=== PATIENT | male | born 1935 | race Caucasian/White ===

== ENCOUNTER → 2017-08-31 08:14 | Outpatient (CLI) | payer MEDICARE, SELFPAY ==
--- NOTE | 2017-08-31 08:14 | DT_ITS ---
This patient was seen during an EMR downtime August 24, 2017 - August 31, 2017. This patient may have a combination of paper and electronic documentation or all paper documentation. All documentation is viewable within the e-chart portion of [facility] for each patient visit.
[2017-08-31 10:52] LABS: AST(SGOT) 33 U/L (15-37); Alanine Aminotransfer ALT/SGPT 27 U/L (16-61); Albumin, Serum 3.1 g/dL (3.2-5.0); Alkaline Phosphatase 162 U/L (45-117); Bilirubin, Direct 0.26 mg/dL (0.00-0.30); Cholesterol 88 mg/dL (200); Globulin 3.5 g/dL (2.2-4.2); High Density Lipoprotein 25 mg/dL; Protein, Total 6.6 g/dL (6.4-8.2); Triglycerides 113 mg/dL; Very Low Density Lipoprotein 23 mg/dL (5-40)
== END ==
PROVIDERS: Family Provider Family Medicine; PCP Family Medicine; Visit Provider Internal Medicine Cardiovascular Disease
DX: E78.5 Hyperlipidemia, unspecified (principal); Z79.899 Other long term (current) drug therapy
CPT/HCPCS: 36415; 80061; 80076

== ENCOUNTER → 2018-01-27 12:16 | Outpatient (CLI) | payer MEDICARE, SELFPAY ==
--- NOTE | 2018-01-27 12:18 | ECHOD_ITS ---
Reason For Study: dyspnea/SOB Procedure This was a 2D Doppler, Color Flow transthoracic echocardiogram. The study was technically difficult. Exam performed in department. Left Ventricle Normal LV size. Left ventricular systolic function is normal. The estimated ejection fraction is 65 %. Stage 1 diastolic dysfunction. No regional wall motion abnormalities noted. Right Ventricle Normal RV size. Normal systolic function. Atria Normal left atrium. Normal right atrium. Mitral Valve Normal mitral valve. Tricuspid Valve Normal tricuspid valve. Mild (1+) tricuspid valve insufficiency. Pulmonary artery systolic pressure is 32 mmHg. Aortic Valve Normal aortic valve. Trisinus/trileaflet aortic valve. Pulmonic Valve Normal pulmonic valve. Great Vessels Normal aortic root. The pulmonary artery is normal size. Normal inferior vena cava. Pericardium/Pleural No pericardial effusion. MMode/2D Measurements & Calculations LVIDd: 5.0 cm IVSd: 0.98 cm Ao root diam: 3.1 cm LVIDs: 2.8 cm LVPWd: 0.93 cm RVDd: 2.6 cm FS: 44.2 % LAV(MOD-bp): 57.0 ml EDV(MOD-sp4): 54.2 ml EDV(MOD-sp2): 47.0 ml LAV(MOD-bp) Indexed: 29.3 ml/m2 ESV(MOD-sp4): 22.4 ml EF(MOD-sp2): 54.0 % LAV(MOD-sp2): 61.3 ml EF(MOD-sp4): 58.7 % LAV(MOD-sp4): 53.2 ml SV(MOD-sp4): 31.8 ml SV(MOD-sp2): 25.4 ml LA A4 area: 17.9 cm2 LA dimension(2D): 3.9 cm RA A4 area: 14.2 cm2 Time Measurements MV dec time: 0.19 sec Doppler Measurements & Calculations MV E max duke: 78.0 cm/sec Lat Peak E' Duke: 7.2 cm/sec Med Peak E' Duke: 6.8 cm/sec MV A max duke: 107.5 cm/sec E/E' lat: 10.8 E/E' med: 11.5 MV E/A: 0.73 Ao V2 max: 128.0 cm/sec LV V1 max: 94.8 cm/sec PA V2 max: 141.1 cm/sec Ao max P.6 mmHg LV V1 max P.6 mmHg TR max duke: 266.4 cm/sec TR max P.4 mmHg Interpretation Summary Mild (1+) tricuspid valve insufficiency. Normal LV size. Left ventricular systolic function is normal. The estimated ejection fraction is 65 %. Stage 1 diastolic dysfunction. Ordering Physician: Carlos Coreas Referring Physician: Ana María Mazariegos Performed By: China Wooten, SUGAR, RVT
== END ==
PROVIDERS: Referring Provider Internal Medicine Cardiovascular Disease; Visit Provider Internal Medicine Cardiovascular Disease
DX: Z79.899 Other long term (current) drug therapy (principal)
CPT/HCPCS: 93306

== ENCOUNTER → 2018-03-11 09:35 | Outpatient (CLI) | payer MEDICARE, SELFPAY ==
[2018-01-21 10:09] VITALS: BMI 30.3
--- NOTE | 2018-03-11 09:42 | BD_ITS ---
STUDY: DUAL ENERGY X-RAY ABSORPTIOMETRY / DXA REASON FOR EXAM: Male, 83 years old. Elevated alkaline phosphatase. Loss of height. TECHNIQUE: Bone Mineral Density (BMD) measurements of lumbar spine and bilateral hips were obtained. COMPARISON: None. FINDINGS: Lumbar Spine (L1-L4): g/cm2 (1.150) / T-score (-0.4) / Z-score (0.4) Findings are suggestive of normal bone density with a low fracture risk. Left Femur Total: g/cm2 (0.805) / T-score (-2.1) / Z-score (-0.7) Left Femoral Neck: g/cm2 (0.734) / T-score (-2.6) / Z-score (-0.9) Right Femur Total: g/cm2 (0.737) / T-score (-2.5) / Z-score (-1.2) Right Femoral Neck: g/cm2 (0.779) / T-score (-2.2) / Z-score (-0.6) BD/Dexa Bone Density Study IMPRESSION: The patient is considered osteoporotic as outlined below according to World Sean Organization (WHO) criteria with a high fracture risk Reference Information: The T-score is the number of standard deviations above or below the standard which is normal for young adults at their peak bone mineral density. The World Health Organization (WHO) interprets the T-scores as follows: Above -1 Normal bone density Between -1 and -2.5 Osteopenia Equal to / or below -2.5 Osteoporosis As a practical clinical guideline, osteopenia may be graded as follows: Mild -1 through -1.5 Moderate -1.6 through -2.0 Severe -2.1 through -2.4 The Z-score is the number of standard deviations above or below age-matched controls. A Z-score of less than -1.5 would be considered abnormal. References: 1. NIH Osteoporosis and Related Bone Diseases http://www.osteo.org 2. International Society for Clinical Densitometry http://www.iscd.org 3. National Osteoporosis Foundation http://www.nof.org Electronically Signed: Paulino Stout MD at 9:59 EST Tel [phone], Service support ,
== END ==
PROVIDERS: Referring Provider Internal Medicine Endocrinology, Diabetes & Metabolism; Visit Provider Internal Medicine Endocrinology, Diabetes & Metabolism
DX: Z79.52 Long term (current) use of systemic steroids (principal)
CPT/HCPCS: 77080

== ENCOUNTER → 2018-03-19 09:10 | Outpatient (CLI) | payer MEDICARE, SELFPAY ==
--- NOTE | 2018-03-19 09:13 | NM_ITS ---
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 WHOLE BODY 99m Tc MDP RADIONUCLIDE BONE SCINTIGRAPHY COMPARISON: None available FINDINGS: Following the intravenous administration of 26.1 mCi of 99m Tc MDP, whole body bone images reveal: 1. Increased radiopharmaceutical concentration is identified in the sternoclavicular and glenohumeral compartment of the right shoulder, the bilateral wrist articulations, mid cervical spine posteriorly on the left, fourth lumbar vertebra posteriorly on the left, fifth lumbar vertebra posteriorly on the right, the anteromedial femoral compartment of the left knee. 2. Enhanced uptake is demonstrated in the right anterior sixth rib. 3. The remaining skeletal structures are scintigraphically unremarkable with normal-appearing renal images and urinary bladder activity identified. Asymmetric increased uptake is defined in the right maxilla most consistent with periodontal disease and/or periostitis. NM/Bone Scan Whole Body IMPRESSION: 1. The increase in radiopharmaceutical concentration defined in the right anterior sixth rib is most consistent with trauma-fracture. 2. Degenerative arthritis appears expressed in the right shoulder, wrist articulations bilaterally, cervical and lumbar spine, the left knee. 3. There is no definitive typical scintigraphic evidence of Paget's disease of bone on the current examination. Electronically Signed: Fab Oliveros DO at 8:23 EST Tel , Service support ,
== END ==
PROVIDERS: Referring Provider Internal Medicine Endocrinology, Diabetes & Metabolism; Visit Provider Internal Medicine Endocrinology, Diabetes & Metabolism
DX: M88.9 Osteitis deformans of unspecified bone (principal)
CPT/HCPCS: 78306

== ENCOUNTER 2018-03-20 14:19 | Inpatient (IN) | payer MEDICARE, SELFPAY ==
[2018-03-20] VITALS (15 sets, daily range): BP systolic 160–205; BP diastolic 70–98; PULSE 72–87; RESP 15–25; TEMP 36.5–36.7; O2SAT 95–98; BMI 31.9; BMI 30.8; BMI 30.9
--- NOTE | 2018-03-20 14:27 | EKG12_ITS ---
Test Reason : NEURO SX Blood Pressure : / mmHG Vent. Rate : 083 BPM Atrial Rate : 083 BPM P-R Int : 202 ms QRS Dur : 124 ms QT Int : 414 ms P-R-T Axes : 037 -47 011 degrees QTc Int : 486 ms Normal sinus rhythm with sinus arrhythmia Right bundle branch block Left anterior fascicular block Bifascicular block Abnormal ECG Confirmed by JEANMARIE SILVA, SHANDA ([id number]), editor & co founder LEOLA BURTON ([id number]) on 03/22/2018 12:42:13 PM Referred By: Nellie Jimenez Confirmed By:SHANDA MURRY MD
--- NOTE | 2018-03-20 14:27 | RAD_ITS ---
STUDY: X-RAY CHEST REASON FOR EXAM: Male, 83 years old. Cough TECHNIQUE: Single AP portable view of the chest. COMPARISON: None. FINDINGS: EKG leads overlie the chest The lungs are clear and expanded. There is no demonstrated pleural abnormality. Normal size heart. Normal mediastinum and mignon. Normal visualized pulmonary arteries. Normal visualized aortic arch and descending thoracic aorta. There are diffuse degenerative changes of the visualized thoracic spine. Normal visualized ribs, clavicles, and shoulders. There is no demonstrated abnormality of the visualized soft tissue structures of the upper abdomen. RAD/Chest 1 View IMPRESSION: No acute pulmonary process Electronically Signed: Champ Guerrier MD at 15:21 EST , Service support ,
--- NOTE | 2018-03-20 14:27 | CT_ITS ---
STUDY: CT BRAIN WITHOUT CONTRAST REASON FOR EXAM: Male, 83 years old. Left facial droop RADIATION DOSAGE (If Supplied By Facility): CTDIvol = ( 44.99 ) mGy, DLP = ( 779.24 ) mGycm TECHNIQUE: Transaxial CT imaging of the brain was performed without administration of intravenous contrast material. Individualized dose optimization techniques were used for this CT. COMPARISON: None. FINDINGS: Normal soft tissue structures. Normal calvarium. 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 There are areas of decreased attenuation within the white matter tracts of the supratentorial brain, consistent with microvascular disease changes. Normal basal ganglia and thalami. Normal brainstem. There is mild cerebellar atrophy. There is no intracranial hemorrhage. There are no findings of an acute ischemic infarction. Normal visualized paranasal sinuses. CT/Brain/Head without Contrast IMPRESSION: Chronic involutional changes of the brain. No acute hemorrhage Electronically Signed: Champ Guerrier MD at 15:17 EST , Service support ,
[2018-03-20 14:46] LABS: Bedside Glucose 218 mg/dL (70-110)
--- NOTE | 2018-03-20 14:46 | ED.VISSUMM ---
- ER Visit Summary Date of Service: 03/20/18 Chief Complaint: Facial droop, slurred speech History of Present Illness: The patient is a 83 M presents to the emergency department with facial droop and slurred speech. The patient was in his normal state of health. The daughter talked to him yesterday and he seemed to be doing fine. He went to a late breakfast with friends. When he was driving home, he states that he was just not feeling well. She states that she went to the house to check on him. He had a left-sided facial droop and was dysarthric. He has no prior history of stroke. In route to the emergency department, his symptoms began to improve. They did start at approximately noon today. He denies any trauma. She states that he was unsteady on his feet with walking. He is not had fevers or chills. The patient does have history of hypomagnesemia and hypocalcemia that he is currently being worked up for. He has had no history of prior stroke. Physical Examination: Vital signs reviewed General: Well-nourished, well-developed Head: Normocephalic, atraumatic Eyes: Pupils equal and reactive, extraocular muscles intact Neck, supple, no lymphadenopathy Heart: Regular rate and rhythm Respiratory: No distress, clear bilaterally Abdomen: Soft, nontender, nondistended, no peritoneal signs Back: Nontender Extremities: Nontender, no edema, no cords Skin: Normal color no rash Neuro: Alert and oriented, mild left-sided facial droop and mild dysarthria. NIH is 2. Test Results: [] Emergency Department Course and Treatment: The patient's NIH was only 2 and his symptoms are rather to be improving. Stroke team was not activated given this. The patient underwent head CT which was unremarkable. Screening labs do show hypomagnesemia, but were otherwise unremarkable. The patient had continued progression and improvement of his symptoms. At this time, given his age and multiple risk factors I do feel that he is going require stroke workup. I started him on IV magnesium replacement. The patient was discussed with the hospitalist will be admitted Treatment Plan: [] Disposition: Admission Impression: 1. Left facial droop 2. Hypomagnesemia This note was generated with [employer] dictation software. It may contain incorrect words, spelling, and punctuation that were not noted in review of the chart prior to signing ED Disposition - Plan for ED Patient: Chief Complaint: Neuro S/Sx Referrals: Ana María Mazariegos DO [Primary Care Provider] -
[2018-03-20 15:00] LABS: Absolute Lymphocyte Count 0.49 X10^3/ul (0.83-4.51); Absolute Neutrophil Count 3.4 X10^3/uL (2.0-7.7); Basophil# 0.02 X10^3/uL; Basophil% 0.4 % (0-1); Eosinophil# 0.18 X10^3/uL; Hematocrit 29.2 % (40-54); Lymphocyte # 0.49 X10^3/ul (4.0); Mean Corp Hgb Conc 34.2 g/gl (32-36); Mean Corpuscular Hgb 35.7 pg (27.0-32.0); Mean Corpuscular Volume 104.3 fL (80-94); Mean Platelet Vol. 9.1 fl (6.2-12.0); Monocyte# 0.35 X10^3/uL; Monocyte% 7.9 % (0-10); Neutrophil % 76.5 % (47-70); Platelet Count 90 K/mm3 (150-450); RBC Distribution Width CV 13.9 % (11.6-14.6); White Blood Count 4.5 K/mm3 (4.4-11.0)
[2018-03-20 15:03] LABS: Differential Indicated SCAN CRITERIA MET; POSITIVE COUNT NO; POSITIVE DIFFERENTIAL YES; POSITIVE MORPHOLOGY NO
[2018-03-20 15:10] LABS: International Normalized Ratio 1.1; Prothrombin Time (Protime)PT. 14.4 SECONDS (11.7-14.9)
[2018-03-20 15:11] LABS: Partial Thromboplast Time 30.8 Seconds (24.1-36.2)
[2018-03-20 15:29] LABS: Anion Gap 12 (5-15); BUN 27 mg/dL (7-18); BUN/Creat Ratio 15.3 RATIO (10-20); Calcium,Total 7.8 mg/dL (8.5-10.1); Chloride 99 mmol/L (98-107); Creatinine, Serum 1.76 mg/dL (0.70-1.30); EST Glomerular Filtration Rate 39 mL/min (>60); Est Glom Filt Rate - Afr Amer 48 mL/min (>60); Estimated Creatinine Clearance 28.19 ml/min; Glucose 222 mg/dL (74-106); Magnesium 0.7 mg/dL (1.6-2.6); Potassium 3.9 mmol/L (3.5-5.1); Sodium Level 138 mmol/L (136-145)
[2018-03-20 15:40] LABS: Differential Comment SCANNED
--- NOTE | 2018-03-20 16:18 | HP.PCM_ITS ---
Problem List (1) Chronic kidney disease (CKD) Status: Chronic (2) Hypomagnesemia Status: Chronic (3) History of subarachnoid hemorrhage Status: Chronic (4) Sleep apnea Status: Chronic (5) Diabetes mellitus type II, controlled Status: Chronic Qualifiers: (6) Hyperlipidemia Status: Chronic Qualifiers: (7) Hypertension Status: Chronic Qualifiers: (8) History of right coronary artery stent placement Status: Chronic Comment: 03/04/05 PTCA/Stent (ANN MARIE) to Distal RCA; (9) Atherosclerotic heart disease of [place] coronary artery without angina pectoris Status: Chronic Qualifiers: Comment: S/P ANN MARIE to distal RCA 03-04-2005; History of Present Illness Date of Admission: 03/20/18 Chief Complaint: Facial droop, slurred speech. The patient is a 83 year old M with past medical history as mentioned above presented to the emergency room because of facial droop and slurred speech. The patient is poor informant although he was alert and oriented x3. His daughter who is a nurse was at the bedside and she provided most of the information. According to the patient's daughter, patient went to breakfast with his friends this morning and when he was driving back home, he mentioned to her daughter that he is not feeling with. She drove to his house to check on him and she mentioned that he had left facial droop and his speech was slurred. This lasted for couple of months and started to improve upon arrival to ER.. He was unsteady upon walking. At this time, patient denied blurred vision or slurred speech. He denies focal arm or leg weakness. He reported chronic mild headache. Denies chest pain or shortness of breath. He history of CAD status post stents that was placed back in 2004 and he has been on Plavix, metoprolol and lisinopril. He had a history of recurrent hypocalcemia and hypomagnesemia, has been on calcium and magnesium supplement at home. 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 He had a history of hypertension and he has been on beta-blockers and HILLARY inhibitors and according to his daughter, his brother has been on the higher side the last few days. He had a history of type 2 diabetes mellitus and has been on oral hypoglycemic and his blood sugar is not under good control. In the emergency department, his blood pressure was elevated, other vital signs were stable. Routine blood work was remarkable for hemoglobin of 10 g/dL, platelet count of 90,000, BUN of 27 and creatinine of 1.76. His magnesium was 0.7 and calcium was 7.8 mg/dL. His troponin was negative. EKG revealed normal sinus rhythm, right bundle branch block without evidence of acute ischemic changes. CT scan brain without contrast revealed no acute infarction or hemorrhage. Chest x-ray showed no acute findings. He is being admitted for TIA for workup, severe hypermagnesemia and hypocalcemia for treatment as well as chronic kidney disease without known baseline kidney function. Past Medical History Past Medical History (Chronic Problems): Chronic Problems (Last Updated 03/20/18 @ 15:46 by Nory Polo MD) Chronic kidney disease (CKD) (Chronic) Hypomagnesemia (Chronic) History of subarachnoid hemorrhage (Chronic) Hypochromic anemia (Chronic) Sleep apnea (Chronic) Diabetes mellitus type II, controlled (Chronic) Hyperlipidemia (Chronic) Hypertension (Chronic) History of right coronary artery stent placement (Chronic) 03/04/05 PTCA/Stent (ANN MARIE) to Distal RCA; Atherosclerotic heart disease of [place] coronary artery without angina pectoris (Chronic) S/P ANN MARIE to distal RCA 03-04-2005; Medical History: Medical History (Last Updated 03/20/18 @ 15:46 by Nory Polo MD) History of subarachnoid hemorrhage (Chronic) Z86.79 Hypochromic anemia (Chronic) D50.9 Sleep apnea (Chronic) G47.30 Diabetes mellitus type II, controlled (Chronic) E11.9 Hyperlipidemia (Chronic) E78.5 Hypertension (Chronic) I10 Atherosclerotic heart disease of [place] coronary artery without angina pectoris (Chronic) I25.10 S/P ANN MARIE to distal RCA 03-04-2005; Shortness of breath R06.02 Allergies amoxicillin Allergy (Severe, Verified 03/20/18 14:26) unknown Tetanus Vaccines and Toxoid Allergy (Severe, Verified 03/20/18 14:26) unknown Home Medications: Ambulatory Orders Medication Instructions Recorded clopidogrel 75 mg tablet 75 mg PO QDAY 03/09/17 esomeprazole magnesium 20 mg 20 mg PO QDAY cap 03/09/17 capsule,delayed release ferrous sulfate 325 mg (65 mg 324 mg PO QDAY tab 03/09/17 iron) tablet,delayed release gabapentin 100 mg capsule 100 mg PO QHS 03/09/17 lisinopril 5 mg tablet 5 mg PO QDAY 03/09/17 metoprolol tartrate 25 mg tablet 25 mg PO BID 03/09/17 multivitamin tablet 1 tab PO QDAY 03/09/17 nabumetone 500 mg tablet 500 mg PO BID 03/09/17 pravastatin 80 mg tablet 80 mg PO QHS 03/09/17 calcium carbonate-vitamin D3 600 1 tab PO BID 09/08/17 mg (1,500 mg)-800 unit tablet pioglitazone 30 mg tablet 30 mg PO QDAY tab 09/08/17 calcitriol 0.25 mcg capsule 0.25 mcg PO ONCE 01/21/18 calcitriol 0.25 mcg capsule 0.25 mcg PO ONCE 01/21/18 magnesium oxide 400 mg capsule 400 mg PO BID #180 cap 01/21/18 Surgical History: Surgical History (Last Reviewed 01/21/18 @ 10:27 by Carlos Coreas MD) History of right coronary artery stent placement (Chronic) Z95.5 03/04/05 PTCA/Stent (ANN MARIE) to Distal RCA; Surgical History: - - Cardiac stents. Psychiatric History: No pertinent psych hx Lives: Alone Smoking Status: Former smoker Alcohol: None Drugs: None - *Family History Maternal Family History: Family History (Last Reviewed 01/21/18 @ 10:27 by Carlos Coreas MD) Father Hypertension Mother Heart disease Congestive heart failure Diabetes Sister ruptured brain aneurysm Paternal Family History: Family History (Last Reviewed 01/21/18 @ 10:27 by Carlos Coreas MD) Father Hypertension Mother Heart disease Congestive heart failure Diabetes Sister ruptured brain aneurysm Review of Systems Constitutional: Denies: Anorexia, Chills, Fever, Weakness Eyes: Denies: Blurred vision, Double vision, Drainage, Redness HEENT: Reports: Head Aches. Denies: Difficulty Hearing, Ear Pain, Eye Pain, Nasal Congestion, Sore Throat Cardiovascular: Denies: Chest Pain, Chest Pressure, Chest Tightness, Heaviness, Light Headedness, Palpitations, Syncope Respiratory: Denies: Cough, Hemoptysis, Shortness of Breath, Sputum production, Wheezing Gastrointestinal: Denies: Abdominal Pain, Constipation, Diarrhea, Nausea, Vomiting Genitourinary: Denies: Dysuria, Frequency, Hematuria Musculoskeletal: Denies: Arm Pain, Back Pain, Foot Pain Skin: Denies: Dryness, Rash Neurological: Reports: Change in Speech, Headaches. Denies: Balance problems, Blurred vision, Double vision, Slurred speech, Confusion, Focal weakness, Incoordination, Numbness, Tingling Psychiatric: Denies: Anxiety, Depression Endocrine: Denies: Change in Body Habitus, Polydipsia VTE Information - Inpt Only VTE Present on Admission: No VTE Mechan Device Prophylaxis: None VTE Pharm Prophylaxis ordered?: Yes - Physical Exam General: Alert, Oriented x3, Cooperative, No apparent distress HEENT: Atraumatic, PERRLA, EOMI, Normocephalic Oral: Moist Mucosa, No Gingival or Mucosal Lesions/ Ulcerations Neck: Supple, No JVD, Negative Carotid Bruits, Trachea Midline, Thyroid Normal Size and Texture Lungs: Clear to auscultation, No rhonchi, No wheeze, No rales, Diminished Cardiovascular: Regular rate, Regular Rhythm, Normal S1, Normal S2, No murmurs, PMI Normal Abdomen: Bowel Sounds Present, Soft, Non Tender, Non-Distended, No Hepato- splenomegaly Extremities: No clubbing, No cyanosis, No edema Skin: No rashes, No breakdown Lymphatic: No Cervical, Supraclavicular, or Inguinal Adenopathy Neurological: Cranial nerves II-XII grossly intact, Motor Exam 5/5 strength throughout Psych/Mental Status: Flat Affect, Alert and oriented to time, place, person, mood and affect Vital Signs Temp Pulse Resp BP Pulse Ox 97.7 F L 78 22 H 186/83 H 96 03/20/18 14:21 03/20/18 14:57 03/20/18 14:57 03/20/18 14:57 03/20/18 14:57 Oxygen Delivery Method Room Air Weight: 198 lb 3.129 oz Body Mass Index (BMI) 31.9 Finger Stick Blood Glucose 218 Laboratory Tests Past 24 Hrs 03/20/18 03/20/18 03/20/18 14:40 14:40 14:40 WBC 4.5 RBC 2.80 L Hgb 10.0 L Hct 29.2 L MCV 104.3 H MCH 35.7 H MCHC 34.2 RDW 13.9 RDW Differential 53.0 H Plt Count 90 L MPV 9.1 Immature Gran % (Auto) 0.200 Neut % (Auto) 76.5 H Lymph % (Auto) 11.0 L [place] % (Auto) 7.9 Eos % (Auto) 4.0 Baso % (Auto) 0.4 Absolute Neuts (auto) 3.4 Absolute Lymphs (auto) 0.49 L Total Counted Not Reportable Differential Comment SCANNED PT 14.4 INR 1.1 APTT 30.8 Sodium 138 Potassium 3.9 Chloride 99 Carbon Dioxide 27.0 Anion Gap 12 BUN 27 H Creatinine 1.76 H Estim Creat Clear Calc 28.19 Est GFR (MDRD) Af Amer 48 L Est GFR (MDRD) Non-Af 39 L BUN/Creatinine Ratio 15.3 Glucose 222 H Calcium 7.8 L Magnesium 0.7 L* Troponin I < 0.015 POC Glucose 03/20/18 14:39 POC Glucose 218 H Clinical Impression(s) from Imaging Studies Brain CT 03/20/18 14:27 IMPRESSION: Chronic involutional changes of the brain. No acute hemorrhage Electronically Signed: Champ Guerrier MD at 15:17 EST , Service support , Chest X-Ray 03/20/18 14:27 IMPRESSION: No acute pulmonary process Electronically Signed: Champ Guerrier MD at 15:21 EST , Service support , Assessment/Plan This is an 83 years old male patient presented to the emergency department because of sudden speech and facial droop and he is being admitted for TIA for evaluation, found to have severe hypomagnesemia and mild hypocalcemia. #1 left facial droop/slurred speech/TIA: Symptoms resolved. CT scan brain showed no acute findings. No focal deficit on physical exam. Blood pressure elevated, other vital signs are stable. EKG revealed normal sinus rhythm, RBBB, no acute ischemic changes. Troponin is negative. Plan: Admit to PCU, cardiac monitoring, NIH stroke scale, MRI brain, bilateral carotid Doppler, 2D echocardiogram, start aspirin and Lipitor, fasting lipid profile, neurology consult, PT OT evaluation and treatment, speech therapy evaluation and treatment. #2 severe hypomagnesemia/mild hypocalcemia: Patient has been suffering of recurrent hypocalcemia and hypomagnesemia. He has been on calcium and magnesium supplement at home. He has been going on the workup for hyperglycemia and hypoglycemia, nuclear whole-body bone scan done yesterday and reviewed as above. Plan: Replace magnesium with IV magnesium sulfate, will give 1 dose of IV calcium gluconate, check serum phosphorus, LFT to check for serum albumin for correct sodium level, ionized calcium, repeat serum magnesium, calcium tomorrow morning. 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 With unknown baseline GFR and creatinine. Admission creatinine is 1.76. Plan: Gentle IV fluids for hydration, input output chart, repeat BMP tomorrow morning, obtain records from PCP office. #4 chronic anemia/chronic thrombocytopenia: Without evidence of active bleeding. Hemoglobin is 10 g/dL and platelet count 90,000, both seem to be at baseline. Plan to repeat CBC tomorrow morning, continue iron supplement. #6 CAD status post stents: EKG reviewed, no acute changes, troponin is negative. Patient denies any chest pain. Plan to continue Plavix, start aspirin, statins, continue HILLARY inhibitors and beta-blockers. #5 hypertension: Blood pressure elevated, will allow permissive hypertension. Plan to continue lisinopril and metoprolol. #7 type 2 diabetes mellitus: ADA diet, Accu-Cheks, insulin sliding scale, will check hemoglobin A1c, continue home doses of pioglitazone. #8 history of subarachnoid hemorrhage: Stable, CT scan brain without acute bleeding. #9 hyperlipidemia: Continue statins. #10 DVT prophylaxis: Subcu heparin. This note was generated with [employer] dictation software. It may contain incorrect words, spelling, and punctuation that were not noted in checking the note before signing. Code Visit Inpatient E&M: 21832 Init Hosp L3
--- NOTE | 2018-03-20 17:29 | ECHOCS_ITS ---
Reason For Study: TIA/CVA Procedure This was a 2D Doppler, Color Flow transthoracic echocardiogram. The study was technically difficult. Contrast injection was performed. Exam performed portable in patient room. Left Ventricle Normal LV size. Left ventricular systolic function is normal. The estimated ejection fraction is 75 %. Diastolic function is indeterminate. No regional wall motion abnormalities noted. Right Ventricle Normal RV size. Normal systolic function. Atria Normal left atrium. Normal right atrium. No doppler evidence for ASD. Bubble contrast study negative for right to left interatrial shunt. Mitral Valve There is no mitral annular calcification. Normal mitral valve. Trivial mitral valve insufficiency. Tricuspid Valve Normal tricuspid valve. Trivial tricuspid valve insufficiency. Right ventricular systolic pressure estimated to be 39 mmHg. Aortic Valve Trisinus/trileaflet aortic valve. Mild focal aortic valve calcification. Pulmonic Valve The pulmonic valve is not well visualized. Mild (1+) pulmonic valve insufficiency. Great Vessels Normal sized aortic root. Pericardium/Pleural No pericardial effusion. Medication Diluted definity 1ml given slow IV push to enhance endocardial definition. Performed a rapid injection of agitated mix of 9 cc saline and 1cc air to assess for atrial septal defect. MMode/2D Measurements & Calculations LVIDd: 3.9 cm IVSd: 1.5 cm Ao root diam: 3.3 cm LVIDs: 2.2 cm LVPWd: 1.2 cm LA dimension: 3.6 cm FS: 42.9 % LAV(MOD-bp): 53.4 ml LVAd ap4: 27.9 cm2 SV(MOD-sp4): 54.6 ml LAV(MOD-bp) Indexed: 30.7 ml/m2 EDV(MOD-sp4): 83.8 ml LAV(MOD-sp2): 73.7 ml EDV(sp4-el): 89.1 ml LAV(MOD-sp4): 38.2 ml LVAs ap4: 14.3 cm2 ESV(MOD-sp4): 29.2 ml ESV(sp4-el): 29.6 ml EF(MOD-sp4): 65.2 % EF(sp4-el): 66.8 % SV(sp4-el): 59.5 ml LA A4 area: 15.5 cm2 RA A4 area: 13.6 cm2 Doppler Measurements & Calculations Ao V2 max: 105.3 cm/sec LV V1 max: 87.9 cm/sec PA V2 max: 141.2 cm/sec Ao max P.4 mmHg LV V1 max P.1 mmHg TR max hannah: 299.5 cm/sec TR max P.9 mmHg Interpretation Summary The study was technically difficult. Contrast injection was performed. Left ventricular systolic function is normal. The estimated ejection fraction is 75 %. Trivial mitral valve insufficiency. Trivial tricuspid valve insufficiency. Mild focal aortic valve calcification. Mild (1+) pulmonic valve insufficiency. Right ventricular systolic pressure estimated to be 39 mmHg. Diastolic function is indeterminate. Ordering Physician: Nory Polo Referring Physician: Ana María Mazariegos Performed By: Lee Turner RCS
[2018-03-20 18:21] LABS: AST(SGOT) 40 U/L (15-37); Alanine Aminotransfer ALT/SGPT 39 U/L (16-61); Albumin, Serum 3.2 g/dL (3.2-5.0); Alkaline Phosphatase 205 U/L (45-117); Bilirubin, Direct 0.45 mg/dL (0.00-0.30); Globulin 3.3 g/dL (2.2-4.2); Protein, Total 6.5 g/dL (6.4-8.2)
[2018-03-20 18:36] LABS: Hemoglobin A1c 4.7 % (4.2-6.3)
[2018-03-20] MEDS: 0.9% Normal Saline 1,000 ML 75 ML IV (18:41)
[2018-03-20] MEDS: Magnesium Sulfate 4gm/100mL 4 GM/100 ML IV.SOLN. IV (18:45)
[2018-03-20] MEDS: Acetaminophen 325 MG Tablet 650 MG PO (18:45)
[2018-03-20] MEDS: Atorvastatin Calcium 80 MG Tablet PO (21:21)
[2018-03-20] MEDS: Insulin Lispro 100 UNIT/ML INSULN.PEN SC (21:21)
[2018-03-20] MEDS: Heparin Injection (Vial) 5,000 UNIT/ML VIAL 5000 UNIT SC (21:21)
[2018-03-20 21:31] LABS: Bedside Glucose 188 mg/dL (70-110)
[2018-03-21] VITALS (17 sets, daily range): BP systolic 147–185; BP diastolic 79–96; PULSE 74–95; RESP 16–22; TEMP 36.4–37.3; O2SAT 93–95; BMI 30.8
[2018-03-21] MEDS: Acetaminophen 325 MG Tablet 650 MG PO ×3 (00:01→08:10)
[2018-03-21] MEDS: Albuterol 2.5 MG/3 ML VIAL.NEB. INHALATION ×2 (04:38→12:06)
[2018-03-21] MEDS: 0.9% Normal Saline 1,000 ML 75 ML IV ×2 (06:35→21:30)
[2018-03-21 06:41] LABS: Bedside Glucose 124 mg/dL (70-110)
[2018-03-21 06:45] LABS: Absolute Lymphocyte Count 0.74 X10^3/ul (0.83-4.51); Absolute Neutrophil Count 1.9 X10^3/uL (2.0-7.7); Basophil# 0.03 X10^3/uL; Basophil% 0.9 % (0-1); Eosinophil# 0.11 X10^3/uL; Eosinophils% 3.3 % (0-5); Hematocrit 27.7 % (40-54); Hemoglobin 9.4 g/dl (13.0-16.5); Lymphocyte # 0.74 X10^3/ul (4.0); Mean Corp Hgb Conc 33.9 g/gl (32-36); Mean Corpuscular Hgb 36.2 pg (27.0-32.0); Mean Corpuscular Volume 106.5 fL (80-94); Mean Platelet Vol. 9.8 fl (6.2-12.0); Monocyte# 0.56 X10^3/uL; Monocyte% 16.6 % (0-10); Neutrophil # 1.92 X10^3/uL (2.7-7.7); Neutrophil % 56.9 % (47-70); Platelet Count 97 K/mm3 (150-450); RBC Distribution Width CV 13.6 % (11.6-14.6); RBC Distribution Width SD 51.2 fl (35.1-43.9); White Blood Count 3.4 K/mm3 (4.4-11.0)
[2018-03-21 06:48] LABS: POSITIVE COUNT NO; POSITIVE DIFFERENTIAL NO; POSITIVE MORPHOLOGY NO
[2018-03-21 07:07] LABS: Anion Gap 13 (5-15); BUN 23 mg/dL (7-18); BUN/Creat Ratio 16.5 RATIO (10-20); Calcium,Total 7.9 mg/dL (8.5-10.1); Chloride 102 mmol/L (98-107); Cholesterol 75 mg/dL (200); Creatinine, Serum 1.39 mg/dL (0.70-1.30); EST Glomerular Filtration Rate 52 mL/min (>60); Est Glom Filt Rate - Afr Amer 63 mL/min (>60); Glucose 114 mg/dL (74-106); High Density Lipoprotein 31 mg/dL; Magnesium 2.1 mg/dL (1.6-2.6); Potassium 3.9 mmol/L (3.5-5.1); Sodium Level 138 mmol/L (136-145); Triglycerides 81 mg/dL; Very Low Density Lipoprotein 16 mg/dL (5-40)
[2018-03-21] MEDS: Aspirin 81 MG TAB.CHEW PO (08:09)
[2018-03-21] MEDS: Glucerna Shake 120 ML LIQUID PO (08:09)
--- NOTE | 2018-03-21 08:25 | MRI_ITS ---
STUDY: MRA NECK WITH AND WITHOUT CONTRAST REASON FOR EXAM: Male, 83 years old. cva, slurred speech,facial droop. TECHNIQUE: 3-D [id number] (TOF) imaging was performed in an 1.5 T MRI scanner. 9 ml of Gadavist was administered for the contrast enhanced images. COMPARISON: None. FINDINGS: RIGHT CAROTID ARTERIES: Normal right common carotid artery (CCA). There is moderate atherosclerotic plaque formation with moderate narrowing of the carotid bulb. There is moderate atherosclerotic plaque formation of the origin of the right internal carotid artery with an estimated stenosis of 50-69% stenosis. Normal visualized cervical portion of the right internal carotid artery. Normal origin of the right external carotid artery (ECA). LEFT CAROTID ARTERIES: Normal left common carotid artery (CCA). There is mild atherosclerotic plaque formation with minimal narrowing of the left carotid bulb. There is mild atherosclerotic plaque formation of the origin of the left internal carotid artery with less than 50% cross sectional diameter stenosis. Normal visualized cervical portion of the left internal carotid artery. Normal origin of the left external carotid artery (ECA). VERTEBRAL ARTERIES: Normal antegrade flow within the bilateral vertebral artery without a hemodynamically significant stenosis. MRI/MRA Neck WITH and W/O Contrast IMPRESSION: 50-69% stenosis of the right ICA. Further evaluation with CTA can be obtained. Electronically Signed: Marianela Yu MD at 13:27 EST Tel , Service support ,
--- NOTE | 2018-03-21 08:25 | MRI_ITS ---
STUDY: MRA OF THE HEAD WITHOUT CONTRAST REASON FOR EXAM: Male, 83 years old. CVA, slurrd speech,facial droop. TECHNIQUE: 3-D mbzn-[id number] (TOF) imaging was performed with MIPs. The study was performed unenhanced. COMPARISON: None. FINDINGS: Normal bilateral petrous carotid arteries. Normal right cavernous carotid artery with a normal supraclinoid bifurcation. Normal left cavernous carotid artery with a normal supraclinoid bifurcation. There is hypoplastic development of the right A1 segment of the anterior cerebral arteries with an atretic but intact artery. Normal left A1 segments of the anterior cerebral artery. Normal intact anterior communicating artery (ACOM). Normal bilateral A2 segments of the anterior cerebral arteries. Normal right M1 and M2 segments of the middle cerebral arteries, with a normal M1 bifurcation. Normal left M1 and M2 segments of the middle cerebral arteries, with a normal M1 bifurcation. There is non-visualization of the right posterior communicating artery (PCOM). There is non-visualization of the left posterior communicating artery (PCOM). Normal bilateral vertebral arteries. Normal basilar artery with a normal basilar bifurcation. The visualized bilateral superior cerebellar (SCA) arteries are normal. Normal bilateral P1, P2 and visualized P3 segments of the posterior cerebral arteries. There is no demonstrated aneurysm of the [place]. There is no major vessel occlusion or hemodynamically significant stenosis. There is no demonstrated abnormality of the visualized brain. MRI/MRA Head ONLY without Contrast IMPRESSION: There is no major vessel occlusion or hemodynamically significant stenosis. Electronically Signed: Marianela Yu MD at 13:24 EST Tel , Service support ,
[2018-03-21] MEDS: Heparin Injection (Vial) 5,000 UNIT/ML VIAL 5000 UNIT SC ×2 (09:23→21:31)
--- NOTE | 2018-03-21 10:11 | MRI_ITS ---
STUDY: MRI BRAIN WITHOUT CONTRAST REASON FOR EXAM: Male, 83 years old. cva, slurred speech,facial droop. TECHNIQUE: Standardized multiplanar fat and water weighted pulse sequences were obtained. COMPARISON: 03/20/2018 CT of the head FINDINGS: There is mild cerebral atrophy with widening of the extra-axial spaces and ventricular dilatation. There are a limited number of small white matter hyperintensities, distributed throughout the deep white matter tracts of the cerebral hemispheres, consistent with mild chronic white matter ischemic changes. Normal bilateral basal ganglia. Normal thalami. There is no extra-axial fluid accumulation. Normal flow voids within the major intracranial circulation suggesting patency by spin echo criteria. Normal sella turcica, pituitary gland, infundibular stalk, optic chiasm and hypothalamus. Normal tectal plate and pineal gland. Normal midbrain, ping and medulla. Normal cerebellum. Normal basal cisterns. There is bilateral mastoid fluid. MRI/Brain without Contrast IMPRESSION: No acute intracranial abnormality. Electronically Signed: Marianela Yu MD at 13:22 EST Tel , Service support ,
[2018-03-21] MEDS: 0.9% NaCl Peripheral Flush Adult/Peds IV (11:55)
[2018-03-21 12:01] LABS: Bedside Glucose 177 mg/dL (70-110)
--- NOTE | 2018-03-21 12:12 | CON.PCM_ITS ---
Reason for Consult Date of Consultation: 03/21/18 Reason for Consultation: tia History of Present Illness: The patient is a 83 year old M presented as described below with facial droop now resolved. recent sob and cough as well, reports breathing improved. lives with daughter who is not present, another daughter with him now unable to give hx. per admit note:The patient is a 83 year old M with past medical history as mentioned above presented to the emergency room because of facial droop and slurred speech. The patient is poor informant although he was alert and oriented x3. His daughter who is a nurse was at the bedside and she provided most of the information. According to the patient's daughter, patient went to breakfast with his friends this morning and when he was driving back home, he mentioned to her daughter that he is not feeling with. She drove to his house to check on him and she mentioned that he had left facial droop and his speech was slurred. This lasted for couple of months and started to improve upon arrival to ER.. He was unsteady upon walking. At this time, patient denied blurred vision or slurred speech. He denies focal arm or leg weakness. He reported chronic mild headache. Denies chest pain or shortness of breath. He history of CAD status post stents that was placed back in 2004 and he has been on Plavix, metoprolol and lisinopril. He had a history of recurrent hypocalcemia and hypomagnesemia, has been on calcium and magnesium supplement at home. 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 He had a history of hypertension and he has been on beta-blockers and HILLARY inhibitors and according to his daughter, his brother has been on the higher side the last few days. He had a history of type 2 diabetes mellitus and has been on oral hypoglycemic and his blood sugar is not under good control. In the emergency department, his blood pressure was elevated, other vital signs were stable. Routine blood work was remarkable for hemoglobin of 10 g/dL, platelet count of 90,000, BUN of 27 and creatinine of 1.76. His magnesium was 0.7 and calcium was 7.8 mg/dL. His troponin was negative. EKG revealed normal sinus rhythm, right bundle branch block without evidence of acute ischemic changes. CT scan brain without contrast revealed no acute infarction or hemorrhage. Chest x-ray showed no acute findings. He is being admitted for TIA for workup, severe hypermagnesemia and hypocalcemia for treatment as well as chronic kidney disease without known baseline kidney function. Past Medical History Past Medical History (Chronic Problems): Chronic Problems (Last Updated 03/20/18 @ 16:10 by Nory Polo MD) Chronic kidney disease (CKD) (Chronic) Hypomagnesemia (Chronic) History of subarachnoid hemorrhage (Chronic) Hypochromic anemia (Chronic) Sleep apnea (Chronic) Diabetes mellitus type II, controlled (Chronic) Hyperlipidemia (Chronic) Hypertension (Chronic) History of right coronary artery stent placement (Chronic) 03/04/05 PTCA/Stent (ANN MARIE) to Distal RCA; Atherosclerotic heart disease of [place] coronary artery without angina pectoris (Chronic) S/P ANN MARIE to distal RCA 03-04-2005; Medical History: Medical History (Last Updated 03/20/18 @ 16:10 by Nory Polo MD) History of subarachnoid hemorrhage (Chronic) Z86.79 Hypochromic anemia (Chronic) D50.9 Sleep apnea (Chronic) G47.30 Diabetes mellitus type II, controlled (Chronic) E11.9 Hyperlipidemia (Chronic) E78.5 Hypertension (Chronic) I10 Atherosclerotic heart disease of [place] coronary artery without angina pectoris (Chronic) I25.10 S/P ANN MARIE to distal RCA 03-04-2005; Shortness of breath R06.02 Allergies amoxicillin Allergy (Severe, Verified 03/20/18 14:26) unknown Tetanus Vaccines and Toxoid Allergy (Severe, Verified 03/20/18 14:26) unknown Home Medications: Ambulatory Orders Medication Instructions Recorded clopidogrel 75 mg tablet 75 mg PO QDAY 03/09/17 esomeprazole magnesium 20 mg 20 mg PO QDAY cap 03/09/17 capsule,delayed release ferrous sulfate 325 mg (65 mg 324 mg PO QDAY tab 03/09/17 iron) tablet,delayed release gabapentin 100 mg capsule 100 mg PO QHS 03/09/17 lisinopril 5 mg tablet 5 mg PO QDAY 03/09/17 metoprolol tartrate 25 mg tablet 25 mg PO BID 03/09/17 multivitamin tablet 1 tab PO QDAY 03/09/17 nabumetone 500 mg tablet 500 mg PO BID 03/09/17 pravastatin 80 mg tablet 80 mg PO QHS 03/09/17 calcium carbonate-vitamin D3 600 1 tab PO BID 09/08/17 mg (1,500 mg)-800 unit tablet pioglitazone 30 mg tablet 15 mg PO QDAY tab 09/08/17 calcitriol 0.25 mcg capsule 0.25 mcg PO ONCE 01/21/18 calcitriol 0.25 mcg capsule 0.25 mcg PO ONCE 01/21/18 Aspirin E.C. [Ecotrin] 81 mg PO DAILY@0800 03/20/18 Calcium Gluconate 500 mg PO BID 03/20/18 Metoprolol Succinate 12.5 mg PO BID 03/20/18 magnesium oxide 400 mg capsule 400 mg PO TID 03/20/18 Surgical History: Surgical History (Last Reviewed 01/21/18 @ 10:27 by Carlos Coreas MD) History of right coronary artery stent placement (Chronic) Z95.5 03/04/05 PTCA/Stent (ANN MARIE) to Distal RCA; Surgical History: - - Cardiac stents. Psychiatric History: No pertinent psych hx Lives: Alone Smoking Status: Former smoker Alcohol: None Drugs: None - *Family History Maternal Family History: Family History (Last Reviewed 01/21/18 @ 10:27 by Carlos Coreas MD) Father Hypertension Mother Heart disease Congestive heart failure Diabetes Sister ruptured brain aneurysm Paternal Family History: Family History (Last Reviewed 01/21/18 @ 10:27 by Carlos Coreas MD) Father Hypertension Mother Heart disease Congestive heart failure Diabetes Sister ruptured brain aneurysm Review of Systems Constitutional: Denies: Chills, Fever, Weight Change HEENT: Denies: Head Aches, Sinus Congestion, Sinus Drainage Cardiovascular: Denies: Chest Pain, Palpitations Respiratory: Denies: Cough, Shortness of breath at rest, Sputum production Gastrointestinal: Denies: Abdominal Pain, Nausea, Vomiting Genitourinary: Denies: Dysuria Musculoskeletal: Denies: Joint Pain, Joint Tenderness Skin: Denies: Rash, Wounds Neurological: Denies: Numbness, Tingling, Focal weakness Psychiatric: Denies: Anxiety, Depression, Homicidal Ideations, Suicidal Ideations Hematologic/ Lymphatic: Denies: Easy Bruising, Easy Bleeding - Physical Exam General: Alert, Oriented x3, Cooperative HEENT: Atraumatic, PERRLA, EOMI, Normocephalic Neck: Supple, No JVD, Negative Carotid Bruits Lungs: Clear to auscultation, Normal air movement Cardiovascular: Regular rate, No murmurs Abdomen: Bowel Sounds Present, Soft, Non Tender Extremities: No edema, Capillary Refill Less than 3 Seconds Skin: No rashes, No breakdown Musculoskeletal: No Tenderness to Palpation of Joints or Extremities Neurological: Cranial nerves II-XII grossly intact Psych/Mental Status: Normal Affect, Appropriate Vital Signs Temp Pulse Resp BP Pulse Ox 36.4 C L 85 20 H 158/96 H 95 03/21/18 11:39 03/21/18 11:39 03/21/18 11:39 03/21/18 11:39 03/21/18 11:39 Oxygen Delivery Method Room Air Weight: 86.7 kg Body Mass Index (BMI) 30.8 Finger Stick Blood Glucose 218 Intake and Output for Last 24 Hours 03/19/18 03/20/18 03/21/18 23:59 23:59 23:59 Intake Total 947.9 / 947.9 1004 / 1004 Output Total 450 / 450 1150 / 1150 Balance 497.9 / 497.9 -146 / -146 Laboratory Tests Past 24 Hrs 03/20/18 03/20/18 03/20/18 14:40 14:40 14:40 WBC 4.5 RBC 2.80 L Hgb 10.0 L Hct 29.2 L MCV 104.3 H MCH 35.7 H MCHC 34.2 RDW 13.9 RDW Differential 53.0 H Plt Count 90 L MPV 9.1 Immature Gran % (Auto) 0.200 Neut % (Auto) 76.5 H Lymph % (Auto) 11.0 L [place] % (Auto) 7.9 Eos % (Auto) 4.0 Baso % (Auto) 0.4 Absolute Neuts (auto) 3.4 Absolute Lymphs (auto) 0.49 L Total Counted Not Reportable Differential Comment SCANNED PT 14.4 INR 1.1 APTT 30.8 Sodium 138 Potassium 3.9 Chloride 99 Carbon Dioxide 27.0 Anion Gap 12 BUN 27 H Creatinine 1.76 H Estim Creat Clear Calc 28.19 Est GFR (MDRD) Af Amer 48 L Est GFR (MDRD) Non-Af 39 L BUN/Creatinine Ratio 15.3 Glucose 222 H Hemoglobin A1c Calcium 7.8 L Ionized Calcium Phosphorus Magnesium 0.7 L* Total Bilirubin Direct Bilirubin AST ALT Alkaline Phosphatase Troponin I < 0.015 Total Protein Albumin Globulin Triglycerides Cholesterol LDL Cholesterol VLDL Cholesterol HDL Cholesterol 03/20/18 03/20/18 03/20/18 14:40 14:40 14:40 WBC RBC Hgb Hct MCV MCH MCHC RDW RDW Differential Plt Count MPV Immature Gran % (Auto) Neut % (Auto) Lymph % (Auto) [place] % (Auto) Eos % (Auto) Baso % (Auto) Absolute Neuts (auto) Absolute Lymphs (auto) Total Counted Differential Comment PT INR APTT Sodium Potassium Chloride Carbon Dioxide Anion Gap BUN Creatinine Estim Creat Clear Calc Est GFR (MDRD) Af Amer Est GFR (MDRD) Non-Af BUN/Creatinine Ratio Glucose Hemoglobin A1c 4.7 Calcium Ionized Calcium Phosphorus 3.0 Magnesium Total Bilirubin 1.20 H Direct Bilirubin 0.45 H AST 40 H ALT 39 Alkaline Phosphatase 205 H Troponin I Total Protein 6.5 Albumin 3.2 Globulin 3.3 Triglycerides Cholesterol LDL Cholesterol VLDL Cholesterol HDL Cholesterol 03/20/18 03/21/18 03/21/18 18:52 05:20 05:20 WBC 3.4 L RBC 2.60 L Hgb 9.4 L Hct 27.7 L MCV 106.5 H MCH 36.2 H MCHC 33.9 RDW 13.6 RDW Differential 51.2 H Plt Count 97 L MPV 9.8 Immature Gran % (Auto) 0.300 Neut % (Auto) 56.9 Lymph % (Auto) 22.0 [place] % (Auto) 16.6 H Eos % (Auto) 3.3 Baso % (Auto) 0.9 Absolute Neuts (auto) 1.9 L Absolute Lymphs (auto) 0.74 L Total Counted Not Reportable Differential Comment PT INR APTT Sodium 138 Potassium 3.9 Chloride 102 Carbon Dioxide 23.0 Anion Gap 13 BUN 23 H Creatinine 1.39 H Estim Creat Clear Calc 35.70 Est GFR (MDRD) Af Amer 63 Est GFR (MDRD) Non-Af 52 L BUN/Creatinine Ratio 16.5 Glucose 114 H Hemoglobin A1c Calcium 7.9 L Ionized Calcium Pending Phosphorus Magnesium 2.1 Total Bilirubin Direct Bilirubin AST ALT Alkaline Phosphatase Troponin I Total Protein Albumin Globulin Triglycerides 81 Cholesterol 75 LDL Cholesterol 28 VLDL Cholesterol 16 HDL Cholesterol 31 L POC Glucose 03/21/18 03/21/18 03/20/18 11:43 06:32 21:20 POC Glucose 177 H 124 H 188 H 03/20/18 14:39 POC Glucose 218 H Current Home Med List Medication Instructions Recorded Confirmed Type clopidogrel 75 mg tablet 75 mg PO QDAY 03/09/17 03/20/18 History esomeprazole magnesium 20 mg 20 mg PO QDAY cap 03/09/17 03/20/18 History capsule,delayed release ferrous sulfate 325 mg (65 mg 324 mg PO QDAY tab 03/09/17 03/20/18 History iron) tablet,delayed release gabapentin 100 mg capsule 100 mg PO QHS 03/09/17 03/20/18 History lisinopril 5 mg tablet 5 mg PO QDAY 03/09/17 03/20/18 History metoprolol tartrate 25 mg tablet 25 mg PO BID 03/09/17 03/20/18 History multivitamin tablet 1 tab PO QDAY 03/09/17 03/20/18 History nabumetone 500 mg tablet 500 mg PO BID 03/09/17 03/20/18 History pravastatin 80 mg tablet 80 mg PO QHS 03/09/17 03/20/18 History calcium carbonate-vitamin D3 600 1 tab PO BID 09/08/17 01/21/18 History mg (1,500 mg)-800 unit tablet pioglitazone 30 mg tablet 15 mg PO QDAY tab 09/08/17 03/20/18 History calcitriol 0.25 mcg capsule 0.25 mcg PO ONCE 01/21/18 01/21/18 History calcitriol 0.25 mcg capsule 0.25 mcg PO ONCE 01/21/18 03/20/18 History Aspirin E.C. [Ecotrin] 81 mg PO DAILY@0800 03/20/18 03/20/18 History Calcium Gluconate 500 mg PO BID 03/20/18 03/20/18 History Metoprolol Succinate 12.5 mg PO BID 03/20/18 03/20/18 History magnesium oxide 400 mg capsule 400 mg PO TID 03/20/18 03/20/18 History Current Medications Generic Name Dose Route Start Last Admin Trade Name Freq PRN Reason Stop Dose Admin Acetaminophen 650 mg 03/20/18 17:29 03/21/18 08:10 Tylenol PO 650 mg Q4H PRN PRN Administration Headache/Temp>99F Albuterol Sulfate 2.5 mg 03/21/18 04:20 03/21/18 12:06 Ventolin Aerosols INHALATION 2.5 mg Q2H PRN PRN Administration SOB or wheezing Aspirin 81 mg 03/21/18 08:00 03/21/18 08:09 Aspirin, Baby PO 81 mg DAILY@0800 FRANKLYN Administration Atorvastatin Calcium 80 mg 03/20/18 22:00 03/20/18 21:21 Lipitor PO 80 mg QHS FRANKLYN Administration Heparin Sodium (Porcine) 5,000 unit 03/20/18 22:00 03/21/18 09:23 Heparin Na SC 5,000 unit Q12 FRANKLYN Administration Sodium Chloride 1,000 mls @ 75 mls/hr 03/20/18 17:29 03/21/18 06:35 IV 75 mls/hr .[id number] FRANKLYN Administration Insulin Human Lispro 0 unit 03/20/18 22:00 03/21/18 06:58 Humalog Kwikpen (Bkc) SC Not Given ACHS [facility] Protocol Magnesium Hydroxide 30 ml 03/20/18 17:29 Milk Of Magnesia PO DAILY PRN Constipation Nutritional Formula (Lactose Free) 120 ml 03/21/18 08:00 03/21/18 11:54 Glucerna Shake PO Not Given TIDCM [facility] Ondansetron HCl 4 mg 03/20/18 17:29 Zofran IV Q8H PRN PRN NAUSEA/VOMITING Sodium Chloride 5 - 15 ml 03/20/18 18:45 03/21/18 11:55 IV 10 ml UD PRN Administration SALINE FLUSH Assessment/Plan metabolic encephalopathy, resolved, mri negative, mra negative, reviewed await echo results bp control statin continue asa
[2018-03-21] MEDS: Insulin Lispro 100 UNIT/ML INSULN.PEN SC ×3 (12:22→21:31)
--- NOTE | 2018-03-21 16:16 | PCM.PROGNOTE ---
Subjective: Patient was seen and examined today, his imaging studies today did not show evidence of a stroke. I talked briefly with neurology, they feel that the patient still needs an echocardiogram performed to rule out a TIA. Patient was positive for rhinovirus, he has some expiratory wheezes but does not seem to be short of breath. I decided to place him on a short course of prednisone. Patient states that he got a respiratory infection last week. - Physical Exam General: Alert, Oriented x3, Cooperative, No apparent distress, Well developed HEENT: Atraumatic, PERRLA, EOMI, Normocephalic Oral: Moist Mucosa Neck: Supple, No Nuchal Rigidity, Trachea Midline, Thyroid Normal Size and Texture Lungs: Normal air movement, No rhonchi, No rales, Wheezes - Scattered expiratory wheezes bilaterally Cardiovascular: Regular rate, Regular Rhythm, Normal S1, Normal S2, No murmurs, No Ectopic Activity, PMI Normal, No rub noted, No Gallop Abdomen: Bowel Sounds Present, Soft, Non Tender, Non-Distended, No hernias noted Extremities: No clubbing, No cyanosis, Capillary Refill Less than 3 Seconds Skin: No rashes, No breakdown Musculoskeletal: No Tenderness to Palpation of Joints or Extremities Neurological: Cranial nerves II-XII grossly intact, Neuro grossly intact, Muscle tone normal, Sensory exam intact to light touch and pain Psych/Mental Status: Normal Affect, Appropriate, Alert and oriented to time, place, person, mood and affect Vital Signs Temp Pulse Resp BP Pulse Ox 97.6 F L 93 18 158/96 H 95 03/21/18 11:39 03/21/18 15:31 03/21/18 12:06 03/21/18 11:39 03/21/18 11:39 Oxygen Delivery Method Room Air Weight: 86.7 kg Body Mass Index (BMI) 30.8 Finger Stick Blood Glucose 218 Intake and Output for Last 24 Hours 03/19/18 03/20/18 03/21/18 23:59 23:59 23:59 Intake Total 947.9 / 947.9 1004 / 1004 Output Total 450 / 450 1150 / 1150 Balance 497.9 / 497.9 -146 / -146 Microbiology Past 72 Hours 03/21/18 04:45 Respiratory Panel (PCR) - Final Mucosa - Nose Rhinovirus Laboratory Tests Past 24 Hrs 03/20/18 03/20/1818 14:40 14:40 14:40 WBC RBC Hgb Hct MCV MCH MCHC RDW RDW Differential Plt Count MPV Immature Gran % (Auto) Neut % (Auto) Lymph % (Auto) [place] % (Auto) Eos % (Auto) Baso % (Auto) Absolute Neuts (auto) Absolute Lymphs (auto) Total Counted Sodium Potassium Chloride Carbon Dioxide Anion Gap BUN Creatinine Estim Creat Clear Calc Est GFR (MDRD) Af Amer Est GFR (MDRD) Non-Af BUN/Creatinine Ratio Glucose Hemoglobin A1c 4.7 Calcium Ionized Calcium Phosphorus 3.0 Magnesium Total Bilirubin 1.20 H Direct Bilirubin 0.45 H AST 40 H ALT 39 Alkaline Phosphatase 205 H Total Protein 6.5 Albumin 3.2 Globulin 3.3 Triglycerides Cholesterol LDL Cholesterol VLDL Cholesterol HDL Cholesterol 03/20/18 03/21/18 03/21/18 18:52 05:20 05:20 WBC 3.4 L RBC 2.60 L Hgb 9.4 L Hct 27.7 L MCV 106.5 H MCH 36.2 H MCHC 33.9 RDW 13.6 RDW Differential 51.2 H Plt Count 97 L MPV 9.8 Immature Gran % (Auto) 0.300 Neut % (Auto) 56.9 Lymph % (Auto) 22.0 [place] % (Auto) 16.6 H Eos % (Auto) 3.3 Baso % (Auto) 0.9 Absolute Neuts (auto) 1.9 L Absolute Lymphs (auto) 0.74 L Total Counted Not Reportable Sodium 138 Potassium 3.9 Chloride 102 Carbon Dioxide 23.0 Anion Gap 13 BUN 23 H Creatinine 1.39 H Estim Creat Clear Calc 35.70 Est GFR (MDRD) Af Amer 63 Est GFR (MDRD) Non-Af 52 L BUN/Creatinine Ratio 16.5 Glucose 114 H Hemoglobin A1c Calcium 7.9 L Ionized Calcium Pending Phosphorus Magnesium 2.1 Total Bilirubin Direct Bilirubin AST ALT Alkaline Phosphatase Total Protein Albumin Globulin Triglycerides 81 Cholesterol 75 LDL Cholesterol 28 VLDL Cholesterol 16 HDL Cholesterol 31 L POC Glucose 03/21/18 03/21/18 03/20/18 11:43 06:32 21:20 POC Glucose 177 H 124 H 188 H Medical Necessity - Tobacco Use Smoking Status: Former smoker Assessment/Plan #1 dysarthria and right facial droop-resolved, etiology unknown at this time, suspect TIA, continue present treatment, await echocardiogram tomorrow. I talked at length with his daughter by phone today about his medications. #2 rhinovirus upper respiratory tract infection-supportive care, oral prednisone, Proventil aerosols as needed #3 Type 2 diabetes #4 atherosclerotic heart disease #5 Hypertension #6 hyperlipidemia-patient is presently on Lipitor #7 hypomagnesemia-etiology unclear, patient will remain on oral magnesium, repeat magnesium level will be obtained tomorrow #8 hypocalcemia-resume oral calcium supplementation at discharge Code Visit Inpatient E&M: 67869 Subs Hosp L2
[2018-03-21 16:51] LABS: Bedside Glucose 184 mg/dL (70-110)
[2018-03-21] MEDS: Pantoprazole Sodium 20 MG Tablet PO (17:05)
[2018-03-21] MEDS: Metoprolol Tartrate 25 MG Tablet PO (17:05)
[2018-03-21] MEDS: predniSONE 20 MG Tablet PO (17:05)
[2018-03-21] MEDS: Magnesium Oxide 400 MG Tablet PO (17:06)
[2018-03-21] MEDS: Aspirin E.C. 81 MG Tablet PO (17:06)
[2018-03-21] MEDS: Clopidogrel Bisulfate 75 MG Tablet PO (18:20)
[2018-03-21] MEDS: Lisinopril 5 MG Tablet PO (18:20)
[2018-03-21] MEDS: Pioglitazone Hydrochloride 15 MG Tablet PO (18:57)
[2018-03-21] MEDS: Atorvastatin Calcium 80 MG Tablet PO (21:30)
[2018-03-21] MEDS: Gabapentin 100 MG Capsule PO (21:30)
[2018-03-21 21:56] LABS: Bedside Glucose 177 mg/dL (70-110)
[2018-03-22] VITALS (12 sets, daily range): BP systolic 158–172; BP diastolic 86–100; PULSE 80–119; RESP 16–24; TEMP 36.1–37.2; O2SAT 90–96
[2018-03-22] MEDS: Albuterol 2.5 MG/3 ML VIAL.NEB. INHALATION ×3 (02:38→07:37)
[2018-03-22] MEDS: hydrALAZINE 20 MG/ML Vial 5 MG IV (04:02)
[2018-03-22] MEDS: Magnesium Oxide 400 MG Tablet PO ×2 (05:13→13:16)
--- NOTE | 2018-03-22 05:40 | RAD_ITS ---
STUDY: X-RAY CHEST REASON FOR EXAM: Male, 83 years old. Shortness of breath. TECHNIQUE: AP portable chest. COMPARISON: March 20, 2018. FINDINGS: There is now linear right midlung subsegmental atelectasis. No focal infiltrates or effusions. No pneumothorax. Normal size heart. Normal mediastinum and mignon. Normal visualized pulmonary arteries. Normal visualized aortic arch and descending thoracic aorta. Normal visualized thoracic spine. Normal visualized ribs, clavicles, and shoulders. There is no demonstrated abnormality of the visualized soft tissue structures of the upper abdomen. RAD/Chest 1 View (Portable) IMPRESSION: No acute cardiopulmonary disease. Electronically Signed: Ang Piedra MD at 5:59 EST , Service support ,
[2018-03-22 06:46] LABS: Bedside Glucose 167 mg/dL (70-110)
[2018-03-22] MEDS: Metoprolol Tartrate 25 MG Tablet PO (08:09)
[2018-03-22] MEDS: Lisinopril 5 MG Tablet PO (08:09)
[2018-03-22] MEDS: Heparin Injection (Vial) 5,000 UNIT/ML VIAL 5000 UNIT SC (08:10)
[2018-03-22] MEDS: Aspirin E.C. 81 MG Tablet PO (08:10)
[2018-03-22] MEDS: Clopidogrel Bisulfate 75 MG Tablet PO (08:10)
[2018-03-22] MEDS: predniSONE 20 MG Tablet PO (08:10)
[2018-03-22] MEDS: Insulin Lispro 100 UNIT/ML INSULN.PEN SC ×2 (10:15→11:36)
[2018-03-22] MEDS: Pioglitazone Hydrochloride 15 MG Tablet PO (10:17)
--- NOTE | 2018-03-22 10:49 | CASEMGMT ---
This RN CM to room to complete CM assessment at this time and pt is sleeping without distress at this time. Pt does not awake with knock on door or verbal stimuli. This RN CM will attempt again later. SStaten RN CM
[2018-03-22 11:45] LABS: Bedside Glucose 234 mg/dL (70-110)
--- NOTE | 2018-03-22 11:59 | DCINST_ITS ---
You will use the following diet at home:: Calorie/Carbohydrate Controlled (specify 1200, 1400, etc) - 1800 lokesh Weight Bearing Status: Weight bearing as tolerated Allergies/Adverse Reactions: Allergies amoxicillin Allergy (Severe, Verified 03/20/18 14:26) unknown Tetanus Vaccines and Toxoid Allergy (Severe, Verified 03/20/18 14:26) unknown Medications to take at Discharge clopidogrel 75 mg tablet 75 mg PO QDAY 03/09/17 esomeprazole magnesium 20 mg capsule,delayed release 20 mg PO QDAY cap 03/09/17 ferrous sulfate 325 mg (65 mg iron) tablet,delayed release 324 mg PO QDAY tab 03/09/17 gabapentin 100 mg capsule 100 mg PO QHS 03/09/17 lisinopril 5 mg tablet 5 mg PO QDAY 03/09/17 metoprolol tartrate 25 mg tablet 25 mg PO BID 03/09/17 multivitamin tablet 1 tab PO QDAY 03/09/17 pravastatin 80 mg tablet 80 mg PO QHS 03/09/17 calcium carbonate-vitamin D3 600 mg (1,500 mg)-800 unit tablet 1 tab PO BID 09/08/17 pioglitazone 30 mg tablet 15 mg PO QDAY tab 09/08/17 calcitriol 0.25 mcg capsule 0.25 mcg PO ONCE 01/21/18 calcitriol 0.25 mcg capsule 0.25 mcg PO ONCE 01/21/18 Aspirin E.C. [Ecotrin] 81 mg PO DAILY@0800 03/20/18 Calcium Gluconate 500 mg PO BID 03/20/18 magnesium oxide 400 mg capsule 400 mg PO TID 03/20/18 Acetaminophen [Tylenol Tablet] 650 mg PO Q4H PRN PRN tablet 03/22/18 predniSONE tablet 20 mg PO BIDCM #10 tab 03/22/18 The following prescriptions were given: predniSONE tablet 20 mg PO BIDCM #10 tab Primary Care Physician: Ana María Mazariegos DO [Primary Care Provider] - Please follow up with your Primary Care Physician in: in 2 weeks Test Results: Test results from this visit will be discussed in further detail at your follow- up appointment, if applicable.
--- NOTE | 2018-03-22 12:20 | CASEMGMT ---
EFREN CARCAMO assessment: Face to Face with patient for initial transition planning/care coordination assessment. EFREN CARCAMO introduced self and role at [facility], pt voices understanding and consents to assessment at this time. Pt is sitting up in chair in no distress at this time. Pt is A/Ox4 at this time and answers all questions appropriately at this time. Care providers, pharmacy, and demographics verified at this time. PCP: Yair Specialists: Joss, cardio; Albertina, podiatry Preferred Pharmacy: [facility] Insurance: [facility] Living Will/HPOA: Pt states does have LW/HPOA but they are not currently on file at [facility] at this time. Pt states that his stepson is HPOA but chooses not to list him as contact. LNOK: Landen Gonzalez, ; Alexa, sister Living Arrangements: Pt states lives on main level of 2 story home and his daughter lives on the 2nd level. Pt states no concerns at home at this time. Pt states no concerns with ADL's Transportation: Pt states drives self and states no transportation concerns at this time. DME/HHC: Pt has a cane and states no need for any further DME at this time. Pt states no hx of HHC or SNF in the past. Pt states no concerns with going home at time of discharge. Pt is retired. Pt states does not smoke or drink ETOH. Pt states no further concerns/needs at this time. CM to follow for any further discharge planning/needs. Advised pt to ask for CM if any further questions/concerns/needs arise, voices understanding. Plan: Home. SStaten EFREN CARCAMO
--- NOTE | 2018-03-22 18:31 | PCM.DC.SUM ---
Discharge Date and Diagnosis Date of Admission: 03/20/18 Date of Discharge: 03/22/18 - Primary Discharge Diagnosis #1 transient ischemic attack #2 rhinovirus tracheobronchitis #3 Type 2 diabetes #4 atherosclerotic heart disease #5 Hypertension #6 hyperlipidemia #7 hypomagnesemia-chronic #8 hypocalcemia-chronic - Secondary Discharge Diagnosis Chronic Problems (Last Updated 03/20/18 @ 16:10 by Nory Polo MD) Chronic kidney disease (CKD) (Chronic) Hypomagnesemia (Chronic) History of subarachnoid hemorrhage (Chronic) Hypochromic anemia (Chronic) Sleep apnea (Chronic) Diabetes mellitus type II, controlled (Chronic) Hyperlipidemia (Chronic) Hypertension (Chronic) History of right coronary artery stent placement (Chronic) 03/04/05 PTCA/Stent (ANN MARIE) to Distal RCA; Atherosclerotic heart disease of [place] coronary artery without angina pectoris (Chronic) S/P ANN MARIE to distal RCA 03-04-2005; Hospital Course and Treatment Operations: None Procedures: 2-D Echocardiogram Summary of Care Provided: The patient is a 83 year old M was seen in the emergency room at [facility] with chief complaint of left facial droop and dysarthria, evaluation in the emergency room revealed the patient's NIH score to be 2 with mild left-sided facial droop and dysarthria. Stroke team was not activated, patient underwent a CT of the head which was unremarkable, labs showed hypomagnesemia but were otherwise unremarkable. Patient was given IV magnesium replacement and he was admitted to PCU, was seen by neurology, and had an MRA of the head and neck performed as well as an MRI of the brain performed. No evidence of acute stroke was identified. Patient had an echocardiogram which showed no evidence of thrombus. Patient did have wheezing and it was noted that he was positive for rhinovirus he was treated with oral prednisone. On 03/22/18, patient was seen and examined: On examination he appeared in good health and spirits. Vital signs as documented. Skin warm and dry and without overt rashes. Neck without JVD. Lungs-scattered expiratory wheezes were noted. Heart exam notable for regular rhythm, normal sounds and absence of murmurs, rubs or gallops. Abdomen unremarkable and without evidence of organomegaly, masses, or abdominal aortic enlargement. Extremities nonedematous. Neuro: Cranial nerves II through XII are grossly intact, no focal motor deficits were noted. Psych: Patient was alert and oriented x3 and did not appear to be depressed or anxious On 03/22/18, patient was seen and examined and felt to be in stable condition for discharge home. Final note, patient was not felt to be encephalopathic during his hospitalization. He was felt to have had a TIA. - Physical Exam Vital Signs Temp Pulse Resp BP Pulse Ox 98.2 F 89 19 H 158/86 H 94 03/22/18 13:05 03/22/18 13:05 03/22/18 13:05 03/22/18 13:05 03/22/18 13:05 Oxygen Delivery Method Room Air Weight: 86.7 kg Body Mass Index (BMI) 30.8 Finger Stick Blood Glucose 218 Intake and Output for Last 24 Hours 03/20/18 03/21/18 03/22/18 23:59 23:59 23:59 Intake Total 947.9 / 947.9 2497 / 2497 656 / 656 Output Total 450 / 450 1875 / 1875 700 / 700 Balance 497.9 / 497.9 622 / 622 -44 / -44 Microbiology Past 72 Hours 03/21/18 04:45 Respiratory Panel (PCR) - Final Mucosa - Nose Rhinovirus POC Glucose 03/22/18 03/22/18 03/21/18 11:34 06:37 21:27 POC Glucose 234 H 167 H 177 H Weight Bearing Status: Weight bearing as tolerated Home Medications: Medications to take at Discharge clopidogrel 75 mg tablet 75 mg PO QDAY 03/09/17 esomeprazole magnesium 20 mg capsule,delayed release 20 mg PO QDAY cap 03/09/17 ferrous sulfate 325 mg (65 mg iron) tablet,delayed release 324 mg PO QDAY tab 03/09/17 gabapentin 100 mg capsule 100 mg PO QHS 03/09/17 lisinopril 5 mg tablet 5 mg PO QDAY 03/09/17 multivitamin tablet 1 tab PO QDAY 03/09/17 pravastatin 80 mg tablet 80 mg PO QHS 03/09/17 calcium carbonate-vitamin D3 600 mg (1,500 mg)-800 unit tablet 1 tab PO BID 09/08/17 pioglitazone 30 mg tablet 15 mg PO QDAY tab 09/08/17 calcitriol 0.25 mcg capsule 0.25 mcg PO ONCE 01/21/18 calcitriol 0.25 mcg capsule 0.25 mcg PO ONCE 01/21/18 Aspirin E.C. [Ecotrin] 81 mg PO DAILY@0800 03/20/18 Calcium Gluconate 500 mg PO BID 03/20/18 magnesium oxide 400 mg capsule 400 mg PO TID 03/20/18 Acetaminophen [Tylenol Tablet] 650 mg PO Q4H PRN PRN tablet 03/22/18 Lisinopril [Zestril] 10 mg PO DAILY #30 tab 03/22/18 Metoprolol Tartrate [Lopressor (beta miguel)] 50 mg PO BID #60 tab 03/22/18 predniSONE tablet 20 mg PO BIDCM #10 tab 03/22/18 Following Prescrptions Were Given to Patient: Lisinopril [Zestril] 10 mg PO DAILY #30 tab Metoprolol Tartrate [Lopressor (beta miguel)] 50 mg PO BID #60 tab predniSONE tablet 20 mg PO BIDCM #10 tab Primary Care Physician: Ana María Mazariegos DO [Primary Care Provider] - Please follow up with your Primary Care Physician in: in 2 weeks Disposition: Home Minutes spent on discharge:: 32 Patient Condition:: Stable Medical Necessity - Tobacco Use Smoking Status: Former smoker Meaningful Use Info Meaningful Use Diagnoses (Choose all that apply): None applicable Code Visit Inpatient E&M: 35661 Disch Hosp
== END 2018-03-22 15:24 | disposition home or self-care (01) | DRG 69 ==
LOC: ED 15:14 → PCU 16:35
PROVIDERS: Admitting Provider Hospitalist; Emergency Provider Emergency Medicine; Visit Provider Internal Medicine
DX: G45.9 Transient cerebral ischemic attack, unspecified (principal); E83.51 Hypocalcemia; E83.42 Hypomagnesemia; J20.6 Acute bronchitis due to rhinovirus; E11.9 Type 2 diabetes mellitus without complications; E78.5 Hyperlipidemia, unspecified; I25.10 Atherosclerotic heart disease of native coronary artery without angina pectoris; G47.30 Sleep apnea, unspecified; D50.9 Iron deficiency anemia, unspecified; E11.22 Type 2 diabetes mellitus with diabetic chronic kidney disease; I12.9 Hypertensive chronic kidney disease with stage 1 through stage 4 chronic kidney disease, or unspecified chronic kidney disease; N18.9 Chronic kidney disease, unspecified; R29.702 NIHSS score 2; R29.810 Facial weakness; R47.1 Dysarthria and anarthria; Z79.899 Other long term (current) drug therapy; Z87.891 Personal history of nicotine dependence; Z79.84 Long term (current) use of oral hypoglycemic drugs; Z95.5 Presence of coronary angioplasty implant and graft
CPT/HCPCS: 36415; 70450; 70544; 70549; 70551; 71045; 78306; 80048; 80061; 80076; 82330; 82962; 83036; 83735; 84100; 84484; 85025; 85610; 85730; 87633; 92610; 93005; 93306; 94640; 97162; 97166; 97802; 99282; A9585; J7030; Q9957; A4216; C8929; J0610

== ENCOUNTER 2018-03-27 12:15 | Inpatient (IN) | payer MEDICARE, SELFPAY ==
[2018-03-21 10:44] VITALS: BMI 30.8
[2018-03-27] VITALS (8 sets, daily range): BP systolic 156–171; BP diastolic 75–102; PULSE 61–77; RESP 16–19; TEMP 36.1–36.8; O2SAT 94–100; BMI 29.9; BMI 29.5
--- NOTE | 2018-03-27 12:34 | EKG12_ITS ---
Test Reason : SOB Blood Pressure : / mmHG Vent. Rate : 058 BPM Atrial Rate : 058 BPM P-R Int : 164 ms QRS Dur : 124 ms QT Int : 444 ms P-R-T Axes : 035 -50 006 degrees QTc Int : 435 ms Sinus bradycardia with sinus arrhythmia Right bundle branch block Left anterior fascicular block Bifascicular block Abnormal ECG Confirmed by RINKU SILVA, ANGIE ([id number]), online content editor LEOLA BURTON ([id number]) on 03/30/2018 9:04:22 AM Referred By: Nellie Jimenez Confirmed By:ANGIE DOBBS MD
[2018-03-27] MEDS: Ipratropium/Albuterol Sulfate 3 ML AMPUL.NEB INHALATION ×2 (12:48→19:20)
--- NOTE | 2018-03-27 12:53 | RAD_ITS ---
STUDY: X-RAY CHEST REASON FOR EXAM: Male, 83 years old. Dyspnea. Weakness. Fall. TECHNIQUE: AP upright portable view. COMPARISON: 03/22/2018. FINDINGS: Mild pulmonary hypoinflation. Clearing of lung lung linear subsegmental atelectasis in the right midlung. New discoid atelectasis in left lower lobe. No confluent infiltrates. There is no demonstrated pleural abnormality. Normal size heart. Normal mediastinum and mignon. Normal visualized pulmonary arteries. Normal visualized aortic arch and descending thoracic aorta. Normal visualized thoracic spine. Narrowing of the right subacromial space is most likely due to chronic rotator cuff tear. The clavicles, left shoulder and rib cage are within normal limits. There is no demonstrated abnormality of the visualized soft tissue structures of the upper abdomen. RAD/Chest 1 View (Portable) IMPRESSION: 1. No acute cardiopulmonary pathology. 2. Clearing of the long horizontal linear subsegmental atelectases in the right midlung. 3. New discoid atelectasis in the left lower lobe. Electronically Signed: Feroz Rothman MD at 14:51 EST , Service support ,
[2018-03-27 13:28] LABS: Absolute Neutrophil Count 9.9 X10^3/uL (2.0-7.7); Hemoglobin 12.4 g/dl (13.0-16.5); Lymphocyte % 5.4 % (19-41); Mean Corp Hgb Conc 34.4 g/gl (32-36); Mean Corpuscular Hgb 35.6 pg (27.0-32.0); Mean Corpuscular Volume 103.4 fL (80-94); Mean Platelet Vol. 9.4 fl (6.2-12.0); Monocyte# 0.65 X10^3/uL; Monocyte% 5.8 % (0-10); Neutrophil # 9.86 X10^3/uL (2.7-7.7); Platelet Count 175 K/mm3 (150-450); RBC Distribution Width CV 13.7 % (11.6-14.6); RBC Distribution Width SD 51.2 fl (35.1-43.9); Red Blood Count 3.48 M/mm3 (4.6-6.2); White Blood Count 11.2 K/mm3 (4.4-11.0)
[2018-03-27 13:29] LABS: Differential Indicated SCAN CRITERIA MET; POSITIVE COUNT NO; POSITIVE DIFFERENTIAL YES; POSITIVE MORPHOLOGY NO
[2018-03-27 13:38] LABS: Anion Gap 8 (5-15); BUN 37 mg/dL (7-18); BUN/Creat Ratio 23.4 RATIO (10-20); Calcium,Total 8.9 mg/dL (8.5-10.1); Chloride 96 mmol/L (98-107); Creatinine, Serum 1.58 mg/dL (0.70-1.30); EST Glomerular Filtration Rate 45 mL/min (>60); Est Glom Filt Rate - Afr Amer 54 mL/min (>60); Estimated Creatinine Clearance 31.41 ml/min; Glucose 187 mg/dL (74-106); Magnesium 1.9 mg/dL (1.6-2.6); Potassium 5.1 mmol/L (3.5-5.1); Sodium Level 133 mmol/L (136-145)
[2018-03-27 13:53] LABS: Lactic Acid 1.1 mmol/L (0.4-2.0)
[2018-03-27] MEDS: Morphine 4 MG/ML Syringe IV (14:08)
[2018-03-27] MEDS: Ondansetron 4 MG/2 ML Vial IV (14:08)
[2018-03-27] MEDS: 0.9% Normal Saline 1,000 ML 150 ML IV (14:08)
--- NOTE | 2018-03-27 15:02 | ED.VISSUMM ---
- ER Visit Summary Date of Service: 03/27/18 Chief Complaint: [Generalized weakness and fall] History of Present Illness: The patient is a 83 M [presents to the emergency department with complaint of being very weak. Patient was admitted to the hospital last week for a TIA. Patient also at that time was diagnosed with rhinovirus infection. Patient continues to cough. Patient was in bed all day yesterday. Today patient went to primary care physician's office and was prescribed an antibiotic for suspected pneumonia. While his daughter was assisting him into the vehicle he fell and injured his left side. Patient complaining of left rib pain. Required 3 people to help the patient up. Patient's not had a fever. Patient does have a history of hypertension, hypercholesterolemia, anemia, sleep apnea, coronary artery disease. Patient is on Plavix and aspirin. Patient's daughter is a nurse and she witnessed the fall she was helping him and he did not strike his head. Patient does not complain of head or neck pain.] Physical Examination: [HEENT-PERRLA, EOMI. Cranial nerves II through XII grossly intact. TMs clear. Mucous membranes moist. No adenopathy. Cardiovascular-regular rate and rhythm without murmur or ectopy Lungs-aeration bilaterally. Patient has coarse breath sounds bilaterally. Occasional wheeze noted. Patient has tenderness over the left chest wall diffusely. Initially no ecchymosis or bruising noted. No crepitus palpated. No subcutaneous emphysema. Abdomen-normoactive bowel sounds, soft, nontender, no rebound or rigidity, no peritoneal signs. Extremities-intact ?4, normal range of motion, normal pulses, atraumatic] Test Results: [EKG obtained arrival shows sinus rhythm with a ventricular rate of 58 bpm with bifascicular block. When compared with prior EKG no new changes noted. CBC with differential showed a white count 11.2, hemoglobin 12, hematocrit 36, platelets 175. Chemistries unremarkable. BUN was 37 and creatinine 1.58. Magnesium was 1.9. Troponin was 0.022. Chest x-ray showed atelectasis of the left lower lobe otherwise nothing acute.] Emergency Department Course and Treatment: [Patient was given a DuoNeb aerosol. Patient was medicated with morphine and Zofran for the rib pain.] Treatment Plan: [Admit] Disposition: [Admit] Impression: [Generalized weakness Mechanical fall Chest wall contusion Upper respiratory infection] This note was generated with [facility] dictation software. It may contain incorrect words, spelling, and punctuation that were not noted in review of the chart prior to signing ED Disposition - Plan for ED Patient: Chief Complaint: Weakness Referrals: Ana María Mazariegos DO [Primary Care Provider] -
--- NOTE | 2018-03-27 15:11 | PCM.HP.STD ---
History of Present Illness Date of Admission: 03/27/18 Chief Complaint: Weakness, Cough worsening, Dyspnea The patient is a 83 y/o M w/ PMHx: CKD Unclear stage (suspect baseline Cr 1.4-1.7), Diabetes mellitus type II, Obesity, HTN, HLD, ZABRINA, CAD s/p PCI ANN MARIE to distal RCA 2004, History of SAH, Fe deficiency anemia and Thrombocytopenia who was recently discharged from [facility] on 03/22/18 following evaluation and treatment for TIA w/ elevated BP with addition BB, lisinopril, Rhinoviral tracheobronchitis treated with oral prednisone, aerosols with unremarkable MRI brain who now re-presents to the [facility] ED on 03/27/17 from home with ongoing cough, diagnosed 03/27/17 per PCP with ? clinical PNA with following visit while attempting to get into the car he landed on his left side hurting his ribs, requiring at least 3 people to get him up with mild wheezing noted to have completed his steroid taper the day prior. Daughter notes he seemed to have improved upon recent discharge for 2 days and then worsened dramatically with worsened coughing, dyspnea, fatigue and weakness. Work-up in the ED included T 97, heart rate 61, BP 160/102, respiratory rate 18, 98% on room air, CBC with WBC 11.2, hemoglobin 12.4, platelet 175 with left shift, BMP with sodium 133, chloride 96, BUN/creatinine 37/1.58, glucose 187, lactic acid 1.1, magnesium 1.9, troponin 0.022, chest x-ray with no acute cardia pulmonary findings with improving sub-segmental atelectasis right midlung, new discoid atelectasis left lower lobe. In the ED patient administered normal saline, DuoNeb, morphine 4 mg IV x1, Zofran. Past Medical History Past Medical History (Chronic Problems): Chronic Problems (Last Updated 03/20/18 @ 16:10 by Nory Polo MD) Chronic kidney disease (CKD) (Chronic) Hypomagnesemia (Chronic) History of subarachnoid hemorrhage (Chronic) Hypochromic anemia (Chronic) Sleep apnea (Chronic) Diabetes mellitus type II, controlled (Chronic) Hyperlipidemia (Chronic) Hypertension (Chronic) History of right coronary artery stent placement (Chronic) 03/04/05 PTCA/Stent (ANN MARIE) to Distal RCA; Atherosclerotic heart disease of [place] coronary artery without angina pectoris (Chronic) S/P ANN MARIE to distal RCA 03-04-2005; Medical History: Medical History (Last Updated 03/20/18 @ 16:10 by Nory Polo MD) History of subarachnoid hemorrhage (Chronic) Z86.79 Hypochromic anemia (Chronic) D50.9 Sleep apnea (Chronic) G47.30 Diabetes mellitus type II, controlled (Chronic) E11.9 Hyperlipidemia (Chronic) E78.5 Hypertension (Chronic) I10 Atherosclerotic heart disease of [place] coronary artery without angina pectoris (Chronic) I25.10 S/P ANN MARIE to distal RCA 03-04-2005; Shortness of breath R06.02 Allergies amoxicillin Allergy (Severe, Verified 03/27/18 12:21) unknown Tetanus Vaccines and Toxoid Allergy (Severe, Verified 03/27/18 12:21) unknown Home Medications: Ambulatory Orders Medication Instructions Recorded clopidogrel 75 mg tablet 75 mg PO QDAY 03/09/17 esomeprazole magnesium 20 mg 20 mg PO QDAY cap 03/09/17 capsule,delayed release ferrous sulfate 325 mg (65 mg 324 mg PO QDAY tab 03/09/17 iron) tablet,delayed release multivitamin tablet 1 tab PO QDAY 03/09/17 pravastatin 80 mg tablet 80 mg PO QHS 03/09/17 calcium carbonate-vitamin D3 600 1 tab PO BID 09/08/17 mg (1,500 mg)-800 unit tablet pioglitazone 30 mg tablet 15 mg PO QDAY tab 09/08/17 calcitriol 0.25 mcg capsule 0.25 mcg PO ONCE 01/21/18 Aspirin E.C. [Ecotrin] 81 mg PO DAILY@0800 03/20/18 magnesium oxide 400 mg capsule 400 mg PO TID 03/20/18 Acetaminophen [Tylenol Tablet] 650 mg PO Q4H PRN PRN tablet 03/22/18 Lisinopril [Zestril] 10 mg PO DAILY #30 tab 03/22/18 Metoprolol Tartrate [Lopressor 50 mg PO BID #60 tab 03/22/18 (beta miguel)] Surgical History: Surgical History (Last Reviewed 01/21/18 @ 10:27 by Carlos Coreas MD) History of right coronary artery stent placement (Chronic) Z95.5 03/04/05 PTCA/Stent (ANN MARIE) to Distal RCA; Surgical History: - - Cardiac stents. Psychiatric History: No pertinent psych hx Lives: With Family Smoking Status: Former smoker Tobacco Use: Non-smoker Alcohol: None Drugs: None - *Family History Maternal Family History: Family History (Last Reviewed 01/21/18 @ 10:27 by Carlos Coreas MD) Father Hypertension Mother Heart disease Congestive heart failure Diabetes Sister ruptured brain aneurysm History Items: - - Mother with history of congestive heart failure, diabetes, heart disease. Paternal Family History: Family History (Last Reviewed 01/21/18 @ 10:27 by Carlos Coreas MD) Father Hypertension Mother Heart disease Congestive heart failure Diabetes Sister ruptured brain aneurysm History Items: - - Father with a history of hypertension. Sibling Family History: Family History (Last Reviewed 01/21/18 @ 10:27 by Carlos Coreas MD) Father Hypertension Mother Heart disease Congestive heart failure Diabetes Sister ruptured brain aneurysm History Items: - - Sister with a history of ruptured brain aneurysm at age 50. Review of Systems Constitutional: Reports: Anorexia, Malaise, Weakness, Fatigue. Denies: Chills, Fever, Weight Change HEENT: Denies: Head Aches, Sinus Congestion, Sinus Drainage Cardiovascular: Denies: Chest Pain, Palpitations Respiratory: Reports: Cough, Shortness of Breath, Shortness of breath at rest, Shortness of breath upon exertion, Sputum production, Wheezing Gastrointestinal: Denies: Abdominal Pain, Nausea, Vomiting Genitourinary: Denies: Dysuria Musculoskeletal: Reports: Joint Pain. Denies: Joint Tenderness Skin: Reports: Skin Changes. Denies: Rash, Wounds Neurological: Denies: Numbness, Tingling, Focal weakness Psychiatric: Denies: Anxiety, Depression, Homicidal Ideations, Suicidal Ideations Hematologic/ Lymphatic: Reports: Anemia, Easy Bruising. Denies: Easy Bleeding VTE Information - Inpt Only VTE Present on Admission: No VTE Mechan Device Prophylaxis: SCD's VTE Pharm Prophylaxis ordered?: Yes Subjective: Seated upright in the ED bed, fatigued appearance, ill appearing. Objective: Physical Examination: General: awake, alert, oriented x 3 and cooperative, seated upright in the ED bed, fatigued and ill-appearing. Skin: normal color, turgor, no icterus, cyanosis that is post fall onto the left side likely falling onto his cane with abrasion/MOC's. HEENT: AT/NC, EOMI, PERRLA, dry MM, no carotid bruits or JVD noted. Lungs: Diffusely diminished, coarse, rhonchorous especially right-sided, expiratory wheezing noted. Heart: Regular rate and rhythm; no gallop, rub audible. Abdomen: soft, obese, NTTP, ND, normal BS, no HSM. Extremities: no cyanosis, clubbing, or edema. Neurological: patient awake, alert, oriented x 3; cognitive function intact; pupils equally reactive to light and accomodation; cranial nerves II-XII grossly normal, moving all 4 extremities, no focal deficits, strength severely globally decreased secondary to acute presentation. Psychiatric: affect appears fatigued, ill, flat, no acute evidence of depressive or anxiety feelings. - Physical Exam Vital Signs Temp Pulse Resp BP Pulse Ox 98.0 F 69 18 171/75 H 99 03/27/18 14:11 03/27/18 14:11 03/27/18 14:11 03/27/18 14:11 03/27/18 14:11 Oxygen Delivery Method Room Air Weight: 186 lb Body Mass Index (BMI) 29.9 Finger Stick Blood Glucose 218 Microbiology Past 72 Hours 03/27/18 14:19 Gram Stain - Final Sputum, Expectorated/Coughed Laboratory Tests Past 24 Hrs 03/27/18 03/27/18 03/27/18 13:10 13:10 13:10 WBC 11.2 H RBC 3.48 L Hgb 12.4 L Hct 36.0 L MCV 103.4 H MCH 35.6 H MCHC 34.4 RDW 13.7 RDW Differential 51.2 H Plt Count 175 MPV 9.4 Immature Gran % (Auto) 0.800 Neut % (Auto) 88.0 H Lymph % (Auto) 5.4 L [place] % (Auto) 5.8 Eos % (Auto) 0.0 Baso % (Auto) 0.0 Absolute Neuts (auto) 9.9 H Absolute Lymphs (auto) 0.60 L Total Counted Not Reportable Sodium 133 L Potassium 5.1 Chloride 96 L Carbon Dioxide 29.0 Anion Gap 8 BUN 37 H Creatinine 1.58 H Estim Creat Clear Calc 31.41 Est GFR (MDRD) Af Amer 54 L Est GFR (MDRD) Non-Af 45 L BUN/Creatinine Ratio 23.4 H Glucose 187 H Lactic Acid 1.1 Calcium 8.9 Magnesium 1.9 Troponin I 0.022 Assessment/Plan The patient is a 83 y/o M w/ PMHx: CKD Unclear stage, Diabetes mellitus type II, Obesity, HTN, HLD, ZABRINA, CAD s/p PCI ANN MARIE to distal RCA 2004, History of SAH, Fe deficiency anemia and Thrombocytopenia who was recently discharged from [facility] on 03/22/18 following evaluation and treatment for TIA w/ elevated BP with addition BB, lisinopril, Rhinoviral tracheobronchitis treated with oral prednisone, aerosols with unremarkable MRI brain who now re-presents to the [facility] ED on 03/27/17 from home with ongoing cough, diagnosed 03/27/17 per PCP with ? clinical PNA with following visit while attempting to get into the car he landed on his left side hurting his ribs, requiring at least 3 people to get him up with mild wheezing noted to have completed his steroid taper the day prior. (1) Suspected Clinical Pneumonia, Unclear Organism with Renal Acute Rhinoviral tracheobronchitis w/ Debility and Generalized Weakness w/ L Sided Chest Pain s/p Fall: Work-up in the ED included T 97, heart rate 61, BP 160/102, respiratory rate 18, 98% on room air, CBC with WBC 11.2, hemoglobin 12.4, platelet 175 with left shift, BMP with sodium 133, chloride 96, BUN/creatinine 37/1.58, glucose 187, lactic acid 1.1, magnesium 1.9, troponin 0.022, chest x-ray with no acute cardia pulmonary findings with improving sub-segmental atelectasis right midlung, new discoid atelectasis left lower lobe. In the ED patient administered normal saline, DuoNeb, morphine 4 mg IV x1, Zofran. Antibiotics were held and no initiated given CXR not marked, recent + viral rhinovirus diagnosis. Will admit to [facility], maintain on oxygen with wean as tolerated to room air, continue ATC duonebs, PRN albuterol, IV methylprednisolone given ongoing wheezing notable, IV rocephin and azithromycin, HOB, IS parameters, obtain urinary antigens and sputum cultures. PT, OT, CM for discharge planning, likely will necessitate SNF. (2) Recent TIA: MRI without evidence CVA, ECHO w/ normal LV systolic function, EF 75%, trivial MDI, trivial TVI, mild focal AV calcification, mild TBI, RVSP 39 mmHg, diastolic function is indeterminate. Continue home regimen aspirin, plavix, statin, lisinopril, metoprolol. (3) Suspected CKD Unclear Stage: Admission BUN/Cr 37/1.58, suspect baseline 1.4-1.7 range, repeat BMP in AM. (4) Chronic Fe Deficiency Anemia, Chronic Thrombocytopenia: Admission CBC w/ WBC 11.2, hemoglobin 12.4, platelet 175 with left shift, stable appearing, repeat CBC in AM. Continue Fe supplementation. (5) CAD: s/p PCI, continued on asa, plavix, statin, ACEI and BB therapies. (6) Hypertension: Continue home regimen including lisinopril, metoprolol, PRN hydralazine. (7) Hyperlipidemia: Continue home statin regimen. (8) Diabetes mellitus type II: Recent HgbA1c 4.7%, outpatient on pioglitazone, will hold, expect mild elevations given steroid usage recently and ongoing, accu check w/ ISS if elevated levels otherwise may defer given HgBA1c. (9) History of subarachnoid hemorrhage: Stable, recent admission without marked CT brain or MRI brain as noted. (10) GERD: PPI. (11) ZABRINA: CPAP q HS is uses. (12) DVT Prophylaxis: SCDs, heparin. Code Visit Inpatient E&M: 72482 Init Hosp L3
--- NOTE | 2018-03-27 15:18 | HP.PCM_ITS ---
History of Present Illness Date of Admission: 03/27/18 Chief Complaint: Weakness, Cough worsening, Dyspnea The patient is a 83 y/o M w/ PMHx: CKD Unclear stage (suspect baseline Cr 1.4- 1.7), Diabetes mellitus type II, Obesity, HTN, HLD, ZABRINA, CAD s/p PCI ANN MARIE to distal RCA 2004, History of SAH, Fe deficiency anemia and Thrombocytopenia who was recently discharged from [facility] on 03/22/18 following evaluation and treatment for TIA w/ elevated BP with addition BB, lisinopril, Rhinoviral tracheobronchitis treated with oral prednisone, aerosols with unremarkable MRI brain who now re-presents to the [facility] ED on 03/27/17 from home with ongoing cough, diagnosed 03/27/17 per PCP with ? clinical PNA with following visit while attemp ting to get into the car he landed on his left side hurting his ribs, requiring at least 3 people to get him up with mild wheezing noted to have completed his steroid taper the day prior. Daughter notes he seemed to have improved upon recent discharge for 2 days and then worsened dramatically with worsened coughing, dyspnea, fatigue and weakness. Work-up in the ED included T 97, heart rate 61, BP 160/102, respiratory rate 18, 98% on room air, CBC with WBC 11.2, hemoglobin 12.4, platelet 175 with left shift, BMP with sodium 133, chloride 96, BUN/creatinine 37/1.58, glucose 187, lactic acid 1.1, magnesium 1.9, troponin 0.022, chest x-ray with no acute cardia pulmonary findings with improving sub- segmental atelectasis right midlung, new discoid atelectasis left lower lobe. In the ED patient administered normal saline, DuoNeb, morphine 4 mg IV x1, Zofran. Past Medical History Past Medical History (Chronic Problems): Chronic Problems (Last Updated 03/20/18 @ 16:10 by Nory Polo MD) Chronic kidney disease (CKD) (Chronic) Hypomagnesemia (Chronic) History of subarachnoid hemorrhage (Chronic) Hypochromic anemia (Chronic) Sleep apnea (Chronic) Diabetes mellitus type II, controlled (Chronic) Hyperlipidemia (Chronic) Hypertension (Chronic) History of right coronary artery stent placement (Chronic) 03/04/05 PTCA/Stent (ANN MARIE) to Distal RCA; Atherosclerotic heart disease of [place] coronary artery without angina pectoris (Chronic) S/P ANN MARIE to distal RCA 03-04-2005; Medical History: Medical History (Last Updated 03/20/18 @ 16:10 by Nory Polo MD) History of subarachnoid hemorrhage (Chronic) Z86.79 Hypochromic anemia (Chronic) D50.9 Sleep apnea (Chronic) G47.30 Diabetes mellitus type II, controlled (Chronic) E11.9 Hyperlipidemia (Chronic) E78.5 Hypertension (Chronic) I10 Atherosclerotic heart disease of [place] coronary artery without angina pectoris (Chronic) I25.10 S/P ANN MARIE to distal RCA 03-04-2005; Shortness of breath R06.02 Allergies amoxicillin Allergy (Severe, Verified 03/27/18 12:21) unknown Tetanus Vaccines and Toxoid Allergy (Severe, Verified 03/27/18 12:21) unknown Home Medications: Ambulatory Orders Medication Instructions Recorded clopidogrel 75 mg tablet 75 mg PO QDAY 03/09/17 esomeprazole magnesium 20 mg 20 mg PO QDAY cap 03/09/17 capsule,delayed release ferrous sulfate 325 mg (65 mg 324 mg PO QDAY tab 03/09/17 iron) tablet,delayed release multivitamin tablet 1 tab PO QDAY 03/09/17 pravastatin 80 mg tablet 80 mg PO QHS 03/09/17 calcium carbonate-vitamin D3 600 1 tab PO BID 09/08/17 mg (1,500 mg)-800 unit tablet pioglitazone 30 mg tablet 15 mg PO QDAY tab 09/08/17 calcitriol 0.25 mcg capsule 0.25 mcg PO ONCE 01/21/18 Aspirin E.C. [Ecotrin] 81 mg PO DAILY@0800 03/20/18 magnesium oxide 400 mg capsule 400 mg PO TID 03/20/18 Acetaminophen [Tylenol Tablet] 650 mg PO Q4H PRN PRN tablet 03/22/18 Lisinopril [Zestril] 10 mg PO DAILY #30 tab 03/22/18 Metoprolol Tartrate [Lopressor 50 mg PO BID #60 tab 03/22/18 (beta miguel)] Surgical History: Surgical History (Last Reviewed 01/21/18 @ 10:27 by Carlos Coreas MD) History of right coronary artery stent placement (Chronic) Z95.5 03/04/05 PTCA/Stent (ANN MARIE) to Distal RCA; Surgical History: - - Cardiac stents. Psychiatric History: No pertinent psych hx Lives: With Family Smoking Status: Former smoker Tobacco Use: Non-smoker Alcohol: None Drugs: None - *Family History Maternal Family History: Family History (Last Reviewed 01/21/18 @ 10:27 by Carlos Coreas MD) Father Hypertension Mother Heart disease Congestive heart failure Diabetes Sister ruptured brain aneurysm History Items: - - Mother with history of congestive heart failure, diabetes, heart disease. Paternal Family History: Family History (Last Reviewed 01/21/18 @ 10:27 by Carlos Coreas MD) Father Hypertension Mother Heart disease Congestive heart failure Diabetes Sister ruptured brain aneurysm History Items: - - Father with a history of hypertension. Sibling Family History: Family History (Last Reviewed 01/21/18 @ 10:27 by Carlos Coreas MD) Father Hypertension Mother Heart disease Congestive heart failure Diabetes Sister ruptured brain aneurysm History Items: - - Sister with a history of ruptured brain aneurysm at age 50. Review of Systems Constitutional: Reports: Anorexia, Malaise, Weakness, Fatigue. Denies: Chills, Fever, Weight Change HEENT: Denies: Head Aches, Sinus Congestion, Sinus Drainage Cardiovascular: Denies: Chest Pain, Palpitations Respiratory: Reports: Cough, Shortness of Breath, Shortness of breath at rest, Shortness of breath upon exertion, Sputum production, Wheezing Gastrointestinal: Denies: Abdominal Pain, Nausea, Vomiting Genitourinary: Denies: Dysuria Musculoskeletal: Reports: Joint Pain. Denies: Joint Tenderness Skin: Reports: Skin Changes. Denies: Rash, Wounds Neurological: Denies: Numbness, Tingling, Focal weakness Psychiatric: Denies: Anxiety, Depression, Homicidal Ideations, Suicidal Ideations Hematologic/ Lymphatic: Reports: Anemia, Easy Bruising. Denies: Easy Bleeding VTE Information - Inpt Only VTE Present on Admission: No VTE Mechan Device Prophylaxis: SCD's VTE Pharm Prophylaxis ordered?: Yes Subjective: Seated upright in the ED bed, fatigued appearance, ill appearing. Objective: Physical Examination: General: awake, alert, oriented x 3 and cooperative, seated upright in the ED bed, fatigued and ill-appearing. Skin: normal color, turgor, no icterus, cyanosis that is post fall onto the left side likely falling onto his cane with abrasion/MOC's. HEENT: AT/NC, EOMI, PERRLA, dry MM, no carotid bruits or JVD noted. Lungs: Diffusely diminished, coarse, rhonchorous especially right-sided, expiratory wheezing noted. Heart: Regular rate and rhythm; no gallop, rub audible. Abdomen: soft, obese, NTTP, ND, normal BS, no HSM. Extremities: no cyanosis, clubbing, or edema. Neurological: patient awake, alert, oriented x 3; cognitive function intact; pupils equally reactive to light and accomodation; cranial nerves II-XII grossly normal, moving all 4 extremities, no focal deficits, strength severely globally decreased secondary to acute presentation. Psychiatric: affect appears fatigued, ill, flat, no acute evidence of depressive or anxiety feelings. - Physical Exam Vital Signs Temp Pulse Resp BP Pulse Ox 98.0 F 69 18 171/75 H 99 03/27/18 14:11 03/27/18 14:11 03/27/18 14:11 03/27/18 14:11 03/27/18 14:11 Oxygen Delivery Method Room Air Weight: 186 lb Body Mass Index (BMI) 29.9 Finger Stick Blood Glucose 218 Microbiology Past 72 Hours 03/27/18 14:19 Gram Stain - Final Sputum, Expectorated/Coughed Laboratory Tests Past 24 Hrs 03/27/18 03/27/18 03/27/18 13:10 13:10 13:10 WBC 11.2 H RBC 3.48 L Hgb 12.4 L Hct 36.0 L MCV 103.4 H MCH 35.6 H MCHC 34.4 RDW 13.7 RDW Differential 51.2 H Plt Count 175 MPV 9.4 Immature Gran % (Auto) 0.800 Neut % (Auto) 88.0 H Lymph % (Auto) 5.4 L [place] % (Auto) 5.8 Eos % (Auto) 0.0 Baso % (Auto) 0.0 Absolute Neuts (auto) 9.9 H Absolute Lymphs (auto) 0.60 L Total Counted Not Reportable Sodium 133 L Potassium 5.1 Chloride 96 L Carbon Dioxide 29.0 Anion Gap 8 BUN 37 H Creatinine 1.58 H Estim Creat Clear Calc 31.41 Est GFR (MDRD) Af Amer 54 L Est GFR (MDRD) Non-Af 45 L BUN/Creatinine Ratio 23.4 H Glucose 187 H Lactic Acid 1.1 Calcium 8.9 Magnesium 1.9 Troponin I 0.022 Assessment/Plan The patient is a 83 y/o M w/ PMHx: CKD Unclear stage, Diabetes mellitus type II, Obesity, HTN, HLD, ZABRINA, CAD s/p PCI ANN MARIE to distal RCA 2004, History of SAH, Fe deficiency anemia and Thrombocytopenia who was recently discharged from [facility] on 03/22/18 following evaluation and treatment for TIA w/ elevated BP with addition BB, lisinopril, Rhinoviral tracheobronchitis treated with oral prednisone, aerosols with unremarkable MRI brain who now re-presents to the [facility] ED on 03/27/17 from home with ongoing cough, diagnosed 03/27/17 per PCP with ? clinical PNA with following visit while attempting to get into the car he landed on his left side hurting his ribs, requiring at least 3 people to get him up with mild wheezing noted to have completed his steroid taper the day prior. (1) Suspected Clinical Pneumonia, Unclear Organism with Renal Acute Rhinoviral tracheobronchitis w/ Debility and Generalized Weakness w/ L Sided Chest Pain s/p Fall: Work-up in the ED included T 97, heart rate 61, BP 160/102, respiratory rate 18, 98% on room air, CBC with WBC 11.2, hemoglobin 12.4, platelet 175 with left shift, BMP with sodium 133, chloride 96, BUN/creatinine 37/1.58, glucose 187, lactic acid 1.1, magnesium 1.9, troponin 0.022, chest x-ray with no acute cardia pulmonary findings with improving sub-segmental atelectasis right midlung, new discoid atelectasis left lower lobe. In the ED patient administered normal saline, DuoNeb, morphine 4 mg IV x1, Zofran. Antibiotics were held and no initiated given CXR not marked, recent + viral rhinovirus diagnosis. Will admit to [facility], maintain on oxygen with wean as tolerated to room air, continue ATC duonebs, PRN albuterol, IV methylprednisolone given ongoing wheezing notable, IV rocephin and azithromycin, HOB, IS parameters, obtain urinary antigens and sputum cultures. PT, OT, CM for discharge planning, likely will necessitate SNF. (2) Recent TIA: MRI without evidence CVA, ECHO w/ normal LV systolic function, EF 75%, trivial MDI, trivial TVI, mild focal AV calcification, mild TBI, RVSP 39 mmHg, diastolic function is indeterminate. Continue home regimen aspirin, plavix, statin, lisinopril, metoprolol. (3) Suspected CKD Unclear Stage: Admission BUN/Cr 37/1.58, suspect baseline 1.4- 1.7 range, repeat BMP in AM. (4) Chronic Fe Deficiency Anemia, Chronic Thrombocytopenia: Admission CBC w/ WBC 11.2, hemoglobin 12.4, platelet 175 with left shift, stable appearing, repeat CBC in AM. Continue Fe supplementation. (5) CAD: s/p PCI, continued on asa, plavix, statin, ACEI and BB therapies. (6) Hypertension: Continue home regimen including lisinopril, metoprolol, PRN hydralazine. (7) Hyperlipidemia: Continue home statin regimen. (8) Diabetes mellitus type II: Recent HgbA1c 4.7%, outpatient on pioglitazone, will hold, expect mild elevations given steroid usage recently and ongoing, accu check w/ ISS if elevated levels otherwise may defer given HgBA1c. (9) History of subarachnoid hemorrhage: Stable, recent admission without marked CT brain or MRI brain as noted. (10) GERD: PPI. (11) ZABRINA: CPAP q HS is uses. (12) DVT Prophylaxis: SCDs, heparin. Code Visit Inpatient E&M: 31037 Init Hosp L3
--- NOTE | 2018-03-27 15:18 | NURSING ---
DR YIN FOR DR DOCKERY
--- NOTE | 2018-03-27 15:22 | NURSING ---
MED SURG WEAKNESS, FALL, CONTUSION CHEST, URI WHITE
--- NOTE | 2018-03-27 16:16 | NURSING ---
pt is poor historian
[2018-03-27] MEDS: Ceftriaxone 1 GM/50 ML BAG IV (17:36)
[2018-03-27] MEDS: Calcium Carb/Vitamin D 1 TABLET Tablet PO (17:36)
[2018-03-27] MEDS: Acetaminophen 325 MG Tablet 650 MG PO (19:47)
[2018-03-27] MEDS: guaiFENesin 1,200 MG Tablet 1200 MG PO (21:14)
[2018-03-27] MEDS: Metoprolol Tartrate 50 MG Tablet PO (21:14)
[2018-03-27] MEDS: Magnesium Oxide 400 MG Tablet PO (21:14)
[2018-03-27] MEDS: Heparin Injection (Vial) 5,000 UNIT/ML VIAL 5000 UNIT SC (21:14)
[2018-03-27] MEDS: Pravastatin 80 MG Tablet PO (21:14)
[2018-03-27] MEDS: Morphine 2 MG/ML Syringe IV (21:14)
[2018-03-27] MEDS: 0.9% NaCl Peripheral Flush Adult/Peds IV (21:15)
[2018-03-27] MEDS: HYDROcodone Bitartrate/Apap 5/325 Tablet PO (23:19)
[2018-03-28] VITALS (14 sets, daily range): BP systolic 130–201; BP diastolic 54–78; PULSE 59–89; RESP 16–20; TEMP 36.3–36.7; O2SAT 93–98
[2018-03-28] MEDS: 0.9% Normal Saline 1,000 ML 100 ML IV ×2 (03:10→13:41)
[2018-03-28] MEDS: Morphine 2 MG/ML Syringe IV ×2 (03:11→18:39)
[2018-03-28] MEDS: 0.9% NaCl Peripheral Flush Adult/Peds IV (03:11)
[2018-03-28] MEDS: Magnesium Oxide 400 MG Tablet PO ×2 (05:31→21:22)
[2018-03-28] MEDS: HYDROcodone Bitartrate/Apap 5/325 Tablet PO (05:31)
[2018-03-28 06:09] LABS: Absolute Lymphocyte Count 1.11 X10^3/ul (0.83-4.51); Absolute Neutrophil Count 8.7 X10^3/uL (2.0-7.7); Eosinophil# 0.02 X10^3/uL; Eosinophils% 0.2 % (0-5); Hematocrit 33.4 % (40-54); Hemoglobin 11.2 g/dl (13.0-16.5); Lymphocyte # 1.11 X10^3/ul (4.0); Lymphocyte % 9.9 % (19-41); Mean Corp Hgb Conc 33.5 g/gl (32-36); Mean Corpuscular Hgb 36.1 pg (27.0-32.0); Mean Corpuscular Volume 107.7 fL (80-94); Mean Platelet Vol. 9.4 fl (6.2-12.0); Monocyte% 11.6 % (0-10); Neutrophil # 8.71 X10^3/uL (2.7-7.7); Neutrophil % 77.9 % (47-70); Platelet Count 157 K/mm3 (150-450); RBC Distribution Width CV 13.7 % (11.6-14.6); RBC Distribution Width SD 52.7 fl (35.1-43.9); White Blood Count 11.2 K/mm3 (4.4-11.0)
[2018-03-28 06:13] LABS: POSITIVE COUNT NO; POSITIVE DIFFERENTIAL NO; POSITIVE MORPHOLOGY NO
[2018-03-28 06:25] LABS: Anion Gap 8 (5-15); BUN 40 mg/dL (7-18); BUN/Creat Ratio 24.7 RATIO (10-20); Calcium,Total 8.2 mg/dL (8.5-10.1); Chloride 97 mmol/L (98-107); Creatinine, Serum 1.62 mg/dL (0.70-1.30); EST Glomerular Filtration Rate 43 mL/min (>60); Est Glom Filt Rate - Afr Amer 53 mL/min (>60); Estimated Creatinine Clearance 30.63 ml/min; Glucose 135 mg/dL (74-106); Sodium Level 135 mmol/L (136-145)
[2018-03-28] MEDS: Ipratropium/Albuterol Sulfate 3 ML AMPUL.NEB INHALATION ×4 (07:05→18:42)
[2018-03-28] MEDS: Ceftriaxone 1 GM/50 ML BAG IV (09:16)
[2018-03-28] MEDS: Ferrous Sulfate 325 MG Tablet PO (09:17)
[2018-03-28] MEDS: Multivitamins,Therapeutic Tablet 1 TABLET PO (09:17)
[2018-03-28] MEDS: Aspirin E.C. 81 MG Tablet PO (09:17)
[2018-03-28] MEDS: guaiFENesin 1,200 MG Tablet 1200 MG PO ×2 (09:17→21:21)
[2018-03-28] MEDS: Lisinopril 10 MG Tablet PO (09:17)
[2018-03-28] MEDS: Calcium Carb/Vitamin D 1 TABLET Tablet PO ×2 (09:17→17:03)
[2018-03-28] MEDS: Metoprolol Tartrate 50 MG Tablet PO ×2 (09:17→21:21)
[2018-03-28] MEDS: Heparin Injection (Vial) 5,000 UNIT/ML VIAL 5000 UNIT SC ×2 (09:18→21:23)
[2018-03-28] MEDS: Clopidogrel Bisulfate 75 MG Tablet PO (09:18)
[2018-03-28] MEDS: Calcitriol 0.25 MCG Capsule PO (09:18)
[2018-03-28] MEDS: Pantoprazole Sodium 20 MG Tablet PO (09:18)
--- NOTE | 2018-03-28 10:35 | PCM.PROGNOTE ---
Subjective: Cetriaxone and Azith Day #2 Patient is an 83-year-old male with a past medical history of chronic kidney disease, diabetes mellitus type 2, obesity, hypertension, hyperlipidemia, obstructive sleep apnea, coronary artery disease status post PCI/ANN MARIE to distal RCA in 2004, history of subarachnoid hemorrhage, iron deficiency anemia and thrombocytopenia who presented to the emergency room at [facility] on 03/27/2018 complaining of cough and a fall when attempting to get into a car resulting in rib pain. He was recently discharged from [facility] on 03/22/2018 and at that time had a diagnosis of rhinoviral tracheobronchitis. Vital signs in the ER were temp 97, heart rate 61, blood pressure 160/102, respiratory rate 18 and he was 98% saturated on room air. White blood cell count was 11.2 (he just finished a steroid taper), hemoglobin 12.4, normal platelets. Sodium was low at 133 and the BUN was 37 with a creatinine of 1.58. Lactic acid was normal at 1.1. Troponin was 0.022. Chest x-ray showed atelectasis but was otherwise unremarkable. He was admitted to the hospital with generalized weakness and debility, L rib pain limiting he inspiratory efforts. All events of the past 24 hours of been reviewed. Afebrile since admission. Vital signs are stable. He is 95% saturated on room air today. White count remains at 11.2 with a left shift. Hemoglobin is 11.2 and the platelets are within normal limits. Sodium is 135 and the potassium is 5.0 today. BUN is 40 with a creatinine of 1.62. Legionella and streptococcal antigens in the urine are negative. Sputum Gram stain had 4+ white blood cells and 4+ gram-positive rods. There were no epithelial cells. Sputum culture is pending. Cultures are pending. He recently had acute bronchitis secondary to rhinovirus. Chest x-ray shows no infiltrates. Objective: PHYSICAL EXAM: GENERAL: very somnolent, opens his eyes if In call his name but not talking. Recently had 2 [place], no facial asymmetry. Pupils are equal round and reactive. ORAL: Will not open his mouth NECK: No JVD, supple, trachea midline LUNGS: CTA, symmetric chest expansion, diminished throughout not tachypneic accessory muscle use HEART: RRR, Normal S1 and S2, no rub, no gallop ABDOMEN: soft, NT, ND, BS present, no guarding with palpation EXTREMITIES: no edema, no cyanosis, no calf tenderness SKIN: No rashes, no breakdown NEUROLOGIC: not able to follow commands but opens eyes to voice and calling his name - Physical Exam Vital Signs Temp Pulse Resp BP Pulse Ox 97.9 F 66 18 136/54 H 95 03/28/18 08:22 03/28/18 09:17 03/28/18 08:22 03/28/18 08:22 03/28/18 08:22 Oxygen Flow Rate (L/min) 1 Oxygen Delivery Method Room Air Weight: 182 lb 12.211 oz Body Mass Index (BMI) 29.5 Finger Stick Blood Glucose 218 Intake and Output for Last 24 Hours 03/26/18 03/27/18 03/28/18 23:59 23:59 23:59 Intake Total 2246 / 2246 Output Total 350 / 350 575 / 575 Balance -350 / -350 1671 / 1671 Microbiology Past 72 Hours 03/28/18 04:56 Streptococcus pneumoniae Antigen (M - Final Urine, Clean Catch 03/28/18 04:56 Legionella Antigen - Final Urine, Clean Catch 03/27/18 14:19 Gram Stain - Final Sputum, Expectorated/Coughed Laboratory Tests Past 24 Hrs 03/27/18 03/27/18 03/27/18 13:10 13:10 13:10 WBC 11.2 H RBC 3.48 L Hgb 12.4 L Hct 36.0 L MCV 103.4 H MCH 35.6 H MCHC 34.4 RDW 13.7 RDW Differential 51.2 H Plt Count 175 MPV 9.4 Immature Gran % (Auto) 0.800 Neut % (Auto) 88.0 H Lymph % (Auto) 5.4 L [place] % (Auto) 5.8 Eos % (Auto) 0.0 Baso % (Auto) 0.0 Absolute Neuts (auto) 9.9 H Absolute Lymphs (auto) 0.60 L Total Counted Not Reportable Sodium 133 L Potassium 5.1 Chloride 96 L Carbon Dioxide 29.0 Anion Gap 8 BUN 37 H Creatinine 1.58 H Estim Creat Clear Calc 31.41 Est GFR (MDRD) Af Amer 54 L Est GFR (MDRD) Non-Af 45 L BUN/Creatinine Ratio 23.4 H Glucose 187 H Lactic Acid 1.1 Calcium 8.9 Magnesium 1.9 Troponin I 0.022 03/27/18 03/28/18 03/28/18 15:52 05:30 05:30 WBC 11.2 H RBC 3.10 L Hgb 11.2 L Hct 33.4 L MCV 107.7 H MCH 36.1 H MCHC 33.5 RDW 13.7 RDW Differential 52.7 H Plt Count 157 MPV 9.4 Immature Gran % (Auto) 0.400 Neut % (Auto) 77.9 H Lymph % (Auto) 9.9 L [place] % (Auto) 11.6 H Eos % (Auto) 0.2 Baso % (Auto) 0.0 Absolute Neuts (auto) 8.7 H Absolute Lymphs (auto) 1.11 Total Counted Not Reportable Sodium 135 L Potassium 5.0 Chloride 97 L Carbon Dioxide 30.0 Anion Gap 8 BUN 40 H Creatinine 1.62 H Estim Creat Clear Calc 30.63 Est GFR (MDRD) Af Amer 53 L Est GFR (MDRD) Non-Af 43 L BUN/Creatinine Ratio 24.7 H Glucose 135 H Lactic Acid Calcium 8.2 L Magnesium Cancelled Troponin I Medical Necessity - Tobacco Use Smoking Status: Former smoker Tobacco Use: Non-smoker Assessment/Plan Impressions 1. fall with resultant severe left rib pain 2. generalized weakness - etiology? 3. possible early pneumonia 4. recent TIA. MRA of the neck with 50-69% KAREN. MRA of the head had no significant major vessel occlusion or significant stenosis. 5. Chronic renal failure-stage III 6. Sleep apnea 7. Diabetes mellitus type 2 globin A1c is 5.4 8. Hypertension 9. Hyperlipidemia 10. Coronary artery disease with history of PTCA/ANN MARIE to distal RCA 11. Subarachnoid hemorrhage 12. Macrocytic anemia 13. Hyponatremia 14. Toxic encephalopathy-likely secondary to [place] DC the Vicodin and use 1 GM Tylenol q8H and Lidocaine patch to the left ribs. Add Tramadol after he wakes up. Accuchecks and SSI ordered Check a TSH, B12, folate, ammonia, hgba1C Continue the Ceftriaxone and the Azithromycin until the final sputum culture is available Continue heparin, JULIAN hose and SCDs for DVT prophylaxis PT/OT evaluations SNF at discharge if and his daughter would like him to go to [place] for his correction. Rib x-rays Will likely need to go to an SNF and his dtr prefers [place] because she is a nurse in the ER there Code Visit Inpatient E&M: 91301 Subs Hosp L3
--- NOTE | 2018-03-28 10:45 | PN_ITS ---
Subjective: Cetriaxone and Azith Day #2 Patient is an 83-year-old male with a past medical history of chronic kidney disease, diabetes mellitus type 2, obesity, hypertension, hyperlipidemia, obstructive sleep apnea, coronary artery disease status post PCI/ANN MARIE to distal RCA in 2004, history of subarachnoid hemorrhage, iron deficiency anemia and thrombocytopenia who presented to the emergency room at [facility] on 03/27/2018 complaining of cough and a fall when attempting to get into a car resulting in rib pain. He was recently discharged from [facility] on 03/22/2018 and at that time had a diagnosis of rhinoviral tracheobronchitis. Vital signs in the ER were temp 97, heart rate 61, blood pressure 160/102, respiratory rate 18 and he was 98% saturated on room air. White blood cell count was 11.2 (he just finished a steroid taper), hemoglobin 12.4, normal platelets. Sodium was low at 133 and the BUN was 37 with a c reatinine of 1.58. Lactic acid was normal at 1.1. Troponin was 0.022. Chest x-ray showed atelectasis but was otherwise unremarkable. He was admitted to the hospital with generalized weakness and debility, L rib pain limiting he inspiratory efforts. All events of the past 24 hours of been reviewed. Afebrile since admission. Vital signs are stable. He is 95% saturated on room air today. White count remains at 11.2 with a left shift. Hemoglobin is 11.2 and the platelets are within normal limits. Sodium is 135 and the potassium is 5.0 today. BUN is 40 with a creatinine of 1.62. Legionella and streptococcal antigens in the urine are negative. Sputum Gram stain had 4+ white blood cells and 4+ gram-positive rods. There were no epithelial cells. Sputum culture is pending. Cultures are pending. He recently had acute bronchitis secondary to rhinovirus. Chest x-ray shows no infiltrates. Objective: PHYSICAL EXAM: GENERAL: very somnolent, opens his eyes if In call his name but not talking. Recently had 2 [place], no facial asymmetry. Pupils are equal round and reactive. ORAL: Will not open his mouth NECK: No JVD, supple, trachea midline LUNGS: CTA, symmetric chest expansion, diminished throughout not tachypneic accessory muscle use HEART: RRR, Normal S1 and S2, no rub, no gallop ABDOMEN: soft, NT, ND, BS present, no guarding with palpation EXTREMITIES: no edema, no cyanosis, no calf tenderness SKIN: No rashes, no breakdown NEUROLOGIC: not able to follow commands but opens eyes to voice and calling his name - Physical Exam Vital Signs Temp Pulse Resp BP Pulse Ox 97.9 F 66 18 136/54 H 95 03/28/18 08:22 03/28/18 09:17 03/28/18 08:22 03/28/18 08:22 03/28/18 08:22 Oxygen Flow Rate (L/min) 1 Oxygen Delivery Method Room Air Weight: 182 lb 12.211 oz Body Mass Index (BMI) 29.5 Finger Stick Blood Glucose 218 Intake and Output for Last 24 Hours 03/26/18 03/27/18 03/28/18 23:59 23:59 23:59 Intake Total 2246 / 2246 Output Total 350 / 350 575 / 575 Balance -350 / -350 1671 / 1671 Microbiology Past 72 Hours 03/28/18 04:56 Streptococcus pneumoniae Antigen (M - Final Urine, Clean Catch 03/28/18 04:56 Legionella Antigen - Final Urine, Clean Catch 03/27/18 14:19 Gram Stain - Final Sputum, Expectorated/Coughed Laboratory Tests Past 24 Hrs 03/27/18 03/27/18 03/27/18 13:10 13:10 13:10 WBC 11.2 H RBC 3.48 L Hgb 12.4 L Hct 36.0 L MCV 103.4 H MCH 35.6 H MCHC 34.4 RDW 13.7 RDW Differential 51.2 H Plt Count 175 MPV 9.4 Immature Gran % (Auto) 0.800 Neut % (Auto) 88.0 H Lymph % (Auto) 5.4 L [place] % (Auto) 5.8 Eos % (Auto) 0.0 Baso % (Auto) 0.0 Absolute Neuts (auto) 9.9 H Absolute Lymphs (auto) 0.60 L Total Counted Not Reportable Sodium 133 L Potassium 5.1 Chloride 96 L Carbon Dioxide 29.0 Anion Gap 8 BUN 37 H Creatinine 1.58 H Estim Creat Clear Calc 31.41 Est GFR (MDRD) Af Amer 54 L Est GFR (MDRD) Non-Af 45 L BUN/Creatinine Ratio 23.4 H Glucose 187 H Lactic Acid 1.1 Calcium 8.9 Magnesium 1.9 Troponin I 0.022 03/27/18 03/28/18 03/28/18 15:52 05:30 05:30 WBC 11.2 H RBC 3.10 L Hgb 11.2 L Hct 33.4 L MCV 107.7 H MCH 36.1 H MCHC 33.5 RDW 13.7 RDW Differential 52.7 H Plt Count 157 MPV 9.4 Immature Gran % (Auto) 0.400 Neut % (Auto) 77.9 H Lymph % (Auto) 9.9 L [place] % (Auto) 11.6 H Eos % (Auto) 0.2 Baso % (Auto) 0.0 Absolute Neuts (auto) 8.7 H Absolute Lymphs (auto) 1.11 Total Counted Not Reportable Sodium 135 L Potassium 5.0 Chloride 97 L Carbon Dioxide 30.0 Anion Gap 8 BUN 40 H Creatinine 1.62 H Estim Creat Clear Calc 30.63 Est GFR (MDRD) Af Amer 53 L Est GFR (MDRD) Non-Af 43 L BUN/Creatinine Ratio 24.7 H Glucose 135 H Lactic Acid Calcium 8.2 L Magnesium Cancelled Troponin I Medical Necessity - Tobacco Use Smoking Status: Former smoker Tobacco Use: Non-smoker Assessment/Plan Impressions 1. fall with resultant severe left rib pain 2. generalized weakness - etiology? 3. possible early pneumonia 4. recent TIA. MRA of the neck with 50-69% KAREN. MRA of the head had no significant major vessel occlusion or significant stenosis. 5. Chronic renal failure-stage III 6. Sleep apnea 7. Diabetes mellitus type 2 globin A1c is 5.4 8. Hypertension 9. Hyperlipidemia 10. Coronary artery disease with history of PTCA/ANN MARIE to distal RCA 11. Subarachnoid hemorrhage 12. Macrocytic anemia 13. Hyponatremia 14. Toxic encephalopathy-likely secondary to [place] DC the Vicodin and use 1 GM Tylenol q8H and Lidocaine patch to the left ribs. Add Tramadol after he wakes up. Accuchecks and SSI ordered Check a TSH, B12, folate, ammonia, hgba1C Continue the Ceftriaxone and the Azithromycin until the final sputum culture is available Continue heparin, JULIAN hose and SCDs for DVT prophylaxis PT/OT evaluations SNF at discharge if and his daughter would like him to go to [place] for his snf. Rib x-rays Will likely need to go to an SNF and his dtr prefers [place] because she is a nurse in the ER there Code Visit Inpatient E&M: 29410 Subs Hosp L3
--- NOTE | 2018-03-28 10:59 | NURSING ---
In to hang zithromax at this time. Patient is difficult to arouse. He will open his eyes when spoken to but not answering questions. VS at this time are pulse 64, resp 18, SpO2 93% on RA and BP 167/72. Dr. Lodnon made aware of situation.
[2018-03-28 13:21] LABS: Bedside Glucose 179 mg/dL (70-110)
[2018-03-28] MEDS: hydrALAZINE 20 MG/ML Vial 10 MG IV (13:35)
[2018-03-28 14:06] LABS: Hemoglobin A1c 5.4 % (4.2-6.3)
[2018-03-28 14:46] LABS: AST(SGOT) 28 U/L (15-37); Alanine Aminotransfer ALT/SGPT 39 U/L (16-61); Albumin, Serum 2.9 g/dL (3.2-5.0); Alkaline Phosphatase 153 U/L (45-117); Bilirubin, Direct 0.32 mg/dL (0.00-0.30); Globulin 2.8 g/dL (2.2-4.2); Protein, Total 5.7 g/dL (6.4-8.2); Thyroid Stim Hormone (TSH) 1.06 uIU/mL (0.358-3.74)
[2018-03-28] MEDS: Lidocaine 5% Patch 2 PATCH TOPICAL (16:02)
[2018-03-28 17:00] LABS: Bedside Glucose 168 mg/dL (70-110)
[2018-03-28] MEDS: Insulin Lispro 100 UNIT/ML INSULN.PEN SC ×2 (17:02→21:22)
[2018-03-28] MEDS: Acetaminophen 500 MG Tablet 1000 MG PO ×2 (17:03→21:22)
[2018-03-28] MEDS: Glucerna Shake 120 ML LIQUID PO (17:04)
--- NOTE | 2018-03-28 18:33 | RAD_ITS ---
STUDY: X-RAY - UNILATERAL RIBS ( LEFT ) REASON FOR EXAM: Male, 83 years old. Left-sided rib pain after fall TECHNIQUE: 3 view(s) of the ribs. COMPARISON: None. FINDINGS: Normal visualized ribs without a demonstrated fracture. The visualized lung is clear and expanded. RAD/Ribs Unil 2V No CXR IMPRESSION: Normal x-ray examination of the ribs. Electronically Signed: Fawad Mohr DO at 20:50 EST Tel , Service support ,
[2018-03-28] MEDS: traMADol 50 MG Tablet 25 MG PO (20:22)
[2018-03-28] MEDS: Pravastatin 80 MG Tablet PO (21:21)
[2018-03-28 21:52] LABS: Bedside Glucose 210 mg/dL (70-110)
[2018-03-29] VITALS (9 sets, daily range): BP systolic 135–161; BP diastolic 71–83; PULSE 79–92; RESP 16–20; TEMP 36.6–36.7; O2SAT 90–94
[2018-03-29] MEDS: 0.9% Normal Saline 1,000 ML 100 ML IV ×2 (01:12→13:41)
[2018-03-29] MEDS: Magnesium Oxide 400 MG Tablet PO ×3 (05:02→21:59)
[2018-03-29] MEDS: Acetaminophen 500 MG Tablet 1000 MG PO ×3 (05:02→21:59)
[2018-03-29 05:54] LABS: Anion Gap 10 (5-15); BUN 36 mg/dL (7-18); BUN/Creat Ratio 22.6 RATIO (10-20); Calcium,Total 8.6 mg/dL (8.5-10.1); Chloride 98 mmol/L (98-107); Creatinine, Serum 1.59 mg/dL (0.70-1.30); EST Glomerular Filtration Rate 44 mL/min (>60); Est Glom Filt Rate - Afr Amer 54 mL/min (>60); Estimated Creatinine Clearance 31.21 ml/min; Glucose 170 mg/dL (74-106); Magnesium 1.7 mg/dL (1.6-2.6); Phosphorus 3.5 mg/dL (2.5-4.9); Sodium Level 134 mmol/L (136-145)
[2018-03-29 06:07] LABS: Hematocrit 31.6 % (40-54); Hemoglobin 10.7 g/dl (13.0-16.5); Mean Corp Hgb Conc 33.9 g/gl (32-36); Mean Corpuscular Hgb 35.4 pg (27.0-32.0); Mean Corpuscular Volume 104.6 fL (80-94); Mean Platelet Vol. 9.2 fl (6.2-12.0); Platelet Count 121 K/mm3 (150-450); RBC Distribution Width CV 13.7 % (11.6-14.6); RBC Distribution Width SD 52.3 fl (35.1-43.9); Red Blood Count 3.02 M/mm3 (4.6-6.2); White Blood Count 10.8 K/mm3 (4.4-11.0)
[2018-03-29 06:26] LABS: Scan Indicated on CBC? Y/N NO
[2018-03-29] MEDS: Insulin Lispro 100 UNIT/ML INSULN.PEN SC ×4 (06:32→22:05)
[2018-03-29] MEDS: Ipratropium/Albuterol Sulfate 3 ML AMPUL.NEB INHALATION ×3 (06:53→20:05)
[2018-03-29 06:55] LABS: Bedside Glucose 173 mg/dL (70-110)
[2018-03-29] MEDS: Multivitamins,Therapeutic Tablet 1 TABLET PO (07:39)
[2018-03-29] MEDS: Aspirin E.C. 81 MG Tablet PO (07:39)
[2018-03-29] MEDS: Ferrous Sulfate 325 MG Tablet PO (07:39)
[2018-03-29] MEDS: Calcium Carb/Vitamin D 1 TABLET Tablet PO ×2 (07:40→16:02)
--- NOTE | 2018-03-29 08:53 | PCM.PN.HOSP ---
Subjective: He was better than when he came into the hospital, though he still is fatigued. He denies any fevers, chills, shortness of breath. No significant cough Vitals/I&O's: Vital Signs Temp Pulse Resp BP Pulse Ox 98.1 F 79 18 135/71 H 92 03/29/18 07:26 03/29/18 07:26 03/29/18 07:26 03/29/18 07:26 03/29/18 07:26 Oxygen Flow Rate (L/min) 2 Oxygen Delivery Method Room Air Weight: 182 lb 12.211 oz Body Mass Index (BMI) 29.5 Finger Stick Blood Glucose 218 Intake and Output for Last 24 Hours 03/27/18 03/28/18 03/29/18 23:59 23:59 23:59 Intake Total 3965 / 3965 1559 / 1559 Output Total 350 / 350 975 / 975 1250 / 1250 Balance -350 / -350 2990 / 2990 309 / 309 General: Alert, Oriented x3, Cooperative, No apparent distress HEENT: Atraumatic, EOMI, Normocephalic Oral: Moist Mucosa Neck: Supple, No JVD, Trachea Midline Lungs: Clear to auscultation, No rhonchi, No wheeze, No rales, Diminished Cardiovascular: Regular rate, Regular Rhythm, Normal S1, Normal S2, No murmurs, No rub noted, No Gallop Abdomen: Soft, Non Tender, Non-Distended, No Hepato-splenomegaly Extremities: No edema, Capillary Refill Less than 3 Seconds Skin: No rashes, No breakdown Neurological: Neuro grossly intact, Sensory exam intact to light touch and pain Psych/Mental Status: Normal Affect, Appropriate Microbiology Past 72 Hours 03/27/18 14:19 Sputum, Expectorated/Coughed Gram Stain - Final 03/27/18 14:19 Sputum, Expectorated/Coughed Respiratory Culture - Preliminary Appears to be normal respiratory yasmin. Further studies to follow. 03/28/18 04:56 Urine, Clean Catch Streptococcus pneumoniae Antigen (M - Final 03/28/18 04:56 Urine, Clean Catch Legionella Antigen - Final Laboratory Results 03/28/18 13:16: POC Glucose 179 H 03/28/18 13:26: Total Bilirubin 0.70, Direct Bilirubin 0.32 H, AST 28, ALT 39, Alkaline Phosphatase 153 H, Total Protein 5.7 L, Albumin 2.9 L, Globulin 2.8, Folate 26.70, TSH 1.06 03/28/18 13:26: Vitamin B12 Pending 03/28/18 13:26: Ammonia 22.0 03/28/18 13:26: Hemoglobin A1c 5.4 03/28/18 16:51: POC Glucose 168 H 03/28/18 21:12: POC Glucose 210 H 03/29/18 04:56: Sodium 134 L, Potassium 5.0, Chloride 98, Carbon Dioxide 26.0, Anion Gap 10, BUN 36 H, Creatinine 1.59 H, Estim Creat Clear Calc 31.21, Est GFR (MDRD) Af Amer 54 L, Est GFR (MDRD) Non-Af 44 L, BUN/Creatinine Ratio 22.6 H, Glucose 170 H, Calcium 8.6, Phosphorus 3.5, Magnesium 1.7 03/29/18 05:00: WBC 10.8, RBC 3.02 L, Hgb 10.7 L, Hct 31.6 L, MCV 104.6 H, MCH 35.4 H, MCHC 33.9, RDW 13.7, RDW Differential 52.3 H, Plt Count 121 L, MPV 9.2 03/29/18 06:31: POC Glucose 173 H Current Medications Acetaminophen (Tylenol) 1,000 mg PO Q8 [facility] Last Admin: 03/29/18 05:02 Dose: 1,000 mg Al Hydroxide/Mg Hydroxide (Mylanta Ii) 30 ml PO Q6H PRN PRN PRN Reason: Gastric burning Albuterol Sulfate (Ventolin Aerosols) 2.5 mg INHALATION Q2H PRN PRN PRN Reason: SHORTNESS OF BREATH Albuterol/Ipratropium (Duoneb) 3 ml INHALATION Q4HWA.RT [facility] Last Admin: 03/29/18 06:53 Dose: 3 ml Aspirin (Ecotrin) 81 mg PO DAILY@0800 [facility] Last Admin: 03/29/18 07:39 Dose: 81 mg Calcitriol (Rocaltrol) 0.25 mcg PO DAILY [facility] Last Admin: 03/28/18 09:18 Dose: 0.25 mcg Calcium/Vitamin D (Os-Hugh 500mg + D) 1 tablet PO BIDCM [facility] Last Admin: 03/29/18 07:40 Dose: 1 tablet Clopidogrel Bisulfate (Plavix) 75 mg PO DAILY [facility] Last Admin: 03/28/18 09:18 Dose: 75 mg Ferrous Sulf[facility] ([facility]ous Sulfate) [facility] Last Admin: 03/29/18 07:39 Dose: 325 mg Guaifenesin (Mucinex) 1,200 mg PO BID [facility] Last Admin: 03/28/18 21:21 Dose: 1,200 mg Heparin Sodium (Porcine) (Heparin Na) 5,000 unit SC Q12 [facility] Last Admin: 03/28/18 21:23 Dose: 5,000 unit Hydralazine HCl (Apresoline Iv) 10 mg IV Q4H PRN PRN PRN Reason: SBP > 160 Last Admin: 03/28/18 13:35 Dose: 10 mg Sodium Chloride () 1,000 mls @ 100 mls/hr IV .Q10H [facility] Last Admin: 03/29/18 01:12 Dose: 100 mls/hr Azithromycin 500 mg/ Dextrose 255 mls @ 250 mls/hr IV Q24 [facility] Stop: 03/29/18 11:02 Last Admin: 03/28/18 10:56 Dose: 250 mls/hr Ceftriaxone Sodium (Rocephin) 1 gm in 50 mls @ 100 mls/hr IV DAILY [facility] Last Admin: 03/28/18 09:16 Dose: 100 mls/hr Insulin Human Lispro (Humalog Kwikpen (Bkc)) 0 unit SC ACHS [facility]; Protocol Last Admin: 03/29/18 06:32 Dose: 1 u Lidocaine (Lidoderm Patch) 2 patch TOPICAL DAILY [facility]; Protocol Last Admin: 03/28/18 16:02 Dose: 2 patch Lisinopril (Zestril) 10 mg PO DAILY [facility] Last Admin: 03/28/18 09:17 Dose: 10 mg Magnesium Hydroxide (Milk Of Magnesia) 30 ml PO DAILY PRN PRN PRN Reason: Constipation Magnesium Oxide (Mag-Ox 400) 400 mg PO TID [facility] Last Admin: 03/29/18 05:02 Dose: 400 mg Metoprolol Tartrate (Lopressor (Beta Alexander)) 50 mg PO BID [facility] Last Admin: 03/28/18 21:21 Dose: 50 mg Morphine Sulfate () 1 - 2 mg IV Q4H PRN PRN PRN Reason: PAIN Last Admin: 03/28/18 18:39 Dose: 1 mg Multivitamins (Multivitamin) 1 tablet PO DAILY@0800 [facility] Last Admin: 03/29/18 07:39 Dose: 1 tablet Nitroglycerin (Nitrostat) 0.4 mg SUBLINGUAL Q5M PRN PRN Reason: Angina pain Nutritional Formula (Lactose Free) (Glucerna Shake) 120 ml PO 4X/DAY [facility] Last Admin: 03/28/18 21:23 Dose: Not Given Ondansetron HCl (Zofran) 4 mg IV Q8H PRN PRN PRN Reason: NAUSEA/VOMITING Pantoprazole Sodium (Protonix) 20 mg PO DAILY [facility] Last Admin: 03/28/18 09:18 Dose: 20 mg Pravastatin Sodium (Pravachol) 80 mg PO QHS [facility] Last Admin: 03/28/18 21:21 Dose: 80 mg Promethazine HCl (Phenergan) 12.5 mg IV Q6H PRN PRN PRN Reason: NAUSEA/VOMITING Sodium Chloride () 5 - 15 ml IV UD PRN PRN Reason: SALINE FLUSH Last Admin: 03/28/18 03:11 Dose: 10 ml Tramadol HCl (Ultram) 25 mg PO TID PRN PRN PRN Reason: MODERATE PAIN (4-5/10) Last Admin: 03/28/18 20:22 Dose: 25 mg Medical Necessity - Tobacco Use Smoking Status: Former smoker Tobacco Use: Non-smoker Assessment/Plan 1. Community-acquired pneumonia/rhinovirus/debility and generalized weakness -Continue with Rocephin and azithromycin -Continue with DuoNeb -Off of oxygen -Continuing to encourage incentive spirometer -Continue with PT/OT, will likely needs SNF placement 2. CKD 3/hypertension/hyperlipidemia/CAD status post PCI with a drug-eluting stent to the distal RCA in 2004 -Creatinine is at baseline -Blood pressure is controlled continue with lisinopril, metoprolol, as needed hydralazine -Continue with pravastatin -Continue with aspirin and Plavix 3. GERD -Stable -Continue with PPI 4. DM 2 -Recent A1c of 4.7 -On Actos as an outpatient, will hold -Accu-Cheks with SSI 5. History of iron deficiency anemia -MCV is elevated, folate is normal vitamin B12 is pending -Continue with iron replacement Dispo: Discharged to SNF in [place] DVT: Heparin Code Visit Inpatient E&M: 60665 Subs Hosp L2
--- NOTE | 2018-03-29 09:08 | PN_ITS ---
Subjective: He was better than when he came into the hospital, though he still is fatigued. He denies any fevers, chills, shortness of breath. No significant cough Vitals/I&O's: Vital Signs Temp Pulse Resp BP Pulse Ox 98.1 F 79 18 135/71 H 92 03/29/18 07:26 03/29/18 07:26 03/29/18 07:26 03/29/18 07:26 03/29/18 07:26 Oxygen Flow Rate (L/min) 2 Oxygen Delivery Method Room Air Weight: 182 lb 12.211 oz Body Mass Index (BMI) 29.5 Finger Stick Blood Glucose 218 Intake and Output for Last 24 Hours 03/27/18 03/28/18 03/29/18 23:59 23:59 23:59 Intake Total 3965 / 3965 1559 / 1559 Output Total 350 / 350 975 / 975 1250 / 1250 Balance -350 / -350 2990 / 2990 309 / 309 General: Alert, Oriented x3, Cooperative, No apparent distress HEENT: Atraumatic, EOMI, Normocephalic Oral: Moist Mucosa Neck: Supple, No JVD, Trachea Midline Lungs: Clear to auscultation, No rhonchi, No wheeze, No rales, Diminished Cardiovascular: Regular rate, Regular Rhythm, Normal S1, Normal S2, No murmurs, No rub noted, No Gallop Abdomen: Soft, Non Tender, Non-Distended, No Hepato-splenomegaly Extremities: No edema, Capillary Refill Less than 3 Seconds Skin: No rashes, No breakdown Neurological: Neuro grossly intact, Sensory exam intact to light touch and pain Psych/Mental Status: Normal Affect, Appropriate Microbiology Past 72 Hours 03/27/18 14:19 Sputum, Expectorated/Coughed Gram Stain - Final 03/27/18 14:19 Sputum, Expectorated/Coughed Respiratory Culture - Preliminary Appears to be normal respiratory yasmin. Further studies to follow. 03/28/18 04:56 Urine, Clean Catch Streptococcus pneumoniae Antigen (M - Final 03/28/18 04:56 Urine, Clean Catch Legionella Antigen - Final Laboratory Results 03/28/18 13:16: POC Glucose 179 H 03/28/18 13:26: Total Bilirubin 0.70, Direct Bilirubin 0.32 H, AST 28, ALT 39, Alkaline Phosphatase 153 H, Total Protein 5.7 L, Albumin 2.9 L, Globulin 2.8, Folate 26.70, TSH 1.06 03/28/18 13:26: Vitamin B12 Pending 03/28/18 13:26: Ammonia 22.0 03/28/18 13:26: Hemoglobin A1c 5.4 03/28/18 16:51: POC Glucose 168 H 03/28/18 21:12: POC Glucose 210 H 03/29/18 04:56: Sodium 134 L, Potassium 5.0, Chloride 98, Carbon Dioxide 26.0, Anion Gap 10, BUN 36 H, Creatinine 1.59 H, Estim Creat Clear Calc 31.21, Est GFR (MDRD) Af Amer 54 L, Est GFR (MDRD) Non-Af 44 L, BUN/Creatinine Ratio 22.6 H, Glucose 170 H, Calcium 8.6, Phosphorus 3.5, Magnesium 1.7 03/29/18 05:00: WBC 10.8, RBC 3.02 L, Hgb 10.7 L, Hct 31.6 L, MCV 104.6 H, MCH 35.4 H, MCHC 33.9, RDW 13.7, RDW Differential 52.3 H, Plt Count 121 L, MPV 9.2 03/29/18 06:31: POC Glucose 173 H Current Medications Acetaminophen (Tylenol) 1,000 mg PO Q8 [facility] Last Admin: 03/29/18 05:02 Dose: 1,000 mg Al Hydroxide/Mg Hydroxide (Mylanta Ii) 30 ml PO Q6H PRN PRN PRN Reason: Gastric burning Albuterol Sulfate (Ventolin Aerosols) 2.5 mg INHALATION Q2H PRN PRN PRN Reason: SHORTNESS OF BREATH Albuterol/Ipratropium (Duoneb) 3 ml INHALATION Q4HWA.RT [facility] Last Admin: 03/29/18 06:53 Dose: 3 ml Aspirin (Ecotrin) 81 mg PO DAILY@0800 [facility] Last Admin: 03/29/18 07:39 Dose: 81 mg Calcitriol (Rocaltrol) 0.25 mcg PO DAILY [facility] Last Admin: 03/28/18 09:18 Dose: 0.25 mcg Calcium/Vitamin D (Os-Hugh 500mg + D) 1 tablet PO BIDCM [facility] Last Admin: 03/29/18 07:40 Dose: 1 tablet Clopidogrel Bisulfate (Plavix) 75 mg PO DAILY [facility] Last Admin: 03/28/18 09:18 Dose: 75 mg Ferrous S[facility]) [facility] Last Admin: 03/29/18 07:39 Dose: 325 mg Guaifenesin (Mucinex) 1,200 mg PO BID [facility] Last Admin: 03/28/18 21:21 Dose: 1,200 mg Heparin Sodium (Porcine) (Heparin Na) 5,000 unit SC Q12 [facility] Last Admin: 03/28/18 21:23 Dose: 5,000 unit Hydralazine HCl (Apresoline Iv) 10 mg IV Q4H PRN PRN PRN Reason: SBP > 160 Last Admin: 03/28/18 13:35 Dose: 10 mg Sodium Chloride () 1,000 mls @ 100 mls/hr IV .Q10H [facility] Last Admin: 03/29/18 01:12 Dose: 100 mls/hr Azithromycin 500 mg/ Dextrose 255 mls @ 250 mls/hr IV Q24 [facility] Stop: 03/29/18 11:02 Last Admin: 03/28/18 10:56 Dose: 250 mls/hr Ceftriaxone Sodium (Rocephin) 1 gm in 50 mls @ 100 mls/hr IV DAILY [facility] Last Admin: 03/28/18 09:16 Dose: 100 mls/hr Insulin Human Lispro (Humalog Kwikpen (Bkc)) 0 unit SC ACHS [facility]; Protocol Last Admin: 03/29/18 06:32 Dose: 1 u Lidocaine (Lidoderm Patch) 2 patch TOPICAL DAILY [facility]; Protocol Last Admin: 03/28/18 16:02 Dose: 2 patch Lisinopril (Zestril) 10 mg PO DAILY [facility] Last Admin: 03/28/18 09:17 Dose: 10 mg Magnesium Hydroxide (Milk Of Magnesia) 30 ml PO DAILY PRN PRN PRN Reason: Constipation Magnesium Oxide (Mag-Ox 400) 400 mg PO TID [facility] Last Admin: 03/29/18 05:02 Dose: 400 mg Metoprolol Tartrate (Lopressor (Beta Alexander)) 50 mg PO BID [facility] Last Admin: 03/28/18 21:21 Dose: 50 mg Morphine Sulfate () 1 - 2 mg IV Q4H PRN PRN PRN Reason: PAIN Last Admin: 03/28/18 18:39 Dose: 1 mg Multivitamins (Multivitamin) 1 tablet PO DAILY@0800 [facility] Last Admin: 03/29/18 07:39 Dose: 1 tablet Nitroglycerin (Nitrostat) 0.4 mg SUBLINGUAL Q5M PRN PRN Reason: Angina pain Nutritional Formula (Lactose Free) (Glucerna Shake) 120 ml PO 4X/DAY [facility] Last Admin: 03/28/18 21:23 Dose: Not Given Ondansetron HCl (Zofran) 4 mg IV Q8H PRN PRN PRN Reason: NAUSEA/VOMITING Pantoprazole Sodium (Protonix) 20 mg PO DAILY [facility] Last Admin: 03/28/18 09:18 Dose: 20 mg Pravastatin Sodium (Pravachol) 80 mg PO QHS [facility] Last Admin: 03/28/18 21:21 Dose: 80 mg Promethazine HCl (Phenergan) 12.5 mg IV Q6H PRN PRN PRN Reason: NAUSEA/VOMITING Sodium Chloride () 5 - 15 ml IV UD PRN PRN Reason: SALINE FLUSH Last Admin: 03/28/18 03:11 Dose: 10 ml Tramadol HCl (Ultram) 25 mg PO TID PRN PRN PRN Reason: MODERATE PAIN (4-5/10) Last Admin: 03/28/18 20:22 Dose: 25 mg Medical Necessity - Tobacco Use Smoking Status: Former smoker Tobacco Use: Non-smoker Assessment/Plan 1. Community-acquired pneumonia/rhinovirus/debility and generalized weakness -Continue with Rocephin and azithromycin -Continue with DuoNeb -Off of oxygen -Continuing to encourage incentive spirometer -Continue with PT/OT, will likely needs SNF placement 2. CKD 3/hypertension/hyperlipidemia/CAD status post PCI with a drug-eluting stent to the distal RCA in 2004 -Creatinine is at baseline -Blood pressure is controlled continue with lisinopril, metoprolol, as needed hydralazine -Continue with pravastatin -Continue with aspirin and Plavix 3. GERD -Stable -Continue with PPI 4. DM 2 -Recent A1c of 4.7 -On Actos as an outpatient, will hold -Accu-Cheks with SSI 5. History of iron deficiency anemia -MCV is elevated, folate is normal vitamin B12 is pending -Continue with iron replacement Dispo: Discharged to SNF in [place] DVT: Heparin Code Visit Inpatient E&M: 60064 Subs Hosp L2
[2018-03-29] MEDS: Ceftriaxone 1 GM/50 ML BAG IV (09:38)
[2018-03-29 10:07] LABS: Vitamin B12 700 pg/mL (211-911)
[2018-03-29] MEDS: Heparin Injection (Vial) 5,000 UNIT/ML VIAL 5000 UNIT SC ×2 (11:28→22:00)
[2018-03-29] MEDS: guaiFENesin 1,200 MG Tablet 1200 MG PO ×2 (11:29→21:59)
[2018-03-29] MEDS: Metoprolol Tartrate 50 MG Tablet PO ×2 (11:29→21:59)
[2018-03-29] MEDS: Pantoprazole Sodium 20 MG Tablet PO (11:30)
[2018-03-29] MEDS: Calcitriol 0.25 MCG Capsule PO (11:30)
[2018-03-29] MEDS: Lisinopril 10 MG Tablet PO (11:30)
[2018-03-29] MEDS: Clopidogrel Bisulfate 75 MG Tablet PO (11:30)
[2018-03-29] MEDS: Glucerna Shake 120 ML LIQUID PO ×4 (11:36→22:00)
[2018-03-29] MEDS: Lidocaine 5% Patch 2 PATCH TOPICAL (11:36)
[2018-03-29 12:11] LABS: Bedside Glucose 300 mg/dL (70-110)
--- NOTE | 2018-03-29 13:35 | CASEMGMT ---
EFREN CARCAMO called patient's daughter to complete assessment as patient is confused. EFREN CARCAMO introduced self and role at [facility]. Daughter Teressa willing to participate in assessment. Care providers, pharmacy, and demographics verified. Daughter wishes for patient to discharge to [facility] pending precert if patient requires additional therapy. DaughterTeressa states she has no further needs or concerns at this time. SUAD GalvezJuana Medel updated with request for placement. PCP: [facility] Specialists: Joss director of trauma Preferred Pharmacy: [facility] Insurance: [facility] Prescription Benefit: Yes Living Will/HPOA: Yes, daughter Teressa Troncoso HPOA LNOK: Daughter Living Arrangements: Patient lives with daughter in 2 story home with bed and bath on first floor. Patient independent at home prior to recent hospital. Transportation: Self/daughter DME/HHC: Patient has cane a home. No previous SNF or HHC. Disposition Plan: Patient to discharge to [facility] pending precert. Mena ISAAC, RN, CM
--- NOTE | 2018-03-29 15:30 | CASEMGMT ---
Social Work Note RN DONA Ramirez informed this worker that pt's daughter would like referral sent to [facility]. SUAD placed a call to [facility] and spoke with [place] in social work associate. [place] provided fax number [phone]. SUAD faxed referral to [facility]. Plan: [facility] pending acceptance and pre-cert Mena Medel FLOAT TENDER, INCIDENT RESPONSE MANAGER
[2018-03-29 16:26] LABS: Bedside Glucose 169 mg/dL (70-110)
[2018-03-29] MEDS: Pravastatin 80 MG Tablet PO (21:59)
[2018-03-29 22:15] LABS: Bedside Glucose 230 mg/dL (70-110)
[2018-03-30] VITALS (12 sets, daily range): BP systolic 152–192; BP diastolic 74–98; PULSE 77–101; RESP 18–22; TEMP 36.7–37.1; O2SAT 91–96
[2018-03-30] MEDS: Acetaminophen 500 MG Tablet 1000 MG PO ×3 (06:20→22:41)
[2018-03-30] MEDS: Magnesium Oxide 400 MG Tablet PO ×3 (06:20→22:38)
[2018-03-30] MEDS: Insulin Lispro 100 UNIT/ML INSULN.PEN SC ×4 (06:25→22:53)
[2018-03-30 06:35] LABS: Bedside Glucose 204 mg/dL (70-110)
[2018-03-30 06:40] LABS: Anion Gap 11 (5-15); BUN 33 mg/dL (7-18); BUN/Creat Ratio 20.5 RATIO (10-20); Chloride 98 mmol/L (98-107); Creatinine, Serum 1.61 mg/dL (0.70-1.30); EST Glomerular Filtration Rate 44 mL/min (>60); Est Glom Filt Rate - Afr Amer 53 mL/min (>60); Estimated Creatinine Clearance 30.82 ml/min; Glucose 192 mg/dL (74-106); Potassium 4.8 mmol/L (3.5-5.1); Sodium Level 134 mmol/L (136-145)
[2018-03-30 06:49] LABS: Absolute Lymphocyte Count 0.64 X10^3/ul (0.83-4.51); Absolute Neutrophil Count 9.1 X10^3/uL (2.0-7.7); Basophil# 0.01 X10^3/uL; Basophil% 0.1 % (0-1); Eosinophil# 0.03 X10^3/uL; Eosinophils% 0.3 % (0-5); Hematocrit 31.5 % (40-54); Hemoglobin 10.7 g/dl (13.0-16.5); Lymphocyte # 0.64 X10^3/ul (4.0); Lymphocyte % 5.8 % (19-41); Mean Corpuscular Volume 106.1 fL (80-94); Mean Platelet Vol. 9.7 fl (6.2-12.0); Monocyte# 1.21 X10^3/uL; Monocyte% 10.9 % (0-10); Neutrophil # 9.14 X10^3/uL (2.7-7.7); Neutrophil % 82.2 % (47-70); Platelet Count 123 K/mm3 (150-450); RBC Distribution Width CV 13.1 % (11.6-14.6); RBC Distribution Width SD 49.3 fl (35.1-43.9); Red Blood Count 2.97 M/mm3 (4.6-6.2); White Blood Count 11.1 K/mm3 (4.4-11.0)
[2018-03-30 06:52] LABS: POSITIVE COUNT NO; POSITIVE DIFFERENTIAL NO; POSITIVE MORPHOLOGY NO
[2018-03-30] MEDS: Ipratropium/Albuterol Sulfate 3 ML AMPUL.NEB INHALATION ×4 (07:14→19:10)
[2018-03-30] MEDS: Calcitriol 0.25 MCG Capsule PO (08:22)
[2018-03-30] MEDS: Ferrous Sulfate 325 MG Tablet PO (08:22)
[2018-03-30] MEDS: Aspirin E.C. 81 MG Tablet PO (08:22)
[2018-03-30] MEDS: Metoprolol Tartrate 50 MG Tablet PO ×2 (08:23→22:43)
[2018-03-30] MEDS: guaiFENesin 1,200 MG Tablet 1200 MG PO ×2 (08:23→22:40)
[2018-03-30] MEDS: Clopidogrel Bisulfate 75 MG Tablet PO (08:23)
[2018-03-30] MEDS: Calcium Carb/Vitamin D 1 TABLET Tablet PO (08:24)
[2018-03-30] MEDS: Ceftriaxone 1 GM/50 ML BAG IV (08:24)
[2018-03-30] MEDS: Lisinopril 10 MG Tablet PO (08:24)
[2018-03-30] MEDS: Heparin Injection (Vial) 5,000 UNIT/ML VIAL 5000 UNIT SC ×2 (08:25→22:39)
[2018-03-30] MEDS: Multivitamins,Therapeutic Tablet 1 TABLET PO (08:25)
[2018-03-30] MEDS: Glucerna Shake 120 ML LIQUID PO ×4 (08:25→22:37)
[2018-03-30] MEDS: Pantoprazole Sodium 20 MG Tablet PO (08:26)
[2018-03-30] MEDS: Lidocaine 5% Patch 2 PATCH TOPICAL (08:26)
--- NOTE | 2018-03-30 10:08 | PCM.PN.HOSP ---
Subjective: Seems a little bit more confused today states that he did not sleep very well last night. He denies any fevers, chills, shortness of breath. No significant cough. Vitals/I&O's: Vital Signs Temp Pulse Resp BP Pulse Ox 98.7 F 95 18 192/98 H 94 03/30/18 08:41 03/30/18 08:41 03/30/18 08:41 03/30/18 08:41 03/30/18 08:41 Oxygen Flow Rate (L/min) 2 Oxygen Delivery Method Room Air Weight: 182 lb 12.211 oz Body Mass Index (BMI) 29.5 Finger Stick Blood Glucose 218 Intake and Output for Last 24 Hours 03/28/18 03/29/18 03/30/18 23:59 23:59 23:59 Intake Total 3965 / 3965 1559 / 1559 500 / 500 Output Total 975 / 975 1250 / 1250 925 / 925 Balance 2990 / 2990 309 / 309 -425 / -425 General: Alert, disoriented, Cooperative, No apparent distress HEENT: Atraumatic, EOMI, Normocephalic Oral: Moist Mucosa Neck: Supple, No JVD, Trachea Midline Lungs: Clear to auscultation, No rhonchi, No wheeze, No rales, Diminished Cardiovascular: Regular rate, Regular Rhythm, Normal S1, Normal S2, No murmurs, No rub noted, No Gallop Abdomen: Soft, Non Tender, Non-Distended, No Hepato-splenomegaly Extremities: No edema, Capillary Refill Less than 3 Seconds Skin: No rashes, No breakdown Neurological: Neuro grossly intact, Sensory exam intact to light touch and pain Psych/Mental Status: Normal Affect, Appropriate Microbiology Past 72 Hours 03/27/18 13:20 Blood Culture (Wb) - Anticubital Right Blood Culture - Preliminary No growth in 48 hours. 03/27/18 13:10 Blood Culture (Wb) - Left Wrist Blood Culture - Preliminary No growth in 48 hours. 03/27/18 14:19 Sputum, Expectorated/Coughed Gram Stain - Final 03/27/18 14:19 Sputum, Expectorated/Coughed Respiratory Culture - Final 03/28/18 04:56 Urine, Clean Catch Streptococcus pneumoniae Antigen (M - Final 03/28/18 04:56 Urine, Clean Catch Legionella Antigen - Final Laboratory Results 03/29/18 11:53: POC Glucose 300 H 03/29/18 16:00: POC Glucose 169 H 03/29/18 22:05: POC Glucose 230 H 03/30/18 05:28: WBC 11.1 H, RBC 2.97 L, Hgb 10.7 L, Hct 31.5 L, MCV 106.1 H, MCH 36.0 H, MCHC 34.0, RDW 13.1, RDW Differential 49.3 H, Plt Count 123 L, MPV 9.7, Immature Gran % (Auto) 0.700, Neut % (Auto) 82.2 H, Lymph % (Auto) 5.8 L, [place] % (Auto) 10.9 H, Eos % (Auto) 0.3, Baso % (Auto) 0.1, Absolute Neuts (auto) 9.1 H, Absolute Lymphs (auto) 0.64 L, Total Counted Not Reportable 03/30/18 05:28: Sodium 134 L, Potassium 4.8, Chloride 98, Carbon Dioxide 25.0, Anion Gap 11, BUN 33 H, Creatinine 1.61 H, Estim Creat Clear Calc 30.82, Est GFR (MDRD) Af Amer 53 L, Est GFR (MDRD) Non-Af 44 L, BUN/Creatinine Ratio 20.5 H, Glucose 192 H, Calcium 9.0 03/30/18 06:23: POC Glucose 204 H Current Medications Acetaminophen (Tylenol) 1,000 mg PO Q8 [facility] Last Admin: 03/30/18 06:20 Dose: 1,000 mg Al Hydroxide/Mg Hydroxide (Mylanta Ii) 30 ml PO Q6H PRN PRN PRN Reason: Gastric burning Albuterol Sulfate (Ventolin Aerosols) 2.5 mg INHALATION Q2H PRN PRN PRN Reason: SHORTNESS OF BREATH Albuterol/Ipratropium (Duoneb) 3 ml INHALATION Q4HWA.RT [facility] Last Admin: 03/30/18 07:14 Dose: 3 ml Aspirin (Ecotrin) 81 mg PO DAILY@0800 [facility] Last Admin: 03/30/18 08:22 Dose: 81 mg Calcitriol (Rocaltrol) 0.25 mcg PO DAILY [facility] Last Admin: 03/30/18 08:22 Dose: 0.25 mcg Calcium/Vitamin D (Os-Hugh 500mg + D) [facility] Last Admin: 03/30/18 08:24 Dose: 1 tablet Clopidogrel Bisulfate (Plavix) 75 mg PO DAILY [facility] Last Admin: 03/30/18 08:23 Dose: 75 mg Ferrous Sulfate (Ferrous Sulfate) [facility] Last Admin: 03/30/18 08:22 Dose: 325 mg Guaifenesin (Mucinex) 1,200 mg PO BID [facility] Last Admin: 03/30/18 08:23 Dose: 1,200 mg Heparin Sodium (Porcine) (Heparin Na) 5,000 unit SC Q12 [facility] Last Admin: 03/30/18 08:25 Dose: 5,000 unit Hydralazine HCl (Apresoline Iv) 10 mg IV Q4H PRN PRN PRN Reason: SBP > 160 Last Admin: 03/28/18 13:35 Dose: 10 mg Ceftriaxone Sodium (Rocephin) 1 gm in 50 mls @ 100 mls/hr IV DAILY [facility] Last Admin: 03/30/18 08:24 Dose: 100 mls/hr Insulin Human Lispro (Humalog Kwikpen (Bkc)) 0 unit SC ACHS [facility]; Protocol Last Admin: 03/30/18 06:25 Dose: 1 u Lidocaine (Lidoderm Patch) 2 patch TOPICAL DAILY [facility]; Protocol Last Admin: 03/30/18 08:26 Dose: 2 patch Lisinopril (Zestril) 10 mg PO DAILY [facility] Last Admin: 03/30/18 08:24 Dose: 10 mg Magnesium Hydroxide (Milk Of Magnesia) 30 ml PO DAILY PRN PRN PRN Reason: Constipation Magnesium Oxide (Mag-Ox 400) 400 mg PO TID [facility] Last Admin: 03/30/18 06:20 Dose: 400 mg Metoprolol Tartrate (Lopressor (Beta Alexander)) 50 mg PO BID [facility] Last Admin: 03/30/18 08:23 Dose: 50 mg Morphine Sulfate () 1 - 2 mg IV Q4H PRN PRN PRN Reason: PAIN Last Admin: 03/28/18 18:39 Dose: 1 mg Multivitamins (Multivitamin) 1 tablet PO DAILY@0800 [facility] Last Admin: 03/30/18 08:25 Dose: 1 tablet Nitroglycerin (Nitrostat) 0.4 mg SUBLINGUAL Q5M PRN PRN Reason: Angina pain Nutritional Formula (Lactose Free) (Glucerna Shake) 120 ml PO 4X/DAY [facility] Last Admin: 03/30/18 08:25 Dose: 120 ml Ondansetron HCl (Zofran) 4 mg IV Q8H PRN PRN PRN Reason: NAUSEA/VOMITING Pantoprazole Sodium (Protonix) 20 mg PO DAILY [facility] Last Admin: 03/30/18 08:26 Dose: 20 mg Pravastatin Sodium (Pravachol) 80 mg PO QHS [facility] Last Admin: 03/29/18 21:59 Dose: 80 mg Promethazine HCl (Phenergan) 12.5 mg IV Q6H PRN PRN PRN Reason: NAUSEA/VOMITING Sodium Chloride () 5 - 15 ml IV UD PRN PRN Reason: SALINE FLUSH Last Admin: 03/28/18 03:11 Dose: 10 ml Tramadol HCl (Ultram) 25 mg PO TID PRN PRN PRN Reason: MODERATE PAIN (4-5/10) Last Admin: 03/28/18 20:22 Dose: 25 mg Medical Necessity - Tobacco Use Smoking Status: Former smoker Tobacco Use: Non-smoker Assessment/Plan 1. Community-acquired pneumonia/rhinovirus/debility and generalized weakness -Continue with Rocephin, completed azithromycin -Continue with DuoNeb -Off of oxygen -Continuing to encourage incentive spirometer -Continue with PT/OT, will likely needs SNF placement 2. CKD 3/hypertension/hyperlipidemia/CAD status post PCI with a drug-eluting stent to the distal RCA in 2004 -Creatinine is at baseline -Blood pressure is controlled continue with lisinopril, metoprolol, as needed hydralazine -Continue with pravastatin -Continue with aspirin and Plavix 3. GERD -Stable -Continue with PPI 4. DM 2 -Recent A1c of 4.7 -On Actos as an outpatient, will hold -Accu-Cheks with SSI 5. History of iron deficiency anemia -MCV is elevated, folate is normal vitamin B12 is 700 -Continue with iron replacement Dispo: Discharged to SNF in [place] DVT: Heparin Code Visit Inpatient E&M: 73806 Subs Hosp L2
--- NOTE | 2018-03-30 10:11 | PN_ITS ---
Subjective: Seems a little bit more confused today states that he did not sleep very well last night. He denies any fevers, chills, shortness of breath. No significant cough. Vitals/I&O's: Vital Signs Temp Pulse Resp BP Pulse Ox 98.7 F 95 18 192/98 H 94 03/30/18 08:41 03/30/18 08:41 03/30/18 08:41 03/30/18 08:41 03/30/18 08:41 Oxygen Flow Rate (L/min) 2 Oxygen Delivery Method Room Air Weight: 182 lb 12.211 oz Body Mass Index (BMI) 29.5 Finger Stick Blood Glucose 218 Intake and Output for Last 24 Hours 03/28/18 03/29/18 03/30/18 23:59 23:59 23:59 Intake Total 3965 / 3965 1559 / 1559 500 / 500 Output Total 975 / 975 1250 / 1250 925 / 925 Balance 2990 / 2990 309 / 309 -425 / -425 General: Alert, disoriented, Cooperative, No apparent distress HEENT: Atraumatic, EOMI, Normocephalic Oral: Moist Mucosa Neck: Supple, No JVD, Trachea Midline Lungs: Clear to auscultation, No rhonchi, No wheeze, No rales, Diminished Cardiovascular: Regular rate, Regular Rhythm, Normal S1, Normal S2, No murmurs, No rub noted, No Gallop Abdomen: Soft, Non Tender, Non-Distended, No Hepato-splenomegaly Extremities: No edema, Capillary Refill Less than 3 Seconds Skin: No rashes, No breakdown Neurological: Neuro grossly intact, Sensory exam intact to light touch and pain Psych/Mental Status: Normal Affect, Appropriate Microbiology Past 72 Hours 03/27/18 13:20 Blood Culture (Wb) - Anticubital Right Blood Culture - Preliminary No growth in 48 hours. 03/27/18 13:10 Blood Culture (Wb) - Left Wrist Blood Culture - Preliminary No growth in 48 hours. 03/27/18 14:19 Sputum, Expectorated/Coughed Gram Stain - Final 03/27/18 14:19 Sputum, Expectorated/Coughed Respiratory Culture - Final 03/28/18 04:56 Urine, Clean Catch Streptococcus pneumoniae Antigen (M - Final 03/28/18 04:56 Urine, Clean Catch Legionella Antigen - Final Laboratory Results 03/29/18 11:53: POC Glucose 300 H 03/29/18 16:00: POC Glucose 169 H 03/29/18 22:05: POC Glucose 230 H 03/30/18 05:28: WBC 11.1 H, RBC 2.97 L, Hgb 10.7 L, Hct 31.5 L, MCV 106.1 H, MCH 36.0 H, MCHC 34.0, RDW 13.1, RDW Differential 49.3 H, Plt Count 123 L, MPV 9.7, Immature Gran % (Auto) 0.700, Neut % (Auto) 82.2 H, Lymph % (Auto) 5.8 L, [place] % (Auto) 10.9 H, Eos % (Auto) 0.3, Baso % (Auto) 0.1, Absolute Neuts (auto) 9.1 H, Absolute Lymphs (auto) 0.64 L, Total Counted Not Reportable 03/30/18 05:28: Sodium 134 L, Potassium 4.8, Chloride 98, Carbon Dioxide 25.0, Anion Gap 11, BUN 33 H, Creatinine 1.61 H, Estim Creat Clear Calc 30.82, Est GFR (MDRD) Af Amer 53 L, Est GFR (MDRD) Non-Af 44 L, BUN/Creatinine Ratio 20.5 H, Glucose 192 H, Calcium 9.0 03/30/18 06:23: POC Glucose 204 H Current Medications Acetaminophen (Tylenol) 1,000 mg PO Q8 [facility] Last Admin: 03/30/18 06:20 Dose: 1,000 mg Al Hydroxide/Mg Hydroxide (Mylanta Ii) 30 ml PO Q6H PRN PRN PRN Reason: Gastric burning Albuterol Sulfate (Ventolin Aerosols) 2.5 mg INHALATION Q2H PRN PRN PRN Reason: SHORTNESS OF BREATH Albuterol/Ipratropium (Duoneb) 3 ml INHALATION Q4HWA.RT [facility] Last Admin: 03/30/18 07:14 Dose: 3 ml Aspirin (Ecotrin) 81 mg PO DAILY@0800 [facility] Last Admin: 03/30/18 08:22 Dose: 81 mg Calcitriol (Rocaltrol) 0.25 mcg PO DAILY [facility] Last Admin: 03/30/18 08:22 Dose: 0.25 mcg Calcium/Vitamin D (Os-Hugh 500mg + D) [facility] Last Admin: 03/30/18 08:24 Dose: 1 tablet Clopidogrel Bisulfate (Plavix) 75 mg PO DAILY [facility] Last Admin: 03/30/18 08:23 Dose: 75 mg Ferrous Sulfate (Ferrous Sulfate) [facility] Last Admin: 03/30/18 08:22 Dose: 325 mg Guaifenesin (Mucinex) 1,200 mg PO BID [facility] Last Admin: 03/30/18 08:23 Dose: 1,200 mg Heparin Sodium (Porcine) (Heparin Na) 5,000 unit SC Q12 [facility] Last Admin: 03/30/18 08:25 Dose: 5,000 unit Hydralazine HCl (Apresoline Iv) 10 mg IV Q4H PRN PRN PRN Reason: SBP > 160 Last Admin: 03/28/18 13:35 Dose: 10 mg Ceftriaxone Sodium (Rocephin) 1 gm in 50 mls @ 100 mls/hr IV DAILY [facility] Last Admin: 03/30/18 08:24 Dose: 100 mls/hr Insulin Human Lispro (Humalog Kwikpen (Bkc)) 0 unit SC ACHS [facility]; Protocol Last Admin: 03/30/18 06:25 Dose: 1 u Lidocaine (Lidoderm Patch) 2 patch TOPICAL DAILY [facility]; Protocol Last Admin: 03/30/18 08:26 Dose: 2 patch Lisinopril (Zestril) 10 mg PO DAILY [facility] Last Admin: 03/30/18 08:24 Dose: 10 mg Magnesium Hydroxide (Milk Of Magnesia) 30 ml PO DAILY PRN PRN PRN Reason: Constipation Magnesium Oxide (Mag-Ox 400) 400 mg PO TID [facility] Last Admin: 03/30/18 06:20 Dose: 400 mg Metoprolol Tartrate (Lopressor (Beta Alexander)) 50 mg PO BID [facility] Last Admin: 03/30/18 08:23 Dose: 50 mg Morphine Sulfate () 1 - 2 mg IV Q4H PRN PRN PRN Reason: PAIN Last Admin: 03/28/18 18:39 Dose: 1 mg Multivitamins (Multivitamin) 1 tablet PO DAILY@0800 [facility] Last Admin: 03/30/18 08:25 Dose: 1 tablet Nitroglycerin (Nitrostat) 0.4 mg SUBLINGUAL Q5M PRN PRN Reason: Angina pain Nutritional Formula (Lactose Free) (Glucerna Shake) 120 ml PO 4X/DAY [facility] Last Admin: 03/30/18 08:25 Dose: 120 ml Ondansetron HCl (Zofran) 4 mg IV Q8H PRN PRN PRN Reason: NAUSEA/VOMITING Pantoprazole Sodium (Protonix) 20 mg PO DAILY [facility] Last Admin: 03/30/18 08:26 Dose: 20 mg Pravastatin Sodium (Pravachol) 80 mg PO QHS [facility] Last Admin: 03/29/18 21:59 Dose: 80 mg Promethazine HCl (Phenergan) 12.5 mg IV Q6H PRN PRN PRN Reason: NAUSEA/VOMITING Sodium Chloride () 5 - 15 ml IV UD PRN PRN Reason: SALINE FLUSH Last Admin: 03/28/18 03:11 Dose: 10 ml Tramadol HCl (Ultram) 25 mg PO TID PRN PRN PRN Reason: MODERATE PAIN (4-5/10) Last Admin: 03/28/18 20:22 Dose: 25 mg Medical Necessity - Tobacco Use Smoking Status: Former smoker Tobacco Use: Non-smoker Assessment/Plan 1. Community-acquired pneumonia/rhinovirus/debility and generalized weakness -Continue with Rocephin, completed azithromycin -Continue with DuoNeb -Off of oxygen -Continuing to encourage incentive spirometer -Continue with PT/OT, will likely needs SNF placement 2. CKD 3/hypertension/hyperlipidemia/CAD status post PCI with a drug-eluting stent to the distal RCA in 2004 -Creatinine is at baseline -Blood pressure is controlled continue with lisinopril, metoprolol, as needed hydralazine -Continue with pravastatin -Continue with aspirin and Plavix 3. GERD -Stable -Continue with PPI 4. DM 2 -Recent A1c of 4.7 -On Actos as an outpatient, will hold -Accu-Cheks with SSI 5. History of iron deficiency anemia -MCV is elevated, folate is normal vitamin B12 is 700 -Continue with iron replacement Dispo: Discharged to SNF in [place] DVT: Heparin Code Visit Inpatient E&M: 07113 Subs Hosp L2
[2018-03-30 12:00] LABS: Bedside Glucose 266 mg/dL (70-110)
--- NOTE | 2018-03-30 13:00 | CASEMGMT ---
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
--- NOTE | 2018-03-30 15:13 | CASEMGMT ---
EFREN CARCAMO received update from SW that [facility] is able to accept patient and precert is pending. EFREN CARCAMO updated daughter Teressa and patient in room. Patient sleeping and daughter voiced understanding. SUAD will follow-up with discharge planning and plan for a safe discharge.
--- NOTE | 2018-03-30 16:21 | PCM.RX.CS ---
Consult Pharmacy has been consulted to manage selected antiobiotic: Vancomycin Type of Consult: New start Suspected Infection: Pneumonia Prior Doses of Antibiotics Received/Current Regimen: NO PRIOR VANCOMYCIN Labs: Sodium 134 mmol/L (136-145) L 03/30/18 05:28 Potassium 4.8 mmol/L (3.5-5.1) 03/30/18 05:28 Chloride 98 mmol/L (98-107) 03/30/18 05:28 Carbon Dioxide 25.0 mmol/L (21.0-32.0) 03/30/18 05:28 Anion Gap 11 (5-15) 03/30/18 05:28 BUN 33 mg/dL (7-18) H 03/30/18 05:28 Creatinine 1.61 mg/dL (0.70-1.30) H 03/30/18 05:28 Est GFR (MDRD) Af Amer 53 mL/min (>60) L 03/30/18 05:28 Est GFR (MDRD) Non-Af 44 mL/min (>60) L 03/30/18 05:28 BUN/Creatinine Ratio 20.5 RATIO (10-20) H 03/30/18 05:28 Glucose 192 mg/dL (74-106) H 03/30/18 05:28 Microbiology: Microbiology 03/27/18 13:20 Blood Culture (Wb) - Anticubital Right Blood Culture - Preliminary No growth in 48 hours. 03/27/18 13:10 Blood Culture (Wb) - Left Wrist Blood Culture - Preliminary No growth in 48 hours. 03/27/18 14:19 Sputum, Expectorated/Coughed Gram Stain - Final 03/27/18 14:19 Sputum, Expectorated/Coughed Respiratory Culture - Final 03/28/18 04:56 Urine, Clean Catch Streptococcus pneumoniae Antigen (M - Final 03/28/18 04:56 Urine, Clean Catch Legionella Antigen - Final Weight used for dosin.9 kg Estimated Creatinine Clearance: 30ML/MIN Goal Trough: 10-15 mcg/mL Pharmacy Plan for Drug Dosing: PLAN/RECOMMENDATIONS 1. Vancomycin 1250mg IV x1 initial dose 03/30/18 @1700 2. Schedule vancomycin 750mg IV Q24hrs to start 03/31/17 @1700 3. Trough scheduled 04/01/18 @1630, prior to 3rd total dose given 4. Pharmacy Service will continue to monitor and adjust dosing as required.
[2018-03-30 17:05] LABS: Bedside Glucose 171 mg/dL (70-110)
[2018-03-30] MEDS: Pravastatin 80 MG Tablet PO (22:38)
[2018-03-30 23:23] LABS: Bedside Glucose 196 mg/dL (70-110)
[2018-03-31] VITALS (14 sets, daily range): BP systolic 114–163; BP diastolic 60–86; PULSE 74–88; RESP 16–21; TEMP 36.5–36.8; O2SAT 93–97
[2018-03-31] MEDS: hydrALAZINE 20 MG/ML Vial 10 MG IV (03:30)
[2018-03-31] MEDS: Ipratropium/Albuterol Sulfate 3 ML AMPUL.NEB INHALATION ×4 (06:48→19:38)
[2018-03-31] MEDS: Acetaminophen 500 MG Tablet 1000 MG PO ×3 (06:53→22:23)
[2018-03-31] MEDS: Magnesium Oxide 400 MG Tablet PO ×3 (06:54→22:23)
[2018-03-31] MEDS: Insulin Lispro 100 UNIT/ML INSULN.PEN SC ×3 (06:55→22:33)
[2018-03-31 07:06] LABS: Bedside Glucose 160 mg/dL (70-110)
--- NOTE | 2018-03-31 08:59 | CASEMGMT ---
Social Work Note SW faxed updated clinicals to Hawa at [facility]. 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
--- NOTE | 2018-03-31 09:07 | PCM.PN.HOSP ---
Subjective: More alert this morning, continues to have a nonproductive cough. No fevers or chills. Vitals/I&O's: Vital Signs Temp Pulse Resp BP Pulse Ox 97.9 F 88 20 H 151/76 H 93 03/31/18 03:27 03/31/18 06:48 03/31/18 06:48 03/31/18 06:53 03/31/18 06:48 Oxygen Flow Rate (L/min) 2 Oxygen Delivery Method Room Air Weight: 182 lb 12.211 oz Body Mass Index (BMI) 29.5 Finger Stick Blood Glucose 218 Intake and Output for Last 24 Hours 03/29/18 03/30/18 03/31/18 23:59 23:59 23:59 Intake Total 1559 / 1559 500 / 500 731 / 731 Output Total 1250 / 1250 925 / 925 775 / 775 Balance 309 / 309 -425 / -425 -44 / -44 General: Alert, oriented, Cooperative, No apparent distress HEENT: Atraumatic, EOMI, Normocephalic Oral: Moist Mucosa Neck: Supple, No JVD, Trachea Midline Lungs: Normal air movement, No rhonchi, mild wheeze, No rales, Diminished Cardiovascular: Regular rate, Regular Rhythm, Normal S1, Normal S2, No murmurs, No rub noted, No Gallop Abdomen: Soft, Non Tender, Non-Distended, No Hepato-splenomegaly Extremities: No edema, Capillary Refill Less than 3 Seconds Skin: No rashes, No breakdown Neurological: Neuro grossly intact, Sensory exam intact to light touch and pain Psych/Mental Status: Normal Affect, Appropriate Microbiology Past 72 Hours 03/27/18 13:20 Blood Culture (Wb) - Anticubital Right Blood Culture - Preliminary No growth in 48 hours. 03/27/18 13:10 Blood Culture (Wb) - Left Wrist Blood Culture - Preliminary No growth in 48 hours. 03/27/18 14:19 Sputum, Expectorated/Coughed Gram Stain - Final 03/27/18 14:19 Sputum, Expectorated/Coughed Respiratory Culture - Final 03/28/18 04:56 Urine, Clean Catch Streptococcus pneumoniae Antigen (M - Final 03/28/18 04:56 Urine, Clean Catch Legionella Antigen - Final Laboratory Results 03/30/18 11:53: POC Glucose 266 H 03/30/18 17:03: POC Glucose 171 H 03/30/18 22:53: POC Glucose 196 H 03/31/18 06:55: POC Glucose 160 H Current Medications Acetaminophen (Tylenol) 1,000 mg PO Q8 [facility] Last Admin: 03/31/18 06:53 Dose: 1,000 mg Al Hydroxide/Mg Hydroxide (Mylanta Ii) 30 ml PO Q6H PRN PRN PRN Reason: Gastric burning Albuterol Sulfate (Ventolin Aerosols) 2.5 mg INHALATION Q2H PRN PRN PRN Reason: SHORTNESS OF BREATH Albuterol/Ipratropium (Duoneb) 3 ml INHALATION Q4HWA.RT [facility] Last Admin: 03/31/18 06:48 Dose: 3 ml Aspirin (Ecotrin) 81 mg PO DAILY@0800 [facility] Last Admin: 03/30/18 08:22 Dose: 81 mg Calcitriol (Rocaltrol) 0.25 mcg PO DAILY [facility] Last Admin: 03/30/18 08:22 Dose: 0.25 mcg Calcium/Vitamin D (Os-Hugh 500mg + D) [facility] Last Admin: 03/30/18 17:19 Dose: Not Given Clopidogrel Bisulfate (Plavix) 75 mg PO DAILY [facility] Last Admin: 03/30/18 08:23 Dose: 75 mg Ferrous Sulfate (Ferrous Sulfate) [facility] Last Admin: 03/30/18 08:22 Dose: 325 mg Guaifenesin (Mucinex) 1,200 mg PO BID [facility] Last Admin: 03/30/18 22:40 Dose: 1,200 mg Heparin Sodium (Porcine) (Heparin Na) 5,000 unit SC Q12 [facility] Last Admin: 03/30/18 22:39 Dose: 5,000 unit Hydralazine HCl (Apresoline Iv) 10 mg IV Q4H PRN PRN PRN Reason: SBP > 160 Last Admin: 03/31/18 03:30 Dose: 10 mg Cefepime HCl 2 gm/ Sodium (Chloride) 100 mls @ 200 mls/hr IV QHS [facility] Last Admin: 03/30/18 22:37 Dose: 200 mls/hr Vancomycin IV Pharmacy to Dose (1 ea/ Sodium Chloride) 500 mls @ 250 mls/hr IV PRN PRN; Protocol PRN Reason: Rx to Dose Vancomycin HCl 750 mg/ Sodium (Chloride) 265 mls @ 250 mls/hr IV Q24H [facility] Insulin Human Lispro (Humalog Kwikpen (Bkc)) 0 unit SC ACHS [facility]; Protocol Last Admin: 03/31/18 06:55 Dose: 1 u Lidocaine (Lidoderm Patch) 2 patch TOPICAL DAILY [facility]; Protocol Last Admin: 03/30/18 08:26 Dose: 2 patch Lisinopril (Zestril) 10 mg PO DAILY [facility] Last Admin: 03/30/18 08:24 Dose: 10 mg Magnesium Hydroxide (Milk Of Magnesia) 30 ml PO DAILY PRN PRN PRN Reason: Constipation Magnesium Oxide (Mag-Ox 400) 400 mg PO TID [facility] Last Admin: 03/31/18 06:54 Dose: 400 mg Metoprolol Tartrate (Lopressor (Beta Alexander)) 50 mg PO BID [facility] Last Admin: 03/30/18 22:43 Dose: 50 mg Morphine Sulfate () 1 - 2 mg IV Q4H PRN PRN PRN Reason: PAIN Last Admin: 03/28/18 18:39 Dose: 1 mg Multivitamins (Multivitamin) 1 tablet PO DAILY@0800 [facility] Last Admin: 03/30/18 08:25 Dose: 1 tablet Nitroglycerin (Nitrostat) 0.4 mg SUBLINGUAL Q5M PRN PRN Reason: Angina pain Nutritional Formula (Lactose Free) (Glucerna Shake) 120 ml PO 4X/DAY [facility] Last Admin: 03/30/18 22:37 Dose: 120 ml Ondansetron HCl (Zofran) 4 mg IV Q8H PRN PRN PRN Reason: NAUSEA/VOMITING Pantoprazole Sodium (Protonix) 20 mg PO DAILY [facility] Last Admin: 03/30/18 08:26 Dose: 20 mg Pravastatin Sodium (Pravachol) 80 mg PO QHS [facility] Last Admin: 03/30/18 22:38 Dose: 80 mg Promethazine HCl (Phenergan) 12.5 mg IV Q6H PRN PRN PRN Reason: NAUSEA/VOMITING Sodium Chloride () 5 - 15 ml IV UD PRN PRN Reason: SALINE FLUSH Last Admin: 03/28/18 03:11 Dose: 10 ml Tramadol HCl (Ultram) 25 mg PO TID PRN PRN PRN Reason: MODERATE PAIN (4-5/10) Last Admin: 03/28/18 20:22 Dose: 25 mg Medical Necessity - Tobacco Use Smoking Status: Former smoker Tobacco Use: Non-smoker Assessment/Plan 1. Community-acquired pneumonia/rhinovirus/debility and generalized weakness/metabolic encephalopathy (resolved) -Had an extensive discussion with the daughter, and he was recently admitted for 2 days last week but it also had a couple of 1-2-day admission in December at a different hospital, also he lives with his daughter who is an ER nurse. Given the fact that he seemed to be a little bit more confused yesterday and a little bit more lethargic, I decided to switch his antibiotics represent more of a hospital-acquired pneumonia than a community-acquired pneumonia. He is allergic to amoxicillin and therefore he was started on cefepime and vancomycin. If he continues to improve on this regimen and then can plan to discharge him to [place] [facility] and continue the IV antibiotics there -Continue with DuoNeb, will add prednisone p.o. -Off of oxygen -Continuing to encourage incentive spirometer 2. CKD 3/hypertension/hyperlipidemia/CAD status post PCI with a drug-eluting stent to the distal RCA in 2004 -Creatinine is at baseline -Blood pressure is controlled continue with lisinopril, metoprolol, as needed hydralazine -Continue with pravastatin -Continue with aspirin and Plavix 3. GERD -Stable -Continue with PPI 4. DM 2 -Recent A1c of 4.7 -On Actos as an outpatient, will hold -Accu-Cheks with SSI 5. History of iron deficiency anemia -MCV is elevated, folate is normal vitamin B12 is 700 -Continue with iron replacement Dispo: Discharged to SNF in [place] DVT: Heparin Code Visit Inpatient E&M: 55844 Subs Hosp L2
[2018-03-31] MEDS: Ferrous Sulfate 325 MG Tablet PO (09:09)
[2018-03-31] MEDS: Aspirin E.C. 81 MG Tablet PO (09:09)
[2018-03-31] MEDS: Glucerna Shake 120 ML LIQUID PO ×4 (09:10→22:22)
[2018-03-31] MEDS: Calcium Carb/Vitamin D 1 TABLET Tablet PO ×2 (09:10→17:51)
[2018-03-31] MEDS: Multivitamins,Therapeutic Tablet 1 TABLET PO (09:10)
[2018-03-31] MEDS: Heparin Injection (Vial) 5,000 UNIT/ML VIAL 5000 UNIT SC ×2 (09:11→22:24)
[2018-03-31] MEDS: guaiFENesin 1,200 MG Tablet 1200 MG PO ×2 (09:11→22:23)
[2018-03-31] MEDS: Metoprolol Tartrate 50 MG Tablet PO ×2 (09:11→22:23)
[2018-03-31] MEDS: Lidocaine 5% Patch 2 PATCH TOPICAL (09:11)
[2018-03-31] MEDS: Lisinopril 10 MG Tablet PO (09:12)
[2018-03-31] MEDS: Clopidogrel Bisulfate 75 MG Tablet PO (09:12)
[2018-03-31] MEDS: Calcitriol 0.25 MCG Capsule PO (09:12)
[2018-03-31] MEDS: Pantoprazole Sodium 20 MG Tablet PO (09:12)
--- NOTE | 2018-03-31 09:13 | PN_ITS ---
Subjective: More alert this morning, continues to have a nonproductive cough. No fevers or chills. Vitals/I&O's: Vital Signs Temp Pulse Resp BP Pulse Ox 97.9 F 88 20 H 151/76 H 93 03/31/18 03:27 03/31/18 06:48 03/31/18 06:48 03/31/18 06:53 03/31/18 06:48 Oxygen Flow Rate (L/min) 2 Oxygen Delivery Method Room Air Weight: 182 lb 12.211 oz Body Mass Index (BMI) 29.5 Finger Stick Blood Glucose 218 Intake and Output for Last 24 Hours 03/29/18 03/30/18 03/31/18 23:59 23:59 23:59 Intake Total 1559 / 1559 500 / 500 731 / 731 Output Total 1250 / 1250 925 / 925 775 / 775 Balance 309 / 309 -425 / -425 -44 / -44 General: Alert, oriented, Cooperative, No apparent distress HEENT: Atraumatic, EOMI, Normocephalic Oral: Moist Mucosa Neck: Supple, No JVD, Trachea Midline Lungs: Normal air movement, No rhonchi, mild wheeze, No rales, Diminished Cardiovascular: Regular rate, Regular Rhythm, Normal S1, Normal S2, No murmurs, No rub noted, No Gallop Abdomen: Soft, Non Tender, Non-Distended, No Hepato-splenomegaly Extremities: No edema, Capillary Refill Less than 3 Seconds Skin: No rashes, No breakdown Neurological: Neuro grossly intact, Sensory exam intact to light touch and pain Psych/Mental Status: Normal Affect, Appropriate Microbiology Past 72 Hours 03/27/18 13:20 Blood Culture (Wb) - Anticubital Right Blood Culture - Preliminary No growth in 48 hours. 03/27/18 13:10 Blood Culture (Wb) - Left Wrist Blood Culture - Preliminary No growth in 48 hours. 03/27/18 14:19 Sputum, Expectorated/Coughed Gram Stain - Final 03/27/18 14:19 Sputum, Expectorated/Coughed Respiratory Culture - Final 03/28/18 04:56 Urine, Clean Catch Streptococcus pneumoniae Antigen (M - Final 03/28/18 04:56 Urine, Clean Catch Legionella Antigen - Final Laboratory Results 03/30/18 11:53: POC Glucose 266 H 03/30/18 17:03: POC Glucose 171 H 03/30/18 22:53: POC Glucose 196 H 03/31/18 06:55: POC Glucose 160 H Current Medications Acetaminophen (Tylenol) 1,000 mg PO Q8 [facility] Last Admin: 03/31/18 06:53 Dose: 1,000 mg Al Hydroxide/Mg Hydroxide (Mylanta Ii) 30 ml PO Q6H PRN PRN PRN Reason: Gastric burning Albuterol Sulfate (Ventolin Aerosols) 2.5 mg INHALATION Q2H PRN PRN PRN Reason: SHORTNESS OF BREATH Albuterol/Ipratropium (Duoneb) 3 ml INHALATION Q4HWA.RT [facility] Last Admin: 03/31/18 06:48 Dose: 3 ml Aspirin (Ecotrin) 81 mg PO DAILY@0800 [facility] Last Admin: 03/30/18 08:22 Dose: 81 mg Calcitriol (Rocaltrol) 0.25 mcg PO DAILY [facility] Last Admin: 03/30/18 08:22 Dose: 0.25 mcg Calcium/Vitamin D (Os-Hugh 500mg + D) [facility] Admin: 03/30/18 17:19 Dose: Not Given Clopidogrel Bisulfate (Plavix) 75 mg PO DAILY [facility] Last Admin: 03/30/18 08:23 Dose: 75 mg Ferrous Sulfate (Ferrous Sulfate) [facility] Last Admin: 03/30/18 08:22 Dose: 325 mg Guaifenesin (Mucinex) 1,200 mg PO BID [facility] Last Admin: 03/30/18 22:40 Dose: 1,200 mg Heparin Sodium (Porcine) (Heparin Na) 5,000 unit SC Q12 [facility] Last Admin: 03/30/18 22:39 Dose: 5,000 unit Hydralazine HCl (Apresoline Iv) 10 mg IV Q4H PRN PRN PRN Reason: SBP > 160 Last Admin: 03/31/18 03:30 Dose: 10 mg Cefepime HCl 2 gm/ Sodium (Chloride) 100 mls @ 200 mls/hr IV QHS [facility] Last Admin: 03/30/18 22:37 Dose: 200 mls/hr Vancomycin IV Pharmacy to Dose (1 ea/ Sodium Chloride) 500 mls @ 250 mls/hr IV PRN PRN; Protocol PRN Reason: Rx to Dose Vancomycin HCl 750 mg/ Sodium (Chloride) 265 mls @ 250 mls/hr IV Q24H [facility] Insulin Human Lispro (Humalog Kwikpen (Bkc)) 0 unit SC ACHS [facility]; Protocol Last Admin: 03/31/18 06:55 Dose: 1 u Lidocaine (Lidoderm Patch) 2 patch TOPICAL DAILY [facility]; Protocol Last Admin: 03/30/18 08:26 Dose: 2 patch Lisinopril (Zestril) 10 mg PO DAILY [facility] Last Admin: 03/30/18 08:24 Dose: 10 mg Magnesium Hydroxide (Milk Of Magnesia) 30 ml PO DAILY PRN PRN PRN Reason: Constipation Magnesium Oxide (Mag-Ox 400) 400 mg PO TID [facility] Last Admin: 03/31/18 06:54 Dose: 400 mg Metoprolol Tartrate (Lopressor (Beta Alexander)) 50 mg PO BID [facility] Last Admin: 03/30/18 22:43 Dose: 50 mg Morphine Sulfate () 1 - 2 mg IV Q4H PRN PRN PRN Reason: PAIN Last Admin: 03/28/18 18:39 Dose: 1 mg Multivitamins (Multivitamin) 1 tablet PO DAILY@0800 [facility] Last Admin: 03/30/18 08:25 Dose: 1 tablet Nitroglycerin (Nitrostat) 0.4 mg SUBLINGUAL Q5M PRN PRN Reason: Angina pain Nutritional Formula (Lactose Free) (Glucerna Shake) 120 ml PO 4X/DAY [facility] Last Admin: 03/30/18 22:37 Dose: 120 ml Ondansetron HCl (Zofran) 4 mg IV Q8H PRN PRN PRN Reason: NAUSEA/VOMITING Pantoprazole Sodium (Protonix) 20 mg PO DAILY [facility] Last Admin: 03/30/18 08:26 Dose: 20 mg Pravastatin Sodium (Pravachol) 80 mg PO QHS [facility] Last Admin: 03/30/18 22:38 Dose: 80 mg Promethazine HCl (Phenergan) 12.5 mg IV Q6H PRN PRN PRN Reason: NAUSEA/VOMITING Sodium Chloride () 5 - 15 ml IV UD PRN PRN Reason: SALINE FLUSH Last Admin: 03/28/18 03:11 Dose: 10 ml Tramadol HCl (Ultram) 25 mg PO TID PRN PRN PRN Reason: MODERATE PAIN (4-5/10) Last Admin: 03/28/18 20:22 Dose: 25 mg Medical Necessity - Tobacco Use Smoking Status: Former smoker Tobacco Use: Non-smoker Assessment/Plan 1. Community-acquired pneumonia/rhinovirus/debility and generalized weakness/metabolic encephalopathy (resolved) -Had an extensive discussion with the daughter, and he was recently admitted for 2 days last week but it also had a couple of 1-2-day admission in December at a different hospital, also he lives with his daughter who is an ER nurse. Given the fact that he seemed to be a little bit more confused yesterday and a little bit more lethargic, I decided to switch his antibiotics represent more of a hospital-acquired pneumonia than a community-acquired pneumonia. He is allergic to amoxicillin and therefore he was started on cefepime and vancomycin. If he continues to improve on this regimen and then can plan to discharge him to [place] [facility] and continue the IV antibiotics there -Continue with DuoNeb, will add prednisone p.o. -Off of oxygen -Continuing to encourage incentive spirometer 2. CKD 3/hypertension/hyperlipidemia/CAD status post PCI with a drug-eluting stent to the distal RCA in 2004 -Creatinine is at baseline -Blood pressure is controlled continue with lisinopril, metoprolol, as needed hydralazine -Continue with pravastatin -Continue with aspirin and Plavix 3. GERD -Stable -Continue with PPI 4. DM 2 -Recent A1c of 4.7 -On Actos as an outpatient, will hold -Accu-Cheks with SSI 5. History of iron deficiency anemia -MCV is elevated, folate is normal vitamin B12 is 700 -Continue with iron replacement Dispo: Discharged to SNF in [place] DVT: Heparin Code Visit Inpatient E&M: [id number] Subs Hosp L2
[2018-03-31 12:11] LABS: Bedside Glucose 212 mg/dL (70-110)
[2018-03-31] MEDS: predniSONE 20 MG Tablet 40 MG PO (12:52)
--- NOTE | 2018-03-31 14:53 | CASEMGMT ---
Addendum entered by Mena Medel 03/31/18 15:23: Hawa provided direct number [phone]. Original Note: Social Work Note SW received message from Hawa at [facility] stating pre-cert is still pending. Plan: [facility] pending pre-cert Mena Medel OPTICAL INSTRUMENT ASSEMBLY SUPERVISOR, FLIGHT COMMUNICATIONS OPERATOR
[2018-03-31 17:26] LABS: Bedside Glucose 146 mg/dL (70-110)
[2018-03-31] MEDS: Pravastatin 80 MG Tablet PO (22:24)
[2018-03-31 23:56] LABS: Bedside Glucose 204 mg/dL (70-110)
[2018-04-01] VITALS (14 sets, daily range): BP systolic 121–154; BP diastolic 58–86; PULSE 74–94; RESP 18–21; TEMP 36.5–36.9; O2SAT 93–97
[2018-04-01 06:33] LABS: Absolute Lymphocyte Count 0.75 X10^3/ul (0.83-4.51); Absolute Neutrophil Count 5.8 X10^3/uL (2.0-7.7); Basophil# 0.01 X10^3/uL; Basophil% 0.1 % (0-1); Eosinophils% 1.3 % (0-5); Hemoglobin 9.9 g/dl (13.0-16.5); Lymphocyte # 0.75 X10^3/ul (4.0); Lymphocyte % 9.9 % (19-41); Mean Corpuscular Hgb 35.2 pg (27.0-32.0); Mean Corpuscular Volume 106.8 fL (80-94); Mean Platelet Vol. 9.8 fl (6.2-12.0); Monocyte# 0.91 X10^3/uL; Neutrophil % 76.2 % (47-70); Platelet Count 118 K/mm3 (150-450); RBC Distribution Width CV 13.6 % (11.6-14.6); RBC Distribution Width SD 52.9 fl (35.1-43.9); Red Blood Count 2.81 M/mm3 (4.6-6.2); White Blood Count 7.6 K/mm3 (4.4-11.0)
[2018-04-01 06:35] LABS: POSITIVE COUNT NO; POSITIVE DIFFERENTIAL NO; POSITIVE MORPHOLOGY NO
[2018-04-01] MEDS: Magnesium Oxide 400 MG Tablet PO ×3 (06:40→21:56)
[2018-04-01] MEDS: Acetaminophen 500 MG Tablet 1000 MG PO ×3 (06:40→21:57)
[2018-04-01] MEDS: Insulin Lispro 100 UNIT/ML INSULN.PEN SC ×4 (06:40→21:55)
[2018-04-01 06:45] LABS: Anion Gap 7 (5-15); BUN 28 mg/dL (7-18); BUN/Creat Ratio 17.5 RATIO (10-20); Calcium,Total 8.6 mg/dL (8.5-10.1); Chloride 101 mmol/L (98-107); EST Glomerular Filtration Rate 44 mL/min (>60); Est Glom Filt Rate - Afr Amer 53 mL/min (>60); Estimated Creatinine Clearance 31.01 ml/min; Glucose 154 mg/dL (74-106); Potassium 4.8 mmol/L (3.5-5.1); Sodium Level 134 mmol/L (136-145)
[2018-04-01] MEDS: Ipratropium/Albuterol Sulfate 3 ML AMPUL.NEB INHALATION ×3 (07:06→19:25)
[2018-04-01] MEDS: Multivitamins,Therapeutic Tablet 1 TABLET PO (08:09)
[2018-04-01] MEDS: Calcium Carb/Vitamin D 1 TABLET Tablet PO ×2 (08:09→16:45)
[2018-04-01] MEDS: Aspirin E.C. 81 MG Tablet PO (08:10)
[2018-04-01] MEDS: Ferrous Sulfate 325 MG Tablet PO (08:10)
[2018-04-01] MEDS: Lisinopril 10 MG Tablet PO (08:10)
[2018-04-01] MEDS: Clopidogrel Bisulfate 75 MG Tablet PO (08:10)
[2018-04-01] MEDS: Metoprolol Tartrate 50 MG Tablet PO ×2 (08:10→21:56)
[2018-04-01] MEDS: Pantoprazole Sodium 20 MG Tablet PO (08:10)
[2018-04-01] MEDS: predniSONE 20 MG Tablet 40 MG PO (08:11)
[2018-04-01] MEDS: guaiFENesin 1,200 MG Tablet 1200 MG PO ×2 (08:11→21:56)
[2018-04-01] MEDS: Calcitriol 0.25 MCG Capsule PO (08:12)
[2018-04-01] MEDS: Glucerna Shake 120 ML LIQUID PO ×2 (08:14→14:17)
[2018-04-01 08:20] LABS: Bedside Glucose 153 mg/dL (70-110)
--- NOTE | 2018-04-01 08:53 | CASEMGMT ---
Social Work Note SW received message from Charge Nurse stating pt will be discharged on IV Vanc with Peripheal line. SUAD placed a call to Hawa at [facility]. Per Hawa it is fine for pt to come with IV Vanc and Peripheal Line. Hawa states the only hold up is the authorization is still pending. Plan: [facility] pending pre-cert Mena Medel MSW, MEMBER SERVICE REPRESENTATIVE
--- NOTE | 2018-04-01 09:16 | PCM.TXEXTCAR ---
- Diet 03/28/18 13:26 Diet: Calorie Controlled Is pt able to select menu?: Yes How many daily calories?: 2000 calorie - Wound(s) Left Knee Wound Type: Abrasion - Allergies/Procedures Done in Hospital Allergies/Adverse Reactions: Allergies amoxicillin Allergy (Severe, Verified 03/27/18 12:21) unknown Tetanus Vaccines and Toxoid Allergy (Severe, Verified 03/27/18 12:21) unknown - Type of Care/Length of Stay Estimated LOS: Convalescent Care Less Than 30 days Type of Care Needed: Skilled Rehab Potential: Good Prognosis: Good - Additional Orders/Day of Discharge Day of Discharge: 04/01/18 - Dietary and Speech Recommendations Dietitian Recommendations/Changes: Suggest liberalize diet to regular as needed especially if PO remains poor at meals. Continue Gluicena shake on medpass--pt is accepting them at this time. Reweigh please. - Follow Up Care Primary Care Physician: Ana María Mazariegos DO [Primary Care Provider] - Please follow up with your Primary Care Physician in: 3-5 days
--- NOTE | 2018-04-01 09:24 | DS.PCM_ITS ---
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 No acute cardiopulmonary pathology. 2. Clearing of the long horizontal linear subsegmental atelectases in the right midlung. 3. New discoid atelectasis in the left lower lobe. Consults: None Operations: None Procedures: None Summary of Care Provided: Per HPI:; The patient is a 83 y/o M w/ PMHx: CKD Unclear stage (suspect baseline Cr 1.4-1.7), Diabetes mellitus type II, Obesity, HTN, HLD, ZABRINA, CAD s/p PCI ANN MARIE to distal RCA 2004, History of SAH, Fe deficiency anemia and Thrombocytopenia who was recently discharged from [facility] on 03/22/18 following evaluation and treatment for TIA w/ elevated BP with addition BB, lisinopril, Rhinoviral tracheobronchitis treated with oral prednisone, aerosols with unremarkable MRI brain who now re-presents to the [facility] ED on 03/27/17 from home with ongoing cough, diagnosed 03/27/17 per PCP with ? clinical PNA with following visit while attempting to get into the car he landed on his left side hurting his ribs, requiring at least 3 people to get him up with mild wheezing noted to have completed his steroid taper the day prior. Daughter notes he seemed to have improved upon recent discharge for 2 days and then worsened dramatically with worsened coughing, dyspnea, fatigue and weakness. Work-up in the ED included T 97, heart rate 61, BP 160/102, respiratory rate 18, 98% on room air, CBC with WBC 11.2, hemoglobin 12.4, platelet 175 with left shift, BMP with sodium 133, chloride 96, BUN/creatinine 37/1.58, glucose 187, lactic acid 1.1, magnesium 1.9, troponin 0.022, chest x-ray with no acute cardia pulmonary findings with improving sub-segmental atelectasis right midlung, new discoid atelectasis left lower lobe. In the ED patient administered normal saline, DuoNeb, morphine 4 mg IV x1, Zofran. Hospital Course: 1. Community-acquired pneumonia/rhinovirus/debility and generalized weakness/metabolic encephalopathy -he presented from home with a cough after being admitted for rhinovirus tracheobronchitis. He was treated with inhalers and some prednisone. Per the daughter it did not seem that he had improved and therefore brought him back. Chest x-ray demonstrated a new discoid atelectasis area in the left lung, it was thought maybe he was having pneumonia and was started on community-acquired treatment with Rocephin, and azithromycin. He initially seemed to be doing okay, then he became a little bit more lethargic and the daughter was very concerned just because he was not behaving like he normally did. When I discussed with her his recent hospitalization she states that he had also been hospitalized at a different hospital in December for a couple days. Therefore his medications were changed to represent more of a hospital-acquired pneumonia, and he was transitioned to cefepime and vancomycin. He improved after couple doses of his antibiotics and his encephalopathy resolved. There is some discussion as to whether or not this was due to [place] wearing off or the actual pneumonia improving. He was discharged to [facility] today on cefepime and Vanco for 7 more days. He did have some wheezing on the DuoNeb inhalers, he can continue the prednisone for 5 more days and should not require a taper. 2. CKD 3/hypertension/hyperlipidemia/CAD status post PCI with a drug-eluting stent to the distal RCA in 2004 -per the daughter his primary care doctor and his surveillance inspector have been changing his blood pressure medications over the last few months so they are not quite sure exactly what he is supposed to be on, he did have some elevated blood pressures during the acute phase of his pneumonia, with systolic blood pressures in the 190s. He is currently on metoprolol, and lisinopril. I made no changes to his medications though I did discuss with the daughter that transitioning to Coreg may be a better option for blood pressure control. 3. His other medical diagnoses were evaluated and his home medications were continued where appropriate Objective: General: Alert, oriented, Cooperative, No apparent distress HEENT: Atraumatic, EOMI, Normocephalic Oral: Moist Mucosa Neck: Supple, No JVD, Trachea Midline Lungs: Normal air movement, No rhonchi, mild wheeze, No rales, Diminished Cardiovascular: Regular rate, Regular Rhythm, Normal S1, Normal S2, No murmurs, No rub noted, No Gallop Abdomen: Soft, Non Tender, Non-Distended, No Hepato-splenomegaly Extremities: No edema, Capillary Refill Less than 3 Seconds Skin: No rashes, No breakdown Neurological: Neuro grossly intact, Sensory exam intact to light touch and pain Psych/Mental Status: Normal Affect, Appropriate - Physical Exam Vital Signs Temp Pulse Resp BP Pulse Ox 97.7 F L 80 20 H 150/58 H 93 04/01/18 04:30 04/01/18 08:10 04/01/18 07:00 04/01/18 04:30 04/01/18 08:04 Oxygen Flow Rate (L/min) 2 Oxygen Delivery Method Room Air Weight: 182 lb 12.211 oz Body Mass Index (BMI) 29.5 Finger Stick Blood Glucose 218 Intake and Output for Last 24 Hours 03/30/18 03/31/18 04/01/18 23:59 23:59 23:59 Intake Total 500 / 500 731 / 731 881 / 881 Output Total 925 / 925 775 / 775 1150 / 1150 Balance -425 / -425 -44 / -44 -269 / -269 Microbiology Past 72 Hours 03/27/18 13:20 Blood Culture - Preliminary Blood Culture (Wb) - Anticubital Right No growth in 48 hours. 03/27/18 13:10 Blood Culture - Preliminary Blood Culture (Wb) - Left Wrist No growth in 48 hours. 03/27/18 14:19 Gram Stain - Final Sputum, Expectorated/Coughed Respiratory Culture - Final Laboratory Tests Past 24 Hrs 04/01/18 04/01/18 05:20 05:20 WBC 7.6 RBC 2.81 L Hgb 9.9 L Hct 30.0 L MCV 106.8 H MCH 35.2 H MCHC 33.0 RDW 13.6 RDW Differential 52.9 H Plt Count 118 L MPV 9.8 Immature Gran % (Auto) 0.500 Neut % (Auto) 76.2 H Lymph % (Auto) 9.9 L [place] % (Auto) 12.0 H Eos % (Auto) 1.3 Baso % (Auto) 0.1 Absolute Neuts (auto) 5.8 Absolute Lymphs (auto) 0.75 L Total Counted Not Reportable Sodium 134 L Potassium 4.8 Chloride 101 Carbon Dioxide 26.0 Anion Gap 7 BUN 28 H Creatinine 1.60 H Estim Creat Clear Calc 31.01 Est GFR (MDRD) Af Amer 53 L Est GFR (MDRD) Non-Af 44 L BUN/Creatinine Ratio 17.5 Glucose 154 H Calcium 8.6 POC Glucose 04/01/18 03/31/18 03/31/18 06:38 22:33 17:17 POC Glucose 153 H 204 H 146 H 03/31/18 12:03 POC Glucose 212 H Call your doctor if you observe: Fever of 101 or Higher, Shortness of breath, Fainting spells, Swelling in the ankles, Chest pain Home Medications: Medications to take at Discharge clopidogrel 75 mg tablet 75 mg PO QDAY 03/09/17 esomeprazole magnesium 20 mg capsule,delayed release 20 mg PO QDAY cap 03/09/17 ferrous sulfate 325 mg (65 mg iron) tablet,delayed release 324 mg PO QDAY tab 03/09/17 multivitamin tablet 1 tab PO QDAY 03/09/17 pravastatin 80 mg tablet 80 mg PO QHS 03/09/17 calcium carbonate-vitamin D3 600 mg (1,500 mg)-800 unit tablet 1 tab PO BID 09/08/17 pioglitazone 30 mg tablet 15 mg PO QDAY tab 09/08/17 calcitriol 0.25 mcg capsule 0.25 mcg PO ONCE 01/21/18 Aspirin E.C. [Ecotrin] 81 mg PO DAILY@0800 03/20/18 magnesium oxide 400 mg capsule 400 mg PO TID 03/20/18 Acetaminophen [Tylenol Tablet] 650 mg PO Q4H PRN PRN tablet 03/22/18 Lisinopril [Zestril] 10 mg PO DAILY #30 tab 03/22/18 Metoprolol Tartrate [Lopressor (beta miguel)] 50 mg PO BID #60 tab 03/22/18 Cefepime HCl [Maxipime] 2 gm IV BID 7 Days vial 04/01/18 Vancomycin IV 750 mg IV Q24H 7 Days vial 04/01/18 predniSONE tablet 40 mg PO DAILY@0800 #10 tablet 04/01/18 Primary Care Physician: Ana María Mazariegos DO [Primary Care Provider] - Please follow up with your Primary Care Physician in: 3-5 days Disposition: [facility] facility Minutes spent on discharge:: 35 Patient Condition:: Good Medical Necessity - Tobacco Use Smoking Status: Former smoker Tobacco Use: Non-smoker Meaningful Use Info Meaningful Use Diagnoses (Choose all that apply): None applicable Code Visit Inpatient E&M: 59205 Disch Hosp
[2018-04-01] MEDS: Lidocaine 5% Patch 2 PATCH TOPICAL (10:19)
[2018-04-01] MEDS: Heparin Injection (Vial) 5,000 UNIT/ML VIAL 5000 UNIT SC ×2 (10:19→21:54)
--- NOTE | 2018-04-01 14:06 | CASEMGMT ---
Social Work Note SW spoke with Hawa at [facility] who states she still hasn't heard from pt's insurance yet. Plan: [facility] pending pre-cert Mena Medel [employer]
[2018-04-01 15:56] LABS: Bedside Glucose 298 mg/dL (70-110)
[2018-04-01 15:56] LABS: Bedside Glucose 324 mg/dL (70-110)
--- NOTE | 2018-04-01 16:07 | PCM.PN.HOSP ---
Subjective: Doing well seems much clearer mentally today. Still coughing but no significant shortness of breath or chest pain. Denies any fevers or chills. Vitals/I&O's: Vital Signs Temp Pulse Resp BP Pulse Ox 98.1 F 83 19 H 138/76 H 94 04/01/18 14:26 04/01/18 15:25 04/01/18 15:25 04/01/18 14:26 04/01/18 14:26 Oxygen Flow Rate (L/min) 2 Oxygen Delivery Method Room Air Weight: 182 lb 12.211 oz Body Mass Index (BMI) 29.5 Finger Stick Blood Glucose 218 Intake and Output for Last 24 Hours 03/30/18 03/31/18 04/01/18 23:59 23:59 23:59 Intake Total 500 / 500 731 / 731 881 / 881 Output Total 925 / 925 775 / 775 1150 / 1150 Balance -425 / -425 -44 / -44 -269 / -269 General: Alert, oriented, Cooperative, No apparent distress HEENT: Atraumatic, EOMI, Normocephalic Oral: Moist Mucosa Neck: Supple, No JVD, Trachea Midline Lungs: Normal air movement, No rhonchi, mild wheeze, No rales, Diminished Cardiovascular: Regular rate, Regular Rhythm, Normal S1, Normal S2, No murmurs, No rub noted, No Gallop Abdomen: Soft, Non Tender, Non-Distended, No Hepato-splenomegaly Extremities: No edema, Capillary Refill Less than 3 Seconds Skin: No rashes, No breakdown Neurological: Neuro grossly intact, Sensory exam intact to light touch and pain Psych/Mental Status: Normal Affect, Appropriate Microbiology Past 72 Hours 03/27/18 13:20 Blood Culture (Wb) - Anticubital Right Blood Culture - Final No growth in 5 days. 03/27/18 13:10 Blood Culture (Wb) - Left Wrist Blood Culture - Final No growth in 5 days. Laboratory Results 03/31/18 17:17: POC Glucose 146 H 03/31/18 22:33: POC Glucose 204 H 04/01/18 05:20: WBC 7.6, RBC 2.81 L, Hgb 9.9 L, Hct 30.0 L, MCV 106.8 H, MCH 35.2 H, MCHC 33.0, RDW 13.6, RDW Differential 52.9 H, Plt Count 118 L, MPV 9.8, Immature Gran % (Auto) 0.500, Neut % (Auto) 76.2 H, Lymph % (Auto) 9.9 L, [place] % (Auto) 12.0 H, Eos % (Auto) 1.3, Baso % (Auto) 0.1, Absolute Neuts (auto) 5.8, Absolute Lymphs (auto) 0.75 L, Total Counted Not Reportable 04/01/18 05:20: Sodium 134 L, Potassium 4.8, Chloride 101, Carbon Dioxide 26.0, Anion Gap 7, BUN 28 H, Creatinine 1.60 H, Estim Creat Clear Calc 31.01, Est GFR (MDRD) Af Amer 53 L, Est GFR (MDRD) Non-Af 44 L, BUN/Creatinine Ratio 17.5, Glucose 154 H, Calcium 8.6 04/01/18 06:38: POC Glucose 153 H 04/01/18 11:55: POC Glucose 298 H 04/01/18 15:49: POC Glucose 324 H Current Medications Acetaminophen (Tylenol) 1,000 mg PO Q8 [facility] Last Admin: 04/01/18 14:17 Dose: 1,000 mg Al Hydroxide/Mg Hydroxide (Mylanta Ii) 30 ml PO Q6H PRN PRN PRN Reason: Gastric burning Albuterol Sulfate (Ventolin Aerosols) 2.5 mg INHALATION Q2H PRN PRN PRN Reason: SHORTNESS OF BREATH Albuterol/Ipratropium (Duoneb) 3 ml INHALATION Q4HWA.RT [facility] Last Admin: 04/01/18 10:51 Dose: 3 ml Aspirin (Ecotrin) 81 mg PO DAILY@0800 [facility] Last Admin: 04/01/18 08:10 Dose: 81 mg Calcitriol (Rocaltrol) 0.25 mcg PO DAILY [facility] Last Admin: 04/01/18 08:12 Dose: 0.25 mcg Calcium/Vitamin D (Os-Hugh 500mg + D) [facility] Last Admin: 04/01/18 08:09 Dose: 1 tablet Clopidogrel Bisulfate (Plavix) 75 mg PO DAILY [facility] Last Admin: 04/01/18 08:10 Dose: 75 mg Ferrous Sulfate ([facility]ous Sulfate) [facility] Last Admin: 04/01/18 08:10 Dose: 325 mg Guaifenesin (Mucinex) 1,200 mg PO BID [facility] Last Admin: 04/01/18 08:11 Dose: 1,200 mg Heparin Sodium (Porcine) (Heparin Na) 5,000 unit SC Q12 [facility] Last Admin: 04/01/18 10:19 Dose: 5,000 unit Hydralazine HCl (Apresoline Iv) 10 mg IV Q4H PRN PRN PRN Reason: SBP > 160 Last Admin: 03/31/18 03:30 Dose: 10 mg Cefepime HCl 2 gm/ Sodium (Chloride) 100 mls @ 200 mls/hr IV QHS [facility] Last Admin: 03/31/18 22:28 Dose: 200 mls/hr Vancomycin IV Pharmacy to Dose (1 ea/ Sodium Chloride) 500 mls @ 250 mls/hr IV PRN PRN; Protocol PRN Reason: Rx to Dose Vancomycin HCl 750 mg/ Sodium (Chloride) 265 mls @ 250 mls/hr IV Q24H [facility] Last Admin: 03/31/18 17:51 Dose: 250 mls/hr Insulin Human Lispro (Humalog Kwikpen (Bkc)) 0 unit SC ACHS [facility]; Protocol Last Admin: 04/01/18 11:57 Dose: 3 u Lidocaine (Lidoderm Patch) 2 patch TOPICAL DAILY [facility]; Protocol Last Admin: 04/01/18 10:19 Dose: 2 patch Lisinopril (Zestril) 10 mg PO DAILY [facility] Last Admin: 04/01/18 08:10 Dose: 10 mg Magnesium Hydroxide (Milk Of Magnesia) 30 ml PO DAILY PRN PRN PRN Reason: Constipation Magnesium Oxide (Mag-Ox 400) 400 mg PO TID [facility] Last Admin: 04/01/18 14:18 Dose: 400 mg Metoprolol Tartrate (Lopressor (Beta Alexander)) 50 mg PO BID [facility] Last Admin: 04/01/18 08:10 Dose: 50 mg Morphine Sulfate () 1 - 2 mg IV Q4H PRN PRN PRN Reason: PAIN Last Admin: 03/28/18 18:39 Dose: 1 mg Multivitamins (Multivitamin) 1 tablet PO DAILY@0800 [facility] Last Admin: 04/01/18 08:09 Dose: 1 tablet Nitroglycerin (Nitrostat) 0.4 mg SUBLINGUAL Q5M PRN PRN Reason: Angina pain Nutritional Formula (Lactose Free) (Glucerna Shake) 120 ml PO 4X/DAY [facility] Last Admin: 04/01/18 14:17 Dose: 120 ml Ondansetron HCl (Zofran) 4 mg IV Q8H PRN PRN PRN Reason: NAUSEA/VOMITING Pantoprazole Sodium (Protonix) 20 mg PO DAILY [facility] Last Admin: 04/01/18 08:10 Dose: 20 mg Pravastatin Sodium (Pravachol) 80 mg PO QHS [facility] Last Admin: 03/31/18 22:24 Dose: 80 mg Prednisone () 40 mg PO DAILY@0800 [facility] Last Admin: 04/01/18 08:11 Dose: 40 mg Promethazine HCl (Phenergan) 12.5 mg IV Q6H PRN PRN PRN Reason: NAUSEA/VOMITING Sodium Chloride () 5 - 15 ml IV UD PRN PRN Reason: SALINE FLUSH Last Admin: 03/28/18 03:11 Dose: 10 ml Tramadol HCl (Ultram) 25 mg PO TID PRN PRN PRN Reason: MODERATE PAIN (4-5/10) Last Admin: 03/28/18 20:22 Dose: 25 mg Medical Necessity - Tobacco Use Smoking Status: Former smoker Tobacco Use: Non-smoker Assessment/Plan 1. Community-acquired pneumonia/rhinovirus/debility and generalized weakness/metabolic encephalopathy (resolved) -He has improved significantly on the cefepime and vancomycin, which will be continued as an outpatient at the [facility] when insurance finally allows for him to go -Continue with DuoNeb, continue with prednisone p.o. for a total of 5 days -Off of oxygen -Continuing to encourage incentive spirometer 2. CKD 3/hypertension/hyperlipidemia/CAD status post PCI with a drug-eluting stent to the distal RCA in 2004 -Creatinine is at baseline -Blood pressure is controlled continue with lisinopril, metoprolol, as needed hydralazine -Continue with pravastatin -Continue with aspirin and Plavix 3. GERD -Stable -Continue with PPI 4. DM 2 -Recent A1c of 4.7 -On Actos as an outpatient, will hold -Accu-Cheks with SSI 5. History of iron deficiency anemia -MCV is elevated, folate is normal vitamin B12 is 700 -Continue with iron replacement DVT: Heparin Code Visit Inpatient E&M: 01060 Subs Hosp L2
[2018-04-01] MEDS: 0.9% NaCl Peripheral Flush Adult/Peds IV (16:44)
--- NOTE | 2018-04-01 21:45 | PCM.RX.CS ---
Consult Pharmacy has been consulted to manage selected antiobiotic: Vancomycin Type of Consult: Follow-up Suspected Infection: Pneumonia Prior Doses of Antibiotics Received/Current Regimen: Medications Vancomycin HCl 750 mg/ Sodium (Chloride) 265 mls @ 250 mls/hr IV Q24H [facility] Last Admin: 04/01/18 16:48 Dose: 250 mls/hr Labs: Sodium 134 mmol/L (136-145) L 04/01/18 05:20 Potassium 4.8 mmol/L (3.5-5.1) 04/01/18 05:20 Chloride 101 mmol/L (98-107) 04/01/18 05:20 Carbon Dioxide 26.0 mmol/L (21.0-32.0) 04/01/18 05:20 Anion Gap 7 (5-15) 04/01/18 05:20 BUN 28 mg/dL (7-18) H 04/01/18 05:20 Creatinine 1.60 mg/dL (0.70-1.30) H 04/01/18 05:20 Est GFR (MDRD) Af Amer 53 mL/min (>60) L 04/01/18 05:20 Est GFR (MDRD) Non-Af 44 mL/min (>60) L 04/01/18 05:20 BUN/Creatinine Ratio 17.5 RATIO (10-20) 04/01/18 05:20 Glucose 154 mg/dL (74-106) H 04/01/18 05:20 Vancomycin Trough 12.0 ug/mL (5.0-15.0) 04/01/18 16:40 Microbiology: Microbiology 03/27/18 13:20 Blood Culture (Wb) - Anticubital Right Blood Culture - Final No growth in 5 days. 03/27/18 13:10 Blood Culture (Wb) - Left Wrist Blood Culture - Final No growth in 5 days. 03/27/18 14:19 Sputum, Expectorated/Coughed Gram Stain - Final 03/27/18 14:19 Sputum, Expectorated/Coughed Respiratory Culture - Final 03/28/18 04:56 Urine, Clean Catch Streptococcus pneumoniae Antigen (M - Final 03/28/18 04:56 Urine, Clean Catch Legionella Antigen - Final Weight used for dosin.9 kg Estimated Creatinine Clearance: 31 Goal Trough: 10-15 mcg/mL Pharmacy Plan for Drug Dosing: Vancomycin trough level returned at 12.0, within target range. Will continue current dose of 750mg q24h and re-draw trough in 4 days. Pharmacy Service will continue to monitor and adjust dosing as required. Follow-Up Labs: Trough Vancomycin Labs to be done on [date and time ordered]: 04/05/18 @3321
[2018-04-01] MEDS: Pravastatin 80 MG Tablet PO (21:56)
[2018-04-01 22:40] LABS: Bedside Glucose 333 mg/dL (70-110)
[2018-04-02] VITALS (7 sets, daily range): BP systolic 131–160; BP diastolic 65–85; PULSE 81–89; RESP 18–20; TEMP 36.2–36.6; O2SAT 94–98
[2018-04-02] MEDS: Magnesium Oxide 400 MG Tablet PO (06:42)
[2018-04-02] MEDS: Acetaminophen 500 MG Tablet 1000 MG PO (06:42)
[2018-04-02] MEDS: Insulin Lispro 100 UNIT/ML INSULN.PEN SC (06:43)
[2018-04-02 06:55] LABS: Bedside Glucose 175 mg/dL (70-110)
[2018-04-02] MEDS: Ipratropium/Albuterol Sulfate 3 ML AMPUL.NEB INHALATION ×2 (07:11→11:06)
[2018-04-02] MEDS: Ferrous Sulfate 325 MG Tablet PO (08:57)
[2018-04-02] MEDS: Aspirin E.C. 81 MG Tablet PO (08:57)
[2018-04-02] MEDS: Calcium Carb/Vitamin D 1 TABLET Tablet PO (08:57)
[2018-04-02] MEDS: Multivitamins,Therapeutic Tablet 1 TABLET PO (08:58)
[2018-04-02] MEDS: predniSONE 20 MG Tablet 40 MG PO (08:58)
[2018-04-02] MEDS: Glucerna Shake 120 ML LIQUID PO (09:00)
[2018-04-02] MEDS: Lidocaine 5% Patch 2 PATCH TOPICAL (09:01)
[2018-04-02] MEDS: Metoprolol Tartrate 50 MG Tablet PO (09:01)
[2018-04-02] MEDS: Calcitriol 0.25 MCG Capsule PO (09:01)
[2018-04-02] MEDS: guaiFENesin 1,200 MG Tablet 1200 MG PO (09:01)
[2018-04-02] MEDS: Lisinopril 10 MG Tablet PO (09:02)
[2018-04-02] MEDS: Heparin Injection (Vial) 5,000 UNIT/ML VIAL 5000 UNIT SC (09:02)
[2018-04-02] MEDS: Clopidogrel Bisulfate 75 MG Tablet PO (09:02)
[2018-04-02] MEDS: Pantoprazole Sodium 20 MG Tablet PO (09:02)
--- NOTE | 2018-04-02 10:27 | CASEMGMT ---
Social Work Received call from Hawa at [facility] and precert has been obtained and pt can be admitted today. SW called pt dgt and she plans to transport pt to SNF and will be here at 10:45. Nursing notified and SNF notified. Orders faxed. SW met with pt and informed of d/c plan and he is agreeable. [facility]
== END 2018-04-02 11:23 | disposition skilled nursing facility (03) | DRG 202 ==
LOC: ED 15:41 → MS3 15:47
PROVIDERS: Internal Medicine; Admitting Provider Family Medicine; Emergency Provider Emergency Medicine; Visit Provider Family Medicine
DX: J20.6 Acute bronchitis due to rhinovirus (principal); G93.41 Metabolic encephalopathy; E87.1 Hypo-osmolality and hyponatremia; E78.5 Hyperlipidemia, unspecified; K21.9 Gastro-esophageal reflux disease without esophagitis; I12.9 Hypertensive chronic kidney disease with stage 1 through stage 4 chronic kidney disease, or unspecified chronic kidney disease; E11.22 Type 2 diabetes mellitus with diabetic chronic kidney disease; N18.3 Chronic kidney disease, stage 3 (moderate); D50.9 Iron deficiency anemia, unspecified; I25.10 Atherosclerotic heart disease of native coronary artery without angina pectoris; G47.33 Obstructive sleep apnea (adult) (pediatric); Z86.73 Personal history of transient ischemic attack (TIA), and cerebral infarction without residual deficits; Z95.5 Presence of coronary angioplasty implant and graft; Z79.899 Other long term (current) drug therapy; Z79.84 Long term (current) use of oral hypoglycemic drugs; Z87.891 Personal history of nicotine dependence; S20.219A Contusion of unspecified front wall of thorax, initial encounter; W19.XXXA Unspecified fall, initial encounter; R53.81 Other malaise; R53.1 Weakness
CPT/HCPCS: 36415; 71045; 71100; 80048; 80076; 80202; 82140; 82607; 82746; 82962; 83036; 83605; 83735; 84100; 84443; 84484; 85025; 85027; 87040; 87070; 87205; 87449; 93005; 94640; 97110; 97162; 97166; 97530; 97535; 97802; 99251; 99283; J7030; J7050; A4216; G0463; J2405

== ENCOUNTER 2018-07-03 14:11 | Observation (INO) | payer MEDICARE, SELFPAY ==
[2018-04-28 13:08] VITALS: BMI 29.3
[2018-07-03] VITALS (10 sets, daily range): BP systolic 125–158; BP diastolic 60–70; PULSE 59–68; RESP 16–20; TEMP 36.4–36.6; O2SAT 96–98; BMI 30.7; BMI 31.8; BMI 31.9
--- NOTE | 2018-07-03 14:29 | EKG12_ITS ---
Test Reason : CP Blood Pressure : / mmHG Vent. Rate : 063 BPM Atrial Rate : 063 BPM P-R Int : 204 ms QRS Dur : 136 ms QT Int : 444 ms P-R-T Axes : 033 -44 014 degrees QTc Int : 454 ms Normal sinus rhythm Left axis deviation Right bundle branch block Abnormal ECG Confirmed by RINKU SILVA, ANGIE ([id number]), art editor LEOLA BURTON ([id number]) on 07/06/2018 4:12:28 PM Referred By: ROSE Confirmed By:ANGIE DOBBS MD
--- NOTE | 2018-07-03 14:29 | RAD_ITS ---
STUDY: X-RAY CHEST REASON FOR EXAM: Male, 83 years old. Chest pain TECHNIQUE: AP COMPARISON: 03/27/2018 FINDINGS: EKG leads project over the chest. Lungs are less expanded as compared to the prior study with mild degree of atelectasis in the lung bases. There is no demonstrated pleural abnormality. Normal size heart. Normal mediastinum and mignon. Normal visualized pulmonary arteries. There is atherosclerotic calcification of the aortic arch with tortuosity. No acute bony process. There is no demonstrated abnormality of the visualized soft tissue structures of the upper abdomen. RAD/Chest 1 View (Portable) IMPRESSION: 1. Hypoinflation with bibasilar atelectasis. No airspace consolidation. Electronically Signed: Dino Mccray MD at 14:49 EDT , Service support ,
[2018-07-03] MEDS: Aspirin 81 MG TAB.CHEW 324 MG PO (14:47)
[2018-07-03] MEDS: Nitroglycerin Oint 1 INCH PACKET TRANSDERM. (14:48)
[2018-07-03 14:53] LABS: Absolute Lymphocyte Count 0.92 X10^3/ul (0.83-4.51); Absolute Neutrophil Count 3.4 X10^3/uL (2.0-7.7); Basophil# 0.03 X10^3/uL; Basophil% 0.6 % (0-1); Hematocrit 28.5 % (40-54); Hemoglobin 9.7 g/dl (13.0-16.5); Lymphocyte # 0.92 X10^3/ul (4.0); Lymphocyte % 18.5 % (19-41); Mean Corpuscular Hgb 35.5 pg (27.0-32.0); Mean Corpuscular Volume 104.4 fL (80-94); Mean Platelet Vol. 8.7 fl (6.2-12.0); Monocyte# 0.55 X10^3/uL; Neutrophil # 3.37 X10^3/uL (2.7-7.7); Neutrophil % 67.7 % (47-70); Platelet Count 109 K/mm3 (150-450); RBC Distribution Width CV 13.5 % (11.6-14.6); RBC Distribution Width SD 51.1 fl (35.1-43.9); Red Blood Count 2.73 M/mm3 (4.6-6.2)
[2018-07-03 14:54] LABS: POSITIVE COUNT NO; POSITIVE DIFFERENTIAL NO; POSITIVE MORPHOLOGY NO
[2018-07-03 15:05] LABS: Anion Gap 5 (5-15); BUN 31 mg/dL (7-18); BUN/Creat Ratio 19.1 RATIO (10-20); Calcium,Total 8.4 mg/dL (8.5-10.1); Chloride 102 mmol/L (98-107); Creatinine, Serum 1.62 mg/dL (0.70-1.30); EST Glomerular Filtration Rate 43 mL/min (>60); Est Glom Filt Rate - Afr Amer 52 mL/min (>60); Estimated Creatinine Clearance 30.63 ml/min; Glucose 128 mg/dL (74-106); Magnesium 1.4 mg/dL (1.6-2.6); Potassium 4.2 mmol/L (3.5-5.1); Sodium Level 135 mmol/L (136-145)
[2018-07-03 15:27] LABS: BNP,B-Type NATRIURETIC PEPTIDE 89.2 pg/mL (0-100)
--- NOTE | 2018-07-03 15:56 | ED.VISSUMM ---
- ER Visit Summary Date of Service: 07/03/18 Chief Complaint: [Chest pain] History of Present Illness: The patient is a 83 M [presents with chest pain that started this morning. Patient apparently was treated couple weeks ago for some sinus congestion with Zithromax. Patient was seen by primary care physician in the office yesterday and was thought to have some rales in the bases and was ordered Levaquin. This morning patient complained of chest tightness and pressure without any real radiation. He denied any nausea or vomiting or diaphoresis. Patient did have shortness of breath with activity and minimal exertion just walking which is unusual for him. Patient does have a cardiac history with prior cardiac stents. Patient has a history of diabetes, hypertension, high cholesterol, hypomagnesemia, and pneumonia. Patient is not had any fevers at home. Cough just started today and is been nonproductive. Physical Examination: [HEENT-PERRLA, EOMI. Cranial nerves II through XII grossly intact. TMs clear. Mucous membranes moist. No adenopathy. Cardiovascular-regular rate and rhythm without murmur or ectopy Lungs-aeration bilaterally. Few rales in the bases. No accessory muscle use or retractions. Abdomen-normoactive bowel sounds, soft, nontender, no rebound or rigidity, no peritoneal signs. Extremities-intact ?4, normal range of motion, normal pulses, atraumatic] Test Results: [EKG obtained arrival showed a sinus rhythm with a ventricular rate of 63 bpm with a right bundle branch block and left axis deviation. CBC with differential showed a white count of 5.0, hemoglobin 9.7, hematocrit 28, platelets 109. Chemistries unremarkable. BUN 31 creatinine 1.62. Troponin was less than 0.015. BNP was normal 89. Chest x-ray showed some hypoinflation otherwise nothing acute.] Emergency Department Course and Treatment: [Patient was pain-free on arrival to the emergency department and he had an inch of Nitropaste placed to the anterior chest wall. Patient received aspirin.] Treatment Plan: [Admit] Disposition: [Admit] Impression: [Chest pain-rule out acute coronary syndrome Dyspnea] This note was generated with [employer] software. It may contain incorrect words, spelling, and punctuation that were not noted in review of the chart prior to signing ED Disposition - Plan for ED Patient: Referrals: Ana María Mazariegos DO [Primary Care Provider] -
--- NOTE | 2018-07-03 16:25 | PCM.HP.STD ---
<Kelly Gonzalez - Last Filed: 07/03/18 16:51> Problem List (1) Hypomagnesemia Status: Chronic (2) Bifascicular block Status: Chronic (3) Right bundle branch block (RBBB) Status: Chronic Comment: Bradycardia, LAFB (4) History of coronary artery stent placement Status: Chronic Comment: KGH-UOG-Xbuolo RCA ; ZWK-PNI-Hfks LAD 03/19/2005 (5) Essential (primary) hypertension Status: Chronic (6) Hyperlipidemia Status: Chronic (7) Atherosclerotic heart disease of [place] coronary artery without angina pectoris Status: Chronic Comment: JCX-QSK-Heywlk RCA ; SSD-WMU-Pomj LAD 03/19/2005 History of Present Illness Date of Admission: 07/03/18 Chief Complaint: Chest pain, general malaise. The patient is a 83 year old M who presents emergency room due to chest pain and general malaise. Patient reports he was resting at home when he had a sudden onset of shortness of breath followed by chest pressure. He reports this lasted approximately 2 hours. He states he took Tylenol which did not help. He denies nausea, diaphoresis or other associated symptoms. He denies fever, chills. He also reports he has been feeling generally unwell for the past 2 weeks. He was recently treated with azithromycin for sinusitis which he completed approximately 1 week ago. Yesterday he saw his primary care physician and reports his primary care physician placed him on Levaquin for persistent sinusitis and possible pneumonia due to findings of lung crackles on exam. He reports muscle aching which he states he has had in the past when his magnesium is low. Patient lives with daughter at bedside who is present during assessment. She reports patient has had chronic low calcium and low magnesium in which a cause has not been able to be determined. He has a past medical history of TIA, CAD status post PCI, hypertension, hyperlipidemia, type 2 diabetes mellitus, history of subarachnoid hemorrhage, GERD, ZABRINA, iron deficiency anemia/chronic thrombocytopenia, chronic hypomagnesia. Past Medical History Past Medical History (Chronic Problems): Chronic Problems (Last Reviewed 04/28/18 @ 15:53 by Carlos Coreas MD) Hypomagnesemia (Chronic) Bifascicular block (Chronic) 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, LAFB History of coronary artery stent placement (Chronic 03/19/05) YDM-NEO-Kvqmcn RCA ; VHF-PIN-Mdnf LAD 03/19/2005 Essential (primary) hypertension (Chronic) Hyperlipidemia (Chronic) Atherosclerotic heart disease of [place] coronary artery without angina pectoris (Chronic) THD-TRV-Hqhesi RCA ; ZDK-LIE-Zlyo LAD 03/19/2005 Medical History: Medical History (Last Reviewed 04/28/18 @ 15:53 by Carlos Coreas MD) Hypomagnesemia (Chronic) E83.42 Bifascicular block (Chronic) I45.2 Right bundle branch block (RBBB) (Chronic) I45.10 Bradycardia, LAFB Essential (primary) hypertension (Chronic) I10 Hyperlipidemia (Chronic) E78.5 Atherosclerotic heart disease of [place] coronary artery without angina pectoris (Chronic) I25.10 XJP-COS-Xbhofn RCA ; SII-SYL-Euxy LAD 03/19/2005 CKD (chronic kidney disease) N18.9 GERD (gastroesophageal reflux disease) K21.9 Hypochromic anemia D50.9 Obstructive sleep apnea G47.33 SAH (subarachnoid hemorrhage) Onset Date: 1995 I60.9 TIA (transient ischemic attack) G45.9 Type 2 diabetes mellitus E11.9 Allergies amoxicillin Allergy (Severe, Verified 07/03/18 14:18) unknown Tetanus Vaccines and Toxoid Allergy (Severe, Verified 07/03/18 14:18) unknown Thiazides Adverse Reaction (Verified 07/03/18 14:19) Other CAUSES LOW MAG Home Medications: Ambulatory Orders Medication Instructions Recorded clopidogrel 75 mg tablet 75 mg PO QDAY 03/09/17 esomeprazole magnesium 20 mg 20 mg PO QDAY cap 03/09/17 capsule,delayed release ferrous sulfate 325 mg (65 mg 324 mg PO QDAY tab 03/09/17 iron) tablet,delayed release multivitamin tablet 1 tab PO QDAY 03/09/17 pravastatin 80 mg tablet 80 mg PO QHS 03/09/17 calcium carbonate-vitamin D3 600 1 tab PO BID 09/08/17 mg (1,500 mg)-800 unit tablet pioglitazone 30 mg tablet 15 mg PO QDAY tab 09/08/17 Aspirin E.C. [Ecotrin] 81 mg PO DAILY@0800 03/20/18 amlodipine 5 mg tablet 5 mg PO DAILY #90 tab 04/28/18 magnesium 400 mg (as magnesium 800 mg PO TID tab 04/28/18 oxide) tablet metoprolol tartrate 50 mg tablet 50 mg PO BID #90 tab 04/28/18 Levofloxacin 500 mg PO DAILY 07/03/18 Surgical History: Surgical History (Last Reviewed 04/28/18 @ 15:53 by Carlos Coreas MD) History of coronary artery stent placement (Resolved) Onset Date: 03/19/05 Z95.5 VQB-ICJ-Gtazzg RCA ; PPU-ABS-Bmdp LAD 03/19/2005 Surgical History: - - Cardiac stents. Psychiatric History: No pertinent psych hx Lives: With Family - With Daughter. Smoking Status: Former smoker Alcohol: None Drugs: None - *Family History Maternal Family History: Family History (Last Reviewed 07/03/18 @ 16:33 by ALEIDA Valentin) Father Hypertension Mother Heart disease Congestive heart failure Diabetes Sister ruptured brain aneurysm History Items: - - Mother with history of congestive heart failure, diabetes, heart disease. Paternal Family History: Family History (Last Reviewed 07/03/18 @ 16:33 by ALEIDA Valentin) Father Hypertension Mother Heart disease Congestive heart failure Diabetes Sister ruptured brain aneurysm History Items: - - Father with a history of hypertension. Sibling Family History: Family History (Last Reviewed 07/03/18 @ 16:33 by ALEIDA Valentin) Father Hypertension Mother Heart disease Congestive heart failure Diabetes Sister ruptured brain aneurysm History Items: - - Sister with a history of ruptured brain aneurysm at age 50. Review of Systems Constitutional: Reports: Malaise, Weakness. Denies: Chills, Fever HEENT: Reports: Post Nasal Drip, Sinus Congestion. Denies: Head Aches, Sinus Drainage Cardiovascular: Reports: Chest Pain, Chest Pressure. Denies: Light Headedness, Palpitations, Syncope Respiratory: Reports: - - Shortness of breath associated with episode of chest pain. Also reports shortness of breath with exertion.. Denies: Cough, Shortness of breath at rest, Sputum production Gastrointestinal: Denies: Abdominal Pain, Nausea, Vomiting Genitourinary: Denies: Dysuria Musculoskeletal: Reports: - - Generalized joint aching. Skin: Denies: Rash, Wounds Neurological: Denies: Numbness, Tingling, Focal weakness Psychiatric: Denies: Anxiety, Depression, Homicidal Ideations, Suicidal Ideations Hematologic/ Lymphatic: Denies: Easy Bruising, Easy Bleeding VTE Information - Inpt Only VTE Present on Admission: No VTE Mechan Device Prophylaxis: None VTE Pharm Prophylaxis ordered?: Yes - Physical Exam General: Alert, Oriented x3, Cooperative HEENT: Atraumatic, PERRLA, EOMI, Normocephalic, - - Hard of hearing. Oral: Moist Mucosa Neck: Supple, No JVD, Negative Carotid Bruits Lungs: Clear to auscultation, Diminished Cardiovascular: Regular rate, Regular Rhythm, Normal S1, Normal S2, No murmurs Abdomen: Bowel Sounds Present, Soft, Non Tender, Non-Distended Extremities: No clubbing, No cyanosis, Capillary Refill Less than 3 Seconds, Edema - +1 BLLE Skin: No rashes, No breakdown Musculoskeletal: No Tenderness to Palpation of Joints or Extremities Neurological: Cranial nerves II-XII grossly intact, Neuro grossly intact Psych/Mental Status: Normal Affect, Appropriate Vital Signs Temp Pulse Resp BP Pulse Ox 97.5 F L 60 20 H 146/70 H 96 07/03/18 14:12 07/03/18 16:06 07/03/18 16:06 07/03/18 16:06 07/03/18 16:06 Oxygen Delivery Method Room Air Weight: 190 lb Body Mass Index (BMI) 30.7 Finger Stick Blood Glucose 218 Laboratory Tests Past 24 Hrs 07/03/18 07/03/18 07/03/18 14:19 14:19 14:19 WBC 5.0 RBC 2.73 L Hgb 9.7 L Hct 28.5 L MCV 104.4 H MCH 35.5 H MCHC 34.0 RDW 13.5 RDW Differential 51.1 H Plt Count 109 L MPV 8.7 Immature Gran % (Auto) 0.200 Neut % (Auto) 67.7 Lymph % (Auto) 18.5 L [place] % (Auto) 11.0 H Eos % (Auto) 2.0 Baso % (Auto) 0.6 Absolute Neuts (auto) 3.4 Absolute Lymphs (auto) 0.92 Total Counted Not Reportable Sodium 135 L Potassium 4.2 Chloride 102 Carbon Dioxide 28.0 Anion Gap 5 BUN 31 H Creatinine 1.62 H Estim Creat Clear Calc 30.63 Est GFR (MDRD) Af Amer 52 L Est GFR (MDRD) Non-Af 43 L BUN/Creatinine Ratio 19.1 Glucose 128 H Calcium 8.4 L Magnesium 1.4 L Troponin I < 0.015 B-Natriuretic Peptide 89.2 Assessment/Plan All Active Problems (Last Reviewed 04/28/18 @ 15:53 by Carlos Coreas MD) Hypomagnesemia (Resolved) 1. Atypical chest pain-rule out ACS. Trend enzymes. Repeat EKG in a.m. Patient follows with Dr. Coreas. He has not had stress test since 2017. We will plan for nuclear stress test if enzymes remain normal. Echocardiogram completed February 2018 showed an EF of 75%, mild pulmonic valve insufficiency, RVSP estimated to be 39 mmHg. 2. Recent URI/Sinusitis-chest x-ray admission with hypoinflation with bibasilar atelectasis. No airspace consolidation. Afebrile. No leukocytosis. Continue oral Levaquin which was prescribed yesterday as outpatient. Begin Flonase for postnasal drainage. 3. Acute on chronic hypomagnesia-unclear etiology. Previously on HCTZ regimen which was discontinued with no improvement in recurrent hypomagnesia. Replace per protocol. Repeat magnesium in morning. 4. Hx of TIA-continue aspirin, Plavix, statin. 5. CAD status post PCI-continue aspirin, Plavix, statin, lisinopril, metoprolol. 6. Hypertension-stable, continue home lisinopril, metoprolol regimen. 7. Hyperlipidemia-continue statin. 8. Type 2 diabetes mellitus-hemoglobin A1c March 2017 5.4%. 9. Chronic kidney disease stage III-at baseline. 10. History of subarachnoid hemorrhage-stable. 11. GERD- continue PPI. 12. ZABRINA-CPAP nightly. 13. Iron deficiency anemia/chronic thrombocytopenia-at baseline, continue iron supplementation. DVT prophylaxis-heparin subcu This patient was seen by ALEIDA Valentin under the supervision of Dr. Babin. <Allan Babin - Last Filed: 07/03/18 21:42> History of Present Illness The patient is a 83 year old M who is being admitted for chest pain at rest along with shortness of breath. Patient denies nausea, diaphoresis or fever or chills. Patient completed azithromycin about a week ago for sinusitis. He also took 1 dose of Levaquin for presumed pneumonia but chest x-ray is negative of airspace consolidation. The patient is further admitted. Discussed with the daughter near the bedside. Patient has significant past medical history of coronary artery disease status post stent/PCI, TIA, type 2 diabetes mellitus and other comorbidities as listed above Past Medical History Medical History: Medical History (Last Reviewed 04/28/18 @ 15:53 by Carlos Coreas MD) Hypomagnesemia (Chronic) E83.42 Bifascicular block (Chronic) I45.2 Right bundle branch block (RBBB) (Chronic) I45.10 Bradycardia, LAFB Essential (primary) hypertension (Chronic) I10 Hyperlipidemia (Chronic) E78.5 Atherosclerotic heart disease of [place] coronary artery without angina pectoris (Chronic) I25.10 WSN-PNL-Zpderc RCA ; ZFD-HZL-Olnj LAD 03/19/2005 CKD (chronic kidney disease) N18.9 GERD (gastroesophageal reflux disease) K21.9 Hypochromic anemia D50.9 Obstructive sleep apnea G47.33 SAH (subarachnoid hemorrhage) Onset Date: 1995 I60.9 TIA (transient ischemic attack) G45.9 Type 2 diabetes mellitus E11.9 Allergies amoxicillin Allergy (Severe, Verified 07/03/18 14:18) unknown Tetanus Vaccines and Toxoid Allergy (Severe, Verified 07/03/18 14:18) unknown Thiazides Adverse Reaction (Verified 07/03/18 14:19) Other CAUSES LOW MAG Surgical History: Surgical History (Last Reviewed 04/28/18 @ 15:53 by Carlos Coreas MD) History of coronary artery stent placement (Resolved) Onset Date: 03/19/05 Z95.5 KZG-DQI-Flgikv RCA ; GZB-VGI-Fkzh LAD 03/19/2005 - *Family History Maternal Family History: Family History (Last Reviewed 07/03/18 @ 16:33 by ALEIDA Valentin) Father Hypertension Mother Heart disease Congestive heart failure Diabetes Sister ruptured brain aneurysm Paternal Family History: Family History (Last Reviewed 07/03/18 @ 16:33 by ALEIDA Valentin) Father Hypertension Mother Heart disease Congestive heart failure Diabetes Sister ruptured brain aneurysm Sibling Family History: Family History (Last Reviewed 07/03/18 @ 16:33 by ALEIDA Valentin) Father Hypertension Mother Heart disease Congestive heart failure Diabetes Sister ruptured brain aneurysm - Physical Exam General: Alert, Oriented x3, Cooperative HEENT: Atraumatic, PERRLA, EOMI, Normocephalic, - - Hard of hearing. Bilateral profound hearing loss. Oral: Moist Mucosa Neck: Supple, No JVD, Negative Carotid Bruits Lungs: Diminished, Rales - Right lower lobe fine rales present Cardiovascular: Regular rate, Regular Rhythm, Normal S1, Normal S2, No murmurs Abdomen: Bowel Sounds Present, Soft, Non Tender, Non-Distended Extremities: Capillary Refill Less than 3 Seconds, Edema Skin: No breakdown, Rash Present - Mild erythema present secondary to venous congestion in both lower legs, - Musculoskeletal: No Tenderness to Palpation of Joints or Extremities, Arthritic Changes Lymphatic: No Cervical, Supraclavicular, or Inguinal Adenopathy Neurological: Cranial nerves II-XII grossly intact, Deep Tendon Reflexes 2+/4 and Symmetrical, Neuro grossly intact Psych/Mental Status: Normal Affect, Appropriate Vital Signs Temp Pulse Resp BP Pulse Ox 97.7 F L 68 16 148/68 H 98 07/03/18 17:00 07/03/18 18:59 07/03/18 17:00 07/03/18 17:00 07/03/18 17:00 Oxygen Delivery Method Room Air Weight: 197 lb 12.074 oz Body Mass Index (BMI) 31.8 Finger Stick Blood Glucose 218 Laboratory Tests Past 24 Hrs 07/03/18 07/03/18 07/03/18 14:19 14:19 14:19 WBC 5.0 RBC 2.73 L Hgb 9.7 L Hct 28.5 L MCV 104.4 H MCH 35.5 H MCHC 34.0 RDW 13.5 RDW Differential 51.1 H Plt Count 109 L MPV 8.7 Immature Gran % (Auto) 0.200 Neut % (Auto) 67.7 Lymph % (Auto) 18.5 L [place] % (Auto) 11.0 H Eos % (Auto) 2.0 Baso % (Auto) 0.6 Absolute Neuts (auto) 3.4 Absolute Lymphs (auto) 0.92 Total Counted Not Reportable Sodium 135 L Potassium 4.2 Chloride 102 Carbon Dioxide 28.0 Anion Gap 5 BUN 31 H Creatinine 1.62 H Estim Creat Clear Calc 30.63 Est GFR (MDRD) Af Amer 52 L Est GFR (MDRD) Non-Af 43 L BUN/Creatinine Ratio 19.1 Glucose 128 H Calcium 8.4 L Magnesium 1.4 L Troponin I < 0.015 B-Natriuretic Peptide 89.2 TSH 07/03/18 07/03/18 07/03/18 17:10 17:10 20:18 WBC RBC Hgb Hct MCV MCH MCHC RDW RDW Differential Plt Count MPV Immature Gran % (Auto) Neut % (Auto) Lymph % (Auto) [place] % (Auto) Eos % (Auto) Baso % (Auto) Absolute Neuts (auto) Absolute Lymphs (auto) Total Counted Sodium Potassium Chloride Carbon Dioxide Anion Gap BUN Creatinine Estim Creat Clear Calc Est GFR (MDRD) Af Amer Est GFR (MDRD) Non-Af BUN/Creatinine Ratio Glucose Calcium Magnesium Troponin I < 0.015 0.015 B-Natriuretic Peptide TSH 2.01 Assessment/Plan This patient was seen in conjunction with Kelly WAGNER. I have independently interviewed and examined the patient and reviewed pertinent history, examination findings, laboratory and plan of management. I have reviewed the note and agree with the documented findings with the few additional points. In brief, patient is admitted for atypical chest pain. Patient had URI/sinusitis for which he received azithromycin and is controlled. In view of coronary artery disease status post PCI, patient needs workup to rule out ACS. Patient also has hypomagnesemia as mentioned above. On replacement Multiple comorbidities complicates the present care and expect difficult and delay recovery I have discussed my assessment with Kelly WAGNER and orders have been reviewed. Clinical Impression(s) from Imaging Studies Chest X-Ray 07/03/18 14:29 IMPRESSION: 1. Hypoinflation with bibasilar atelectasis. No airspace consolidation. Code Visit Inpatient E&M: 20260 Init Hosp L3
--- NOTE | 2018-07-03 16:32 | HP.PCM_ITS ---
<Kelly Gonzalez - Last Filed: 07/03/18 16:51> Problem List (1) Hypomagnesemia Status: Chronic (2) Bifascicular block Status: Chronic (3) Right bundle branch block (RBBB) Status: Chronic Comment: Bradycardia, LAFB (4) History of coronary artery stent placement Status: Chronic Comment: SWU-NLI-Odiomg RCA ; EDT-FAJ-Ktkl LAD 03/19/2005 (5) Essential (primary) hypertension Status: Chronic (6) Hyperlipidemia Status: Chronic (7) Atherosclerotic heart disease of [place] coronary artery without angina pectoris Status: Chronic Comment: IFL-ZDK-Cjqyfh RCA ; YGC-MFD-Otjp LAD 03/19/2005 History of Present Illness Date of Admission: 07/03/18 Chief Complaint: Chest pain, general malaise. The patient is a 83 year old M who presents emergency room due to chest pain and general malaise. Patient reports he was resting at home when he had a sudden onset of shortness of breath followed by chest pressure. He reports this lasted approximately 2 hours. He states he took Tylenol which did not help. He denies nausea, diaphoresis or other associated symptoms. He denies fever, chills. He also reports he has been feeling generally unwell for the past 2 weeks. He was recently treated with azithromycin for sinusitis which he completed approximately 1 week ago. Yesterday he saw his primary care physician and reports his primary care physician placed him on Levaquin for persistent sinusitis and possible pneumonia due to findings of lung crackles on exam. He reports muscle aching which he states he has had in the past when his magnesium is low. Patient lives with daughter at bedside who is present during assessment. She reports patient has had chronic low calcium and low magnesium in which a cause has not been able to be determined. He has a past medical history of TIA, CAD status post PCI, hypertension, hyperlipidemia, type 2 diabetes mellitus, history of subarachnoid hemorrhage, GERD, ZABRINA, iron deficiency anemia/chronic thrombocytopenia, chronic hypomagnesia. Past Medical History Past Medical History (Chronic Problems): Chronic Problems (Last Reviewed 04/28/18 @ 15:53 by Carlos Coreas MD) Hypomagnesemia (Chronic) Bifascicular block (Chronic) 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, LAFB History of coronary artery stent placement (Chronic 03/19/05) YTY-HGZ-Vkpmnc RCA ; HSO-ICH-Zryo LAD 03/19/2005 Essential (primary) hypertension (Chronic) Hyperlipidemia (Chronic) Atherosclerotic heart disease of [place] coronary artery without angina pectoris (Chronic) VHF-HHR-Jnxuot RCA ; KSA-CNR-Xjuq LAD 03/19/2005 Medical History: Medical History (Last Reviewed 04/28/18 @ 15:53 by Carlos Coreas MD) Hypomagnesemia (Chronic) E83.42 Bifascicular block (Chronic) I45.2 Right bundle branch block (RBBB) (Chronic) I45.10 Bradycardia, LAFB Essential (primary) hypertension (Chronic) I10 Hyperlipidemia (Chronic) E78.5 Atherosclerotic heart disease of [place] coronary artery without angina pectoris (Chronic) I25.10 ZOH-PYV-Hbfsap RCA ; NUK-MUW-Ufox LAD 03/19/2005 CKD (chronic kidney disease) N18.9 GERD (gastroesophageal reflux disease) K21.9 Hypochromic anemia D50.9 Obstructive sleep apnea G47.33 SAH (subarachnoid hemorrhage) Onset Date: 1995 I60.9 TIA (transient ischemic attack) G45.9 Type 2 diabetes mellitus E11.9 Allergies amoxicillin Allergy (Severe, Verified 07/03/18 14:18) unknown Tetanus Vaccines and Toxoid Allergy (Severe, Verified 07/03/18 14:18) unknown Thiazides Adverse Reaction (Verified 07/03/18 14:19) Other CAUSES LOW MAG Home Medications: Ambulatory Orders Medication Instructions Recorded clopidogrel 75 mg tablet 75 mg PO QDAY 03/09/17 esomeprazole magnesium 20 mg 20 mg PO QDAY cap 03/09/17 capsule,delayed release ferrous sulfate 325 mg (65 mg 324 mg PO QDAY tab 03/09/17 iron) tablet,delayed release multivitamin tablet 1 tab PO QDAY 03/09/17 pravastatin 80 mg tablet 80 mg PO QHS 03/09/17 calcium carbonate-vitamin D3 600 1 tab PO BID 09/08/17 mg (1,500 mg)-800 unit tablet pioglitazone 30 mg tablet 15 mg PO QDAY tab 09/08/17 Aspirin E.C. [Ecotrin] 81 mg PO DAILY@0800 03/20/18 amlodipine 5 mg tablet 5 mg PO DAILY #90 tab 04/28/18 magnesium 400 mg (as magnesium 800 mg PO TID tab 04/28/18 oxide) tablet metoprolol tartrate 50 mg tablet 50 mg PO BID #90 tab 04/28/18 Levofloxacin 500 mg PO DAILY 07/03/18 Surgical History: Surgical History (Last Reviewed 04/28/18 @ 15:53 by Carlos Coreas MD) History of coronary artery stent placement (Resolved) Onset Date: 03/19/05 Z95.5 SUR-USF-Qgxkos RCA ; DER-NDD-Kymt LAD 03/19/2005 Surgical History: - - Cardiac stents. Psychiatric History: No pertinent psych hx Lives: With Family - With Daughter. Smoking Status: Former smoker Alcohol: None Drugs: None - *Family History Maternal Family History: Family History (Last Reviewed 07/03/18 @ 16:33 by ALEIDA Valentin) Father Hypertension Mother Heart disease Congestive heart failure Diabetes Sister ruptured brain aneurysm History Items: - - Mother with history of congestive heart failure, diabetes, heart disease. Paternal Family History: Family History (Last Reviewed 07/03/18 @ 16:33 by ALEIDA Valentin) Father Hypertension Mother Heart disease Congestive heart failure Diabetes Sister ruptured brain aneurysm History Items: - - Father with a history of hypertension. Sibling Family History: Family History (Last Reviewed 07/03/18 @ 16:33 by ALEIDA Valentin) Father Hypertension Mother Heart disease Congestive heart failure Diabetes Sister ruptured brain aneurysm History Items: - - Sister with a history of ruptured brain aneurysm at age 50. Review of Systems Constitutional: Reports: Malaise, Weakness. Denies: Chills, Fever HEENT: Reports: Post Nasal Drip, Sinus Congestion. Denies: Head Aches, Sinus Drainage Cardiovascular: Reports: Chest Pain, Chest Pressure. Denies: Light Headedness, Palpitations, Syncope Respiratory: Reports: - - Shortness of breath associated with episode of chest pain. Also reports shortness of breath with exertion.. Denies: Cough, Shortness of breath at rest, Sputum production Gastrointestinal: Denies: Abdominal Pain, Nausea, Vomiting Genitourinary: Denies: Dysuria Musculoskeletal: Reports: - - Generalized joint aching. Skin: Denies: Rash, Wounds Neurological: Denies: Numbness, Tingling, Focal weakness Psychiatric: Denies: Anxiety, Depression, Homicidal Ideations, Suicidal Ideations Hematologic/ Lymphatic: Denies: Easy Bruising, Easy Bleeding VTE Information - Inpt Only VTE Present on Admission: No VTE Mechan Device Prophylaxis: None VTE Pharm Prophylaxis ordered?: Yes - Physical Exam General: Alert, Oriented x3, Cooperative HEENT: Atraumatic, PERRLA, EOMI, Normocephalic, - - Hard of hearing. Oral: Moist Mucosa Neck: Supple, No JVD, Negative Carotid Bruits Lungs: Clear to auscultation, Diminished Cardiovascular: Regular rate, Regular Rhythm, Normal S1, Normal S2, No murmurs Abdomen: Bowel Sounds Present, Soft, Non Tender, Non-Distended Extremities: No clubbing, No cyanosis, Capillary Refill Less than 3 Seconds, Edema - +1 BLLE Skin: No rashes, No breakdown Musculoskeletal: No Tenderness to Palpation of Joints or Extremities Neurological: Cranial nerves II-XII grossly intact, Neuro grossly intact Psych/Mental Status: Normal Affect, Appropriate Vital Signs Temp Pulse Resp BP Pulse Ox 97.5 F L 60 20 H 146/70 H 96 07/03/18 14:12 07/03/18 16:06 07/03/18 16:06 07/03/18 16:06 07/03/18 16:06 Oxygen Delivery Method Room Air Weight: 190 lb Body Mass Index (BMI) 30.7 Finger Stick Blood Glucose 218 Laboratory Tests Past 24 Hrs 07/03/18 07/03/18 07/03/18 14:19 14:19 14:19 WBC 5.0 RBC 2.73 L Hgb 9.7 L Hct 28.5 L MCV 104.4 H MCH 35.5 H MCHC 34.0 RDW 13.5 RDW Differential 51.1 H Plt Count 109 L MPV 8.7 Immature Gran % (Auto) 0.200 Neut % (Auto) 67.7 Lymph % (Auto) 18.5 L [place] % (Auto) 11.0 H Eos % (Auto) 2.0 Baso % (Auto) 0.6 Absolute Neuts (auto) 3.4 Absolute Lymphs (auto) 0.92 Total Counted Not Reportable Sodium 135 L Potassium 4.2 Chloride 102 Carbon Dioxide 28.0 Anion Gap 5 BUN 31 H Creatinine 1.62 H Estim Creat Clear Calc 30.63 Est GFR (MDRD) Af Amer 52 L Est GFR (MDRD) Non-Af 43 L BUN/Creatinine Ratio 19.1 Glucose 128 H Calcium 8.4 L Magnesium 1.4 L Troponin I < 0.015 B-Natriuretic Peptide 89.2 Assessment/Plan All Active Problems (Last Reviewed 04/28/18 @ 15:53 by Carlos Coreas MD) Hypomagnesemia (Resolved) 1. Atypical chest pain-rule out ACS. Trend enzymes. Repeat EKG in a.m. Patient follows with Dr. Coreas. He has not had stress test since 2017. We will plan for nuclear stress test if enzymes remain normal. Echocardiogram completed February 2018 showed an EF of 75%, mild pulmonic valve insufficiency, RVSP estimated to be 39 mmHg. 2. Recent URI/Sinusitis-chest x-ray admission with hypoinflation with bibasilar atelectasis. No airspace consolidation. Afebrile. No leukocytosis. Continue oral Levaquin which was prescribed yesterday as outpatient. Begin Flonase for postnasal drainage. 3. Acute on chronic hypomagnesia-unclear etiology. Previously on HCTZ regimen which was discontinued with no improvement in recurrent hypomagnesia. Replace per protocol. Repeat magnesium in morning. 4. Hx of TIA-continue aspirin, Plavix, statin. 5. CAD status post PCI-continue aspirin, Plavix, statin, lisinopril, metoprolol. 6. Hypertension-stable, continue home lisinopril, metoprolol regimen. 7. Hyperlipidemia-continue statin. 8. Type 2 diabetes mellitus-hemoglobin A1c March 2017 5.4%. 9. Chronic kidney disease stage III-at baseline. 10. History of subarachnoid hemorrhage-stable. 11. GERD- continue PPI. 12. ZABRINA-CPAP nightly. 13. Iron deficiency anemia/chronic thrombocytopenia-at baseline, continue iron supplementation. DVT prophylaxis-heparin subcu This patient was seen by ALEIDA Valentin under the supervision of Dr. Babin. <Allan Babin - Last Filed: 07/03/18 21:42> History of Present Illness The patient is a 83 year old M who is being admitted for chest pain at rest along with shortness of breath. Patient denies nausea, diaphoresis or fever or chills. Patient completed azithromycin about a week ago for sinusitis. He also took 1 dose of Levaquin for presumed pneumonia but chest x-ray is negative of airspace consolidation. The patient is further admitted. Discussed with the daughter near the bedside. Patient has significant past medical history of coronary artery disease status post stent/PCI, TIA, type 2 diabetes mellitus and other comorbidities as listed above Past Medical History Medical History: Medical History (Last Reviewed 04/28/18 @ 15:53 by Carlos Coreas MD) Hypomagnesemia (Chronic) E83.42 Bifascicular block (Chronic) I45.2 Right bundle branch block (RBBB) (Chronic) I45.10 Bradycardia, LAFB Essential (primary) hypertension (Chronic) I10 Hyperlipidemia (Chronic) E78.5 Atherosclerotic heart disease of [place] coronary artery without angina pectoris (Chronic) I25.10 UDM-ZKN-Nuqulu RCA ; EPR-YUA-Avia LAD 03/19/2005 CKD (chronic kidney disease) N18.9 GERD (gastroesophageal reflux disease) K21.9 Hypochromic anemia D50.9 Obstructive sleep apnea G47.33 SAH (subarachnoid hemorrhage) Onset Date: 1995 I60.9 TIA (transient ischemic attack) G45.9 Type 2 diabetes mellitus E11.9 Allergies amoxicillin Allergy (Severe, Verified 07/03/18 14:18) unknown Tetanus Vaccines and Toxoid Allergy (Severe, Verified 07/03/18 14:18) unknown Thiazides Adverse Reaction (Verified 07/03/18 14:19) Other CAUSES LOW MAG Surgical History: Surgical History (Last Reviewed 04/28/18 @ 15:53 by Carlos Coreas MD) History of coronary artery stent placement (Resolved) Onset Date: 03/19/05 Z95.5 IDV-DIU-Nhiynd RCA ; WSY-VIR-Oimk LAD 03/19/2005 - *Family History Maternal Family History: Family History (Last Reviewed 07/03/18 @ 16:33 by ALEIDA Valentin) Father Hypertension Mother Heart disease Congestive heart failure Diabetes Sister ruptured brain aneurysm Paternal Family History: Family History (Last Reviewed 07/03/18 @ 16:33 by ALEIDA Valentin) Father Hypertension Mother Heart disease Congestive heart failure Diabetes Sister ruptured brain aneurysm Sibling Family History: Family History (Last Reviewed 07/03/18 @ 16:33 by ALEIDA Valentin) Father Hypertension Mother Heart disease Congestive heart failure Diabetes Sister ruptured brain aneurysm - Physical Exam General: Alert, Oriented x3, Cooperative HEENT: Atraumatic, PERRLA, EOMI, Normocephalic, - - Hard of hearing. Bilateral profound hearing loss. Oral: Moist Mucosa Neck: Supple, No JVD, Negative Carotid Bruits Lungs: Diminished, Rales - Right lower lobe fine rales present Cardiovascular: Regular rate, Regular Rhythm, Normal S1, Normal S2, No murmurs Abdomen: Bowel Sounds Present, Soft, Non Tender, Non-Distended Extremities: Capillary Refill Less than 3 Seconds, Edema Skin: No breakdown, Rash Present - Mild erythema present secondary to venous congestion in both lower legs, - Musculoskeletal: No Tenderness to Palpation of Joints or Extremities, Arthritic Changes Lymphatic: No Cervical, Supraclavicular, or Inguinal Adenopathy Neurological: Cranial nerves II-XII grossly intact, Deep Tendon Reflexes 2+/4 and Symmetrical, Neuro grossly intact Psych/Mental Status: Normal Affect, Appropriate Vital Signs Temp Pulse Resp BP Pulse Ox 97.7 F L 68 16 148/68 H 98 07/03/18 17:00 07/03/18 18:59 07/03/18 17:00 07/03/18 17:00 07/03/18 17:00 Oxygen Delivery Method Room Air Weight: 197 lb 12.074 oz Body Mass Index (BMI) 31.8 Finger Stick Blood Glucose 218 Laboratory Tests Past 24 Hrs 07/03/18 07/03/18 07/03/18 14:19 14:19 14:19 WBC 5.0 RBC 2.73 L Hgb 9.7 L Hct 28.5 L MCV 104.4 H MCH 35.5 H MCHC 34.0 RDW 13.5 RDW Differential 51.1 H Plt Count 109 L MPV 8.7 Immature Gran % (Auto) 0.200 Neut % (Auto) 67.7 Lymph % (Auto) 18.5 L [place] % (Auto) 11.0 H Eos % (Auto) 2.0 Baso % (Auto) 0.6 Absolute Neuts (auto) 3.4 Absolute Lymphs (auto) 0.92 Total Counted Not Reportable Sodium 135 L Potassium 4.2 Chloride 102 Carbon Dioxide 28.0 Anion Gap 5 BUN 31 H Creatinine 1.62 H Estim Creat Clear Calc 30.63 Est GFR (MDRD) Af Amer 52 L Est GFR (MDRD) Non-Af 43 L BUN/Creatinine Ratio 19.1 Glucose 128 H Calcium 8.4 L Magnesium 1.4 L Troponin I < 0.015 B-Natriuretic Peptide 89.2 TSH 07/03/18 07/03/18 07/03/18 17:10 17:10 20:18 WBC RBC Hgb Hct MCV MCH MCHC RDW RDW Differential Plt Count MPV Immature Gran % (Auto) Neut % (Auto) Lymph % (Auto) [place] % (Auto) Eos % (Auto) Baso % (Auto) Absolute Neuts (auto) Absolute Lymphs (auto) Total Counted Sodium Potassium Chloride Carbon Dioxide Anion Gap BUN Creatinine Estim Creat Clear Calc Est GFR (MDRD) Af Amer Est GFR (MDRD) Non-Af BUN/Creatinine Ratio Glucose Calcium Magnesium Troponin I < 0.015 0.015 B-Natriuretic Peptide TSH 2.01 Assessment/Plan This patient was seen in conjunction with Kelly WAGNER. I have independently interviewed and examined the patient and reviewed pertinent history, examination findings, laboratory and plan of management. I have reviewed the note and agree with the documented findings with the few additional points. In brief, patient is admitted for atypical chest pain. Patient had URI/sinusitis for which he received azithromycin and is controlled. In view of coronary artery disease status post PCI, patient needs workup to rule out ACS. Patient also has hypomagnesemia as mentioned above. On replacement Multiple comorbidities complicates the present care and expect difficult and delay recovery I have discussed my assessment with Kelly WAGNER and orders have been reviewed. Clinical Impression(s) from Imaging Studies Chest X-Ray 07/03/18 14:29 IMPRESSION: 1. Hypoinflation with bibasilar atelectasis. No airspace consolidation. Code Visit Inpatient E&M: 52199 Init Hosp L3
[2018-07-03 17:43] LABS: Thyroid Stim Hormone (TSH) 2.01 uIU/mL (0.358-3.74)
[2018-07-03] MEDS: Fluticasone 0.05% 1 SPRAY NASAL.SRY 2 SPRAY NASAL (18:40)
--- NOTE | 2018-07-03 18:43 | EKG12_ITS ---
Test Reason : CP ADMIT Blood Pressure : / mmHG Vent. Rate : 067 BPM Atrial Rate : 067 BPM P-R Int : 214 ms QRS Dur : 136 ms QT Int : 444 ms P-R-T Axes : 057 -43 016 degrees QTc Int : 469 ms Sinus rhythm with 1st degree A-V block Left axis deviation Right bundle branch block Abnormal ECG When compared with ECG of 03-JUL-2018 14:10, MANUAL COMPARISON REQUIRED, DATA IS UNCONFIRMED Confirmed by RINKU SILVA, ANGIE ([id number]), tape editor LEOLA BURTON ([id number] on 07/07/2018 1:41:01 PM Referred By: NERI Confirmed By:ANGIE DOBBS MD
--- NOTE | 2018-07-03 19:35 | NURSING ---
FAMILY MEMBER (ORESTES) MADE AWARE THAT STRESS TEST WILL BE DONE THURSDAY MORNING.
[2018-07-03] MEDS: Metoprolol Tartrate 50 MG Tablet PO (22:16)
[2018-07-03] MEDS: Pravastatin 80 MG Tablet PO (22:17)
[2018-07-03] MEDS: levoFLOXacin 250 MG Tablet PO (22:17)
[2018-07-03] MEDS: Magnesium Oxide 400 MG Tablet 800 MG PO (22:17)
[2018-07-03] MEDS: Heparin Injection (Vial) 5,000 UNIT/ML VIAL 5000 UNIT SC (22:17)
[2018-07-04] VITALS (12 sets, daily range): BP systolic 127–142; BP diastolic 60–79; PULSE 62–74; RESP 16; TEMP 36.3–36.8; O2SAT 97–98
[2018-07-04] MEDS: Magnesium Oxide 400 MG Tablet 800 MG PO ×3 (04:57→20:40)
[2018-07-04] MEDS: Acetaminophen 325 MG Tablet 650 MG PO ×2 (05:02→20:40)
--- NOTE | 2018-07-04 05:55 | EKG12_ITS ---
Test Reason : AM EKG Blood Pressure : / mmHG Vent. Rate : 069 BPM Atrial Rate : 069 BPM P-R Int : 216 ms QRS Dur : 134 ms QT Int : 442 ms P-R-T Axes : 073 -43 021 degrees QTc Int : 473 ms Sinus rhythm with sinus arrhythmia with 1st degree A-V block Left axis deviation Right bundle branch block Abnormal ECG When compared with ECG of 03-JUL-2018 18:11, MANUAL COMPARISON REQUIRED, DATA IS UNCONFIRMED Confirmed by RINKU SILVA, ANGIE ([id number]), scientific editor LEOLA BURTON ([id number] on 07/07/2018 10:04:16 AM Referred By: NERI Confirmed By:ANGIE ODBBS MD
[2018-07-04 06:22] LABS: Hematocrit 29.6 % (40-54); Hemoglobin 9.8 g/dl (13.0-16.5); Mean Corp Hgb Conc 33.1 g/gl (32-36); Mean Corpuscular Hgb 35.1 pg (27.0-32.0); Mean Corpuscular Volume 106.1 fL (80-94); Mean Platelet Vol. 9.7 fl (6.2-12.0); Platelet Count 104 K/mm3 (150-450); RBC Distribution Width CV 13.2 % (11.6-14.6); RBC Distribution Width SD 49.4 fl (35.1-43.9); Red Blood Count 2.79 M/mm3 (4.6-6.2); White Blood Count 4.4 K/mm3 (4.4-11.0)
[2018-07-04 06:28] LABS: Scan Indicated on CBC? Y/N NO
[2018-07-04 06:54] LABS: Anion Gap 10 (5-15); BUN 28 mg/dL (7-18); BUN/Creat Ratio 18.3 RATIO (10-20); Calcium,Total 8.7 mg/dL (8.5-10.1); Chloride 103 mmol/L (98-107); Cholesterol 84 mg/dL (200); Creatinine, Serum 1.53 mg/dL (0.70-1.30); EST Glomerular Filtration Rate 46 mL/min (>60); Est Glom Filt Rate - Afr Amer 56 mL/min (>60); Estimated Creatinine Clearance 32.43 ml/min; Glucose 150 mg/dL (74-106); High Density Lipoprotein 34 mg/dL; Magnesium 1.9 mg/dL (1.6-2.6); Potassium 4.3 mmol/L (3.5-5.1); Sodium Level 136 mmol/L (136-145); Triglycerides 78 mg/dL; Very Low Density Lipoprotein 16 mg/dL (5-40)
[2018-07-04] MEDS: Fluticasone 0.05% 1 SPRAY NASAL.SRY 2 SPRAY NASAL (08:43)
[2018-07-04] MEDS: Heparin Injection (Vial) 5,000 UNIT/ML VIAL 5000 UNIT SC ×2 (08:43→20:41)
[2018-07-04] MEDS: Pantoprazole Sodium 20 MG Tablet PO (08:43)
[2018-07-04] MEDS: Ferrous Sulfate 325 MG Tablet PO (08:43)
[2018-07-04] MEDS: Calcium Carb/Vitamin D 1 TABLET Tablet PO ×2 (08:44→17:57)
[2018-07-04] MEDS: Aspirin E.C. 81 MG Tablet PO (08:44)
[2018-07-04] MEDS: amLODIPine 5 MG Tablet PO (08:44)
[2018-07-04] MEDS: Clopidogrel Bisulfate 75 MG Tablet PO (08:44)
[2018-07-04] MEDS: Metoprolol Tartrate 50 MG Tablet PO ×2 (08:46→20:39)
--- NOTE | 2018-07-04 10:47 | NURSING ---
verbal report given to EFREN ocasio
--- NOTE | 2018-07-04 13:21 | PCM.PROGNOTE ---
<Kelly Gonzalez - Last Filed: 07/04/18 13:26> Subjective: Patient seen and examined. Denies further chest pain. Continues to complain of mild dyspnea with exertion. Reports muscle cramping is improved although had restless legs and lower extremity cramping and eminently overnight which has since resolved. Daughter at bedside. Discussed plan for stress test in a.m. Denies other complaints or concerns. - Physical Exam General: Alert, Oriented x3, Cooperative HEENT: Atraumatic, PERRLA, EOMI, Normocephalic Oral: Moist Mucosa Neck: Supple, No JVD, Negative Carotid Bruits Lungs: Clear to auscultation, Diminished Cardiovascular: Regular rate, Regular Rhythm, Normal S1, Normal S2, No murmurs Abdomen: Bowel Sounds Present, Soft, Non Tender, Non-Distended Extremities: No clubbing, No cyanosis, Capillary Refill Less than 3 Seconds, Edema - 1+ bilateral lower extremities Skin: No rashes, No breakdown Musculoskeletal: No Tenderness to Palpation of Joints or Extremities Neurological: Cranial nerves II-XII grossly intact, Neuro grossly intact Psych/Mental Status: Normal Affect, Appropriate Vital Signs Temp Pulse Resp BP Pulse Ox 97.3 F L 65 16 131/60 H 97 07/04/18 11:00 07/04/18 11:03 07/04/18 11:00 07/04/18 11:00 07/04/18 11:00 Oxygen Delivery Method Room Air Weight: 197 lb 12.074 oz Body Mass Index (BMI) 31.8 Finger Stick Blood Glucose 218 Intake and Output for Last 24 Hours 07/02/18 07/03/18 07/04/18 23:59 23:59 23:59 Intake Total 1350 / 1350 Output Total 1150 / 1150 Balance 200 / 200 Laboratory Tests Past 24 Hrs 07/03/18 07/03/18 07/03/18 14:19 14:19 14:19 WBC 5.0 RBC 2.73 L Hgb 9.7 L Hct 28.5 L MCV 104.4 H MCH 35.5 H MCHC 34.0 RDW 13.5 RDW Differential 51.1 H Plt Count 109 L MPV 8.7 Immature Gran % (Auto) 0.200 Neut % (Auto) 67.7 Lymph % (Auto) 18.5 L [place] % (Auto) 11.0 H Eos % (Auto) 2.0 Baso % (Auto) 0.6 Absolute Neuts (auto) 3.4 Absolute Lymphs (auto) 0.92 Total Counted Not Reportable Sodium 135 L Potassium 4.2 Chloride 102 Carbon Dioxide 28.0 Anion Gap 5 BUN 31 H Creatinine 1.62 H Estim Creat Clear Calc 30.63 Est GFR (MDRD) Af Amer 52 L Est GFR (MDRD) Non-Af 43 L BUN/Creatinine Ratio 19.1 Glucose 128 H Calcium 8.4 L Magnesium 1.4 L Troponin I < 0.015 B-Natriuretic Peptide 89.2 Triglycerides Cholesterol LDL Cholesterol VLDL Cholesterol HDL Cholesterol TSH 07/03/18 07/03/18 07/03/18 17:10 17:10 20:18 WBC RBC Hgb Hct MCV MCH MCHC RDW RDW Differential Plt Count MPV Immature Gran % (Auto) Neut % (Auto) Lymph % (Auto) [place] % (Auto) Eos % (Auto) Baso % (Auto) Absolute Neuts (auto) Absolute Lymphs (auto) Total Counted Sodium Potassium Chloride Carbon Dioxide Anion Gap BUN Creatinine Estim Creat Clear Calc Est GFR (MDRD) Af Amer Est GFR (MDRD) Non-Af BUN/Creatinine Ratio Glucose Calcium Magnesium Troponin I < 0.015 0.015 B-Natriuretic Peptide Triglycerides Cholesterol LDL Cholesterol VLDL Cholesterol HDL Cholesterol TSH 2.01 07/04/18 07/04/18 05:45 05:45 WBC 4.4 RBC 2.79 L Hgb 9.8 L Hct 29.6 L MCV 106.1 H MCH 35.1 H MCHC 33.1 RDW 13.2 RDW Differential 49.4 H Plt Count 104 L MPV 9.7 Immature Gran % (Auto) Neut % (Auto) Lymph % (Auto) [place] % (Auto) Eos % (Auto) Baso % (Auto) Absolute Neuts (auto) Absolute Lymphs (auto) Total Counted Sodium 136 Potassium 4.3 Chloride 103 Carbon Dioxide 23.0 Anion Gap 10 BUN 28 H Creatinine 1.53 H Estim Creat Clear Calc 32.43 Est GFR (MDRD) Af Amer 56 L Est GFR (MDRD) Non-Af 46 L BUN/Creatinine Ratio 18.3 Glucose 150 H Calcium 8.7 Magnesium 1.9 Troponin I B-Natriuretic Peptide Triglycerides 78 Cholesterol 84 LDL Cholesterol 34 VLDL Cholesterol 16 HDL Cholesterol 34 L TSH Medical Necessity - Tobacco Use Smoking Status: Former smoker Assessment/Plan All Active Problems (Last Reviewed 04/28/18 @ 15:53 by Carlos Coreas MD) Hypomagnesemia (Resolved) 1. Atypical chest pain-rule out ACS. Troponin negative. EKG without ST-T changes. Patient follows with Dr. Coreas. He has not had stress test since 2017. We will plan for nuclear stress test in a.m. Echocardiogram completed February 2018 showed an EF of 75%, mild pulmonic valve insufficiency, RVSP estimated to be 39 mmHg. 2. Recent URI/Sinusitis-chest x-ray admission with hypoinflation with bibasilar atelectasis. No airspace consolidation. Afebrile. No leukocytosis. Continue oral Levaquin which was prescribed yesterday as outpatient. Begin Flonase for postnasal drainage. 3. Acute on chronic hypomagnesia-unclear etiology. Previously on HCTZ regimen which was discontinued with no improvement in recurrent hypomagnesia. Replaced per protocol. Repeat magnesium within normal limits. Will repeat again in a.m. 4. Hx of TIA-continue aspirin, Plavix, statin. 5. CAD status post PCI-continue aspirin, Plavix, statin, lisinopril, metoprolol. 6. Hypertension-stable, continue home lisinopril, metoprolol regimen. 7. Hyperlipidemia-continue statin. 8. Type 2 diabetes mellitus-hemoglobin A1c March 2017 5.4%. 9. Chronic kidney disease stage III-at baseline. 10. History of subarachnoid hemorrhage-stable. 11. GERD- continue PPI. 12. ZABRINA-CPAP nightly. 13. Iron deficiency anemia/chronic thrombocytopenia-at baseline, continue iron supplementation. DVT prophylaxis-heparin subcu This patient was seen by ALEIDA Valentin under the supervision of Dr. Boston. <Miryam Boston - Last Filed: 07/04/18 14:58> - Physical Exam Vital Signs Temp Pulse Resp BP Pulse Ox 97.3 F L 65 16 131/60 H 97 07/04/18 11:00 07/04/18 11:03 07/04/18 11:00 07/04/18 11:00 07/04/18 11:00 Oxygen Delivery Method Room Air Weight: 197 lb 12.074 oz Body Mass Index (BMI) 31.8 Finger Stick Blood Glucose 218 Intake and Output for Last 24 Hours 07/02/18 07/03/18 07/04/18 23:59 23:59 23:59 Intake Total 1830 / 1830 Output Total 1150 / 1150 Balance 680 / 680 Laboratory Tests Past 24 Hrs 07/03/18 07/03/18 07/03/18 14:19 14:19 14:19 WBC 5.0 RBC 2.73 L Hgb 9.7 L Hct 28.5 L MCV 104.4 H MCH 35.5 H MCHC 34.0 RDW 13.5 RDW Differential 51.1 H Plt Count 109 L MPV 8.7 Immature Gran % (Auto) 0.200 Neut % (Auto) 67.7 Lymph % (Auto) 18.5 L [place] % (Auto) 11.0 H Eos % (Auto) 2.0 Baso % (Auto) 0.6 Absolute Neuts (auto) 3.4 Absolute Lymphs (auto) 0.92 Total Counted Not Reportable Sodium 135 L Potassium 4.2 Chloride 102 Carbon Dioxide 28.0 Anion Gap 5 BUN 31 H Creatinine 1.62 H Estim Creat Clear Calc 30.63 Est GFR (MDRD) Af Amer 52 L Est GFR (MDRD) Non-Af 43 L BUN/Creatinine Ratio 19.1 Glucose 128 H Calcium 8.4 L Magnesium 1.4 L Troponin I < 0.015 B-Natriuretic Peptide 89.2 Triglycerides Cholesterol LDL Cholesterol VLDL Cholesterol HDL Cholesterol TSH 07/03/18 07/03/18 07/03/18 17:10 17:10 20:18 WBC RBC Hgb Hct MCV MCH MCHC RDW RDW Differential Plt Count MPV Immature Gran % (Auto) Neut % (Auto) Lymph % (Auto) [place] % (Auto) Eos % (Auto) Baso % (Auto) Absolute Neuts (auto) Absolute Lymphs (auto) Total Counted Sodium Potassium Chloride Carbon Dioxide Anion Gap BUN Creatinine Estim Creat Clear Calc Est GFR (MDRD) Af Amer Est GFR (MDRD) Non-Af BUN/Creatinine Ratio Glucose Calcium Magnesium Troponin I < 0.015 0.015 B-Natriuretic Peptide Triglycerides Cholesterol LDL Cholesterol VLDL Cholesterol HDL Cholesterol TSH 2.01 07/04/18 07/04/18 05:45 05:45 WBC 4.4 RBC 2.79 L Hgb 9.8 L Hct 29.6 L MCV 106.1 H MCH 35.1 H MCHC 33.1 RDW 13.2 RDW Differential 49.4 H Plt Count 104 L MPV 9.7 Immature Gran % (Auto) Neut % (Auto) Lymph % (Auto) [place] % (Auto) Eos % (Auto) Baso % (Auto) Absolute Neuts (auto) Absolute Lymphs (auto) Total Counted Sodium 136 Potassium 4.3 Chloride 103 Carbon Dioxide 23.0 Anion Gap 10 BUN 28 H Creatinine 1.53 H Estim Creat Clear Calc 32.43 Est GFR (MDRD) Af Amer 56 L Est GFR (MDRD) Non-Af 46 L BUN/Creatinine Ratio 18.3 Glucose 150 H Calcium 8.7 Magnesium 1.9 Troponin I B-Natriuretic Peptide Triglycerides 78 Cholesterol 84 LDL Cholesterol 34 VLDL Cholesterol 16 HDL Cholesterol 34 L TSH Assessment/Plan Patient seen by Kelly Lambert under my supervision Patient was admitted with a complaint of chest pain and generalized malaise as well as shortness of breath which was assisted with chest pain. Chest pain lasted about 2 hours he had no assisted nausea or diaphoresis. He had recently been treated for sinusitis with azithromycin and had been placed on Levaquin for persistent sinusitis and pneumonia by his PCP just before presentation. He is been managed for chest pain to rule out ACS. Patient seen and examined this morning. He complained of some muscle cramps in his lower extremities which is not new. Chest pain did not recur overnight. He denied any shortness of breath or palpitations, dizziness, diarrhea vomiting. Review of systems otherwise negative. Labs and vitals reviewed. o/e: Vital Signs Height 5 ft 6 in Weight: 197 lb 12.074 oz Weight in Pounds 197.8 lbs Pulse Ox 97 Temperature 97.3 F Pulse Rate 65 Respiratory Rate 16 Blood Pressure 131/60 Blood Pressure Position Semi-Fowlers General: Alert, Oriented x3, Cooperative HEENT: Atraumatic, PERRLA, EOMI, Normocephalic Oral: Moist Mucosa Neck: Supple, No JVD, Negative Carotid Bruits Lungs: Clear to auscultation Cardiovascular: Regular rate, Regular Rhythm, Normal S1, Normal S2, No murmurs Abdomen: Bowel Sounds Present, Soft, Non Tender, Non-Distended Extremities: No clubbing, No cyanosis, Capillary Refill Less than 3 Seconds, minimal LE edema Skin: No rashes, No breakdown Musculoskeletal: No Tenderness to Palpation of Joints or Extremities Neurological: Cranial nerves II-XII grossly intact, Neuro grossly intact Psych/Mental Status: Normal Affect, Appropriate Plan is for patient to have a nuclear stress test tomorrow; troponins x 3 were negative. continue oral levaquin which was started on outpatient basis for sinusitis. Patient also has recurrent hypomagnesemia and this was replaced successfully. Rest of management as per Kelly Gonzalez TRENCH DIGGER-C's note which I have reviewed and endorsed. Code Visit OBSV E&M: 01606 Subsequent observation care L3
[2018-07-04] MEDS: Pravastatin 80 MG Tablet PO ×2 (20:39→20:44)
[2018-07-04] MEDS: levoFLOXacin 250 MG Tablet PO (20:40)
[2018-07-04 23:30] LABS: Bedside Glucose 165 mg/dL (70-110)
[2018-07-05] VITALS (9 sets, daily range): BP systolic 106–150; BP diastolic 56–81; PULSE 60–73; RESP 16–18; TEMP 36.5–36.9; O2SAT 95–99
[2018-07-05] MEDS: Acetaminophen 325 MG Tablet 650 MG PO (03:08)
[2018-07-05] MEDS: Magnesium Oxide 400 MG Tablet 800 MG PO ×2 (05:53→13:58)
[2018-07-05] MEDS: Aspirin E.C. 81 MG Tablet PO (05:54)
[2018-07-05] MEDS: Clopidogrel Bisulfate 75 MG Tablet PO (05:54)
--- NOTE | 2018-07-05 05:55 | EKG12_ITS ---
Test Reason : AM EKG Blood Pressure : / mmHG Vent. Rate : 071 BPM Atrial Rate : 071 BPM P-R Int : 222 ms QRS Dur : 134 ms QT Int : 430 ms P-R-T Axes : 040 -49 018 degrees QTc Int : 467 ms Sinus rhythm with 1st degree A-V block Right bundle branch block Left anterior fascicular block Bifascicular block Abnormal ECG When compared with ECG of 04-JUL-2018 05:03, MANUAL COMPARISON REQUIRED, DATA IS UNCONFIRMED Confirmed by RINKU SILVA, ANGIE ([id number]), videotape editor LEOLA BURTON ([id number]) on 07/07/2018 10:00:37 AM Referred By: NERI Confirmed By:ANGIE DOBBS MD
[2018-07-05 06:00] LABS: Bedside Glucose 134 mg/dL (70-110)
[2018-07-05 06:01] LABS: International Normalized Ratio 1.1; Partial Thromboplast Time 27.9 Seconds (24.1-36.2); Prothrombin Time (Protime)PT. 14.4 SECONDS (11.7-14.9)
[2018-07-05 06:16] LABS: Anion Gap 8 (5-15); BUN 35 mg/dL (7-18); BUN/Creat Ratio 22.3 RATIO (10-20); Chloride 101 mmol/L (98-107); Creatinine, Serum 1.57 mg/dL (0.70-1.30); EST Glomerular Filtration Rate 45 mL/min (>60); Est Glom Filt Rate - Afr Amer 54 mL/min (>60); Estimated Creatinine Clearance 31.61 ml/min; Glucose 130 mg/dL (74-106); Magnesium 2.1 mg/dL (1.6-2.6); Potassium 4.7 mmol/L (3.5-5.1); Sodium Level 135 mmol/L (136-145)
[2018-07-05 06:25] LABS: Hematocrit 27.7 % (40-54); Hemoglobin 9.3 g/dl (13.0-16.5); Mean Corp Hgb Conc 33.6 g/gl (32-36); Mean Corpuscular Hgb 34.7 pg (27.0-32.0); Mean Corpuscular Volume 103.4 fL (80-94); Mean Platelet Vol. 8.8 fl (6.2-12.0); Platelet Count 110 K/mm3 (150-450); RBC Distribution Width CV 13.4 % (11.6-14.6); RBC Distribution Width SD 50.3 fl (35.1-43.9); Red Blood Count 2.68 M/mm3 (4.6-6.2); White Blood Count 4.7 K/mm3 (4.4-11.0)
[2018-07-05 06:37] LABS: Scan Indicated on CBC? Y/N NO
--- NOTE | 2018-07-05 08:35 | STRESSREP_ITS ---
Stress Test Report Pharmacologic myocardial perfusion stress test. 3-year-old male with a history of coronary artery disease who presents with chest pain. Stress protocol: Resting EKG demonstrates normal sinus rhythm with a rate of 66 bpm and a right bundle branch block. Resting blood pressure 132/82 mmHg. 0.4 mg of regadenoson was infused per usual protocol followed by rapid intravenous saline flush injection continuous EKG monitoring was performed. The patient maintained sinus rhythm throughout the recording. At rest there were no ST or T wave changes noted to suggest abnormal flow reserve at peak infusion nonspecific ST-T wave changes were noted with no meet the criteria for ischemia. The resting blood pressure 132/82 with a final blood pressure 128/76. No clinical angina was noted. Myocardial perfusion protocol. 11.9 mCi of technetium 99m sestamibi was injected. 0.4 mg of regadenoson was infused per usual protocol peak infusion 33.7 mCi of technetium 99m sestamibi was injected stress images were obtained stress and rest images were reconstructed and compared in the short axis vertical long horizontal long axis. Gated images were also obtained. Perfusion SPECT analysis: Review of the stress images demonstrate normal uptake of tracer noted in the septum anterior wall and lateral wall. The inferior wall has mildly reduced p erfusion but there is significant GI attenuation artifact noted. No areas of reversibility are noted suggest ischemia. The stress and rest images appear to be identical. Gated SPECT analysis: The gated ejection fraction is noted to be 66%. Conclusion: Normal pharmacologic myocardial perfusion stress test. Significant GI attenuation artifact noted Preserved ejection fraction.
[2018-07-05] MEDS: Calcium Carb/Vitamin D 1 TABLET Tablet PO (10:11)
[2018-07-05] MEDS: amLODIPine 5 MG Tablet PO (10:12)
[2018-07-05] MEDS: Pantoprazole Sodium 20 MG Tablet PO (10:12)
[2018-07-05] MEDS: Fluticasone 0.05% 1 SPRAY NASAL.SRY 2 SPRAY NASAL (10:12)
[2018-07-05] MEDS: Metoprolol Tartrate 50 MG Tablet PO (10:13)
[2018-07-05] MEDS: Ferrous Sulfate 325 MG Tablet PO (10:13)
--- NOTE | 2018-07-05 10:57 | CASEMGMT ---
This RN CM to room with SABA form at this time and pt is sleeping without distress and does not awaken with knock on door or verbal stimuli at this time. Will attempt again later. SStmariah SCHWARTZ CM
--- NOTE | 2018-07-05 11:22 | DCINST_ITS ---
You will use the following diet at home:: Cardiac Discharge Activity: Return to Normal Activity Call your doctor if you observe: Shortness of breath, Dizziness, Fainting spells, Chest pain Additional Instructions: Recommend discontinuing home Pioglitazone (Actos) regimen. Your recent HA1C was 5.4% indicating your blood glucose is well controlled. This medication may also interact with other medications you are prescribed. Your previously prescribed Levaquin dose was adjusted due to your kidney function. Recommend continuing levaquin 250mg for 3 days and then discontinue. Recommend continuing flonase as prescribed during admission for sinus congestion/post nasal drip. Allergies/Adverse Reactions: Allergies amoxicillin Allergy (Severe, Verified 07/03/18 14:18) unknown Tetanus Vaccines and Toxoid Allergy (Severe, Verified 07/03/18 14:18) unknown Thiazides Adverse Reaction (Verified 07/03/18 14:19) Other CAUSES LOW MAG Medications to take at Discharge clopidogrel 75 mg tablet 75 mg PO QDAY 03/09/17 esomeprazole magnesium 20 mg capsule,delayed release 20 mg PO QDAY cap 03/09/17 ferrous sulfate 325 mg (65 mg iron) tablet,delayed release 324 mg PO QDAY tab 03/09/17 multivitamin tablet 1 tab PO QDAY 03/09/17 pravastatin 80 mg tablet 80 mg PO QHS 03/09/17 calcium carbonate-vitamin D3 600 mg (1,500 mg)-800 unit tablet 1 tab PO BID 09/08/17 Aspirin E.C. [Ecotrin] 81 mg PO DAILY@0800 03/20/18 amlodipine 5 mg tablet 5 mg PO DAILY #90 tab 04/28/18 magnesium 400 mg (as magnesium oxide) tablet 800 mg PO TID tab 04/28/18 metoprolol tartrate 50 mg tablet 50 mg PO BID #90 tab 04/28/18 Fluticasone 0.05% [Flonase Nasal Jewett] 2 spray NASAL DAILY nasal.sry 07/05/18 Levofloxacin 250 mg PO DAILY #0 07/05/18 Primary Care Physician: Ana María Mazariegos DO [Primary Care Provider] - Please follow up with your Primary Care Physician in: 1 Week Test Results: Test results from this visit will be discussed in further detail at your follow- up appointment, if applicable. Please Follow Up With: Carlos Coreas MD When: As scheduled Proposed Discharge Date: 07/05/18
--- NOTE | 2018-07-05 11:35 | CASEMGMT ---
This RN DONA to room with SABA form at this time, explanation done-pt voices understanding, and consents to assessment at this time. Pt's daughter is at bedside. Original to chart and copy to pt at this time. Pt/daughter voice no further questions/concerns/needs at this time. SStaten EFREN CARCAMO
[2018-07-05 12:01] LABS: Bedside Glucose 190 mg/dL (70-110)
--- NOTE | 2018-07-05 12:47 | PCM.DC.SUM ---
<Kelly Gonzalez - Last Filed: 07/05/18 12:55> Discharge Date and Diagnosis Date of Admission: 07/03/18 Date of Discharge: 07/05/18 - Primary Discharge Diagnosis 1. Atypical chest pain, ACS ruled out 2. Recent URI/Sinusitis 3. Acute on chronic hypomagnesia 4. Hx of TIA 5. CAD status post PCI 6. Hypertension 7. Hyperlipidemia 8. Type 2 diabetes mellitus 9. Chronic kidney disease stage III 10. History of subarachnoid hemorrhage 11. GERD 12. ZABRINA 13. Iron deficiency anemia/chronic thrombocytopenia - Secondary Discharge Diagnosis Chronic Problems (Last Reviewed 04/28/18 @ 15:53 by Carlos Coreas MD) Hypomagnesemia (Chronic) Bifascicular block (Chronic) 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, LAFB History of coronary artery stent placement (Chronic 03/19/05) XSA-HIW-Qlwavr RCA ; RXI-ZXI-Swqy LAD 03/19/2005 Essential (primary) hypertension (Chronic) Hyperlipidemia (Chronic) Atherosclerotic heart disease of [place] coronary artery without angina pectoris (Chronic) MVR-ANG-Hpwvko RCA ; CXC-LSY-Zuyb LAD 03/19/2005 Hospital Course and Treatment Imaging Results: Diagnostic Data Chest X-Ray 07/03/18 14:29 IMPRESSION: 1. Hypoinflation with bibasilar atelectasis. No airspace consolidation. Electronically Signed: Dino Mccray MD at 14:49 EDT , Service support , Operations: None Procedures: Stress test Summary of Care Provided: The patient is a 83 year old M admitted 07/03/18 due to chest pain, general malaise. 1. Atypical chest pain-ACS ruled out. Troponin negative. EKG without ST-T changes. Patient follows with Dr. Coreas. Prior normal stress test 2016. Echocardiogram completed February 2018 showed an EF of 75%, mild pulmonic valve insufficiency, RVSP estimated to be 39 mmHg. Patient underwent nuclear stress test which was negative for ischemia. Follow-up with primary care physician in 1 week. Follow-up with cardiology as previously scheduled. 2. Recent URI/Sinusitis-chest x-ray admission with hypoinflation with bibasilar atelectasis. No airspace consolidation. Afebrile. No leukocytosis. Continue oral Levaquin which was renally adjusted to 250 mg daily, continue for 3 days at discharge and then discontinue. Continue Flonase for postnasal drainage. 3. Acute on chronic hypomagnesia-unclear etiology. Previously on HCTZ regimen which was discontinued with no improvement in recurrent hypomagnesia. Replaced per protocol. Repeat magnesium within normal limits. Continue home magnesium supplementation and outpatient monitoring of magnesium level. 4. Hx of TIA-continue aspirin, Plavix, statin. 5. CAD status post PCI-continue aspirin, Plavix, statin, lisinopril, metoprolol. 6. Hypertension-stable, continue home lisinopril, metoprolol regimen. 7. Hyperlipidemia-continue statin. 8. Type 2 diabetes mellitus-hemoglobin A1c March 2017 5.4%. Home Actos regimen discontinued. Recommend continue carb control diet and re-check hemoglobin A1c in 4-6 weeks as outpatient. 9. Chronic kidney disease stage III-at baseline. 10. History of subarachnoid hemorrhage-stable. 11. GERD- continue PPI. 12. ZABRINA-CPAP nightly. 13. Iron deficiency anemia/chronic thrombocytopenia-at baseline, continue iron supplementation. General: Alert, Oriented x3, Cooperative HEENT: Atraumatic, PERRLA, EOMI, Normocephalic Oral: Moist Mucosa Neck: Supple, No JVD, Negative Carotid Bruits Lungs: Clear to auscultation, Diminished Cardiovascular: Regular rate, Regular Rhythm, Normal S1, Normal S2, No murmurs Abdomen: Bowel Sounds Present, Soft, Non Tender, Non-Distended Extremities: No clubbing, No cyanosis, Capillary Refill Less than 3 Seconds, Edema non-pitting bilateral lower extremities Skin: No rashes, No breakdown Musculoskeletal: No Tenderness to Palpation of Joints or Extremities Neurological: Cranial nerves II-XII grossly intact, Neuro grossly intact Psych/Mental Status: Normal Affect, Appropriate Patient seen and examined prior to discharge. Physical assessment as noted above. Patient is stable for discharge with follow up recommendations as noted above. This patient was seen by ALEIDA Valentin under the supervision of Dr. Funez. - Physical Exam Vital Signs Temp Pulse Resp BP Pulse Ox 98.5 F 73 16 150/63 H 98 07/05/18 10:27 07/05/18 11:21 07/05/18 10:27 07/05/18 10:27 07/05/18 10:27 Oxygen Delivery Method Room Air Weight: 197 lb 12.074 oz Body Mass Index (BMI) 31.8 Finger Stick Blood Glucose 218 Intake and Output for Last 24 Hours 07/03/18 07/04/18 07/05/18 23:59 23:59 23:59 Intake Total 2990 / 2990 0 / 0 Output Total 1150 / 1150 Balance 1840 / 1840 0 / 0 Laboratory Tests Past 24 Hrs 07/05/18 07/05/18 07/05/18 05:15 05:15 05:15 WBC 4.7 RBC 2.68 L Hgb 9.3 L Hct 27.7 L MCV 103.4 H MCH 34.7 H MCHC 33.6 RDW 13.4 RDW Differential 50.3 H Plt Count 110 L MPV 8.8 PT 14.4 INR 1.1 APTT 27.9 Sodium 135 L Potassium 4.7 Chloride 101 Carbon Dioxide 26.0 Anion Gap 8 BUN 35 H Creatinine 1.57 H Estim Creat Clear Calc 31.61 Est GFR (MDRD) Af Amer 54 L Est GFR (MDRD) Non-Af 45 L BUN/Creatinine Ratio 22.3 H Glucose 130 H Calcium 9.0 Magnesium 2.1 POC Glucose 07/05/18 07/05/18 07/04/18 11:41 05:46 20:51 POC Glucose 190 H 134 H 165 H Discharge Diet: Low fat/ Low Cholesterol, Carb Control Diet Discharge Activity: Return to Normal Activity Call your doctor if you observe: Shortness of breath, Dizziness, Fainting spells, Chest pain Home Medications: Medications to take at Discharge clopidogrel 75 mg tablet 75 mg PO QDAY 03/09/17 esomeprazole magnesium 20 mg capsule,delayed release 20 mg PO QDAY cap 03/09/17 ferrous sulfate 325 mg (65 mg iron) tablet,delayed release 324 mg PO QDAY tab 03/09/17 multivitamin tablet 1 tab PO QDAY 03/09/17 pravastatin 80 mg tablet 80 mg PO QHS 03/09/17 calcium carbonate-vitamin D3 600 mg (1,500 mg)-800 unit tablet 1 tab PO BID 09/08/17 Aspirin E.C. [Ecotrin] 81 mg PO DAILY@0800 03/20/18 amlodipine 5 mg tablet 5 mg PO DAILY #90 tab 04/28/18 magnesium 400 mg (as magnesium oxide) tablet 800 mg PO TID tab 04/28/18 metoprolol tartrate 50 mg tablet 50 mg PO BID #90 tab 04/28/18 Fluticasone 0.05% [Flonase Nasal [place]] 2 spray NASAL DAILY nasal.sry 07/05/18 Levofloxacin 250 mg PO DAILY #0 07/05/18 Primary Care Physician: Ana María Mazariegos DO [Primary Care Provider] - Please follow up with your Primary Care Physician in: 1 Week Please Follow Up With: Carlos Coreas MD When: As scheduled Disposition: Home Minutes spent on discharge:: 35 Patient Condition:: Stable Medical Necessity - Tobacco Use Smoking Status: Former smoker Meaningful Use Info Meaningful Use Diagnoses (Choose all that apply): None applicable <Grupo Funez - Last Filed: 07/05/18 16:04> Discharge Date and Diagnosis - Secondary Discharge Diagnosis Chronic Problems (Last Reviewed 04/28/18 @ 15:53 by Carlos Coreas MD) Hypomagnesemia (Chronic) Bifascicular block (Chronic) 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, LAFB History of coronary artery stent placement (Chronic 03/19/05) BGD-EIP-Klwqeo RCA ; QFX-KSL-Ozkd LAD 03/19/2005 Essential (primary) hypertension (Chronic) Hyperlipidemia (Chronic) Atherosclerotic heart disease of [place] coronary artery without angina pectoris (Chronic) JSX-TFN-Lhowiw RCA ; AWG-YVO-Gcgt LAD 03/19/2005 Hospital Course and Treatment Operations: None Procedures: Stress test Summary of Care Provided: Patient seen and examined independently. Data reviewed. I agree with the above note by the nurse practitioner. The patient is a 83 year old M presents with chest pain. Patient underwent a workup, including stress test, that was normal. Cardiac evaluation has been completed and negative. Patient will be discharged. Patient states that he gets this way when his magnesium gets low. Mg upon arrival was 1.4 and was replaced. Upon discharge, was 2.1. Recommend discontinuing HCTZ and having this followed up as outpatient. [] - Physical Exam General: Alert, Cooperative, No apparent distress HEENT: Atraumatic, Normocephalic Oral: Moist Mucosa, No Gingival or Mucosal Lesions/ Ulcerations Psych/Mental Status: Normal Affect, Appropriate Vital Signs Temp Pulse Resp BP Pulse Ox 36.8 C 60 18 115/56 L 98 07/05/18 14:15 07/05/18 14:15 07/05/18 14:15 07/05/18 14:15 07/05/18 14:15 Oxygen Delivery Method Room Air Weight: 89.7 kg Body Mass Index (BMI) 31.8 Finger Stick Blood Glucose 218 Intake and Output for Last 24 Hours 07/03/18 07/04/18 07/05/18 23:59 23:59 23:59 Intake Total 2990 / 2990 0 / 0 Output Total 1150 / 1150 Balance 1840 / 1840 0 / 0 Laboratory Tests Past 24 Hrs 07/05/18 07/05/18 07/05/18 05:15 05:15 05:15 WBC 4.7 RBC 2.68 L Hgb 9.3 L Hct 27.7 L MCV 103.4 H MCH 34.7 H MCHC 33.6 RDW 13.4 RDW Differential 50.3 H Plt Count 110 L MPV 8.8 PT 14.4 INR 1.1 APTT 27.9 Sodium 135 L Potassium 4.7 Chloride 101 Carbon Dioxide 26.0 Anion Gap 8 BUN 35 H Creatinine 1.57 H Estim Creat Clear Calc 31.61 Est GFR (MDRD) Af Amer 54 L Est GFR (MDRD) Non-Af 45 L BUN/Creatinine Ratio 22.3 H Glucose 130 H Calcium 9.0 Magnesium 2.1 POC Glucose 07/05/18 07/05/18 07/04/18 11:41 05:46 20:51 POC Glucose 190 H 134 H 165 H Discharge Diet: Low fat/ Low Cholesterol, Carb Control Diet Discharge Activity: Return to Normal Activity Call your doctor if you observe: Shortness of breath, Dizziness, Fainting spells, Chest pain Disposition: Home Minutes spent on discharge:: 35 Patient Condition:: Stable Medical Necessity - Tobacco Use Smoking Status: Former smoker Meaningful Use Info Meaningful Use Diagnoses (Choose all that apply): None applicable Code Visit OBSV E&M: 88878 Observation care discharge
--- NOTE | 2018-07-05 12:54 | DS.PCM_ITS ---
<Kelly Gonzalez - Last Filed: 07/05/18 12:55> Discharge Date and Diagnosis Date of Admission: 07/03/18 Date of Discharge: 07/05/18 - Primary Discharge Diagnosis 1. Atypical chest pain, ACS ruled out 2. Recent URI/Sinusitis 3. Acute on chronic hypomagnesia 4. Hx of TIA 5. CAD status post PCI 6. Hypertension 7. Hyperlipidemia 8. Type 2 diabetes mellitus 9. Chronic kidney disease stage III 10. History of subarachnoid hemorrhage 11. GERD 12. ZABRINA 13. Iron deficiency anemia/chronic thrombocytopenia - Secondary Discharge Diagnosis Chronic Problems (Last Reviewed 04/28/18 @ 15:53 by Carlos Coreas MD) Hypomagnesemia (Chronic) Bifascicular block (Chronic) 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, LAFB History of coronary artery stent placement (Chronic 03/19/05) RFI-AEL-Dnvnkt RCA ; TPE-LSB-Etur LAD 03/19/2005 Essential (primary) hypertension (Chronic) Hyperlipidemia (Chronic) Atherosclerotic heart disease of [place] coronary artery without angina pectoris (Chronic) QEJ-IUE-Ylfcre RCA ; UBI-KGX-Vhxc LAD 03/19/2005 Hospital Course and Treatment Imaging Results: Diagnostic Data Chest X-Ray 07/03/18 14:29 IMPRESSION: 1. Hypoinflation with bibasilar atelectasis. No airspace consolidation. Electronically Signed: Dino Mccray MD at 14:49 EDT , Service support , Operations: None Procedures: Stress test Summary of Care Provided: The patient is a 83 year old M admitted 07/03/18 due to chest pain, general malaise. 1. Atypical chest pain-ACS ruled out. Troponin negative. EKG without ST-T changes. Patient follows with Dr. Coreas. Prior normal stress test 2016. Echocardiogram completed February 2018 showed an EF of 75%, mild pulmonic valve insufficiency, RVSP estimated to be 39 mmHg. Patient underwent nuclear stress test which was negative for ischemia. Follow-up with primary care physician in 1 week. Follow-up with cardiology as previously scheduled. 2. Recent URI/Sinusitis-chest x-ray admission with hypoinflation with bibasilar atelectasis. No airspace consolidation. Afebrile. No leukocytosis. Continue oral Levaquin which was renally adjusted to 250 mg daily, continue for 3 days at discharge and then discontinue. Continue Flonase for postnasal drainage. 3. Acute on chronic hypomagnesia-unclear etiology. Previously on HCTZ regimen which was discontinued with no improvement in recurrent hypomagnesia. Replaced per protocol. Repeat magnesium within normal limits. Continue home magnesium supplementation and outpatient monitoring of magnesium level. 4. Hx of TIA-continue aspirin, Plavix, statin. 5. CAD status post PCI-continue aspirin, Plavix, statin, lisinopril, metoprolol. 6. Hypertension-stable, continue home lisinopril, metoprolol regimen. 7. Hyperlipidemia-continue statin. 8. Type 2 diabetes mellitus-hemoglobin A1c March 2017 5.4%. Home Actos regimen discontinued. Recommend continue carb control diet and re-check hemoglobin A1c in 4-6 weeks as outpatient. 9. Chronic kidney disease stage III-at baseline. 10. History of subarachnoid hemorrhage-stable. 11. GERD- continue PPI. 12. ZABRINA-CPAP nightly. 13. Iron deficiency anemia/chronic thrombocytopenia-at baseline, continue iron supplementation. General: Alert, Oriented x3, Cooperative HEENT: Atraumatic, PERRLA, EOMI, Normocephalic Oral: Moist Mucosa Neck: Supple, No JVD, Negative Carotid Bruits Lungs: Clear to auscultation, Diminished Cardiovascular: Regular rate, Regular Rhythm, Normal S1, Normal S2, No murmurs Abdomen: Bowel Sounds Present, Soft, Non Tender, Non-Distended Extremities: No clubbing, No cyanosis, Capillary Refill Less than 3 Seconds, Edema non-pitting bilateral lower extremities Skin: No rashes, No breakdown Musculoskeletal: No Tenderness to Palpation of Joints or Extremities Neurological: Cranial nerves II-XII grossly intact, Neuro grossly intact Psych/Mental Status: Normal Affect, Appropriate Patient seen and examined prior to discharge. Physical assessment as noted above. Patient is stable for discharge with follow up recommendations as noted above. This patient was seen by ALEIDA Valentin under the supervision of Dr. Funez. - Physical Exam Vital Signs Temp Pulse Resp BP Pulse Ox 98.5 F 73 16 150/63 H 98 07/05/18 10:27 07/05/18 11:21 07/05/18 10:27 07/05/18 10:27 07/05/18 10:27 Oxygen Delivery Method Room Air Weight: 197 lb 12.074 oz Body Mass Index (BMI) 31.8 Finger Stick Blood Glucose 218 Intake and Output for Last 24 Hours 07/03/18 07/04/18 07/05/18 23:59 23:59 23:59 Intake Total 2990 / 2990 0 / 0 Output Total 1150 / 1150 Balance 1840 / 1840 0 / 0 Laboratory Tests Past 24 Hrs 07/05/18 07/05/18 07/05/18 05:15 05:15 05:15 WBC 4.7 RBC 2.68 L Hgb 9.3 L Hct 27.7 L MCV 103.4 H MCH 34.7 H MCHC 33.6 RDW 13.4 RDW Differential 50.3 H Plt Count 110 L MPV 8.8 PT 14.4 INR 1.1 APTT 27.9 Sodium 135 L Potassium 4.7 Chloride 101 Carbon Dioxide 26.0 Anion Gap 8 BUN 35 H Creatinine 1.57 H Estim Creat Clear Calc 31.61 Est GFR (MDRD) Af Amer 54 L Est GFR (MDRD) Non-Af 45 L BUN/Creatinine Ratio 22.3 H Glucose 130 H Calcium 9.0 Magnesium 2.1 POC Glucose 07/05/18 07/05/18 07/04/18 11:41 05:46 20:51 POC Glucose 190 H 134 H 165 H Discharge Diet: Low fat/ Low Cholesterol, Carb Control Diet Discharge Activity: Return to Normal Activity Call your doctor if you observe: Shortness of breath, Dizziness, Fainting spells, Chest pain Home Medications: Medications to take at Discharge clopidogrel 75 mg tablet 75 mg PO QDAY 03/09/17 esomeprazole magnesium 20 mg capsule,delayed release 20 mg PO QDAY cap 03/09/17 ferrous sulfate 325 mg (65 mg iron) tablet,delayed release 324 mg PO QDAY tab 03/09/17 multivitamin tablet 1 tab PO QDAY 03/09/17 pravastatin 80 mg tablet 80 mg PO QHS 03/09/17 calcium carbonate-vitamin D3 600 mg (1,500 mg)-800 unit tablet 1 tab PO BID 09/08/17 Aspirin E.C. [Ecotrin] 81 mg PO DAILY@0800 03/20/18 amlodipine 5 mg tablet 5 mg PO DAILY #90 tab 04/28/18 magnesium 400 mg (as magnesium oxide) tablet 800 mg PO TID tab 04/28/18 metoprolol tartrate 50 mg tablet 50 mg PO BID #90 tab 04/28/18 Fluticasone 0.05% [Flonase Nasal [place]] 2 spray NASAL DAILY nasal.sry 07/05/18 Levofloxacin 250 mg PO DAILY #0 07/05/18 Primary Care Physician: Ana María Mazariegos DO [Primary Care Provider] - Please follow up with your Primary Care Physician in: 1 Week Please Follow Up With: Carlos Coreas MD When: As scheduled Disposition: Home Minutes spent on discharge:: 35 Patient Condition:: Stable Medical Necessity - Tobacco Use Smoking Status: Former smoker Meaningful Use Info Meaningful Use Diagnoses (Choose all that apply): None applicable <Grupo Funez - Last Filed: 07/05/18 16:04> Discharge Date and Diagnosis - Secondary Discharge Diagnosis Chronic Problems (Last Reviewed 04/28/18 @ 15:53 by Carlos Coreas MD) Hypomagnesemia (Chronic) Bifascicular block (Chronic) 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, LAFB History of coronary artery stent placement (Chronic 03/19/05) MUF-IDB-Rufxvd RCA ; XUC-OEO-Nzjf LAD 03/19/2005 Essential (primary) hypertension (Chronic) Hyperlipidemia (Chronic) Atherosclerotic heart disease of [place] coronary artery without angina pectoris (Chronic) TQO-ZJN-Lejlvo RCA ; QGW-KGE-Eerm LAD 03/19/2005 Hospital Course and Treatment Operations: None Procedures: Stress test Summary of Care Provided: Patient seen and examined independently. Data reviewed. I agree with the above note by the nurse practitioner. The patient is a 83 year old M presents with chest pain. Patient underwent a workup, including stress test, that was normal. Cardiac evaluation has been completed and negative. Patient will be discharged. Patient states that he gets this way when his magnesium gets low. Mg upon arrival was 1.4 and was replaced. Upon discharge, was 2.1. Recommend discontinuing HCTZ and having this followed up as outpatient. [] - Physical Exam General: Alert, Cooperative, No apparent distress HEENT: Atraumatic, Normocephalic Oral: Moist Mucosa, No Gingival or Mucosal Lesions/ Ulcerations Psych/Mental Status: Normal Affect, Appropriate Vital Signs Temp Pulse Resp BP Pulse Ox 36.8 C 60 18 115/56 L 98 07/05/18 14:15 07/05/18 14:15 07/05/18 14:15 07/05/18 14:15 07/05/18 14:15 Oxygen Delivery Method Room Air Weight: 89.7 kg Body Mass Index (BMI) 31.8 Finger Stick Blood Glucose 218 Intake and Output for Last 24 Hours 07/03/18 07/04/18 07/05/18 23:59 23:59 23:59 Intake Total 2990 / 2990 0 / 0 Output Total 1150 / 1150 Balance 1840 / 1840 0 / 0 Laboratory Tests Past 24 Hrs 07/05/18 07/05/18 07/05/18 05:15 05:15 05:15 WBC 4.7 RBC 2.68 L Hgb 9.3 L Hct 27.7 L MCV 103.4 H MCH 34.7 H MCHC 33.6 RDW 13.4 RDW Differential 50.3 H Plt Count 110 L MPV 8.8 PT 14.4 INR 1.1 APTT 27.9 Sodium 135 L Potassium 4.7 Chloride 101 Carbon Dioxide 26.0 Anion Gap 8 BUN 35 H Creatinine 1.57 H Estim Creat Clear Calc 31.61 Est GFR (MDRD) Af Amer 54 L Est GFR (MDRD) Non-Af 45 L BUN/Creatinine Ratio 22.3 H Glucose 130 H Calcium 9.0 Magnesium 2.1 POC Glucose 07/05/18 07/05/18 07/04/18 11:41 05:46 20:51 POC Glucose 190 H 134 H 165 H Discharge Diet: Low fat/ Low Cholesterol, Carb Control Diet Discharge Activity: Return to Normal Activity Call your doctor if you observe: Shortness of breath, Dizziness, Fainting spells, Chest pain Disposition: Home Minutes spent on discharge:: 35 Patient Condition:: Stable Medical Necessity - Tobacco Use Smoking Status: Former smoker Meaningful Use Info Meaningful Use Diagnoses (Choose all that apply): None applicable Code Visit OBSV E&M: 75985 Observation care discharge
== END 2018-07-05 11:16 | disposition home or self-care (01) ==
LOC: ED 15:22 → PCU 07-04 07:05
PROVIDERS: Nurse Practitioner Family; Student in an Organized Health Care Education/Training Program; Admitting Provider Internal Medicine; Emergency Provider Emergency Medicine
DX: R07.89 Other chest pain (principal); I25.10 Atherosclerotic heart disease of native coronary artery without angina pectoris; E83.42 Hypomagnesemia; G47.33 Obstructive sleep apnea (adult) (pediatric); K21.9 Gastro-esophageal reflux disease without esophagitis; E11.22 Type 2 diabetes mellitus with diabetic chronic kidney disease; R06.02 Shortness of breath; E78.5 Hyperlipidemia, unspecified; I12.9 Hypertensive chronic kidney disease with stage 1 through stage 4 chronic kidney disease, or unspecified chronic kidney disease; N18.3 Chronic kidney disease, stage 3 (moderate); I45.2 Bifascicular block; D50.9 Iron deficiency anemia, unspecified; D69.6 Thrombocytopenia, unspecified; Z79.899 Other long term (current) drug therapy; Z86.73 Personal history of transient ischemic attack (TIA), and cerebral infarction without residual deficits; Z79.82 Long term (current) use of aspirin; Z79.02 Long term (current) use of antithrombotics/antiplatelets; Z95.5 Presence of coronary angioplasty implant and graft; Z87.891 Personal history of nicotine dependence
CPT/HCPCS: 36415; 71045; 78452; 80048; 80061; 82962; 83735; 83880; 84443; 84484; 85025; 85027; 85610; 85730; 93005; 93017; 97162; 97165; 99218; 99285; A9500; A4216; G0378; J2785

== ENCOUNTER 2018-10-03 03:17 | Observation (INO) | payer MEDICARE, SELFPAY ==
[2018-08-26 15:32] VITALS: BMI 31.3
[2018-10-03] VITALS (13 sets, daily range): BP systolic 123–201; BP diastolic 60–91; PULSE 67–85; RESP 16–26; TEMP 36.1–36.6; O2SAT 86–98; BMI 32.6; BMI 32.7
--- NOTE | 2018-10-03 04:50 | ED.RN ---
FAMILY CAME OUT VERY UPSET THAT THIS PT HAS BEEN HERE FOR MORE THAN 90 MINUTES, WITHOUT BEING SEEN BY THE DR, I ATTEMPTED TO EXPLAIN THAT THREE PTS CAME IN AT THE SAME TIME, FAMILY STATED I DON'T CARE, AND LEFT THE DESK.
--- NOTE | 2018-10-03 05:04 | RAD_ITS ---
STUDY: X-RAY CHEST REASON FOR EXAM: Male, 83 years old. Bilateral flank pain, back pain TECHNIQUE: PA and lateral chest COMPARISON: 07/03/2018 FINDINGS: There are mild linear bibasilar subsegmental atelectasis and mild pulmonary scarring There is mild bilateral blunting of the costophrenic angles with small bilateral pleural effusions Normal size heart. Normal mediastinum and mignon. Normal visualized pulmonary arteries. Normal visualized aortic arch and descending thoracic aorta. There is generalized osteopenia with multilevel degenerative changes of the thoracic and lumbar spine.. There is no demonstrated abnormality of the visualized soft tissue structures of the upper abdomen. RAD/Chest PA and Lateral IMPRESSION: Mild bilateral lower lobe linear pulmonary scarring and linear subsegmental atelectasis; there are small bilateral pleural effusions. Multilevel degenerative changes of the thoracic and lumbar spine Electronically Signed: Abhilash Izquierdo, at 7:25 EDT Tel , Service support ,
--- NOTE | 2018-10-03 05:04 | EKG12_ITS ---
Test Reason : FLANK PAIN Blood Pressure : / mmHG Vent. Rate : 062 BPM Atrial Rate : 062 BPM P-R Int : 198 ms QRS Dur : 128 ms QT Int : 454 ms P-R-T Axes : 054 -42 000 degrees QTc Int : 460 ms Normal sinus rhythm Left axis deviation Right bundle branch block Abnormal ECG Confirmed by RINKU SILVA, ANGIE ([id number]), market editor NICOLE HARGROVE ([id number]) on 10/05/2018 1:50:26 PM Referred By: VALERI Confirmed By:ANGIE DOBBS MD
--- NOTE | 2018-10-03 05:06 | CT_ITS ---
STUDY: CT ABDOMEN AND PELVIS WITHOUT CONTRAST REASON FOR EXAM: Male, 83 years old. Bilateral flank pain RADIATION DOSAGE (If Supplied By Facility): CTDIvol = ( 12.52 ) mGy, DLP = ( 732.00 ) mGycm TECHNIQUE: Transaxial images were obtained from the dome of the diaphragm to the symphysis pubis without oral contrast, and without intravenous contrast. Sagittal and coronal images were reconstructed. Individualized dose optimization techniques were used for this CT. COMPARISON: CT abdomen 04/26/2004. FINDINGS: There is a limited non-IV nonoral contrast study. There is small bilateral pleural effusions with linear subsegmental atelectasis. Normal liver. The gallbladder is distended. There are multiple layering dependent hyperdense gallstones. Within the nondependent portion of the gallbladder are linear low densities likely air .. Normal spleen. Normal pancreas. Normal bilateral adrenal glands. There is 2 mm right midpole renal hypodensity small renal calculus or vascular calcification.. Normal left kidney. There are no ureteral calculi. There is no hydronephrosis. Normal visualized stomach. Normal small intestine. There is a moderate colonic fecal load. There are few faint hyperdensities within the appendix however no adjacent inflammatory changes. Normal abdominal aorta. Normal inferior vena cava. Normal retroperitoneum. Normal urinary bladder. Normal abdominal wall. There is significant multilevel degenerative changes of lumbar spine displaced the disc osteophyte complexes projecting disc phenomenon and multilevel central canal and foraminal stenoses CT/Abdomen/Pelvis without Cont IMPRESSION: Limited non-IV nonoral contrast study Distended gallbladder, layering dependent gallstones, likely air within the gallbladder, findings highly suspicious for emphysematous cholecystitis No hydronephrosis or ureteral calculi, 2 mm right midpole renal calculus or vascular calcification Moderate colonic fecal load Small appendicoliths, no CT evidence for appendicitis Significant multilevel spondylosis lumbar spine N.B. : The above information has been verbally conveyed by Abhilash Izquierdo to Dr Erick MD, on 10/03/2018 08:09:55 (ET). Electronically Signed: Abhilash Izquierdo, at 7:41 EDT Tel , Service support ,
--- NOTE | 2018-10-03 05:20 | ED.VISSUMM ---
- ER Visit Summary Date of Service: 10/03/18 Chief Complaint: Bilateral flank and back pain History of Present Illness: The patient is a 83 M who presents with bilateral flank and back pain that began today. Patient states the pain began suddenly and has been constant. Patient describes the pain as sharp and stabbing. Patient also admits to some abdominal pain. Patient states the pain is worse when he lays in bed. Patient states the pain is somewhat better with sitting up. Patient states the pain radiates to his shoulders. Patient denies any fevers or chills. Patient denies any chest pain. Patient does admit to some shortness of breath. Patient admits to some nausea but denies any vomiting. Daughter states the patient was recently changed from Naprosyn to Lodine for his arthritis. She is unsure if this is causing any of the pain. Physical Examination: Vital signs are stable except for an elevated blood pressure of 201/91. Patient is afebrile. Patient is in no acute distress. Oral mucosa is pink and moist. Neck is supple. Trachea is midline. There is no JVD noted. Heart with regular rate and rhythm. Lungs are clear and equal bilaterally. Abdomen is soft. Bowel sounds are normal. There is mild diffuse tenderness. There is left CVA tenderness. Extremities are intact. There is no calf tenderness. Posterior tibial pulses are equal bilaterally. Cranial nerves II through XII are intact. There are no focal motor or sensory deficits noted. Test Results: EKG showed a normal sinus rhythm with a rate of 62. There is a right bundle branch block pattern noted. There are no acute ST or T wave changes. This was unchanged compared to previous EKG dated 07/05/2018. CBC is normal. Comprehensive metabolic profile shows a creatinine of 1.44. This was improved compared to previous. Magnesium was 1.5 which is improved from previous. Troponin was normal. Urinalysis does not show any evidence of urinary tract infection. PA and lateral chest x-ray shows chronic changes but no acute cardiopulmonary process. CT scan of the abdomen and pelvis was obtained and is pending. Emergency Department Course and Treatment: Patient was given morphine here. Care of the patient was turned over to the oncoming physician pending CT scan results. Disposition: Likely discharge home Impression: Bilateral flank pain This note was generated with Four Interactive dictation software. It may contain incorrect words, spelling, and punctuation that were not noted in review of the chart prior to signing <Grupo Person - Last Filed: 10/03/18 07:49> - ER Visit Summary Date of Service: 10/03/18 Addendum was asked to reassess the patient by the night physician after all studies were available, the CT scan shows signs of emphysematous cholecystitis with gas the gallbladder wall no perforation, he was started me the IV antibiotics, I spoke with his daughter who is a nurse contacted surgery Dr. Garcia, to see the patient in consultation with the family the decision was made to admit the patient to this hospital for further management and surgical treatment of the above. See all the above notes He has asked that the medical treatment staff be aware that the patient is quite sensitive to narcotic medications and has had delirium when he has been prescribed morphine or Vicodin in the past I have done that remains hemodynamically stable awaiting OR Final impression, emphysematous cholecystitis surgical consultation admission History of Present Illness: The patient is a 83 M [] Physical Examination: [] Test Results: [] Emergency Department Course and Treatment: [] Treatment Plan: [] Disposition: [] Impression: [] This note was generated with Four Interactive dictation software. It may contain incorrect words, spelling, and punctuation that were not noted in review of the chart prior to signing <Dora Suarez - Last Filed: 10/03/18 09:29>
[2018-10-03] MEDS: Morphine 4 MG/ML Syringe IV (05:33)
[2018-10-03 05:43] LABS: Absolute Lymphocyte Count 0.87 X10^3/ul (0.83-4.51); Absolute Neutrophil Count 6.3 X10^3/uL (2.0-7.7); Basophil# 0.03 X10^3/uL; Basophil% 0.4 % (0-1); Eosinophil# 0.08 X10^3/uL; Hemoglobin 11.4 g/dl (13.0-16.5); Lymphocyte # 0.87 X10^3/ul (4.0); Lymphocyte % 10.8 % (19-41); Mean Corp Hgb Conc 34.5 g/gl (32-36); Mean Corpuscular Hgb 34.1 pg (27.0-32.0); Mean Corpuscular Volume 98.8 fL (80-94); Mean Platelet Vol. 9.3 fl (6.2-12.0); Monocyte# 0.71 X10^3/uL; Monocyte% 8.9 % (0-10); Neutrophil # 6.32 X10^3/uL (2.7-7.7); Neutrophil % 78.8 % (47-70); Platelet Count 135 K/mm3 (150-450); RBC Distribution Width CV 13.5 % (11.6-14.6); RBC Distribution Width SD 46.4 fl (35.1-43.9); Red Blood Count 3.34 M/mm3 (4.6-6.2)
[2018-10-03 05:45] LABS: POSITIVE COUNT NO; POSITIVE DIFFERENTIAL NO; POSITIVE MORPHOLOGY NO
[2018-10-03 05:48] LABS: Mucous, Urine 0 SEEN /hpf (<or=2+); Squamous Epithelial Cells - UA 0 SEEN /hpf (0-5); White Blood Cells 0 SEEN /hpf (0-5)
[2018-10-03 05:49] LABS: Color, Urine Yellow (Yellow); Glucose, Dipstick Normal (Normal); Ketone-Dipstick Negative (Negative); Leukocyte Esterase-Dipstick Negative /ul (Negative); Nitrite-Dipstick Negative (Negative); Occult Blood-Urine 10 /ul (Negative); Protein-Dipstick 100 mg/dl (Negative); Specific Gravity, Urine 1.005 (1.002-1.030); Urine Bilirubin Dipstick Negative (Negative); Urine Clarity Clear (Clear); Urine Urobilinogen Normal (Normal)
[2018-10-03 06:02] LABS: Bacteria RARE /hpf (None Seen); Red Blood Cells-Urine 0-5 SEEN /hpf (0-5)
[2018-10-03 06:04] LABS: Anion Gap 8 (5-15); BUN 33 mg/dL (7-18); BUN/Creat Ratio 22.9 RATIO (10-20); Calcium,Total 9.6 mg/dL (8.5-10.1); Chloride 101 mmol/L (98-107); Creatinine, Serum 1.44 mg/dL (0.70-1.30); EST Glomerular Filtration Rate 50 mL/min (>60); Est Glom Filt Rate - Afr Amer 60 mL/min (>60); Estimated Creatinine Clearance 34.46 ml/min; Glucose 202 mg/dL (74-106); Magnesium 1.5 mg/dL (1.6-2.6); Potassium 4.5 mmol/L (3.5-5.1); Sodium Level 137 mmol/L (136-145)
[2018-10-03] MEDS: Ceftriaxone 1 GM/50 ML BAG IV (08:50)
--- NOTE | 2018-10-03 09:30 | PCM.HP.STD ---
Problem List (1) Emphysematous cholecystitis Status: Acute History of Present Illness Date of Admission: 10/03/18 The patient is a 83 year old M who states that yesterday evening he had acute onset right upper quadrant radiating to the back pain. He also had some nausea but no vomiting. Patient reports no fevers or chills. He is never had any pain like this before. He denies any lower abdominal pain. Past Medical History Past Medical History (Chronic Problems): Chronic Problems (Last Reviewed 04/28/18 @ 15:53 by Carlos Coreas MD) Hypomagnesemia (Chronic) Bifascicular block (Chronic) 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, LAFB History of coronary artery stent placement (Chronic 03/19/05) UOR-KBN-Kijpas RCA 03/03/2005; DRI-EPC-Zigl LAD 03/19/2005 Essential (primary) hypertension (Chronic) Hyperlipidemia (Chronic) Atherosclerotic heart disease of [place] coronary artery without angina pectoris (Chronic) LEZ-NNC-Fybzqc RCA 03/03/2005; TDW-PJR-Geek LAD 03/19/2005 Medical History: Medical History (Last Reviewed 04/28/18 @ 15:53 by Carlos Coreas MD) Hypomagnesemia (Chronic) E83.42 Bifascicular block (Chronic) I45.2 Right bundle branch block (RBBB) (Chronic) I45.10 Bradycardia, LAFB Essential (primary) hypertension (Chronic) I10 Hyperlipidemia (Chronic) E78.5 Atherosclerotic heart disease of [place] coronary artery without angina pectoris (Chronic) I25.10 VNV-QWE-Tjqsmk RCA 03/03/2005; QSF-RLH-Tzjz LAD 03/19/2005 CKD (chronic kidney disease) N18.9 GERD (gastroesophageal reflux disease) K21.9 Hypochromic anemia D50.9 Obstructive sleep apnea G47.33 SAH (subarachnoid hemorrhage) Onset Date: 1995 I60.9 TIA (transient ischemic attack) G45.9 Type 2 diabetes mellitus E11.9 Allergies amoxicillin Allergy (Severe, Verified 10/03/18 03:19) unknown Tetanus Vaccines and Toxoid Allergy (Severe, Verified 10/03/18 03:19) unknown Thiazides Adverse Reaction (Verified 10/03/18 03:19) Other CAUSES LOW MAG Home Medications: Ambulatory Orders Medication Instructions Recorded clopidogrel 75 mg tablet 75 mg PO QDAY 03/09/17 esomeprazole magnesium 20 mg 20 mg PO QDAY cap 03/09/17 capsule,delayed release ferrous sulfate 325 mg (65 mg 324 mg PO QDAY tab 03/09/17 iron) tablet,delayed release multivitamin tablet 1 tab PO QDAY 03/09/17 pravastatin 80 mg tablet 80 mg PO QHS 03/09/17 calcium carbonate-vitamin D3 600 1 tab PO BID 09/08/17 mg (1,500 mg)-800 unit tablet Aspirin E.C. [Ecotrin] 81 mg PO DAILY@0800 03/20/18 amlodipine 5 mg tablet 5 mg PO DAILY #90 tab 04/28/18 magnesium 400 mg (as magnesium 800 mg PO TID tab 04/28/18 oxide) tablet metoprolol tartrate 50 mg tablet 50 mg PO BID #90 tab 04/28/18 Etodolac [Lodine] 300 mg PO BIDCM 10/03/18 Surgical History: Surgical History (Last Reviewed 04/28/18 @ 15:53 by Carlos Coreas MD) History of coronary artery stent placement (Chronic) Onset Date: 03/19/05 Z95.5 NNE-CHU-Qonlml RCA 03/03/2005; CZU-LIG-Whna LAD 03/19/2005 Surgical History: - - Cardiac stents. Psychiatric History: No pertinent psych hx Smoking Status: Former smoker - *Family History Maternal Family History: Family History (Last Reviewed 07/03/18 @ 16:33 by ALEIDA Valentin) Father Hypertension Mother Heart disease Congestive heart failure Diabetes Sister ruptured brain aneurysm History Items: - - Mother with history of congestive heart failure, diabetes, heart disease. Paternal Family History: Family History (Last Reviewed 07/03/18 @ 16:33 by ALEIDA Valentin) Father Hypertension Mother Heart disease Congestive heart failure Diabetes Sister ruptured brain aneurysm History Items: - - Father with a history of hypertension. Sibling Family History: Family History (Last Reviewed 07/03/18 @ 16:33 by ALEIDA Valentin) Father Hypertension Mother Heart disease Congestive heart failure Diabetes Sister ruptured brain aneurysm History Items: - - Sister with a history of ruptured brain aneurysm at age 50. Review of Systems Constitutional: Reports: Anorexia. Denies: Fever HEENT: Denies: Difficulty Swallowing Cardiovascular: Denies: Chest Pain Respiratory: Denies: Cough, Shortness of Breath Gastrointestinal: Reports: Abdominal Pain, Nausea. Denies: Diarrhea, Hematemesis, Hematochezia, Vomiting Genitourinary: Denies: Dysuria Skin: Denies: Jaundice Neurological: Denies: Balance problems Psychiatric: Denies: Depression Hematologic/ Lymphatic: Denies: Anemia VTE Information - Inpt Only VTE Present on Admission: No VTE Mechan Device Prophylaxis: SCD's Patient Problems: Active and Suspected Problems (Last Reviewed 04/28/18 @ 15:53 by Carlos Coreas MD) Emphysematous cholecystitis (Acute) - Physical Exam General: Alert, Oriented x3, Cooperative, No apparent distress HEENT: Atraumatic Neck: No JVD Lungs: Normal air movement Cardiovascular: Regular rate Abdomen: Soft, Non-Distended, Tender - Tender right upper quadrant with positive Avilez sign. Tender in the epigastric region. Skin: No rashes Musculoskeletal: No Muscle Wasting Neurological: Cranial nerves II-XII grossly intact Psych/Mental Status: Normal Affect Vital Signs Temp Pulse Resp BP Pulse Ox 97.8 F 77 19 H 165/79 H 97 10/03/18 03:19 10/03/18 08:53 10/03/18 08:53 10/03/18 08:53 10/03/18 08:53 Oxygen Delivery Method Room Air Weight: 202 lb 6.15 oz Body Mass Index (BMI) 32.6 Finger Stick Blood Glucose 218 Laboratory Tests Past 24 Hrs 10/03/18 10/03/18 10/03/18 05:29 05:29 05:44 WBC 8.0 RBC 3.34 L Hgb 11.4 L Hct 33.0 L MCV 98.8 H MCH 34.1 H MCHC 34.5 RDW 13.5 RDW Differential 46.4 H Plt Count 135 L MPV 9.3 Immature Gran % (Auto) 0.100 Neut % (Auto) 78.8 H Lymph % (Auto) 10.8 L [place] % (Auto) 8.9 Eos % (Auto) 1.0 Baso % (Auto) 0.4 Absolute Neuts (auto) 6.3 Absolute Lymphs (auto) 0.87 Total Counted Not Reportable Sodium 137 Potassium 4.5 Chloride 101 Carbon Dioxide 28.0 Anion Gap 8 BUN 33 H Creatinine 1.44 H Estim Creat Clear Calc 34.46 Est GFR (MDRD) Af Amer 60 Est GFR (MDRD) Non-Af 50 L BUN/Creatinine Ratio 22.9 H Glucose 202 H Calcium 9.6 Magnesium 1.5 L Troponin I < 0.015 Urine Color Yellow Urine Clarity Clear Urine pH 7.0 Ur Specific [place] 1.005 Urine Protein 100 H Urine Glucose (UA) Normal Urine Ketones Negative Urine Occult Blood 10 H Urine Nitrite Negative Urine Bilirubin Negative Urine Urobilinogen Normal Ur Leukocyte Esterase Negative Urine RBC 0-5 SEEN Urine WBC 0 SEEN Ur Squamous Epith Cells 0 SEEN Urine Bacteria RARE Urine Mucus 0 SEEN Clinical Impression(s) from Imaging Studies Chest X-Ray 10/03/18 05:04 IMPRESSION: Mild bilateral lower lobe linear pulmonary scarring and linear subsegmental atelectasis; there are small bilateral pleural effusions. Multilevel degenerative changes of the thoracic and lumbar spine Electronically Signed: Abhilash Izquierdo, at 7:25 EDT Tel , Service support , Abdomen/Pelvis CT 10/03/18 05:06 IMPRESSION: Limited non-IV nonoral contrast study Distended gallbladder, layering dependent gallstones, likely air within the gallbladder, findings highly suspicious for emphysematous cholecystitis No hydronephrosis or ureteral calculi, 2 mm right midpole renal calculus or vascular calcification Moderate colonic fecal load Small appendicoliths, no CT evidence for appendicitis Significant multilevel spondylosis lumbar spine N.B. : The above information has been verbally conveyed by Abhilash Izquierdo to Dr Erick MD, on 10/03/2018 08:09:55 (ET). Electronically Signed: Abhilash Izquierdo, at 7:41 EDT Tel , Service support , Assessment/Plan All Active Problems (Last Reviewed 04/28/18 @ 15:53 by Carlos Coreas MD) Emphysematous cholecystitis (Acute) Hypomagnesemia (Resolved) 83-year-old male with emphysematous cholecystitis 1. The patient notes acute onset of right upper quadrant pain radiating to the epigastric region in the back. He also has nausea. His white count is normal but he does have a left shift. The patient has positive pain in the right upper quadrant and a positive Avilez sign. CT scan shows air in the fundus of the gallbladder. Patient likely has emphysematous cholecystitis. Patient was given Rocephin in the ER and I will add Flagyl to treat anaerobic organisms. 2. I discussed the procedure in detail with the patient. I discussed the risks, benefits, and alternatives of the procedure. I discussed the risks including but not limited to bleeding, infection, injury to surrounding organs such as the liver, bile duct, bowels. I did discuss the possibility of having to convert to an open procedure as well as the possibility that if any injuries occurred this may necessitate further surgery at a tertiary care center. I did explain the increased risk of bleeding and conversion to open procedure given the patient's history of Plavix. Roger Ritter MD Pager: [facility] [address] [place] [address], [address] [place] [address] Office:
--- NOTE | 2018-10-03 09:45 | GALL_PTH ---
PATIENT: FARHANA BAKER LOC: MS3 U#:[id number] AGE/SX: 83/M ROOM: MS312 RE10/03/[address]: Dr. Roger Ritter MD : 1935 BED: 1 DIS: 10/05/2018 SPEC #: [id number] RECD: 10/04/18 08:32 STATUS: JAMES MONTANOAlonzo #: [id number] LORAINE: 10/03/18 09:[address]: Roger Ritter DEPT: SURGICAL PATHOLOGY RECD BY: Venancio Ruvalcaba ENTERED: 10/04/18 08:51 SP TYPE: ESTRELLITA العراقي DR: Dr. Ana María Mazariegos DO Tissues: Gallbladder, NOS Procedures: Surgery Specimen Level III HEADER OPERATION: Laparoscopic cholecystectomy with IOC PRE-OP DIAGNOSIS: Emphysematous cholecystitis TISSUE SUBMITTED: Gallbladder MICROSCOPIC DIAGNOSIS Gallbladder, cholecystectomy: Acute and chronic hemorrhagic and ulcerated cholecystitis and cholelithiasis. RUFINO:aleah 10/05/18 MICROSCOPIC DESCRIPTION Slides are reviewed. GROSS DESCRIPTION Received is one container labeled with the patient's name and designated gallbladder. The specimen consists of a gallbladder measuring 6.5 cm in length and up to 4 cm in diameter. The external surface is pink-rodriguez, smooth and glistening for the most part. Focally it is granular, hemorrhagic and contains cautery artifact. The gallbladder contains a small amount of brownish-yellow turbid bile and multiple brownish-black irregular stones measuring in aggregate 2 x 1.5 x 0.5 cm and 0.2 to 0.7 cm in greatest dimension. The mucosa is bile-stained and without any mass lesions. The gallbladder wall measures up to 0.3 cm in thickness. [employer] sections from the gallbladder and the cystic duct are submitted in one cassette. / RUFINO:aleah 10/04/18 TC:2 CPT: 19214
[2018-10-03] MEDS: metroNIDAZOLE 500 MG/100 ML BAG 100 MG IV ×3 (10:08→21:32)
--- NOTE | 2018-10-03 10:15 | RAD_ITS ---
STUDY: INTRAOPERATIVE CHOLANGIOGRAM. REASON FOR EXAM: Male, 83 years old. Laparoscopic cholecystectomy. FLUOROSCOPY TIME (if supplied): (0:53) minutes/seconds. TECHNIQUE: An intraoperative pyelogram was performed by the surgeon. Imaging was submitted. COMPARISON: None. FINDINGS: The visualized intrahepatic biliary ducts are unremarkable. The common bile duct is not dilated. No intraluminal filling defect is seen. There is free flow of contrast into the duodenum. RAD/Cholangiogram/ O R,Initial IMPRESSION: Unremarkable intraoperative cholangiogram. Electronically Signed: Paulino Stout, at 10:13 EDT , Service support ,
[2018-10-03] MEDS: Bupiv/Epi 0.25% 30 ML Vial (11:12)
--- NOTE | 2018-10-03 11:34 | RAD_ITS ---
STUDY: X-RAY CHEST REASON FOR EXAM: Male, 83 years old. Status post cholecystectomy evaluate for pneumothorax. TECHNIQUE: Single AP portable view of the chest. COMPARISON: October 03, 2018 chest x-ray, CT scan lung bases October 03, 2018 FINDINGS: The lungs are underexpanded. There are linear platelike densities in the lung bases. There is no demonstrated pleural abnormality. Normal size heart. Normal mediastinum and mignon. Normal visualized pulmonary arteries. There is atherosclerotic calcification of the aortic arch with tortuosity. There are diffuse degenerative changes of the visualized thoracic spine. Normal visualized ribs, clavicles, and shoulders. There is no demonstrated abnormality of the visualized soft tissue structures of the upper abdomen. RAD/Chest 1 View (Portable) IMPRESSION: Platelike atelectasis underexpansion of the lungs no visualized pneumothorax. Electronically Signed: Lesly Cruz MD at 14:24 EDT Tel , Service support ,
--- NOTE | 2018-10-03 11:39 | PCM.OPRPT ---
Problem List (1) Emphysematous cholecystitis Status: Acute Report of Operation Date of Procedure: 10/03/18 Pre-Operative Diagnosis: Acute emphysematous cholecystitis Post-Operative Diagnosis: Same Surgery/Procedure Performed:: Laparoscopic cholecystectomy with cholangiogram Description of Surgical Findings:: Inflammation of the gallbladder with normal cholangiogram Specimen's removed: Gallbladder and contents Description of Procedure: After obtaining informed consent patient was brought back to the operating room. General anesthesia was induced. The abdomen was prepped and draped in usual sterile fashion. A small midline incision was made superior to the umbilicus and deepened to the level of fascia. The fascia was elevated and incised. Next the peritoneum was elevated and incised in the same fashion. Finger sweep was performed and the [place] trocar was placed into the abdomen. The balloon was inflated. The abdomen was inflated to 15 mmHg. Next a camera was introduced into the abdomen and the abdomen was inspected. Next under direct visualization three 5-mm ports were placed one subxiphoid and 2 subcostal. Next the gallbladder was elevated and retracted toward the right shoulder. The peritoneum was stripped from the gallbladder. The infundibulum was located and retracted laterally. There was a lot of inflammation around the gallbladder. The patient had acute cholecystitis. Next the triangle of Calot was dissected and the cystic duct and cystic artery were identified. Cholangiograms were performed. The Christina clamp was used to clamp across the infundibulum and the catheter needle was inserted into the gallbladder. I was unable to get good flow using the Christina clamp. The Christina clamp was removed and a small jennifer was made in the skin in the right upper quadrant and a Ranfac catheter was placed into the abdomen. The gallbladder was clipped proximally and a jennifer was made in the cystic duct and the Ranfac catheter was placed into the cystic duct and clip was placed over this. Cholangiograms were performed through the Ranfac catheter. Under fluoroscopy contrast was instilled into the gallbladder and the common duct, cystic duct as well as proximal hepatic ducts were identified. There was good filling of the duodenum. There were no filling defects noted in the common bile duct. The distal clip was removed and the Ranfac catheter was removed and the cystic duct and removed from the abdomen. Three hemolock clips were placed across the cystic duct. The cystic duct was then divided leaving 2 clips on the stump. The cystic artery was clipped and divided in the same fashion. The hook cautery was then used to take the gallbladder off of the gallbladder bed. Hemostasis was obtained. Gallbladder fossa was irrigated and no active bleeding or bile leakage was noted. Next the camera switched to a 5 mm camera and introduced in the subxiphoid port. An Endopouch bag was placed through the umbilical port and the gallbladder was placed into it. The gallbladder was then removed through the umbilical incision. The camera was then reinserted through the umbilical port. The gallbladder fossa was inspected once more and noted to be hemostatic with no leaking bile. The abdomen was suctioned dry. The 5 mm ports were removed under direct visualization. The umbilical port was then removed and the air was removed from the abdomen. Next using an 0 Vicryl suture the umbilical fascia was closed in a wlnnax-dl-eevoc fashion. The umbilical port site was irrigated local anesthetic was administered to all the incisions. All the incisions were closed with interrupted subcuticular 4-0 Monocryl sutures followed by Steri-Strips and dressings. The patient was awoken and taken to PACU in stable condition. - Admit VTE Documentation VTE Mechan Device Prophylaxis: SCD's
[2018-10-03 11:45] LABS: Bedside Glucose 169 mg/dL (70-110)
[2018-10-03] MEDS: 0.9% Normal Saline 1,000 ML 75 ML IV (14:50)
[2018-10-03] MEDS: Pantoprazole Sodium 40 MG Tablet PO (15:01)
[2018-10-03] MEDS: amLODIPine 5 MG Tablet PO (15:01)
[2018-10-03] MEDS: Etodolac 300 MG Capsule PO (17:29)
[2018-10-03 17:31] LABS: Bedside Glucose 241 mg/dL (70-110)
[2018-10-03] MEDS: Insulin Lispro 100 UNIT/ML INSULN.PEN SC ×2 (17:36→21:31)
[2018-10-03] MEDS: Acetaminophen 325 MG Tablet 650 MG PO (21:21)
[2018-10-03] MEDS: Docusate Sodium 100 MG Capsule PO (21:23)
[2018-10-03] MEDS: Metoprolol Tartrate 50 MG Tablet PO (21:25)
[2018-10-03] MEDS: Pravastatin 80 MG Tablet PO (21:26)
[2018-10-03 22:31] LABS: Bedside Glucose 308 mg/dL (70-110)
[2018-10-04] VITALS (8 sets, daily range): BP systolic 127–155; BP diastolic 70–80; PULSE 69–80; RESP 16–20; TEMP 35.8–36.9; O2SAT 88–99
[2018-10-04] MEDS: Acetaminophen 325 MG Tablet 650 MG PO ×3 (03:21→22:37)
[2018-10-04] MEDS: 0.9% Normal Saline 1,000 ML 75 ML IV (04:48)
[2018-10-04] MEDS: metroNIDAZOLE 500 MG/100 ML BAG 100 MG IV (05:45)
[2018-10-04] MEDS: Insulin Lispro 100 UNIT/ML INSULN.PEN SC ×4 (06:25→22:39)
[2018-10-04 06:31] LABS: Anion Gap 8 (5-15); BUN 29 mg/dL (7-18); BUN/Creat Ratio 20.4 RATIO (10-20); Calcium,Total 8.7 mg/dL (8.5-10.1); Chloride 103 mmol/L (98-107); Creatinine, Serum 1.42 mg/dL (0.70-1.30); EST Glomerular Filtration Rate 50 mL/min (>60); Est Glom Filt Rate - Afr Amer 61 mL/min (>60); Estimated Creatinine Clearance 34.95 ml/min; Glucose 204 mg/dL (74-106); Potassium 4.9 mmol/L (3.5-5.1); Sodium Level 136 mmol/L (136-145)
[2018-10-04 06:39] LABS: Absolute Lymphocyte Count 0.44 X10^3/ul (0.83-4.51); Absolute Neutrophil Count 11.1 X10^3/uL (2.0-7.7); Hematocrit 30.5 % (40-54); Hemoglobin 10.4 g/dl (13.0-16.5); Lymphocyte # 0.44 X10^3/ul (4.0); Lymphocyte % 3.6 % (19-41); Mean Corp Hgb Conc 34.1 g/gl (32-36); Mean Corpuscular Hgb 33.8 pg (27.0-32.0); Mean Platelet Vol. 9.4 fl (6.2-12.0); Monocyte# 0.67 X10^3/uL; Monocyte% 5.5 % (0-10); Neutrophil # 11.06 X10^3/uL (2.7-7.7); Neutrophil % 90.7 % (47-70); Platelet Count 139 K/mm3 (150-450); RBC Distribution Width CV 13.2 % (11.6-14.6); RBC Distribution Width SD 45.5 fl (35.1-43.9); Red Blood Count 3.08 M/mm3 (4.6-6.2); White Blood Count 12.2 K/mm3 (4.4-11.0)
[2018-10-04 06:40] LABS: Bedside Glucose 209 mg/dL (70-110)
[2018-10-04 06:40] LABS: Differential Indicated SCAN CRITERIA MET; POSITIVE COUNT NO; POSITIVE DIFFERENTIAL YES; POSITIVE MORPHOLOGY NO
[2018-10-04 07:13] LABS: Differential Comment SCANNED
[2018-10-04] MEDS: Etodolac 300 MG Capsule PO ×2 (08:14→17:07)
[2018-10-04] MEDS: Aspirin E.C. 81 MG Tablet PO (08:14)
--- NOTE | 2018-10-04 08:14 | PN.SURG_ITS ---
Patient Problems: Active and Suspected Problems (Last Reviewed 04/28/18 @ 15:53 by Carlos Coreas MD) Emphysematous cholecystitis (Acute) Subjective: Patient seems to be doing well. He is tolerating liquid diet. He is not having any nausea or vomiting reports his pain is much improved. He had Jennings placed overnight for urinary retention. - Physical Exam General: Alert, Oriented x3 Neck: No JVD Lungs: Normal air movement Cardiovascular: Regular rate, Regular Rhythm Abdomen: Soft, Non-Distended, Tender - Mild appropriate tenderness over the incisions Vital Signs Temp Pulse Resp BP Pulse Ox 96.4 F L 74 16 130/79 H 88 10/04/18 02:00 10/04/18 02:00 10/04/18 02:00 10/04/18 02:00 10/04/18 07:20 Oxygen Flow Rate (L/min) 2 Oxygen Delivery Method Room Air Weight: 202 lb 6.15 oz Body Mass Index (BMI) 32.6 Finger Stick Blood Glucose 169 Intake and Output for Last 24 Hours 10/02/18 10/03/18 10/04/18 23:59 23:59 23:59 Intake Total 1678 / 1678 534 / 534 Output Total 1974 / 1974 275 / 275 Balance -297 / -297 259 / 259 Laboratory Tests Past 24 Hrs 10/04/18 10/04/18 05:40 05:40 WBC 12.2 H RBC 3.08 L Hgb 10.4 L Hct 30.5 L MCV 99.0 H MCH 33.8 H MCHC 34.1 RDW 13.2 RDW Differential 45.5 H Plt Count 139 L MPV 9.4 Immature Gran % (Auto) 0.200 Neut % (Auto) 90.7 H Lymph % (Auto) 3.6 L [place] % (Auto) 5.5 Eos % (Auto) 0.0 Baso % (Auto) 0.0 Absolute Neuts (auto) 11.1 H Absolute Lymphs (auto) 0.44 L Total Counted Not Reportable Differential Comment SCANNED Sodium 136 Potassium 4.9 Chloride 103 Carbon Dioxide 25.0 Anion Gap 8 BUN 29 H Creatinine 1.42 H Estim Creat Clear Calc 34.95 Est GFR (MDRD) Af Amer 61 Est GFR (MDRD) Non-Af 50 L BUN/Creatinine Ratio 20.4 H Glucose 204 H Calcium 8.7 POC Glucose 10/04/18 10/03/18 10/03/18 06:23 21:30 17:27 POC Glucose 209 H 308 H 241 H 10/03/18 11:40 POC Glucose 169 H Medical Necessity - Tobacco Use Smoking Status: Former smoker Assessment/Plan All Active Problems (Last Reviewed 04/28/18 @ 15:53 by Carlos Coreas MD) Emphysematous cholecystitis (Acute) Hypomagnesemia (Resolved) 83-year-old male status post laparoscopic cholecystectomy for emphysematous cholecystitis 1. Patient is doing well this morning. I will advance him to a regular diet and see how he does today. Likely discharge home tomorrow. Patient had urinary retention required Jennings placement. We will do voiding trial tomorrow before discharge. Roger Ritter MD Pager: [facility] [address] [place] [address], [address] [place] [address] Office:
[2018-10-04] MEDS: Docusate Sodium 100 MG Capsule PO ×2 (10:13→22:38)
--- NOTE | 2018-10-04 10:13 | CASEMGMT ---
RN CM Assessment Introduced role of RN CM to patient.? Patient is alert, oriented and able?to participate in RN CM Assessment. ?Care providers, pharmacy, and demographics verified. Presentation: Bilt Flank & Back Pain Admit Dx: Acute Cholecystitis Re-Admit: No Barriers/Issues: None. 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 GrndDgianfranco morton works for [employer] and states her 2 sisters work here. PCP: Ana María Mazariegos Specialists: Cardio- Dr Coreas Preferred Pharmacy: [facility], [place] Insurance: [employer] PPO Rx Benefit:?Yes ?LNOK: Dtr Teressa [place] LW/HPOA: has both, aware not on file at [facility], HPOA- Dtr Teressa Troncoso Living Arrangements:?Lives with Dtr in a Bi Level home, states he stays on the Lower Level. No steps to enter home. ADL?s: Uses a Rollator to walk, Independent with ADLs Transportation: Patient drives, D/C with Dtr Teressa DME: Rollator, Shower Chair, TSR HHC: Past- [facility] SNF: Past- [place] Goal: Home and does not think will have any needs, had his surgery yesterday and has been eating and walking fine since. Denies any issues, concerns or questions. Aware CM remains available for any emerging needs. DC PLAN: Home with no anticipated needs identified at this time. Shiela John RNCM
[2018-10-04] MEDS: Metoprolol Tartrate 50 MG Tablet PO ×2 (10:14→22:38)
[2018-10-04] MEDS: amLODIPine 5 MG Tablet PO (10:15)
[2018-10-04] MEDS: Pantoprazole Sodium 40 MG Tablet PO (10:15)
[2018-10-04 11:46] LABS: Bedside Glucose 235 mg/dL (70-110)
--- NOTE | 2018-10-04 13:52 | CASEMGMT ---
EFREN CARCAMO Note: Intro role of CM to patient and SABA form explained re: Observation status for treatment of laparoscopic gallbladder surgery. Daughter also in room with pt. Explained hospitalization will be paid per? insurance policy for Outpatient billing?and condition will continue to be evaluated for Inpt necessity. Also let pt know that [facility] sends paper in the billing packet with their phone number if questions arise. Discussed Pharmacy section of SABA form and self administered medication guideline.? Pt verbalizes understanding and does not have further questions. Form signed and placed in chart, copy to pt. SHANTELL SCHWARTZ BSN CM
[2018-10-04] MEDS: Ipratropium/Albuterol Sulfate 3 ML AMPUL.NEB INHALATION (16:19)
[2018-10-04 17:20] LABS: Bedside Glucose 161 mg/dL (70-110)
[2018-10-04] MEDS: Pravastatin 80 MG Tablet PO (22:39)
[2018-10-04 23:41] LABS: Bedside Glucose 228 mg/dL (70-110)
[2018-10-05] VITALS (8 sets, daily range): BP systolic 128–154; BP diastolic 65–81; PULSE 68–83; RESP 16–19; TEMP 36.5–36.8; O2SAT 92–96
[2018-10-05 06:45] LABS: Absolute Lymphocyte Count 0.81 X10^3/ul (0.83-4.51); Absolute Neutrophil Count 9.5 X10^3/uL (2.0-7.7); Hematocrit 29.5 % (40-54); Hemoglobin 9.9 g/dl (13.0-16.5); Lymphocyte # 0.81 X10^3/ul (4.0); Lymphocyte % 7.1 % (19-41); Mean Corp Hgb Conc 33.6 g/gl (32-36); Mean Corpuscular Hgb 33.7 pg (27.0-32.0); Mean Corpuscular Volume 100.3 fL (80-94); Mean Platelet Vol. 9.2 fl (6.2-12.0); Monocyte# 1.05 X10^3/uL; Monocyte% 9.2 % (0-10); Neutrophil # 9.51 X10^3/uL (2.7-7.7); Neutrophil % 83.5 % (47-70); Platelet Count 146 K/mm3 (150-450); RBC Distribution Width CV 13.6 % (11.6-14.6); Red Blood Count 2.94 M/mm3 (4.6-6.2); White Blood Count 11.4 K/mm3 (4.4-11.0)
[2018-10-05 06:46] LABS: POSITIVE COUNT NO; POSITIVE DIFFERENTIAL NO; POSITIVE MORPHOLOGY NO
[2018-10-05] MEDS: Insulin Lispro 100 UNIT/ML INSULN.PEN SC ×3 (07:00→16:36)
[2018-10-05 07:04] LABS: Anion Gap 6 (5-15); BUN 44 mg/dL (7-18); BUN/Creat Ratio 24.3 RATIO (10-20); Calcium,Total 8.6 mg/dL (8.5-10.1); Chloride 103 mmol/L (98-107); Creatinine, Serum 1.81 mg/dL (0.70-1.30); EST Glomerular Filtration Rate 38 mL/min (>60); Est Glom Filt Rate - Afr Amer 46 mL/min (>60); Estimated Creatinine Clearance 27.42 ml/min; Glucose 166 mg/dL (74-106); Potassium 4.6 mmol/L (3.5-5.1); Sodium Level 134 mmol/L (136-145)
[2018-10-05] MEDS: Ipratropium/Albuterol Sulfate 3 ML AMPUL.NEB INHALATION ×2 (07:04→11:17)
[2018-10-05 07:06] LABS: Bedside Glucose 172 mg/dL (70-110)
--- NOTE | 2018-10-05 07:07 | PN.SURG_ITS ---
Patient Problems: Active and Suspected Problems (Last Reviewed 04/28/18 @ 15:53 by Carlos Coreas MD) Emphysematous cholecystitis (Acute) Subjective: Patient appears to be doing well this morning. He is tolerating regular diet. - Physical Exam General: Alert, Oriented x3 Neck: No JVD Lungs: Normal air movement Abdomen: Soft, Non-Distended Vital Signs Temp Pulse Resp BP Pulse Ox 98.3 F 83 18 154/81 H 95 10/05/18 02:15 10/05/18 02:15 10/05/18 02:15 10/05/18 02:15 10/05/18 02:15 Oxygen Flow Rate (L/min) 2 Oxygen Delivery Method Nasal Cannula Weight: 202 lb 6.15 oz Body Mass Index (BMI) 32.6 Finger Stick Blood Glucose 169 Intake and Output for Last 24 Hours 10/03/18 10/04/18 10/05/18 23:59 23:59 23:59 Intake Total 1678 / 1678 1723 / 2123 600 / 600 Output Total 1974 / 1974 575 / 1125 1500 / 1500 Balance -297 / -297 1148 / 998 -900 / -900 Laboratory Tests Past 24 Hrs 10/04/18 10/05/18 10/05/18 05:40 06:08 06:08 WBC 11.4 H RBC 2.94 L Hgb 9.9 L Hct 29.5 L MCV 100.3 H MCH 33.7 H MCHC 33.6 RDW 13.6 RDW Differential 48.0 H Plt Count 146 L MPV 9.2 Immature Gran % (Auto) 0.200 Neut % (Auto) 83.5 H Lymph % (Auto) 7.1 L [place] % (Auto) 9.2 Eos % (Auto) 0.0 Baso % (Auto) 0.0 Absolute Neuts (auto) 9.5 H Absolute Lymphs (auto) 0.81 L Total Counted Not Reportable Differential Comment SCANNED Sodium 134 L Potassium 4.6 Chloride 103 Carbon Dioxide 25.0 Anion Gap 6 BUN 44 H Creatinine 1.81 H Estim Creat Clear Calc 27.42 Est GFR (MDRD) Af Amer 46 L Est GFR (MDRD) Non-Af 38 L BUN/Creatinine Ratio 24.3 H Glucose 166 H Calcium 8.6 POC Glucose 10/05/18 10/04/18 10/04/18 06:58 22:36 17:04 POC Glucose 172 H 228 H 161 H 10/04/18 11:29 POC Glucose 235 H Medical Necessity - Tobacco Use Smoking Status: Former smoker Assessment/Plan All Active Problems (Last Reviewed 04/28/18 @ 15:53 by Carlos Coreas MD) Emphysematous cholecystitis (Acute) Hypomagnesemia (Resolved) 83-year-old male status post laparoscopic cholecystectomy 1. Patient is doing well this morning. I will order PT OT evaluation for DC planning. We will also remove his Jennings and do a voiding trial. Patient has worked his way up to it 2 L of nasal cannula. I will try to wean him off of his oxygen before discharge. Roger Ritter MD Pager: [facility] [address] [place] [address], [address] [place] [phone] Office:
--- NOTE | 2018-10-05 09:30 | DCINST_ITS ---
Discharge Diet: Light diet - advance as tolerated Discharge Activity: Return to Normal Activity, May Not Drive - for 2-3 days or while taking narcotic pain medicataions., - - Do not drive, work heavy equipment or sign legal documents for 24 hours. May shower in (days): 1 - with the bandage in place. Additional Activity Instructions:: Pain medication may cause nausea. You should typically eat light foods as you take your pain medications. Pain medication may also cause constipation. If this is a problem for you, please discuss with your doctor. Call your doctor if your incision/area has: Continuous Slow Oozing, Sudden Increased Bleeding, Increased Pain/ Swelling, Increased Redness, Foul Smelling Discharge, Fever of 101 or Higher Call your doctor if you observe: Fever of 101 or Higher Suture Line Care: Avoid Pulling/Pushing, Avoid Pinching/Bending Additional Dressing/Incision Instructions:: Leave operative bandaids on for 2 days. When you remove dressing, leave Steri-Strips on until your follow-up appointment, or until the Steri-Strips fall off on their own. Allergies/Adverse Reactions: Allergies amoxicillin Allergy (Severe, Verified 10/03/18 03:19) unknown Tetanus Vaccines and Toxoid Allergy (Severe, Verified 10/03/18 03:19) unknown Thiazides Adverse Reaction (Verified 10/03/18 03:19) Other CAUSES LOW MAG Medications to take at Discharge clopidogrel 75 mg tablet 75 mg PO QDAY 03/09/17 esomeprazole magnesium 20 mg capsule,delayed release 20 mg PO QDAY cap 03/09/17 ferrous sulfate 325 mg (65 mg iron) tablet,delayed release 324 mg PO QDAY tab 03/09/17 multivitamin tablet 1 tab PO QDAY 03/09/17 pravastatin 80 mg tablet 80 mg PO QHS 03/09/17 calcium carbonate-vitamin D3 600 mg (1,500 mg)-800 unit tablet 1 tab PO BID 09/08/17 Aspirin E.C. [Ecotrin] 81 mg PO DAILY@0800 03/20/18 amlodipine 5 mg tablet 5 mg PO DAILY #90 tab 04/28/18 magnesium 400 mg (as magnesium oxide) tablet 800 mg PO TID tab 04/28/18 metoprolol tartrate 50 mg tablet 50 mg PO BID #90 tab 04/28/18 Etodolac [Lodine] 300 mg PO BIDCM 10/03/18 Primary Care Physician: Ana María Mazariegos, [Primary Care Provider] - Test Results: Test results from this visit will be discussed in further detail at your follow- up appointment, if applicable. Please Follow Up With: Roger Ritter MD When: Please call to schedule 2 week follow up appointment. [phone]
--- NOTE | 2018-10-05 09:31 | PCM.DC.SUM ---
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, LAFB History of coronary artery stent placement (Chronic 03/19/05) [id number] RCA 03/03/2005; [id number]-CWR-Dtev LAD 03/19/2005 Essential (primary) hypertension (Chronic) Hyperlipidemia (Chronic) Atherosclerotic heart disease of [place] coronary artery without angina pectoris (Chronic) [id number] RCA 03/03/2005; JQK-WEH-Fyja LAD 03/19/2005 Hospital Course and Treatment Imaging Results: Clinical Impression(s) from Imaging Studies Chest X-Ray 10/03/18 05:04 IMPRESSION: Mild bilateral lower lobe linear pulmonary scarring and linear subsegmental atelectasis; there are small bilateral pleural effusions. Multilevel degenerative changes of the thoracic and lumbar spine Electronically Signed: Abhilash Izquierdo, at 7:25 EDT Tel , Service support , Abdomen/Pelvis CT 10/03/18 05:06 IMPRESSION: Limited non-IV nonoral contrast study Distended gallbladder, layering dependent gallstones, likely air within the gallbladder, findings highly suspicious for emphysematous cholecystitis No hydronephrosis or ureteral calculi, 2 mm right midpole renal calculus or vascular calcification Moderate colonic fecal load Small appendicoliths, no CT evidence for appendicitis Significant multilevel spondylosis lumbar spine N.B. : The above information has been verbally conveyed by Abhilash Izquierdo to Dr Erick MD, on 10/03/2018 08:09:55 (ET). Electronically Signed: Abhilash Izquierdo at 7:41 EDT Tel , Service support , Cholangiogram 10/03/18 10:15 IMPRESSION: Unremarkable intraoperative cholangiogram. Electronically Signed: Paulino Stout, at 10:13 EDT , Service support , Chest X-Ray 10/03/18 11:34 IMPRESSION: Platelike atelectasis underexpansion of the lungs no visualized pneumothorax. Electronically Signed: Lesly Cruz MD at 14:24 EDT Tel , Service support , Operations: cholecystecomy Procedures: None Summary of Care Provided: The patient is a 83 year old M presented to the emergency room with right upper quadrant pain. CT scan showed emphysematous cholecystitis and the patient was immediately taken for laparoscopic cholecystectomy. Patient tolerated procedure well and was brought to the floor postoperatively. The patient had urinary retention postoperatively and he was straight cath but he still had urinary retention a Jennings was placed. On the second postoperative day the catheter was removed he was tolerating regular diet but he still had urinary retention. Flomax was started and Jennings was replaced. Patient was discharged home with Jennings in place. Patient will follow-up with my office later this week for Jennings removal. - Physical Exam Vital Signs Temp Pulse Resp BP Pulse Ox 98.3 F 68 19 H 154/81 H 96 10/05/18 02:15 10/05/18 07:04 10/05/18 07:04 10/05/18 02:15 10/05/18 07:04 Oxygen Flow Rate (L/min) 2 Oxygen Delivery Method Nasal Cannula Weight: 202 lb 6.15 oz Body Mass Index (BMI) 32.6 Finger Stick Blood Glucose 169 Intake and Output for Last 24 Hours 10/03/18 10/04/18 10/05/18 23:59 23:59 23:59 Intake Total 1678 / 1678 1723 / 2123 600 / 600 Output Total 1974 / 1974 575 / 1125 1500 / 1500 Balance -297 / -297 1148 / 998 -900 / -900 Laboratory Tests Past 24 Hrs 10/05/18 10/05/18 06:08 06:08 WBC 11.4 H RBC 2.94 L Hgb 9.9 L Hct 29.5 L MCV 100.3 H MCH 33.7 H MCHC 33.6 RDW 13.6 RDW Differential 48.0 H Plt Count 146 L MPV 9.2 Immature Gran % (Auto) 0.200 Neut % (Auto) 83.5 H Lymph % (Auto) 7.1 L [place] % (Auto) 9.2 Eos % (Auto) 0.0 Baso % (Auto) 0.0 Absolute Neuts (auto) 9.5 H Absolute Lymphs (auto) 0.81 L Sodium 134 L Potassium 4.6 Chloride 103 Carbon Dioxide 25.0 Anion Gap 6 BUN 44 H Creatinine 1.81 H Estim Creat Clear Calc 27.42 Est GFR (MDRD) Af Amer 46 L Est GFR (MDRD) Non-Af 38 L BUN/Creatinine Ratio 24.3 H Glucose 166 H Calcium 8.6 POC Glucose 10/05/18 10/04/18 10/04/18 06:58 22:36 17:04 POC Glucose 172 H 228 H 161 H 10/04/18 11:29 POC Glucose 235 H Discharge Diet: Light diet - advance as tolerated Discharge Activity: Return to Normal Activity, May Not Drive - for 2-3 days or while taking narcotic pain medicataions., - - Do not drive, work heavy equipment or sign legal documents for 24 hours. May shower in (days): 1 - with the bandage in place. Additional Activity Instructions:: Pain medication may cause nausea. You should typically eat light foods as you take your pain medications. Pain medication may also cause constipation. If this is a problem for you, please discuss with your doctor. Call your doctor if your incision/area has: Continuous Slow Oozing, Sudden Increased Bleeding, Increased Pain/ Swelling, Increased Redness, Foul Smelling Discharge, Fever of 101 or Higher Call your doctor if you observe: Fever of 101 or Higher Suture Line Care: Avoid Pulling/Pushing, Avoid Pinching/Bending Additional Dressing/Incision Instructions:: Leave operative bandaids on for 2 days. When you remove dressing, leave Steri-Strips on until your follow-up appointment, or until the Steri-Strips fall off on their own. Home Medications: Medications to take at Discharge clopidogrel 75 mg tablet 75 mg PO QDAY 03/09/17 esomeprazole magnesium 20 mg capsule,delayed release 20 mg PO QDAY cap 03/09/17 ferrous sulfate 325 mg (65 mg iron) tablet,delayed release 324 mg PO QDAY tab 03/09/17 multivitamin tablet 1 tab PO QDAY 03/09/17 pravastatin 80 mg tablet 80 mg PO QHS 03/09/17 calcium carbonate-vitamin D3 600 mg (1,500 mg)-800 unit tablet 1 tab PO BID 09/08/17 Aspirin E.C. [Ecotrin] 81 mg PO DAILY@0800 03/20/18 amlodipine 5 mg tablet 5 mg PO DAILY #90 tab 04/28/18 magnesium 400 mg (as magnesium oxide) tablet 800 mg PO TID tab 04/28/18 metoprolol tartrate 50 mg tablet 50 mg PO BID #90 tab 04/28/18 Etodolac [Lodine] 300 mg PO BIDCM 10/03/18 Tamsulosin HCl [Flomax] 0.4 mg PO BID 10 Days #20 cap 10/05/18 Following Prescrptions Were Given to Patient: Tamsulosin HCl [Flomax] 0.4 mg PO BID 10 Days #20 cap Transmission Status: Received by [facility] Primary Care Physician: Ana María Mazariegos DO [Primary Care Provider] - Please Follow Up With: Roger Ritter MD When: Please call to schedule 2 week follow up appointment. [phone] Medical Necessity - Tobacco Use Smoking Status: Former smoker Meaningful Use Info Meaningful Use Diagnoses (Choose all that apply): None applicable
[2018-10-05] MEDS: amLODIPine 5 MG Tablet PO (10:39)
[2018-10-05] MEDS: Metoprolol Tartrate 50 MG Tablet PO (10:39)
[2018-10-05] MEDS: Docusate Sodium 100 MG Capsule PO (10:39)
[2018-10-05] MEDS: Pantoprazole Sodium 40 MG Tablet PO (10:39)
[2018-10-05] MEDS: Aspirin E.C. 81 MG Tablet PO (10:39)
[2018-10-05] MEDS: Etodolac 300 MG Capsule PO ×2 (10:39→16:36)
[2018-10-05 12:35] LABS: Bedside Glucose 247 mg/dL (70-110)
[2018-10-05 17:06] LABS: Bedside Glucose 214 mg/dL (70-110)
[2018-10-05] MEDS: Tamsulosin HCl 0.4 MG Capsule PO (17:13)
[2018-10-05] MEDS: Lidocaine Jelly 2% 20 ML Syringe (URO-JET) 20 APPLIC TOPICAL (17:28)
== END 2018-10-05 18:45 | disposition home or self-care (01) ==
LOC: ED 04:24 → SDC 09:27 → MS3 10-04 01:05 → SDC 10-05 07:05
PROVIDERS: Admitting Provider Surgery; Emergency Provider Emergency Medicine; Visit Provider Surgery
PROC: (CPT 47610; principal; 2018-10-03 09:45)
DX: K80.12 Calculus of gallbladder with acute and chronic cholecystitis without obstruction (principal); I25.10 Atherosclerotic heart disease of native coronary artery without angina pectoris; I45.10 Unspecified right bundle-branch block; I25.2 Old myocardial infarction; I27.20 Pulmonary hypertension, unspecified; G47.33 Obstructive sleep apnea (adult) (pediatric); E11.22 Type 2 diabetes mellitus with diabetic chronic kidney disease; E78.5 Hyperlipidemia, unspecified; I12.9 Hypertensive chronic kidney disease with stage 1 through stage 4 chronic kidney disease, or unspecified chronic kidney disease; N18.9 Chronic kidney disease, unspecified; K21.9 Gastro-esophageal reflux disease without esophagitis; Z95.5 Presence of coronary angioplasty implant and graft; Z79.899 Other long term (current) drug therapy; Z79.02 Long term (current) use of antithrombotics/antiplatelets; Z79.82 Long term (current) use of aspirin; Z86.73 Personal history of transient ischemic attack (TIA), and cerebral infarction without residual deficits; Z87.891 Personal history of nicotine dependence
CPT/HCPCS: 47563; 36415; 71045; 71046; 74176; 74300; 76000; 80048; 81001; 82962; 83735; 84484; 85025; 88304; 93005; 94640; 96361; 96365; 96366; 96367; 96375; 97162; 97166; 99218; 99285; J7030; J7040; A4216; G0378; J2405; J3475

== ENCOUNTER 2018-10-09 22:53 | Emergency (ER) | payer MEDICARE, SELFPAY ==
[2018-10-08 15:49] VITALS: BMI 32.6
[2018-10-09 22:53] VITALS: BP 112/76; PULSE 79; RESP 24; TEMP 36.3; O2SAT 96; BMI 30.7
--- NOTE | 2018-10-09 23:25 | EKG12_ITS ---
Test Reason : SOB Blood Pressure : / mmHG Vent. Rate : 074 BPM Atrial Rate : 074 BPM P-R Int : 214 ms QRS Dur : 134 ms QT Int : 410 ms P-R-T Axes : 026 -39 005 degrees QTc Int : 455 ms Sinus rhythm with sinus arrhythmia with 1st degree A-V block Left axis deviation Right bundle branch block Abnormal ECG Confirmed by RINKU SILVA, ANGIE ([id number]), editor newspaper NICOLE HARGROVE ([id number]) on 10/11/2018 1:49:59 PM Referred By: SILVANA Confirmed By:ANGIE DOBBS MD
[2018-10-09 23:28] VITALS: PULSE 73; RESP 26; O2SAT 94
[2018-10-09 23:32] VITALS: O2SAT 95
[2018-10-09 23:36] LABS: Absolute Lymphocyte Count 0.91 X10^3/uL (0.83-4.51); Absolute Neutrophil Count 4.9 X10^3/uL (2.0-7.7); Basophil# 0.02 X10^3/uL; Basophil% 0.3 % (0-1); Eosinophil# 0.12 X10^3/uL; Eosinophils% 1.8 % (0-5); Hematocrit 27.7 % (40-54); Hemoglobin 9.5 g/dL (13.0-16.5); Lymphocyte # 0.91 X10^3/ul (4.0); Lymphocyte % 13.4 % (19-41); Mean Corp Hgb Conc 34.3 g/dL (32-36); Mean Corpuscular Hgb 34.7 pg (27.0-32.0); Mean Corpuscular Volume 101.1 fL (80-94); Mean Platelet Vol. 9.6 fl (6.2-12.0); Monocyte% 11.8 % (0-10); NRBC Flagged by Analyzer 0 % (0-5); Neutrophil # 4.89 X10^3/uL (2.7-7.7); Platelet Count 138 K/mm3 (150-450); RBC Distribution Width SD 47.8 fl (35.1-43.9); Red Blood Count 2.74 M/mm3 (4.6-6.2); White Blood Count 6.8 K/mm3 (4.4-11.0)
[2018-10-09 23:38] VITALS: BP 112/76; PULSE 73; RESP 26; TEMP 36.3; O2SAT 94
[2018-10-09 23:45] VITALS: PULSE 72; RESP 24
[2018-10-09] MEDS: Albuterol 2.5 MG/3 ML VIAL.NEB. INHALATION (23:45)
--- NOTE | 2018-10-10 | RAD_ITS ---
STUDY: X-RAY CHEST REASON FOR EXAM: Male, 83 years old. Dyspnea TECHNIQUE: Frontal and lateral views of the chest. COMPARISON: None. FINDINGS: The lungs are underexpanded. Small bilateral pleural effusions are noted. Normal size heart. Normal mediastinum and mignon. Normal visualized pulmonary arteries. Normal visualized aortic arch and descending thoracic aorta. Normal visualized thoracic spine. Normal visualized ribs, clavicles, and shoulders. There is no demonstrated abnormality of the visualized soft tissue structures of the upper abdomen. RAD/Chest PA and Lateral IMPRESSION: Small bilateral pleural effusions. Electronically Signed: Chela Hinojosa, at 0:52 EDT Tel , Service support ,
[2018-10-10 00:06] LABS: Anion Gap 4 (5-15); BUN 31 mg/dL (7-18); BUN/Creat Ratio 18.3 RATIO (10-20); Calcium,Total 8.7 mg/dL (8.5-10.1); Chloride 103 mmol/L (98-107); Creatinine, Serum 1.69 mg/dL (0.70-1.30); EST Glomerular Filtration Rate 41 mL/min (>60); Est Glom Filt Rate - Afr Amer 50 mL/min (>60); Estimated Creatinine Clearance 29.36 ml/min; Glucose 181 mg/dL (74-106); Potassium 4.6 mmol/L (3.5-5.1); Sodium Level 133 mmol/L (136-145)
--- NOTE | 2018-10-10 00:27 | ED.DCSUM_ITS ---
History of Present Illness Chief Complaint: Shortness of Breath Detail of Chief Complaint: and cough Informant: Patient, Family Onset: Weeks - 1 Context: Gradual Onset - worsening Timing: Continuous Quality: sob Location: chest Current Severity: Mild Maximum Severity: Moderate Worsened by: heat/humidity, light exertion Relieved by: rest, air conditioning environment Associated Symptoms: Nonproductive cough that sounds wet Narrative: With coughing the day of his recent gallbladder surgery, it has been persistent and now he is feeling a little short of breath. Air-conditioner recently stopped working and it is 90 degrees in their house, there are extremely high heat indices in the area throughout the last several days, with warnings being given to the public. He does not have COPD, may have congestive heart failure. He denies significant orthopnea. No new swelling in his lower extremities, although chronic edema is stable. Has had no chest discomfort, sweats, palpitations, vomiting. - Past Medical History (1) Atherosclerotic heart disease of [place] coronary artery without angina pectoris Status: Chronic Comment: GHZ-LOH-Orbrvq RCA 03/03/2005; XAX-KWM-Wmhq LAD 03/19/2005 (2) Bifascicular block Status: Chronic (3) Essential (primary) hypertension Status: Chronic (4) History of coronary artery stent placement Status: Chronic Comment: ZLH-UMF-Oqsmdi RCA 03/03/2005; RJQ-KTO-Pucf LAD 03/19/2005 (5) Hyperlipidemia Status: Chronic (6) Hypomagnesemia Status: Chronic Past Medical History - Allergies and Home Meds Allergies/Adverse Reactions: Allergies amoxicillin Allergy (Severe, Verified 10/09/18 22:53) unknown Tetanus Vaccines and Toxoid Allergy (Severe, Verified 10/09/18 22:53) unknown Thiazides Adverse Reaction (Verified 10/09/18 22:53) Other CAUSES LOW MAG Primary Care Physician: Ana María Mazariegos DO [Primary Care Provider] - Surgical History: - - Cardiac stents. Lives: With Family Smoking Status: Former smoker - Family History Maternal Family History: Family History (Last Reviewed 07/03/18 @ 16:33 by ALEIDA Valentin) Father Hypertension Mother Heart disease Congestive heart failure Diabetes Sister ruptured brain aneurysm Family History: Reports: - - Mother with history of congestive heart failure, diabetes, heart disease. Paternal Family History: Family History (Last Reviewed 07/03/18 @ 16:33 by ALEIDA Valentin) Father Hypertension Mother Heart disease Congestive heart failure Diabetes Sister ruptured brain aneurysm Family History: Reports: - - Father with a history of hypertension. Sibling Family History: Family History (Last Reviewed 07/03/18 @ 16:33 by ALEIDA Valentin) Father Hypertension Mother Heart disease Congestive heart failure Diabetes Sister ruptured brain aneurysm Family History: Reports: - - Sister with a history of ruptured brain aneurysm at age 50. Review of Systems General: Denies: Chills, Fever, Sweats Eyes: Denies: Visual changes - bilaterally, Diplopia ENT: Denies: Rhinorrhea, Sore throat Cardiovascular: Denies: Chest pain, Palpitations Respiratory: Reports: Dyspnea, Cough, Dyspnea on exertion. Denies: Sputum, Orthopnea Gastrointestinal: Denies: Abdominal pain, Nausea, Vomiting, Diarrhea, Melena, Hematochezia Genitourinary: Denies: Dysuria, Hematuria, Frequency Musculoskeletal: Reports: Swelling. Denies: Back pain, Extremity Pain Skin: Denies: Rash, Wounds Neurological: Denies: Headache, Weakness, Numbness Physical Exam Vital Signs/Narrative: Vital Signs Temp Pulse Resp BP Pulse Ox 10/09/18 23:45 72 24 H 10/09/18 23:38 97.4 F L 73 26 H 112/76 94 10/09/18 23:28 73 26 H 94 10/09/18 22:53 97.4 F L 79 24 H 112/76 96 General: Well nourished, Well developed, No Acute Distress Head: Normocephalic, Atraumatic Eyes: Perrl, EOMI ENT: Moist mucous membranes, No rhinorrhea Neck: Supple, Nontender, No lymphadenopathy, No JVD Cardiovascular: Regular rate, Regular rhythm, No murmurs Respiratory: No distress, CTA bilaterally, Chest nontender Abdomen: Soft, Nontender, Nondistended, Normal bowel sounds Back: Nontender, Normal Inspection Extremities: Nontender, Edema - 1+ bilateral lower extremities to proximal lower legs, symmetric, no cellulitis. Negative for: Calf Tenderness Skin: Normal color, No rash, No Trauma Neurological: Alert, Oriented x3, Cranial nerves II-XII grossly intact, Normal Strength, Normal Sensation Psychological: Normal affect, Normal Mood Diagnostic/Tx/Re-eval Impressions Chest X-Ray 10/10/18 00:00 IMPRESSION: Small bilateral pleural effusions. Electronically Signed: Chela Hinojosa, at 0:52 EDT Tel , Service support , 10/10/18 00:00 Chest PA and Lateral [RAD] Stat Laboratory Results 10/09/18 10/09/18 23:14 23:14 WBC 6.8 RBC 2.74 L Hgb 9.5 L Hct 27.7 L MCV 101.1 H MCH 34.7 H MCHC 34.3 RDW Std Deviation 47.8 H RDW Coeff of Mohini 13.0 Plt Count 138 L MPV 9.6 Immature Gran % (Auto) 0.700 Neut % (Auto) 72.0 H Lymph % (Auto) 13.4 L [place] % (Auto) 11.8 H Eos % (Auto) 1.8 Baso % (Auto) 0.3 Absolute Neuts (auto) 4.9 Absolute Lymphs (auto) 0.91 Absolute Nucleated RBC 0.00 Nucleated RBC % 0 Sodium 133 L Potassium 4.6 Chloride 103 Carbon Dioxide 26.0 Anion Gap 4 L BUN 31 H Creatinine 1.69 H Estim Creat Clear Calc 29.36 Est GFR (MDRD) Af Amer 50 L Est GFR (MDRD) Non-Af 41 L BUN/Creatinine Ratio 18.3 Glucose 181 H Calcium 8.7 Troponin I < 0.015 - Rhythm Strip Rhythm Strip: Sinus Rhythm Rate: 75 Ectopy: None - EKG Initial EKG Interpretation: Sinus Rhythm, No Acute Injury Pattern, RBBB, LAFB Prior: Unchanged - Medical Decision Making Chest x-ray shows bilateral pleural effusions, these were present a week ago and do not seem different. They are small. There is no other acute pulmonary abnormality seen on chest x-ray. His lungs are clear. His symptoms improved after albuterol and lying flat he is breathing comfortably. I do not think this is acute CHF or pulmonary embolus. Given his cough that has been sounding wet, I think it would be reasonable to put him on a broad-spectrum antibiotic to cover atypicals, discussed with him and daughter and they are comfortable with this plan. I offered admission, he declines, he states he does not feel very short of breath and is okay going home but prefers another albuterol treatment which was done, prior to that his heart rate is in the 80s and his vital signs are normal without hypoxia. We will also prescribe him an albuterol MDI to use as needed. ED Disposition - Plan for ED Patient: Disposition: Home or Assisted Living Diagnosis: Acute bronchitis, Bilateral pleural effusion Instructions: Pleural Effusion, Acute Bronchitis Prescriptions: Azithromycin 250 mg PO DAILY #4 tab Transmission Status: Pending to [facility] Albuterol Inhaler [Ventolin Hfa] 1 - 2 puff INHALATION Q4H PRN PRN #1 inhaler PRN Reason: Wheezing Transmission Status: Pending to [facility] Referrals: Ana María Mazariegos DO [Primary Care Provider] - 3-5 Days
[2018-10-10 01:33] VITALS: BP 129/66; PULSE 71; RESP 19; TEMP 36.6; O2SAT 94; O2SAT 96
[2018-10-10 02:22] VITALS: PULSE 73; RESP 18
[2018-10-10] MEDS: Albuterol 2.5 MG/3 ML VIAL.NEB. INHALATION (02:22)
[2018-10-10] MEDS: Azithromycin 250 MG Tablet 500 MG PO (02:38)
[2018-10-10 02:56] VITALS: BP 141/70; PULSE 71; RESP 18; O2SAT 99
== END 2018-10-10 02:56 | disposition home or self-care (01) ==
PROVIDERS: Emergency Provider Emergency Medicine
DX: J20.9 Acute bronchitis, unspecified (principal); J90 Pleural effusion, not elsewhere classified; I25.10 Atherosclerotic heart disease of native coronary artery without angina pectoris; E78.5 Hyperlipidemia, unspecified; I10 Essential (primary) hypertension; Z95.5 Presence of coronary angioplasty implant and graft; Z87.891 Personal history of nicotine dependence; I45.10 Unspecified right bundle-branch block
CPT/HCPCS: 71046; 80048; 84484; 85025; 93005; 94640; 99285; A4216

== ENCOUNTER 2018-10-11 00:53 | Observation (INO) | payer MEDICARE, SELFPAY ==
[2018-10-11] VITALS (15 sets, daily range): BP systolic 130–153; BP diastolic 61–86; PULSE 59–77; RESP 16–22; TEMP 36.4–36.8; O2SAT 90–100; BMI 33.9; BMI 32.3
--- NOTE | 2018-10-11 01:15 | EKG12_ITS ---
Test Reason : SOB Blood Pressure : / mmHG Vent. Rate : 067 BPM Atrial Rate : 067 BPM P-R Int : 198 ms QRS Dur : 132 ms QT Int : 428 ms P-R-T Axes : 063 -44 005 degrees QTc Int : 452 ms Normal sinus rhythm Left axis deviation Right bundle branch block Abnormal ECG Confirmed by RINKU SILVA, ANGIE ([id number]), supervising editor news reel NICOLE HARGROVE ([id number]) on 10/12/2018 1:39:13 PM Referred By: RYLEE Confirmed By:ANGIE DOBBS MD
--- NOTE | 2018-10-11 01:16 | ED.DCSUM_ITS ---
History of Present Illness Chief Complaint: Shortness of Breath Informant: Patient, Family Narrative: She presents with shortness of breath. He stated that he has had for the last couple days. He was evaluated last night in the emergency department. He had a EKG that showed no acute abnormality. Troponin was negative chest x-ray showed bilateral small pleural effusions. He is one-week postoperative from a cholecystectomy without complication. Patient denies any fevers or chills. He stated his shortness of breath was worse this evening when he was lying in his bed. He has no history of CHF. He has chronic lower extremity edema. Right is always worse than the left. No new changes to this. No chest pain. He does have history of coronary artery disease. He had a negative stress test in June on a admission. He is never had a pulmonary embolism or DVT. Patient took 2 doses of his azithromycin that was prescribed to him yesterday. He also has an albuterol inhaler. He does not have a history of COPD. He does not feel like he is wheezing. - Past Medical History (1) Emphysematous cholecystitis Status: Acute (2) Atherosclerotic heart disease of [place] coronary artery without angina pectoris Status: Chronic Comment: DJN-RAQ-Ijhyie RCA 03/03/2005; CEE-AFW-Gogz LAD 03/19/2005 (3) Bifascicular block Status: Chronic (4) Essential (primary) hypertension Status: Chronic (5) History of coronary artery stent placement Status: Chronic Comment: SGM-KHX-Eupkre RCA 03/03/2005; MNG-ING-Buhi LAD 03/19/2005 (6) Hyperlipidemia Status: Chronic (7) Hypomagnesemia Status: Chronic (8) Right bundle branch block (RBBB) Status: Chronic Comment: Bradycardia, LAFB Past Medical History - Allergies and Home Meds Allergies/Adverse Reactions: Allergies amoxicillin Allergy (Severe, Verified 10/11/18 00:54) unknown Tetanus Vaccines and Toxoid Allergy (Severe, Verified 10/11/18 00:54) unknown Thiazides Adverse Reaction (Verified 10/11/18 00:54) Other CAUSES LOW MAG Primary Care Physician: Ana María Mazariegos DO [Primary Care Provider] - Prior records reviewed: Yes Past Medical History: - - See problem list Surgical History: - - Cardiac stents. Lives: With Family Smoking Status: Former smoker Alcohol: None Drugs: None - Family History Maternal Family History: Family History (Last Reviewed 07/03/18 @ 16:33 by ALEIDA Valentin) Father Hypertension Mother Heart disease Congestive heart failure Diabetes Sister ruptured brain aneurysm Family History: Reports: - - Mother with history of congestive heart failure, diabetes, heart disease. Paternal Family History: Family History (Last Reviewed 07/03/18 @ 16:33 by ALEIDA Valentin) Father Hypertension Mother Heart disease Congestive heart failure Diabetes Sister ruptured brain aneurysm Family History: Reports: - - Father with a history of hypertension. Sibling Family History: Family History (Last Reviewed 07/03/18 @ 16:33 by ALEIDA Valentin) Father Hypertension Mother Heart disease Congestive heart failure Diabetes Sister ruptured brain aneurysm Family History: Reports: - - Sister with a history of ruptured brain aneurysm at age 50. Review of Systems General: Denies: Chills, Fever, Sweats Eyes: Denies: Visual changes - bilaterally, Diplopia ENT: Denies: Rhinorrhea, Sore throat Cardiovascular: Denies: Chest pain, Palpitations Respiratory: Reports: Dyspnea. Denies: Cough, Dyspnea on exertion Gastrointestinal: Denies: Abdominal pain, Nausea, Vomiting, Diarrhea, Melena, Hematochezia Genitourinary: Denies: Dysuria, Hematuria, Frequency Musculoskeletal: Denies: Back pain, Extremity Pain Skin: Denies: Rash, Wounds Neurological: Denies: Headache, Weakness, Numbness Physical Exam Vital Signs/Narrative: Vital Signs Temp Pulse Resp BP Pulse Ox 10/11/18 00:54 97.7 F L 71 20 H 144/82 H 97 General: Well nourished, Well developed, No Acute Distress Head: Normocephalic, Atraumatic Eyes: Perrl, EOMI ENT: Moist mucous membranes, No rhinorrhea Neck: Supple, Nontender Cardiovascular: Regular rate, Regular rhythm, No murmurs Respiratory: No distress, CTA bilaterally, Chest nontender Abdomen: Soft, Nontender, Nondistended, Normal bowel sounds, - - Surgical sites are clean dry and intact without drainage redness Back: Nontender, Normal Inspection Extremities: Nontender, No edema Skin: Normal color, No rash Neurological: Alert, Oriented x3, Cranial nerves II-XII grossly intact, Normal Strength, Normal Sensation Psychological: Normal affect, Normal Mood Diagnostic/Tx/Re-eval - Medical Decision Making On initial evaluation patient breathing normally. Normal pulse ox. Lungs are clear. EKG shows sinus rhythm at a rate of 67. Right bundle branch block. Unchanged from prior EKG. No acute ischemic findings. Patient given a dose of albuterol as he stated that it helped him yesterday. Lab work and repeat chest x-ray obtained lab work shows chronic findings with no major abnormalities. BNP is normal. Troponin is negative. Chest x-ray shows an enlarging right pleural effusion. CTA obtained to rule out pulmonary embolism as he just had surgery. It was negative for PE. Positive right-sided pleural effusion. I think this is likely transmitted secondary to his surgery. He did take his second dose of azithromycin today. We did ambulate him and his oxygenation dropped into the m id 80s. He is symptomatic due to this pleural effusion. He will be admitted and likely need a right-sided thoracentesis ED Disposition - Plan for ED Patient: Diagnosis: Pleural effusion, Hypoxia Instructions: Pleural Effusion
[2018-10-11] MEDS: Albuterol 2.5 MG/3 ML VIAL.NEB. INHALATION ×2 (01:30→21:36)
[2018-10-11 01:34] LABS: Absolute Lymphocyte Count 0.87 X10^3/uL (0.83-4.51); Absolute Neutrophil Count 4.1 X10^3/uL (2.0-7.7); Basophil# 0.03 X10^3/uL; Basophil% 0.5 % (0-1); Eosinophil# 0.14 X10^3/uL; Eosinophils% 2.3 % (0-5); Hematocrit 26.6 % (40-54); Hemoglobin 9.2 g/dL (13.0-16.5); Lymphocyte # 0.87 X10^3/ul (4.0); Lymphocyte % 14.2 % (19-41); Mean Corp Hgb Conc 34.6 g/dL (32-36); Mean Corpuscular Hgb 34.6 pg (27.0-32.0); Mean Platelet Vol. 9.4 fl (6.2-12.0); Monocyte% 14.7 % (0-10); NRBC Flagged by Analyzer 0 % (0-5); Neutrophil # 4.12 X10^3/uL (2.7-7.7); Platelet Count 121 K/mm3 (150-450); RBC Distribution Width CV 12.8 % (11.6-14.6); RBC Distribution Width SD 46.6 fl (35.1-43.9); Red Blood Count 2.66 M/mm3 (4.6-6.2); White Blood Count 6.1 K/mm3 (4.4-11.0)
[2018-10-11 01:50] LABS: Anion Gap 5 (5-15); BUN 26 mg/dL (7-18); BUN/Creat Ratio 16.7 RATIO (10-20); Calcium,Total 8.4 mg/dL (8.5-10.1); Chloride 103 mmol/L (98-107); Creatinine, Serum 1.56 mg/dL (0.70-1.30); EST Glomerular Filtration Rate 45 mL/min (>60); Est Glom Filt Rate - Afr Amer 55 mL/min (>60); Estimated Creatinine Clearance 31.81 ml/min; Glucose 194 mg/dL (74-106); Potassium 4.6 mmol/L (3.5-5.1); Sodium Level 133 mmol/L (136-145)
--- NOTE | 2018-10-11 01:50 | RAD_ITS ---
HISTORY: PT WITH SOB, COUGH, CONGESTION. SEEN FOR SAME YESTERDAY. REPORTS Tquot;I'M FEELING WORSE TODAY.Tquot; WEAKNESS. EXAMINATION/TECHNIQUE: XR AP and lateral upright 2 views COMPARISON: 10/10/2018 FINDINGS: EKG leads in place. Enlarging right pleural effusion. Bibasilar atelectatic changes, worse on the right. Normal heart size. The pulmonary vascularity shows no overt congestion. No pneumothorax. Remote fracture of the posterior left fifth rib. Atherosclerotic thoracic aorta. RAD/Chest PA and Lateral IMPRESSION: Enlarging right pleural effusion with bibasilar atelectatic changes, worse on the right. at 0412 Reported and signed by: Antelmo Schultz MD Electronically Signed: Antelmo Schultz, at 4:10 EDT Tel , Service support ,
--- NOTE | 2018-10-11 02:21 | CT_ITS ---
STUDY: CTA CHEST REASON FOR EXAM: Male, 83 years old. Dyspnea RADIATION DOSAGE (If Supplied By Facility): CTDIvol = ( 13.80 ) mGy, DLP = ( 399.02 ) mGycm TECHNIQUE: The examination was performed with the intravenous administration of 100 IV Isovue 370. Post-processing of the angiographic images was performed, with multiplanar reformation and 3D reconstruction. Individualized dose optimization techniques were used for this CT. COMPARISON: None. FINDINGS: Normal enhancement of the main pulmonary artery and right and left pulmonary arteries. Normal enhancement of the bilateral peripheral pulmonary arteries. There is no demonstrated pulmonary embolism. Normal thoracic aorta and visualized great vessels. There is no demonstrated aortic dissection. Normal heart and pericardium. Normal mediastinum. Normal hilar regions. Normal visualized trachea and bronchi. Subsegmental atelectases in the right and left lung bases Normal pulmonary parenchyma. Small right pleural effusion. Normal chest wall structures. Healing left fifth, sixth, seventh, eighth, ninth, 10th rib fractures. Normal visualized upper abdomen. CT/CTA Chest W/WO Contrast IMPRESSION: No demonstrated pulmonary embolism or arterial dissection. Small right pleural effusion. Healing left fifth, sixth, seventh, eighth, ninth, 10th rib fractures. Electronically Signed: Chela Hinojosa, at 4:41 EDT Tel , Service support ,
--- NOTE | 2018-10-11 05:49 | HP.PCM_ITS ---
Problem List (1) Pleural effusion Status: Acute (2) Essential (primary) hypertension Status: Chronic History of Present Illness Date of Admission: 10/11/18 Chief Complaint: shortness of breath The patient is a 83 year old M with a significant history of hypertension; diabetes mellitus; CAD status post stent who had a cholecystectomy 1 week ago presenting with shortness of breath that started 2 days ago. Shortness of breath occurs at rest and is increased excessively with exertion. At the emergency department with ambulation his oxygen saturation dropped to 81%. However on 2 L with rest his oxygen saturation was in the high 90s. Associated with his symptoms is cough that has been going on for 4 days. His cough is unproductive but it sounds wet. His daughter reported 2 episodes where patient was shaking. However his daughter who is a nurse does not think that that was rigors. Patient was at the emergency department the day before before this presentation and was diagnosed with a pleural effusion and acute bronchitis. He was given a Z-Vic for which he took 2 doses before this presentation. On this presentation chest x-ray showed enlarging right pleural effusion with bibasilar atelectatic changes worse on the right. Chest CT was interpreted as small right pleural effusion with some healing rib fractures. On presentation on previous day chest x-ray was interpreted as small bilateral pleural effusion. Past Medical History Past Medical History (Chronic Problems): Chronic Problems (Last Reviewed 10/11/18 @ 06:37 by Lonnie Blankenship MD) Hypomagnesemia (Chronic) Bifascicular block (Chronic) 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, LAFB History of coronary artery stent placement (Chronic 03/19/05) VGV-GVE-Xxocte RCA 03/03/2005; RMK-PWL-Bcxu LAD 03/19/2005 Essential (primary) hypertension (Chronic) Hyperlipidemia (Chronic) Atherosclerotic heart disease of [place] coronary artery without angina pectoris (Chronic) SRX-BKP-Vgpzbi RCA 03/03/2005; TFD-DVX-Iygy LAD 03/19/2005 Medical History: Medical History (Last Reviewed 10/11/18 @ 06:37 by Lonnie Blankenship MD) Hypomagnesemia (Chronic) E83.42 Bifascicular block (Chronic) I45.2 Right bundle branch block (RBBB) (Chronic) I45.10 Bradycardia, LAFB Essential (primary) hypertension (Chronic) I10 Hyperlipidemia (Chronic) E78.5 Atherosclerotic heart disease of [place] coronary artery without angina pectoris (Chronic) I25.10 GGZ-FWQ-Yuconk RCA 03/03/2005; NPG-PLK-Lwmn LAD 03/19/2005 CKD (chronic kidney disease) N18.9 GERD (gastroesophageal reflux disease) K21.9 Hypochromic anemia D50.9 Obstructive sleep apnea G47.33 SAH (subarachnoid hemorrhage) Onset Date: 1995 I60.9 TIA (transient ischemic attack) G45.9 Type 2 diabetes mellitus E11.9 Allergies amoxicillin Allergy (Severe, Verified 10/11/18 00:54) unknown Tetanus Vaccines and Toxoid Allergy (Severe, Verified 10/11/18 00:54) unknown Thiazides Adverse Reaction (Verified 10/11/18 00:54) Other CAUSES LOW MAG Home Medications: Ambulatory Orders Medication Instructions Recorded clopidogrel 75 mg tablet 75 mg PO QDAY 03/09/17 esomeprazole magnesium 20 mg 20 mg PO QDAY cap 03/09/17 capsule,delayed release ferrous sulfate 325 mg (65 mg 324 mg PO QDAY tab 03/09/17 iron) tablet,delayed release multivitamin tablet 1 tab PO QDAY 03/09/17 pravastatin 80 mg tablet 80 mg PO QHS 03/09/17 calcium carbonate-vitamin D3 600 1 tab PO BID 09/08/17 mg (1,500 mg)-800 unit tablet Aspirin E.C. [Ecotrin] 81 mg PO DAILY@0800 03/20/18 amlodipine 5 mg tablet 5 mg PO DAILY #90 tab 04/28/18 magnesium 400 mg (as magnesium 800 mg PO TID tab 04/28/18 oxide) tablet metoprolol tartrate 50 mg tablet 50 mg PO BID #90 tab 04/28/18 Etodolac [Lodine] 300 mg PO BIDCM 10/03/18 Tamsulosin HCl [Flomax] 0.4 mg PO BID 10 Days #20 cap 10/05/18 Albuterol Inhaler [Ventolin Hfa] 1 - 2 puff INHALATION Q4H PRN PRN 10/10/18 #1 inhaler Azithromycin 250 mg PO DAILY #4 tab 10/10/18 Surgical History: Surgical History (Last Reviewed 10/11/18 @ 06:37 by Lonnie Blankenship MD) History of coronary artery stent placement (Chronic) Onset Date: 03/19/05 Z95.5 IRS-TXB-Cgauxa RCA 03/03/2005; LOG-SEG-Pgyu LAD 03/19/2005 History of inguinal hernia repair Onset Date: ~09/2018 Z98.890, Z87.19 Surgical History: cholecystectomy, - - Cardiac stents. Psychiatric History: No pertinent psych hx Lives: With Family Smoking Status: Former smoker Alcohol: None Drugs: None - *Family History Maternal Family History: Family History (Last Reviewed 10/11/18 @ 06:38 by Lonnie Blankenship MD) Father Hypertension Mother Heart disease Congestive heart failure Diabetes Sister ruptured brain aneurysm History Items: - - Mother with history of congestive heart failure, diabetes, heart disease. Paternal Family History: Family History (Last Reviewed 10/11/18 @ 06:38 by Lonnie Blankenship MD) Father Hypertension Mother Heart disease Congestive heart failure Diabetes Sister ruptured brain aneurysm History Items: - - Father with a history of hypertension. Sibling Family History: Family History (Last Reviewed 10/11/18 @ 06:38 by Lonnie Blankenship MD) Father Hypertension Mother Heart disease Congestive heart failure Diabetes Sister ruptured brain aneurysm History Items: - - Sister with a history of ruptured brain aneurysm at age 50. Review of Systems Constitutional: Denies: Weight Change HEENT: Denies: Head Aches, Sinus Congestion, Sinus Drainage Cardiovascular: Denies: Chest Pain, Palpitations Respiratory: Reports: Cough, Shortness of breath at rest. Denies: Sputum production Gastrointestinal: Denies: Abdominal Pain, Nausea, Vomiting Genitourinary: Denies: Dysuria Musculoskeletal: Denies: Joint Pain, Joint Tenderness Skin: Denies: Rash, Wounds Neurological: Denies: Numbness, Tingling, Focal weakness Psychiatric: Denies: Anxiety, Depression, Homicidal Ideations, Suicidal Ideations Hematologic/ Lymphatic: Denies: Easy Bruising, Easy Bleeding VTE Information - Inpt Only VTE Present on Admission: No VTE Mechan Device Prophylaxis: SCD's VTE Pharm Prophylaxis ordered?: No Patient Problems: Active and Suspected Problems (Last Reviewed 10/11/18 @ 06:37 by Lonnie Blankenship MD) Pleural effusion (Acute) Hypoxia (Acute) - Physical Exam General: Alert, Oriented x3, Cooperative HEENT: Atraumatic, PERRLA, EOMI, Normocephalic Neck: Supple, Trachea Midline Lungs: Diminished - Right base, Tachypneic Cardiovascular: Regular rate, No murmurs Abdomen: Bowel Sounds Present, Soft, Non Tender Extremities: Capillary Refill Less than 3 Seconds, Edema - Bilateral lower extremity; right worse than left. Skin: No rashes, No breakdown Musculoskeletal: No Tenderness to Palpation of Joints or Extremities Neurological: Cranial nerves II-XII grossly intact - except that patient is hard of hearing. Psych/Mental Status: Normal Affect, Appropriate Vital Signs Temp Pulse Resp BP Pulse Ox 97.7 F L 73 22 H 149/86 H 99 10/11/18 00:54 10/11/18 05:12 10/11/18 05:12 10/11/18 05:12 10/11/18 05:12 Oxygen Flow Rate (L/min) 2 Oxygen Delivery Method Nasal Cannula Weight: 95.3 kg Body Mass Index (BMI) 33.9 Finger Stick Blood Glucose 218 Laboratory Tests Past 24 Hrs 10/11/18 10/11/18 10/11/18 01:25 01:25 01:25 WBC 6.1 RBC 2.66 L Hgb 9.2 L Hct 26.6 L MCV 100.0 H MCH 34.6 H MCHC 34.6 RDW Std Deviation 46.6 H RDW Coeff of Mohini 12.8 Plt Count 121 L MPV 9.4 Immature Gran % (Auto) 1.300 H Neut % (Auto) 67.0 Lymph % (Auto) 14.2 L Dickson % (Auto) 14.7 H Eos % (Auto) 2.3 Baso % (Auto) 0.5 Absolute Neuts (auto) 4.1 Absolute Lymphs (auto) 0.87 Absolute Nucleated RBC 0.00 Nucleated RBC % 0 Sodium 133 L Potassium 4.6 Chloride 103 Carbon Dioxide 25.0 Anion Gap 5 BUN 26 H Creatinine 1.56 H Estim Creat Clear Calc 31.81 Est GFR (MDRD) Af Amer 55 L Est GFR (MDRD) Non-Af 45 L BUN/Creatinine Ratio 16.7 Glucose 194 H Calcium 8.4 L Troponin I < 0.015 B-Natriuretic Peptide 78.0 Assessment/Plan All Active Problems (Last Reviewed 10/11/18 @ 06:37 by Lonnie Blankenship MD) Pleural effusion (Acute) Hypoxia (Acute) Emphysematous cholecystitis (Resolved) Hypomagnesemia (Resolved) The patient is a 83 year old M with a significant history of hypertension; diabetes mellitus; CAD status post stent who had a cholecystectomy 1 week ago presenting with shortness of breath at rest that increases markedly with exertion and with radiographic findings of bilateral pleural effusion right worse than left; and with recently diagnosed acute bronchitis and with bandemia. Pleural effusion Right more than left Ultrasound thoracentesis of the right lung with fluid studies including glucose; total protein; LDH; and cytology.. Serum LDH and total protein ordered. PT/INR ordered. Hold aspirin and Plavix for now. Acute bronchitis Patient was started on Z-Vic outpatient. Most likely patient dyspnea is because of pleural effusion. However because of bandemia noted on labs and because of 2 episodes of shakiness (her daughter thought that it is not from Rigors) we will continue patient on azithromycin regimen. Will azithromycin 500 mg every day. The patient does not appear very sick and does not appear to have sepsis. His tachypnea is likely due to his pleural effusion. And his bandemia could be reactive from pleural effusion. Trend CBC Atelectasis Chest CTA findings with bilateral atelectasis. Incentive spirometer ordered. Urinary Retention with Jennings On his admission on 10/03/2018 patient was discharged home on Jennings catheter and he was supposed to follow up outpatient for follow removal. Patient was then started on Flomax . Continue Jennings catheter. Consider evaluation for Jennings removal. Diabetes mellitus On presentation his blood glucose was not within goal. Accu-Chek before meals at bedtime with correction scale ordered. Of note patient is not on home insulin and is at risk for hypoglycemia. Hypoglycemia orders per protocol. CAD status post stents Last stent was about 13 years ago. Aspirin and Plavix on hold secondary to planned thoracentesis Pravastatin continued Hypertension On presentation his blood pressure was stable in regard to his age Metoprolol continued Trend blood pressure and adjust blood pressure medication Hyponatremia On presentation his sodium was 133. This appears chronic. On presentation patient had normal saline infusion in the emergency department. Trend BMP Hypocalcemia On presentation his calcium was 8.4, mildly low. Trend BMP. History of hypomagnesemia Monthly supplementation continued Check magnesium level. Bilateral left shoulder On home NSAIDs, etodolac, continued. CKD stage III Stable GERD PPI continued. DVT prophylaxis; No chemical thromboprophylaxis at this time because of plan thoracentesis SCD ordered CODE STATUS/Goals of care: Patient is a full code. However, he does not want life sustaining measures for a long time. Her POA is her daughter, Teressa Troncoso who is a nurse: and was with patient at the emergency department. Her daughter was answering most of the questions. Her daughter, Lena Troncoso is available on phone ([phone]) if need be Patient is very hard of hearing and her daughter was answering most questions and providing history. Code Visit OBSV E&M: [id number] Initial observation care L3
[2018-10-11 06:35] LABS: Magnesium 1.4 mg/dL (1.6-2.6)
--- NOTE | 2018-10-11 06:36 | NURSING ---
305 DR TAM RT PLEURAL EFFUSION
[2018-10-11 06:50] LABS: Globulin 2.9 g/dL (2.2-4.2); LDH 218 U/L (87-241); Protein, Total 5.8 g/dL (6.4-8.2)
[2018-10-11] MEDS: Insulin Lispro 100 UNIT/ML INSULN.PEN SC ×4 (06:57→21:25)
[2018-10-11] MEDS: Acetaminophen 325 MG Tablet 650 MG PO (06:58)
[2018-10-11 07:01] LABS: Bedside Glucose 165 mg/dL (70-110)
[2018-10-11] MEDS: Aspirin E.C. 81 MG Tablet PO (08:13)
[2018-10-11] MEDS: Ferrous Sulfate 325 MG Tablet PO (08:13)
[2018-10-11] MEDS: Etodolac 300 MG Capsule PO ×2 (08:13→16:31)
[2018-10-11] MEDS: Multivitamins,Therapeutic Tablet 1 TABLET PO (08:13)
--- NOTE | 2018-10-11 09:01 | PCM.PN.BLA ---
Progress Note 83-year-old male who is status post laparoscopic cholecystectomy a week ago comes in with progressive shortness of breath. He was found to have bilateral pleural effusions, which was reported on x-ray as being worse. He had a CTA of the chest that showed small right pleural effusion. He complains of cough ongoing for about 3 days, nonproductive. Denies any fever or chills. On Azithromycin. Patient's vitals are stable. Saturating 100% on 2 L oxygen Lung exam: diminished air entry in both lower lung zones Abdominal exam shows laparoscopic dressing, minimally soiled. Jennings catheter in situ We will wean off oxygen Continue to encourage use of incentive spirometer Encourage ambulation and out of bed to chair, Ambulatory oxygen evaluation
--- NOTE | 2018-10-11 09:52 | PCM.PN.BLA ---
Progress Note Patient status post laparoscopic cholecystectomy admitted due to shortness of breath. CTA did not show any PE only small right pleural effusion, too small for thoracentesis. Patient states his breathing is much better currently, only on 2 L nasal cannula. Patient did have urinary retention after his laparoscopic cholecystectomy did attempt to remove his Jennings last Thursday; however after 7 hours he was unable to urinate and still had 450 cc when the Jennings was placed back in. Was planning for urology follow-up. Discussed with Dr. Villagran she was agreeable to have patient to get an appointment with urology?Dr. Robles prior to discharge. Patient's abdomen soft, nondistended, incisions healing well with Steri's and resolving ecchymosis at incision sites, patient complains of minimal tenderness to palpation below the ribs, no peritoneal signs. Upon discharge patient should follow-up in the office of Dr. Ritter in about a week. yKra Warner M.D. Pager: [phone] [facility] [address] [place] [address], [facility], [address] [place] [address] Office: [phone]
[2018-10-11] MEDS: Tamsulosin HCl 0.4 MG Capsule PO ×2 (11:19→21:24)
[2018-10-11] MEDS: Metoprolol Tartrate 50 MG Tablet PO ×2 (11:19→21:24)
[2018-10-11] MEDS: Calcium Carb/Vitamin D 1 TABLET Tablet PO ×2 (11:20→21:24)
[2018-10-11] MEDS: amLODIPine 5 MG Tablet PO (11:20)
[2018-10-11] MEDS: Azithromycin 250 MG Tablet 500 MG PO (11:21)
[2018-10-11] MEDS: Pantoprazole Sodium 20 MG Tablet PO (11:25)
[2018-10-11 11:40] LABS: Bedside Glucose 185 mg/dL (70-110)
--- NOTE | 2018-10-11 11:54 | CASEMGMT ---
RN CM Assessment Introduced role of RN CM to patient.? Patient is alert, oriented and able?to participate in RN CM Assessment. ?Care providers, pharmacy, and demographics verified. Patient with recent OBS admission and DCP/IA done at that time, verified with patient that nothing has changed since last admit. 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 ER 10/09/18 for SOB Barriers/Issues: None. [facility] 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 Senia morton works for [employer] and states her 2 sisters work here. PCP: Ana María Mazariegos Specialists: Cardio- Dr Coreas Preferred Pharmacy: [facility] Insurance: [employer] CallMD Rx Benefit:?Yes ?LNOK: Dtr Teressa Troncoso LW/HPOA: [facility] has both, aware not on file at [facility], HPOA- Dtr Teressa Troncoso Living Arrangements:?Lives with Dtr in a Bi [place] home, states he stays on the Lower Level. No steps to enter home. ADL?s: Uses a Rollator to walk, Independent with ADLs Transportation: Patient drives, D/C with Dtr Teressa DME: Rollator, Shower Chair, TSR, Hand Rails HHC: Past- [facility] SNF: Past- [place] Goal: Home and does not think will have any needs. Denies any issues, concerns or questions. Aware CM remains available for any emerging needs. DC PLAN: Home with no anticipated needs identified at this time. KYLE Young
[2018-10-11] MEDS: Magnesium Oxide 400 MG Tablet 800 MG PO ×2 (14:44→21:25)
--- NOTE | 2018-10-11 15:26 | CASEMGMT ---
Social Work Note Per composition stone applicator questions, pt has completed both LW and HCPOA and haven't provided copy to [facility]. Per RN DONA John note pt is aware documents are not on file at [facility]. Mena Medel VP PRODUCTION, CONTROL SPECIALIST
[2018-10-11 16:41] LABS: Bedside Glucose 154 mg/dL (70-110)
[2018-10-11] MEDS: Pravastatin 80 MG Tablet PO (21:24)
[2018-10-11 22:45] LABS: Bedside Glucose 163 mg/dL (70-110)
[2018-10-12] VITALS (8 sets, daily range): BP systolic 119–142; BP diastolic 53–63; PULSE 61–73; RESP 18–22; TEMP 36.3–36.9; O2SAT 89–97
[2018-10-12] MEDS: Acetaminophen 325 MG Tablet 650 MG PO (02:48)
[2018-10-12 05:39] LABS: International Normalized Ratio 1.1
[2018-10-12 05:45] LABS: Absolute Neutrophil Count 4.4 X10^3/uL (2.0-7.7); Basophil# 0.03 X10^3/uL; Basophil% 0.5 % (0-1); Eosinophil# 0.15 X10^3/uL; Eosinophils% 2.4 % (0-5); Hematocrit 26.5 % (40-54); Hemoglobin 9.1 g/dL (13.0-16.5); Mean Corp Hgb Conc 34.3 g/dL (32-36); Mean Corpuscular Hgb 34.7 pg (27.0-32.0); Mean Corpuscular Volume 101.1 fL (80-94); Mean Platelet Vol. 9.8 fl (6.2-12.0); Monocyte# 0.71 X10^3/uL; Monocyte% 11.6 % (0-10); NRBC Flagged by Analyzer 0 % (0-5); Neutrophil # 4.41 X10^3/uL (2.7-7.7); Neutrophil % 71.8 % (47-70); Platelet Count 135 K/mm3 (150-450); RBC Distribution Width CV 12.7 % (11.6-14.6); RBC Distribution Width SD 46.9 fl (35.1-43.9); Red Blood Count 2.62 M/mm3 (4.6-6.2); White Blood Count 6.1 K/mm3 (4.4-11.0)
[2018-10-12 05:53] LABS: Anion Gap 7 (5-15); BUN 25 mg/dL (7-18); BUN/Creat Ratio 16.8 RATIO (10-20); Calcium,Total 8.6 mg/dL (8.5-10.1); Chloride 102 mmol/L (98-107); Creatinine, Serum 1.49 mg/dL (0.70-1.30); EST Glomerular Filtration Rate 48 mL/min (>60); Est Glom Filt Rate - Afr Amer 58 mL/min (>60); Glucose 145 mg/dL (74-106); Potassium 5.1 mmol/L (3.5-5.1); Sodium Level 136 mmol/L (136-145)
[2018-10-12] MEDS: Magnesium Oxide 400 MG Tablet 800 MG PO ×2 (06:46→13:14)
[2018-10-12 06:55] LABS: Bedside Glucose 137 mg/dL (70-110)
[2018-10-12] MEDS: Ferrous Sulfate 325 MG Tablet PO (07:29)
[2018-10-12] MEDS: Aspirin E.C. 81 MG Tablet PO (07:29)
[2018-10-12] MEDS: Etodolac 300 MG Capsule PO (07:33)
[2018-10-12] MEDS: Multivitamins,Therapeutic Tablet 1 TABLET PO (07:33)
--- NOTE | 2018-10-12 09:34 | DCINST_ITS ---
- Discharge Diagnoses Current Active Problems: Current Active and Chronic Problems (Last Reviewed 10/11/18 @ 06:37 by Lonnie Blankenship MD) Pleural effusion (Acute) Hypoxia (Acute) Reason(s) for Visit for Discharge Instructions: Shortness of breath You will use the following diet at home:: Cardiac Your food should be the consistency of: Regular Your liquids should be the consistency of: Regular/Thin Discharge Activity: Return to Normal Activity Instructions: Pleural Effusion Additional Instructions: Continue to use your incentive spirometer every 1 hour once a week. Continue to use your Acapella as instructed. You are being discharged with home health care. You should complete your antibiotics, last dose of 10/13/18. You should follow-up with Dr. Robles(urology) on 10/14/18 as scheduled. Follow-up with general surgery in 1 week. Allergies/Adverse Reactions: Allergies amoxicillin Allergy (Severe, Verified 10/11/18 00:54) unknown Tetanus Vaccines and Toxoid Allergy (Severe, Verified 10/11/18 00:54) unknown Thiazides Adverse Reaction (Verified 10/11/18 00:54) Other CAUSES LOW MAG Medications to take at Discharge clopidogrel 75 mg tablet 75 mg PO QDAY 03/09/17 esomeprazole magnesium 20 mg capsule,delayed release 20 mg PO QDAY cap 03/09/17 ferrous sulfate 325 mg (65 mg iron) tablet,delayed release 324 mg PO QDAY tab 03/09/17 multivitamin tablet 1 tab PO QDAY 03/09/17 pravastatin 80 mg tablet 80 mg PO QHS 03/09/17 calcium carbonate-vitamin D3 600 mg (1,500 mg)-800 unit tablet 1 tab PO BID 09/08/17 Aspirin E.C. [Ecotrin] 81 mg PO DAILY@0800 03/20/18 amlodipine 5 mg tablet 5 mg PO DAILY #90 tab 04/28/18 magnesium 400 mg (as magnesium oxide) tablet 800 mg PO TID tab 04/28/18 metoprolol tartrate 50 mg tablet 50 mg PO BID #90 tab 04/28/18 Etodolac [Lodine] 300 mg PO BIDCM 10/03/18 Tamsulosin HCl [Flomax] 0.4 mg PO BID 10 Days #20 cap 10/05/18 Albuterol Inhaler [Ventolin Hfa] 1 - 2 puff INHALATION Q4H PRN PRN #1 inhaler 10/10/18 Acetaminophen [Tylenol Tablet] 650 mg PO Q6H PRN PRN tab 10/12/18 Azithromycin 250 mg PO DAILY #1 tab 10/12/18 Please follow up with your Primary Care Physician in: In 1 to 2 weeks Test Results: Test results from this visit will be discussed in further detail at your follow- up appointment, if applicable. Please Follow Up With: Jorge Robles MD When: as scheduled on 10/14/18 Please Follow Up With: Roger Ritter MD When: in 1 week Proposed Discharge Date: 10/12/18
--- NOTE | 2018-10-12 09:38 | DS.PCM_ITS ---
Discharge Date and Diagnosis - Problem List Patient Problems: Active and Suspected Problems (Last Reviewed 10/11/18 @ 06:37 by Lonnie Blankenship MD) Pleural effusion (Acute) Hypoxia (Acute) Date of Admission: 10/11/18 Date of Discharge: 10/12/18 - Primary Discharge Diagnosis Active and Suspected Problems (Last Reviewed 10/11/18 @ 06:37 by Lonnie Blankenship MD) Pleural effusion (Acute) Hypoxia (Acute) secondary to atelectasis Acute bronchitis Hyponatremia, resolved - Secondary Discharge Diagnosis Chronic Problems (Last Reviewed 10/11/18 @ 06:37 by Lonnie Blankenship MD) Hypomagnesemia (Chronic) Bifascicular block (Chronic) 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, LAFB History of coronary artery stent placement (Chronic 03/19/05) [id number] RCA 03/03/2005; [id number] LAD 03/19/2005 Essential (primary) hypertension (Chronic) Hyperlipidemia (Chronic) Atherosclerotic heart disease of [place] coronary artery without angina pectoris (Chronic) [id number] RCA 03/03/2005; [id number]-[id number] LAD 03/19/2005 Hospital Course and Treatment Imaging Results: 10/15/18 08:00 Thoracentesis W US [US] Routine Operations: None Procedures: None Summary of Care Provided: The patient is a 83 year old M with past medical history of CAD status post stent, who was recently discharged 1 week ago after laparoscopic cholecystectomy who comes in with progressive shortness of breath. He was found to have bilateral pleural effusions, which was reported on x-ray as being worse. He had a CTA of the chest that showed small right pleural effusion. He also had hyponatremia, which resolved with IVF during his hospital stay. Patient was recently started on azithromycin for acute bronchitis by his PCP. He was managed initially on oxygen and encouraged to use incentive spirometer. Patient was off oxygen less than 24 hours into his stay. He was continued on azithromycin. He was seen by general surgery who examined his post op incisional sites which were clean, dry. Patient had a Swanson catheter in situ and it was recommended that he keeps it in and follows up with urology in 2 days time. Patient was evaluated on day of discharge for ambulatory oxygen and did not qualify for home oxygen. It was stressed to him the importance of using his incentive spirometer. This was communicated to the daughter at the bedside and also to his daughter, who is the HCPOA on phone. He will complete his azithromycin on 10/13/18. He will see urology on 10/14/18. Patient Problems: Active and Suspected Problems (Last Reviewed 10/11/18 @ 06:37 by Lonnie Blankenship MD) Pleural effusion (Acute) Hypoxia (Acute) Subjective: On the day of discharge, patient was seen and examined. He feels well. Denies any new complains. He was ambulated and did not qualify for home oxygen. - Physical Exam General: Alert, Oriented x3, Cooperative, No apparent distress HEENT: Atraumatic, PERRLA, EOMI, Normocephalic, - - hearing aid, left ear Oral: Moist Mucosa Neck: Supple Lungs: Normal air movement, Diminished Cardiovascular: Regular rate, Regular Rhythm, Normal S1, Normal S2, No murmurs Abdomen: Bowel Sounds Present, Soft, Non Tender, Non-Distended, No Hepato- splenomegaly, - - swanson catheter in situ, steri-strips on anterior abdominal wall. Extremities: No edema Skin: No rashes, No breakdown Musculoskeletal: No Tenderness to Palpation of Joints or Extremities Lymphatic: No Cervical, Supraclavicular, or Inguinal Adenopathy Neurological: Cranial nerves II-XII grossly intact, Neuro grossly intact Psych/Mental Status: Normal Affect, Appropriate Vital Signs Temp Pulse Resp BP Pulse Ox 98.4 F 64 20 H 142/63 H 89 10/12/18 07:24 10/12/18 07:24 10/12/18 07:24 10/12/18 07:24 10/12/18 08:57 Oxygen Flow Rate (L/min) 0.5 Oxygen Delivery Method Room Air Weight: 90.889 kg Body Mass Index (BMI) 32.3 Finger Stick Blood Glucose 218 Intake and Output for Last 24 Hours 10/10/18 10/11/18 10/12/18 23:59 23:59 23:59 Intake Total 1130 / 1130 Output Total 1650 / 1650 Balance -520 / -520 Laboratory Tests Past 24 Hrs 10/12/18 10/12/18 10/12/18 05:04 05:04 05:04 WBC 6.1 RBC 2.62 L Hgb 9.1 L Hct 26.5 L MCV 101.1 H MCH 34.7 H MCHC 34.3 RDW Std Deviation 46.9 H RDW Coeff of [place] 12.7 Plt Count 135 L MPV 9.8 Immature Gran % (Auto) 0.700 Neut % (Auto) 71.8 H Lymph % (Auto) 13.0 L [place] % (Auto) 11.6 H Eos % (Auto) 2.4 Baso % (Auto) 0.5 Absolute Neuts (auto) 4.4 Absolute Lymphs (auto) 0.80 L Absolute Nucleated RBC 0.00 Nucleated RBC % 0 PT 14.0 INR 1.1 Sodium 136 Potassium 5.1 Chloride 102 Carbon Dioxide 27.0 Anion Gap 7 BUN 25 H Creatinine 1.49 H Estim Creat Clear Calc 33.30 Est GFR (MDRD) Af Amer 58 L Est GFR (MDRD) Non-Af 48 L BUN/Creatinine Ratio 16.8 Glucose 145 H Calcium 8.6 POC Glucose 10/12/18 10/11/18 10/11/18 06:43 21:24 16:26 POC Glucose 137 H 163 H 154 H 10/11/18 11:17 POC Glucose 185 H Discharge Diet: Low fat/ Low Cholesterol, 2000 mg Sodium Diet Discharge Activity: Return to Normal Activity Home Medications: Medications to take at Discharge clopidogrel 75 mg tablet 75 mg PO QDAY 03/09/17 esomeprazole magnesium 20 mg capsule,delayed release 20 mg PO QDAY cap 03/09/17 ferrous sulfate 325 mg (65 mg iron) tablet,delayed release 324 mg PO QDAY tab 03/09/17 multivitamin tablet 1 tab PO QDAY 03/09/17 pravastatin 80 mg tablet 80 mg PO QHS 03/09/17 calcium carbonate-vitamin D3 600 mg (1,500 mg)-800 unit tablet 1 tab PO BID 09/08/17 Aspirin E.C. [Ecotrin] 81 mg PO DAILY@0800 03/20/18 amlodipine 5 mg tablet 5 mg PO DAILY #90 tab 04/28/18 magnesium 400 mg (as magnesium oxide) tablet 800 mg PO TID tab 04/28/18 metoprolol tartrate 50 mg tablet 50 mg PO BID #90 tab 04/28/18 Etodolac [Lodine] 300 mg PO BIDCM 10/03/18 Tamsulosin HCl [Flomax] 0.4 mg PO BID 10 Days #20 cap 10/05/18 Albuterol Inhaler [Ventolin Hfa] 1 - 2 puff INHALATION Q4H PRN PRN #1 inhaler 10/10/18 Acetaminophen [Tylenol Tablet] 650 mg PO Q6H PRN PRN tab 10/12/18 Azithromycin 250 mg PO DAILY #1 tab 10/12/18 Primary Care Physician: Ana María Mazariegos, [Primary Care Provider] - Please follow up with your Primary Care Physician in: In 1 to 2 weeks Please Follow Up With: Jorge Robles MD When: as scheduled on 10/14/18 Please Follow Up With: Roger Ritter MD When: in 1 week Patient Instructions: Pleural Effusion Disposition: Home Minutes spent on discharge:: 40 Patient Condition:: Stable Medical Necessity - Tobacco Use Smoking Status: Former smoker Tobacco Use: Non-smoker Meaningful Use Info Meaningful Use Diagnoses (Choose all that apply): None applicable Code Visit OBSV E&M: 05694 Observation care discharge
[2018-10-12 10:00] LABS: Magnesium 2.1 mg/dL (1.6-2.6)
[2018-10-12] MEDS: Azithromycin 250 MG Tablet 500 MG PO (10:07)
[2018-10-12] MEDS: Calcium Carb/Vitamin D 1 TABLET Tablet PO (10:07)
[2018-10-12] MEDS: Metoprolol Tartrate 50 MG Tablet PO (10:07)
[2018-10-12] MEDS: Tamsulosin HCl 0.4 MG Capsule PO (10:07)
[2018-10-12] MEDS: amLODIPine 5 MG Tablet PO (10:08)
[2018-10-12] MEDS: Pantoprazole Sodium 20 MG Tablet PO (10:09)
--- NOTE | 2018-10-12 10:28 | CASEMGMT ---
RN CM NOTE: Reviewed PT/OT evals/notes. Additional therapy is recommended. RN CM in to talk with pt. Introduced self and role of RN CM. Discussed therapies recommendations. Pt states he is agreeable to [facility] and states prefers [facility]. Call placed to Oumou @ [facility] and referral made. She was made aware pt is discharging today 10/12. Muna ISAAC RN CM
[2018-10-12] MEDS: Insulin Lispro 100 UNIT/ML INSULN.PEN SC (11:36)
[2018-10-12 11:46] LABS: Bedside Glucose 247 mg/dL (70-110)
--- NOTE | 2018-10-13 14:07 | CASEMGMT ---
EFREN CARCAMO NOTE: Message received from Muna SCHWARTZ, that pt's daughter, Teressa Troncoso had some questions re: [facility]. Call placed to Teressa @ [phone]. She asked what kind of services pt would be receiving through [facility]. She was made aware it is for PT/OT. She states that pt lives with her and asked that [facility] contact her for appts instead of pt d/t he often forgets what message to relay to her and then she would not know when they were coming. Call placed to Oumou @ [facility] and she was made aware of Teressa's request. She states this is how it is already set up for contacting patient. Oumou states start of care will be tomorrow and they will contact Teressa to schedule the appt. Muna ISAAC RN CM
== END 2018-10-12 16:36 | disposition home health service (06) ==
LOC: ED 04:54 → MS3 06:08
PROVIDERS: Admitting Provider Hospitalist; Emergency Provider Emergency Medicine; Visit Provider Internal Medicine
DX: J90 Pleural effusion, not elsewhere classified (principal); I25.10 Atherosclerotic heart disease of native coronary artery without angina pectoris; E11.22 Type 2 diabetes mellitus with diabetic chronic kidney disease; I12.9 Hypertensive chronic kidney disease with stage 1 through stage 4 chronic kidney disease, or unspecified chronic kidney disease; R33.9 Retention of urine, unspecified; N18.3 Chronic kidney disease, stage 3 (moderate); K21.9 Gastro-esophageal reflux disease without esophagitis; G47.33 Obstructive sleep apnea (adult) (pediatric); E78.5 Hyperlipidemia, unspecified; I45.10 Unspecified right bundle-branch block; Z87.891 Personal history of nicotine dependence; Z79.02 Long term (current) use of antithrombotics/antiplatelets; Z79.899 Other long term (current) drug therapy; Z79.82 Long term (current) use of aspirin; Z95.5 Presence of coronary angioplasty implant and graft; Z86.73 Personal history of transient ischemic attack (TIA), and cerebral infarction without residual deficits; E87.1 Hypo-osmolality and hyponatremia; E83.51 Hypocalcemia
CPT/HCPCS: 36415; 71046; 71275; 80048; 82962; 83615; 83735; 83880; 84156; 84484; 85025; 85610; 93005; 94640; 94667; 96360; 96361; 97162; 97166; 97530; 99218; 99285; J7040; Q9967; A4216; G0378

== ENCOUNTER 2018-10-16 06:08 | Emergency (ER) | payer MEDICARE, SELFPAY ==
[2018-10-11 06:33] VITALS: BMI 32.3
[2018-10-16 06:09] VITALS: BP 163/84; PULSE 78; RESP 14; TEMP 36.4; O2SAT 97; BMI 32.5
--- NOTE | 2018-10-16 06:19 | ED.DCSUM_ITS ---
History of Present Illness Chief Complaint: Complaint Informant: Patient Narrative: She is status post cholecystectomy has been having problems urinating since surgery. He has had a catheter placed multiple times. He recently just had it out. He is having difficulty urinating since midnight last night during his last urination. He has pressure and thinks he might up to urinate but cannot. Denies any other complaints. Current severity is mild to moderate. Followed by urology. - Past Medical History (1) Hypoxia Status: Acute (2) Pleural effusion Status: Acute (3) Atherosclerotic heart disease of [place] coronary artery without angina pectoris Status: Chronic Comment: MWN-IRM-Sfhzlv RCA 03/03/2005; NFG-SVJ-Swys LAD 1 05/20/2004 (4) Bifascicular block Status: Chronic (5) Essential (primary) hypertension Status: Chronic (6) History of coronary artery stent placement Status: Chronic Comment: CHB-GEJ-Vdjrzz RCA 03/03/2005; QJI-ZOO-Bbeu LAD 03/19/2005 (7) Hyperlipidemia Status: Chronic (8) Hypomagnesemia Status: Chronic (9) Right bundle branch block (RBBB) Status: Chronic Comment: Bradycardia, 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 Smoking Status: Former smoker Alcohol: None Drugs: None - Family History Maternal Family History: Family History (Last Reviewed 10/11/18 @ 06:38 by Lonnie Blankenship MD) Father Hypertension Mother Heart disease Congestive heart failure Diabetes Sister ruptured brain aneurysm Family History: Reports: - - Mother with history of congestive heart failure, diabetes, heart disease. Paternal Family History: Family History (Last Reviewed 10/11/18 @ 06:38 by Lonnie Blankenship MD) Father Hypertension Mother Heart disease Congestive heart failure Diabetes Sister ruptured brain aneurysm Family History: Reports: - - Father with a history of hypertension. Sibling Family History: Family History (Last Reviewed 10/11/18 @ 06:38 by Lonnie Blankenship MD) Father Hypertension Mother Heart disease Congestive heart failure Diabetes Sister ruptured brain aneurysm Family History: Reports: - - Sister with a history of ruptured brain aneurysm at age 50. Review of Systems General: Denies: Chills, Fever, Sweats Eyes: Denies: Visual changes - bilaterally, Diplopia ENT: Denies: Rhinorrhea, Sore throat Cardiovascular: Denies: Chest pain, Palpitations Respiratory: Denies: Dyspnea, Cough, Dyspnea on exertion Gastrointestinal: Denies: Abdominal pain, Nausea, Vomiting, Diarrhea, Melena, Hematochezia Genitourinary: Reports: - - See HPI. Denies: Dysuria, Hematuria, Frequency Musculoskeletal: Denies: Back pain, Extremity Pain Skin: Denies: Rash, Wounds Neurological: Denies: Headache, Weakness, Numbness Physical Exam Vital Signs/Narrative: Vital Signs Temp Pulse Resp BP Pulse Ox 10/16/18 06:09 97.6 F L 78 14 163/84 H 97 General: Well nourished, Well developed, No Acute Distress Head: Normocephalic, Atraumatic Eyes: Perrl, EOMI ENT: Moist mucous membranes, No rhinorrhea Neck: Supple, Nontender Cardiovascular: Regular rate, Regular rhythm, No murmurs Respiratory: No distress, CTA bilaterally, Chest nontender Abdomen: Soft, Nontender, Nondistended, Normal bowel sounds, - - Surgical scar clean dry intact Back: Nontender, Normal Inspection Extremities: Nontender, No edema Skin: Normal color, No rash Neurological: Alert, Oriented x3, Cranial nerves II-XII grossly intact, Normal Strength, Normal Sensation Psychological: Normal affect, Normal Mood Diagnostic/Tx/Re-eval - Medical Decision Making Patient underwent bladder scan. Bladder scan shows over 500 mL's. Jennings placed with good flow and resolution of symptoms. Will be discharged to his urologist for follow-up ED Disposition - Plan for ED Patient: Disposition: Home or Assisted Living Diagnosis: Urinary retention Instructions: URINARY RETENTION, Male Referrals: Raquel Villagran MD [Primary Care Provider] - Jorge Robles MD [STAFF PHYSICIAN] -
[2018-10-16 06:46] VITALS: BP 140/68; PULSE 79; RESP 14; O2SAT 97
== END 2018-10-16 06:46 | disposition home or self-care (01) ==
LOC: ED 06:40
PROVIDERS: Emergency Provider Emergency Medicine
DX: R33.9 Retention of urine, unspecified (principal); Z87.891 Personal history of nicotine dependence; Z90.49 Acquired absence of other specified parts of digestive tract; I10 Essential (primary) hypertension; I25.10 Atherosclerotic heart disease of native coronary artery without angina pectoris; E78.5 Hyperlipidemia, unspecified; Z95.5 Presence of coronary angioplasty implant and graft; I45.10 Unspecified right bundle-branch block
CPT/HCPCS: 99282

== ENCOUNTER 2020-01-02 21:33 | Inpatient (IN) | payer MEDICARE, SELFPAY ==
[2020-01-02] MEDS: HEPARIN/D5w 25,000 UNITS 25,000 UNITS/250 ML IV.SOLN. 10 UNITS IV (20:15)
[2020-01-02 20:20] VITALS: BP 102/56; PULSE 70; RESP 17; TEMP 36.5; O2SAT 96
[2020-01-02 20:30] VITALS: PULSE 70
[2020-01-02 21:19] VITALS: BMI 31.5
--- NOTE | 2020-01-02 21:24 | EKG12_ITS ---
Test Reason : STEMI FROM LODI Blood Pressure : / mmHG Vent. Rate : 063 BPM Atrial Rate : 063 BPM P-R Int : 250 ms QRS Dur : 140 ms QT Int : 456 ms P-R-T Axes : 047 -59 013 degrees QTc Int : 466 ms Sinus rhythm with 1st degree A-V block Left axis deviation Right bundle branch block Abnormal ECG When compared with ECG of 11-OCT-2018 01:03, TX interval has increased Confirmed by NOY SILVA, JOSUE ([id number]), editor dictionary NICOLE LOPEZ ([id number]) on 01/04/2020 11:31:51 AM Referred By: Grupo Funez Confirmed By:BELÉN VILLAFUERTE MD
[2020-01-02 21:29] VITALS: BMI 31.5
--- NOTE | 2020-01-02 21:31 | ECHOCS_ITS ---
Reason For Study: NSTEMI Procedure This was a 2D Doppler, Color Flow transthoracic echocardiogram. The study was technically difficult. Exam performed portable in patient room. Left Ventricle Normal LV size. The estimated ejection fraction is 70 %. Diastolic function is indeterminate. No regional wall motion abnormalities noted. Right Ventricle Normal RV size. Normal systolic function. Atria Normal left atrium. Normal right atrium. No doppler evidence for ASD. Mitral Valve There is moderate mitral annular calcification. There is no mitral valve stenosis. Trivial mitral valve insufficiency. Tricuspid Valve There is no tricuspid stenosis. Trivial tricuspid valve insufficiency. Pulmonary artery systolic pressure is 30-35 mmHg. Aortic Valve Aortic sclerosis, no stenosis. There is no aortic stenosis. No aortic valve insufficiency. Pulmonic Valve There is no pulmonic valvular stenosis. No pulmonic valve insufficiency. Great Vessels Normal aortic root. Pericardium/Pleural No pericardial effusion. Medication Diluted definity 4.0ml given slow IV push to enhance endocardial definition. MMode/2D Measurements & Calculations LVIDd: 4.7 cm IVSd: 1.1 cm Ao root diam: 3.3 cm LVIDs: 3.3 cm LVPWd: 1.0 cm RVDd: 3.3 cm FS: 29.2 % LAV(MOD-bp): 60.2 ml LA A4 area: 19.2 cm2 LA dimension(2D): 3.9 cm LAV(MOD-bp) Indexed: 30.4 ml/m2 LAV(MOD-sp2): 66.1 ml LAV(MOD-sp4): 52.1 ml RA A4 area: 10.6 cm2 Doppler Measurements & Calculations Lat Peak E' Duke: 8.4 cm/sec Med Peak E' Duke: 6.5 cm/sec Ao V2 max: 130.5 cm/sec Ao max P.8 mmHg Ao V2 mean: 88.2 cm/sec Ao mean P.5 mmHg Ao V2 VTI: 29.7 cm LV V1 max: 95.7 cm/sec TR max duke: 247.2 cm/sec LV V1 max P.7 mmHg TR max P.6 mmHg LV V1 mean P.6 mmHg LV V1 mean: 59.1 cm/sec LV V1 VTI: 19.2 cm Interpretation Summary The estimated ejection fraction is 70 %. Diastolic function is indeterminate. Trivial mitral valve insufficiency. Aortic sclerosis, no stenosis. Ordering Physician: Grupo Funez Referring Physician: EDUARD KAYE Performed By: Myah Gamboa, SUGAR, RVT
--- NOTE | 2020-01-02 21:34 | HP.PCM_ITS ---
Problem List (1) NSTEMI (non-ST elevated myocardial infarction) Status: Acute (2) Hypomagnesemia Status: Chronic (3) Bifascicular block Status: Chronic (4) Right bundle branch block (RBBB) Status: Chronic Comment: Bradycardia, LAFB (5) History of coronary artery stent placement Status: Chronic Comment: RCF-TVS-Qiyphm RCA 03/03/2005; ZDH-VLV-Zspm LAD 03/19/2005 (6) Essential (primary) hypertension Status: Chronic (7) Hyperlipidemia Status: Chronic Qualifiers: (8) Atherosclerotic heart disease of [place] coronary artery without angina pectoris Status: Chronic Qualifiers: Comment: MNZ-PBK-Cordda RCA 03/03/2005; CRZ-EOZ-Edsm LAD 03/19/2005 History of Present Illness Date of Admission: 01/02/20 Chief Complaint: chest pain The patient is a 84 year old M who states for months that he has been having diarrhea that is been intermittent black and green and has been taking loperamide which has helped. Recently, however it has gotten better. Also over the past few months he has been having chest pain is been intermittent worse with activity and also associated with shortness of breath. Today symptoms were much worse. Went to [facility] and was found to have an ST elevation myocardial infarction. On their scale troponin was greater than 220 and patient was tarted on heparin drip. Patient felt better overall and was transferred to [facility] in stable condition. Patient does have a history of coronary artery disease and last had a stent placed in 2004. [] Past Medical History Past Medical History (Chronic Problems): Chronic Problems (Last Reviewed 04/20/19 @ 15:[address] Carlos Coreas MD) Hypomagnesemia (Chronic) Bifascicular block (Chronic) 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, LAFB History of coronary artery stent placement (Chronic 03/19/05) GLS-WML-Asyfit RCA 03/03/2005; HIK-RDH-Gdlr LAD 03/19/2005 Essential (primary) hypertension (Chronic) Hyperlipidemia (Chronic) Atherosclerotic heart disease of [place] coronary artery without angina pectoris (Chronic) LKD-BKR-Zehxsh RCA 03/03/2005; OME-VEH-Sqqd LAD 03/19/2005 Medical History: Medical History (Last Reviewed 01/02/20 @ 21:[address] Grupo Funez DO) Hypomagnesemia (Chronic) E83.42 Bifascicular block (Chronic) I45.2 Right bundle branch block (RBBB) (Chronic) I45.10 Bradycardia, LAFB Essential (primary) hypertension (Chronic) I10 Hyperlipidemia (Chronic) E78.5 Atherosclerotic heart disease of [place] coronary artery without angina pectoris (Chronic) I25.10 QIQ-BPR-Zhtmyh RCA 03/03/2005; KOV-LUL-Evbo LAD 03/19/2005 CKD (chronic kidney disease) N18.9 GERD (gastroesophageal reflux disease) K21.9 Hypochromic anemia D50.9 Hypomagnesemia E83.42 Obstructive sleep apnea G47.33 SAH (subarachnoid hemorrhage) Onset Date: 1995 I60.9 TIA (transient ischemic attack) G45.9 Type 2 diabetes mellitus E11.9 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 Allergies amoxicillin Allergy (Severe, Verified 10/21/19 15:40) unknown Tetanus Vaccines and Toxoid Allergy (Severe, Verified 10/21/19 15:40) unknown Thiazides Adverse Reaction (Verified 10/21/19 15:40) Other CAUSES LOW MAG Home Medications: Ambulatory Orders Medication Instructions Recorded clopidogrel 75 mg tablet 75 mg PO QDAY 03/09/17 esomeprazole magnesium 20 mg 20 mg PO QDAY cap 03/09/17 capsule,delayed release ferrous sulfate 325 mg (65 mg 324 mg PO QDAY tab 03/09/17 iron) tablet,delayed release multivitamin 1 tab PO QDAY 03/09/17 pravastatin 80 mg tablet 80 mg PO QHS 03/09/17 calcium carbonate-vitamin D3 600 1 tab PO BID 09/08/17 mg (1,500 mg)-800 unit tablet Aspirin E.C. [Ecotrin] 81 mg PO DAILY@0800 03/20/18 Etodolac [Lodine] 300 mg PO BIDCM 10/03/18 Acetaminophen [Tylenol Tablet] 650 mg PO Q6H PRN PRN tab 10/12/18 metoprolol tartrate 50 mg tablet 50 mg PO BID #180 tab 10/19/18 tamsulosin 0.4 mg capsule 0.4 mg PO DAILY 10/19/18 amlodipine 5 mg tablet 5 mg PO DAILY #90 tab 01/27/19 fluticasone propionate 50 1 spray INTRANASAL BID 04/20/19 mcg/actuation nasal spray,suspension lidocaine 4 % topical patch 1 patch TOPICAL DAILY PRN 10/21/19 magnesium oxide 800 mg PO TID tab 10/21/19 Surgical History: Surgical History (Last Reviewed 01/02/20 @ 21:[address] Grupo Funez DO) History of coronary artery stent placement (Chronic) Onset Date: 03/19/05 Z95.5 JZM-LNM-Faejlv RCA 03/03/2005; PXV-JZK-Fupq LAD 03/19/2005 Hx laparoscopic cholecystectomy Onset Date: 09/2018 Z90.49 History of inguinal hernia repair Z98.890, Z87.19 Surgical History: cholecystectomy, - - Cardiac stents. Psychiatric History: No pertinent psych hx Smoking Status: Former smoker - *Family History Maternal Family History: Family History (Last Reviewed 01/02/20 @ 21:[address] Grupo Funez DO) Father Hypertension Mother Heart disease Congestive heart failure Diabetes Sister ruptured brain aneurysm History Items: - - Mother with history of congestive heart failure, diabetes, heart disease. Paternal Family History: Family History (Last Reviewed 01/02/20 @ 21:[address] Grupo Funez DO) Father Hypertension Mother Heart disease Congestive heart failure Diabetes Sister ruptured brain aneurysm History Items: - - Father with a history of hypertension. Sibling Family History: Family History (Last Reviewed 01/02/20 @ 21:[address] Grupo Funez DO) Father Hypertension Mother Heart disease Congestive heart failure Diabetes Sister ruptured brain aneurysm History Items: - - Sister with a history of ruptured brain aneurysm at age 50. Review of Systems Constitutional: Denies: Anorexia, Chills, Fever Eyes: Reports: - - He denies any sick contacts nor any contacts with a COVID- 19.. Denies: Blurred vision, Double vision HEENT: Denies: Head Aches, Sinus Congestion, Sinus Drainage Cardiovascular: Reports: Chest Pain, Edema - Chronically slightly elevated in his right lower extremity compared to his left. Respiratory: Reports: Shortness of breath upon exertion. Denies: Sputum production Gastrointestinal: Denies: Abdominal Pain, Nausea, Vomiting Genitourinary: Denies: Dysuria Musculoskeletal: Denies: Joint Pain, Joint Tenderness Skin: Denies: Rash, Wounds Neurological: Denies: Numbness, Tingling, Focal weakness Psychiatric: Denies: Anxiety, Depression Hematologic/ Lymphatic: Denies: Easy Bruising, Easy Bleeding, Hx of blood clot Comment: All review of systems were negative except as mentioned above in the history of present illness and the other review of systems. VTE Information - Inpt Only VTE Present on Admission: No VTE Mechan Device Prophylaxis: None VTE Pharm Prophylaxis ordered?: No Reason prophylaxis not ordered:: Treatment Not Indicated Patient Problems: Active and Suspected Problems (Last Reviewed 04/20/19 @ 15:[address] Carlos Coreas MD) NSTEMI (non-ST elevated myocardial infarction) (Acute) Objective: Vitals at [facility] showed temp of 36.2, pulse 63, respirate 18, blood pressure 132/57. - Physical Exam Vitals/I&O's: Weight: 88.6 kg Body Mass Index (BMI) 31.5 Finger Stick Blood Glucose 218 General: Alert, Cooperative, No apparent distress HEENT: Atraumatic, Normocephalic, - - No scleral icterus Oral: - - Wearing a mask, did not remove. Neck: No Nodes, Thyroid Normal Size and Texture Lungs: Clear to auscultation, Normal air movement, No rhonchi, No wheeze, No rales Cardiovascular: Regular rate, Regular Rhythm, Normal S1, Normal S2, No murmurs Abdomen: Bowel Sounds Present, Soft, Non Tender, Non-Distended, No Hepato- splenomegaly, Passing Flatus Extremities: No edema, No Calf Tenderness Skin: No rashes, No breakdown Musculoskeletal: No Tenderness to Palpation of Joints or Extremities, No Muscle Wasting Neurological: Deep Tendon Reflexes 2+/4 and Symmetrical, - - No clonus Psych/Mental Status: Normal Affect, Appropriate EKG reviewed and showed sinus bradycardia, first-degree AV block and a right bundle branch block. No acute changes identified. CT the abdomen pelvis showed no acute process. Chest x-ray report showed no acute process. Labs: White count 4.2, hemoglobin 10.2, platelets 102, bilirubin 0.7 creatinine 1.8, sodium 133, potassium 4.7. Troponin was 220 but normal on their scale is 12 or less which according to our scale would be equivalent to a troponin of 2.2. Current Medications Acetaminophen (Tylenol) 650 mg PO Q6H PRN PRN PRN Reason: Mild Pain (1-3)/Temp > 100.7 F Amlodipine Besylate (Norvasc) 5 mg PO DAILY [facility] Aspirin (Ecotrin) 81 mg PO DAILY@0800 [facility] Clopidogrel Bisulfate (Plavix) 75 mg PO QDAY [facility] Fluticasone Propionate (Flonase Nasal Clune) 1 spray NASAL BID FRANK[place]N Sodium Chloride () 250 mls @ 15 mls/hr IV .[id number] PRN PRN Reason: Saline Flush Sodium Chloride () 250 mls @ 15 mls/hr IV .[id number] PRN PRN Reason: Additional IVPB Infusion Heparin Sodium/Dextrose () 25,000 units in 250 mls @ 0 mls/hr IV .Q0M [facility]; Protocol Metoprolol Tartrate (Lopressor (Beta Alexander)) 50 mg PO BID [facility] Multivitamins (Multivitamin) tablet PO QDAY [facility] Nitroglycerin (Nitrostat) 0.4 mg SUBLINGUAL Q5M PRN PRN Reason: CARDIAC/CHEST PAIN Non-Formulary Medication (Calcium Carbonate/Vitamin D3 [Caltrate 600 Plus D3 Tablet]) 1 tab PO BID [facility] Non-Formulary Medication (Esomeprazole Magnesium) 20 mg PO QDAY [facility] Non-Formulary Medication (Ferrous Sulfate) 324 mg PO QDAY [facility] Non-Formulary Medication (Lidocaine) 1 patch TOPICAL DAILY [facility] Non-Formulary Medication (Magnesium Oxide) 800 mg PO TID [facility] Ondansetron HCl (Zofran) 4 mg IV Q8H PRN PRN PRN Reason: NAUSEA/VOMITING Oxycodone HCl (Oxyir) 5 mg PO Q4H PRN PRN PRN Reason: Pain Score 4-5 Oxycodone HCl (Oxyir) 10 mg PO Q4H PRN PRN PRN Reason: Pain Score 6-10 Pravastatin Sodium (Pravachol) 80 mg PO QHS [facility] Sodium Chloride () 10 - 40 ml IV UD PRN PRN Reason: SALINE FLUSH Tamsulosin HCl (Flomax) 0.4 mg PO DAILY [facility] Assessment/Plan All Active Problems (Last Reviewed 04/20/19 @ 15:[address] Carlos Coreas MD) NSTEMI (non-ST elevated myocardial infarction) (Acute) Hypomagnesemia (Resolved) Hypoxia (Resolved) Pleural effusion (Resolved) 1. Non-ST elevation myocardial infarction: Sounds as though the patient is been having issues for several months but the symptoms became much more acute today. Patient is currently feeling better at this time. Continue with the heparin drip. Check an echocardiogram. Cycle troponins. Cardiology consultation. Patient has known history of coronary artery disease with last stent placed in 2004. Continue with aspirin, clopidogrel and metoprolol. 2. Chronic kidney disease stage III: Baseline creatinine is around 1.5. Slightly elevated today. Monitor. 3. Hypertension: Stable. Continue with amlodipine, metoprolol 4. VTE prophylaxis: Not indicated as patient is already anticoagulated. 5. Advanced care planning: Discussed with the patient. Patient not completely sure at this point time. Told patient we will leave him a full CODE STATUS unless we hear more definitively otherwise. Encouraged him to discuss further with his family at his convenience. Inpatient E&M: 16605 Init Hosp L3
[2020-01-02 22:25] VITALS: BP 102/56; PULSE 70
[2020-01-02] MEDS: Metoprolol Tartrate 50 MG Tablet PO (22:25)
[2020-01-02] MEDS: Pravastatin 80 MG Tablet PO (22:25)
[2020-01-02] MEDS: Magnesium Chloride 64 MG Delay Rel.Tablet 256 MG PO (22:26)
[2020-01-02] MEDS: Calcium Carb/Vitamin D 1 TABLET Tablet PO (22:27)
--- NOTE | 2020-01-02 23:07 | NURSING ---
Pt arrived from [place] with Heparin gtt running at 1,000 units/hr. [facility] physician ordered for Heparin gtt to start running at 1,200 unit/hr. Awaiting 23:52 PTT (6 hours from when drip was initiated at [place]) before changing rate.
[2020-01-03] VITALS (11 sets, daily range): BP systolic 103–133; BP diastolic 51–64; PULSE 60–68; RESP 14–20; TEMP 36.3–36.8; O2SAT 95–97
[2020-01-03 00:41] LABS: Bedside Glucose 170 mg/dL (70-110)
[2020-01-03 00:44] LABS: Partial Thromboplast Time 144.7 Seconds (24.1-36.2)
[2020-01-03 05:18] LABS: Absolute Lymphocyte Count 0.86 X10^3/uL (0.83-4.51); Absolute Neutrophil Count 2.6 X10^3/uL (2.0-7.7); Basophil# 0.02 X10^3/uL; Basophil% 0.5 % (0-1); Eosinophil# 0.11 X10^3/uL; Eosinophils% 2.6 % (0-5); Hematocrit 29.6 % (40-54); Hemoglobin 9.8 g/dL (13.0-16.5); Lymphocyte # 0.86 X10^3/ul (4.0); Lymphocyte % 20.5 % (19-41); Mean Corp Hgb Conc 33.1 g/dL (32-36); Mean Corpuscular Volume 102.8 fL (80-94); Mean Platelet Vol. 9.3 fl (6.2-12.0); Monocyte# 0.59 X10^3/uL; Monocyte% 14.1 % (0-10); NRBC Flagged by Analyzer 0 % (0-5); Neutrophil # 2.59 X10^3/uL (2.7-7.7); Neutrophil % 61.8 % (47-70); Platelet Count 104 K/mm3 (150-450); Red Blood Count 2.88 M/mm3 (4.6-6.2); White Blood Count 4.2 K/mm3 (4.4-11.0)
[2020-01-03 05:39] LABS: Anion Gap 4 (5-15); BUN 31 mg/dL (7-18); BUN/Creat Ratio 15.8 RATIO (10-20); Calcium,Total 8.3 mg/dL (8.5-10.1); Chloride 106 mmol/L (98-107); Cholesterol 81 mg/dL (200); Creatinine, Serum 1.96 mg/dL (0.70-1.30); EST Glomerular Filtration Rate 35 mL/min (>60); Est Glom Filt Rate - Afr Amer 42 mL/min (>60); Estimated Creatinine Clearance 24.87 ml/min; Glucose 108 mg/dL (74-106); High Density Lipoprotein 30 mg/dL; Potassium 4.7 mmol/L (3.5-5.1); Sodium Level 136 mmol/L (136-145); Triglycerides 124 mg/dL; Very Low Density Lipoprotein 25 mg/dL (5-40)
[2020-01-03] MEDS: Magnesium Chloride 64 MG Delay Rel.Tablet 256 MG PO ×2 (06:24→12:25)
[2020-01-03 07:42] LABS: Bedside Glucose 113 mg/dL (70-110)
--- NOTE | 2020-01-03 09:55 | CASEMGMT ---
EFREN CARCAMO Face to Face with patient for initial transition planning/care coordination assessment. RN CM introduced self and role at [facility]. Patient lying in bed, alert and oriented. Patient willing to participate in assessment and is able to answer all questions appropriately. Care providers, pharmacy, and demographics verified. Patient wishes to discharge home, denies need for home health at this time. Patient states he has no further needs or concerns at this time. CM to follow for discharge planning needs that may arise. PCP: Ana María Mazariegos Specialists: Joss grinder outside diameter Preferred Pharmacy: [facility] Insurance: [employer] [facility] Prescription Benefit: yes Living Will/HPOA: yes, daughter Teressa Troncoso LNOK: daughter Living Arrangements: Patient lives with daughter in a 2 story home with bed and bath on first floor. Patient states he is independent at home. Transportation: daughter DME/HHC: Patient states he has shower chair, raised toilet, cane, walker, grab bars, nebulizer at home. Patient states he has had [facility] HHC in the past. Patient has previously been to [place] rehab Disposition Plan: Patient to discharge home with family support and follow-up plans in place. Mnea ISAAC, RN, CM
[2020-01-03 10:08] LABS: Partial Thromboplast Time 48.9 Seconds (24.1-36.2)
[2020-01-03] MEDS: Heparin Injection (Vial) 5,000 UNIT/ML VIAL IV (11:16)
[2020-01-03] MEDS: Fluticasone 0.05% 1 SPRAY NASAL.SRY NASAL ×2 (11:16→21:18)
[2020-01-03] MEDS: Lidocaine 5% Patch 1 PATCH TOPICAL (11:17)
[2020-01-03] MEDS: Pantoprazole Sodium 20 MG Tablet PO (12:26)
[2020-01-03] MEDS: Metoprolol Tartrate 50 MG Tablet PO ×2 (12:26→21:18)
[2020-01-03] MEDS: Multivitamins,Therapeutic Tablet 1 TABLET PO (12:26)
[2020-01-03] MEDS: Loratadine 10 MG Tablet PO (12:27)
[2020-01-03] MEDS: Calcium Carb/Vitamin D 1 TABLET Tablet PO ×2 (12:27→21:18)
[2020-01-03] MEDS: Aspirin E.C. 81 MG Tablet PO (12:27)
[2020-01-03] MEDS: Clopidogrel Bisulfate 75 MG Tablet PO (12:27)
[2020-01-03] MEDS: amLODIPine 5 MG Tablet PO (12:27)
[2020-01-03] MEDS: Ferrous Sulfate 325 MG Tablet PO (12:27)
[2020-01-03 12:35] LABS: Bedside Glucose 145 mg/dL (70-110)
--- NOTE | 2020-01-03 13:02 | PCM.PROGNOTE ---
<Kelly Gonzalez WIDTH STRIPPER - Last Filed: 01/03/20 13:31> Patient Problems: Active and Suspected Problems (Last Reviewed 01/02/20 @ 21:[address] Grupo Funez DO) NSTEMI (non-ST elevated myocardial infarction) (Acute) Subjective: Patient seen and examined. Denies further chest pain. Having diarrhea with episode of incontinence. Denies abdominal cramping, abdominal pain. Denies nausea, vomiting. - Physical Exam Vitals/I&O's: Vital Signs Temp Pulse Resp BP Pulse Ox 97.8 F 63 14 118/52 L 95 01/03/20 02:45 01/03/20 12:26 01/03/20 02:45 01/03/20 12:26 01/03/20 02:45 Oxygen Delivery Method Room Air Weight: 195 lb 5.273 oz Body Mass Index (BMI) 31.5 Finger Stick Blood Glucose 218 Intake and Output for Last 24 Hours 01/01/20 01/02/20 01/03/20 23:59 23:59 23:59 Intake Total 0 / 0 345.04 / 345.04 Output Total 0 / 0 300 / 300 Balance 0 / 0 45.04 / 45.04 General: Alert, Oriented x3, Cooperative HEENT: Atraumatic, PERRLA, EOMI, Normocephalic Neck: Supple, No JVD, Negative Carotid Bruits Lungs: Clear to auscultation, Normal air movement Cardiovascular: Regular rate, No murmurs Abdomen: Bowel Sounds Present, Soft, Non Tender, Non-Distended Extremities: No clubbing, No cyanosis, No edema, Capillary Refill Less than 3 Seconds Skin: No rashes, No breakdown Musculoskeletal: No Tenderness to Palpation of Joints or Extremities Neurological: Cranial nerves II-XII grossly intact, Neuro grossly intact Psych/Mental Status: Normal Affect, Appropriate Laboratory Results 01/02/20 22:43: Troponin I < 0.015 01/02/20 23:12: POC Glucose 170 H 01/03/20 00:10: APTT 144.7 H* 01/03/20 00:10: Troponin I < 0.015 01/03/20 04:44: WBC 4.2 L, RBC 2.88 L, Hgb 9.8 L, Hct 29.6 L, MCV 102.8 H, MCH 34.0 H, MCHC 33.1, RDW Std Deviation 49.0 H, RDW Coeff of Mohini 13.0, Plt Count 104 L, MPV 9.3, Immature Gran % (Auto) 0.500, Neut % (Auto) 61.8, Lymph % (Auto) 20.5, [place] % (Auto) 14.1 H, Eos % (Auto) 2.6, Baso % (Auto) 0.5, Absolute Neuts (auto) 2.6, Absolute Lymphs (auto) 0.86, Nucleated RBC % 0 01/03/20 04:44: Sodium 136, Potassium 4.7, Chloride 106, Carbon Dioxide 26.0, Anion Gap 4 L, BUN 31 H, Creatinine 1.96 H, Estim Creat Clear Calc 24.87, Est GFR (MDRD) Af Amer 42 L, Est GFR (MDRD) Non-Af 35 L, BUN/Creatinine Ratio 15.8, Glucose 108 H, Calcium 8.3 L, Triglycerides 124, Cholesterol 81, LDL Cholesterol 26, VLDL Cholesterol 25, HDL Cholesterol 30 L 01/03/20 04:44: Troponin I < 0.015 01/03/20 06:23: POC Glucose 113 H 01/03/20 09:50: APTT 48.9 H 01/03/20 12:23: POC Glucose 145 H Current Medications Acetaminophen (Tylenol) 650 mg PO Q6H PRN PRN PRN Reason: Mild Pain (1-3)/Temp > 100.7 F Amlodipine Besylate (Norvasc) 5 mg PO DAILY [facility] Last Admin: 01/03/20 12:27 Dose: 5 mg Documented by: Aspirin (Ecotrin) 81 mg PO DAILY@0800 [facility] Last Admin: 01/03/20 12:27 Dose: 81 mg Documented by: Calcium/Vitamin D (Os-Hugh 500mg + D) 1 tablet PO BID [facility] Last Admin: 01/03/20 12:27 Dose: 1 tablet Documented by: Clopidogrel Bisulfate (Plavix) 75 mg PO DAILY [facility] Last Admin: 01/03/20 12:27 Dose: 75 mg Documented by: Dextrose (D50w Syringe) 0 gm IV X1 PRN; Protocol PRN Reason: Hypoglycemia Ferrous Sulfate (Ferrous Sulfate) 325 mg PO DAILYCM [facility] Last Admin: 01/03/20 12:27 Dose: 325 mg Documented by: Fluticasone Propionate (Flonase Nasal [place]) 1 spray NASAL BID [facility] Last Admin: 01/03/20 11:16 Dose: 1 spray Documented by: Glucagon () 1 mg IM .X1 PRN PRN Reason: Hypoglycemia Heparin Sodium (Porcine) (Heparin Na) 0 unit IV UD PRN; Protocol PRN Reason: dose adjustment Last Admin: 01/03/20 11:16 Dose: 1,000 unit Documented by: Sodium Chloride () 250 mls @ 15 mls/hr IV .[id number] PRN PRN Reason: Saline Flush Sodium Chloride () 250 mls @ 15 mls/hr IV .[id number] PRN PRN Reason: Additional IVPB Infusion Heparin Sodium/Dextrose () 25,000 units in 250 mls @ 12 mls/hr IV .[id number] [facility]; Protocol Last Titration: 01/03/20 11:15 Dose: 800 units/hr, 8 mls/hr Documented by: Insulin Human Lispro (Humalog Kwikpen (Bkc)) 0 unit SC TIDAC [facility]; Protocol Last Admin: 01/03/20 12:26 Dose: Not Given Documented by: Lidocaine (Lidoderm Patch) 1 patch TOPICAL DAILY [facility] Last Admin: 01/03/20 11:17 Dose: 1 patch Documented by: Loratadine (Loratadine 10 Mg Tablet) 10 mg PO DAILY [facility] Last Admin: 01/03/20 12:27 Dose: 10 mg Documented by: Magnesium Chloride (Magnesium Chloride 64 Mg Delay Rel.Tablet) 256 mg PO 0600,1200,1600,2200 [facility] Last Admin: 01/03/20 12:25 Dose: 256 mg Documented by: Metoprolol Tartrate (Lopressor (Beta Alexander)) 50 mg PO BID [facility] Last Admin: 01/03/20 12:26 Dose: 50 mg Documented by: [facility]it[facility] ([facility]amin) [facility] Last Admin: 01/03/20 12:26 Dose: 1 tablet Documented by: Nitroglycerin (Nitrostat) 0.4 mg SUBLINGUAL Q5M PRN PRN Reason: CARDIAC/CHEST PAIN Ondansetron HCl (Zofran) 4 mg IV Q8H PRN PRN PRN Reason: NAUSEA/VOMITING Oxycodone HCl (Oxyir) 5 mg PO Q4H PRN PRN PRN Reason: Pain Score 4-5 Oxycodone HCl (Oxyir) 10 mg PO Q4H PRN PRN PRN Reason: Pain Score 6-10 Pantoprazole Sodium (Protonix) 20 mg PO DAILY [facility] Last Admin: 01/03/20 12:26 Dose: 20 mg Documented by: Pravastatin Sodium (Pravachol) 80 mg PO QHS [facility] Last Admin: 01/02/20 22:25 Dose: 80 mg Documented by: Sodium Chloride () 10 - 40 ml IV UD PRN PRN Reason: SALINE FLUSH Tamsulosin HCl (Flomax) 0.4 mg PO DAILY [facility] Medical Necessity - Tobacco Use Smoking Status: Former smoker Assessment/Plan All Active Problems (Last Reviewed 01/02/20 @ 21:[address] Grupo Funez, DO) NSTEMI (non-ST elevated myocardial infarction) (Acute) Hypomagnesemia (Resolved) Hypoxia (Resolved) Pleural effusion (Resolved) 1. NSTEMI, history of CAD status post PCI-outside facility enzymes elevated. Troponin here negative. On heparin drip. Cardiology consulted. Continue aspirin, Plavix, statin, lisinopril, metoprolol. 2. Acute diarrhea-unclear etiology. No nausea, vomiting. No abdominal pain. Check stool for C. difficile and enteric bacteriology. 3. Chronic kidney disease stage III-slightly above baseline however no acute kidney injury. Trend BMP. 4. Hypertension-stable, continue amlodipine, metoprolol. 5. Hyperlipidemia-continue statin. 6. History of TIA-on aspirin, Plavix, statin. 7. Type 2 diabetes mellitus-hemoglobin A1c March 2018 5.4%. No longer on regimen. Accu-Cheks with sliding scale insulin. 8. History of subarachnoid hemorrhage 9. GERD-continue PPI. 10. ZABRINA-continue CPAP. 11. BPH-continue Flomax. 12. Iron deficiency anemia/chronic thrombocytopenia-stable, trend CBC. DVT prophylaxis- heparin gtt This patient was seen by ALEIDA Valentin under the supervision of Dr. Villagran. <Raquel Villagran - Last Filed: 01/03/20 15:39> - Physical Exam Vitals/I&O's: Vital Signs Temp Pulse Resp BP Pulse Ox 98.2 F 63 18 118/52 L 95 01/03/20 08:45 01/03/20 14:00 01/03/20 08:45 01/03/20 12:26 01/03/20 08:45 Oxygen Delivery Method Room Air Weight: 88.6 kg Body Mass Index (BMI) 31.5 Finger Stick Blood Glucose 218 Intake and Output for Last 24 Hours 01/01/20 01/02/20 01/03/20 23:59 23:59 23:59 Intake Total 0 / 0 345.04 / 345.04 Output Total 0 / 0 300 / 300 Balance 0 / 0 45.04 / 45.04 Laboratory Results 01/02/20 22:43: Troponin I < 0.015 01/02/20 23:12: POC Glucose 170 H 01/03/20 00:10: APTT 144.7 H* 01/03/20 00:10: Troponin I < 0.015 01/03/20 04:44: WBC 4.2 L, RBC 2.88 L, Hgb 9.8 L, Hct 29.6 L, MCV 102.8 H, MCH 34.0 H, MCHC 33.1, RDW Std Deviation 49.0 H, RDW Coeff of Mohini 13.0, Plt Count 104 L, MPV 9.3, Immature Gran % (Auto) 0.500, Neut % (Auto) 61.8, Lymph % (Auto) 20.5, [place] % (Auto) 14.1 H, Eos % (Auto) 2.6, Baso % (Auto) 0.5, Absolute Neuts (auto) 2.6, Absolute Lymphs (auto) 0.86, Nucleated RBC % 0 01/03/20 04:44: Sodium 136, Potassium 4.7, Chloride 106, Carbon Dioxide 26.0, Anion Gap 4 L, BUN 31 H, Creatinine 1.96 H, Estim Creat Clear Calc 24.87, Est GFR (MDRD) Af Amer 42 L, Est GFR (MDRD) Non-Af 35 L, BUN/Creatinine Ratio 15.8, Glucose 108 H, Calcium 8.3 L, Triglycerides 124, Cholesterol 81, LDL Cholesterol 26, VLDL Cholesterol 25, HDL Cholesterol 30 L 01/03/20 04:44: Troponin I < 0.015 01/03/20 06:23: POC Glucose 113 H 01/03/20 09:50: APTT 48.9 H 01/03/20 12:23: POC Glucose 145 H Current Medications Acetaminophen (Tylenol) 650 mg PO Q6H PRN PRN PRN Reason: Mild Pain (1-3)/Temp > 100.7 F Amlodipine Besylate (Norvasc) 5 mg PO DAILY [facility] Last Admin: 01/03/20 12:27 Dose: 5 mg Documented by: Aspirin (Ecotrin) 81 mg PO DAILY@0800 [facility] Last Admin: 01/03/20 12:27 Dose: 81 mg Documented by: Calcium/Vitamin D (Os-Hugh 500mg + D) 1 tablet PO BID [facility] Last Admin: 01/03/20 12:27 Dose: 1 tablet Documented by: Clopidogrel Bisulfate (Plavix) 75 mg PO DAILY [facility] Last Admin: 01/03/20 12:27 Dose: 75 mg Documented by: Dextrose (D50w Syringe) 0 gm IV X1 PRN; Protocol PRN Reason: Hypoglycemia Ferrous Sulfate (Ferrous Sulfate) 325 mg PO DAILYCM [facility] Last Admin: 01/03/20 12:27 Dose: 325 mg Documented by: Fluticasone Propionate (Flonase Nasal [place]) 1 spray NASAL BID [facility] Last Admin: 01/03/20 11:16 Dose: 1 spray Documented by: Glucagon () 1 mg IM .X1 PRN PRN Reason: Hypoglycemia Heparin Sodium (Porcine) (Heparin Na) 0 unit IV UD PRN; Protocol PRN Reason: dose adjustment Last Admin: 01/03/20 11:16 Dose: 1,000 unit Documented by: Sodium Chloride () 250 mls @ 15 mls/hr IV .[id number] PRN PRN Reason: Saline Flush Sodium Chloride () 250 mls @ 15 mls/hr IV .[id number] PRN PRN Reason: Additional IVPB Infusion Heparin Sodium/Dextrose () 25,000 units in 250 mls @ 12 mls/hr IV .[id number] [facility]; Protocol Last Titration: 01/03/20 11:15 Dose: 800 units/hr, 8 mls/hr Documented by: Insulin Human Lispro (Humalog Kwikpen (Bkc)) 0 unit SC TIDAC [facility]; Protocol Last Admin: 01/03/20 12:26 Dose: Not Given Documented by: Lidocaine (Lidoderm Patch) 1 patch TOPICAL DAILY [facility] Last Admin: 01/03/20 11:17 Dose: 1 patch Documented by: Loratadine (Loratadine 10 Mg Tablet) 10 mg PO DAILY [facility] Last Admin: 01/03/20 12:27 Dose: 10 mg Documented by: Magnesium Chloride (Magnesium Chloride 64 Mg Delay Rel.Tablet) 256 mg PO 0600,1200,1600,2200 [facility] Last Admin: 01/03/20 12:25 Dose: 256 mg Documented by: Metoprolol Tartrate (Lopressor (Beta Alexander)) 50 mg PO BID [facility] Last Admin: 01/03/20 12:26 Dose: 50 mg Documented by: Multivitamins (Multivitamin) 1 tablet PO DAILYCM [facility] Last Admin: 01/03/20 12:26 Dose: 1 tablet Documented by: Nitroglycerin (Nitrostat) 0.4 mg SUBLINGUAL Q5M PRN PRN Reason: CARDIAC/CHEST PAIN Ondansetron HCl (Zofran) 4 mg IV Q8H PRN PRN PRN Reason: NAUSEA/VOMITING Oxycodone HCl (Oxyir) 5 mg PO Q4H PRN PRN PRN Reason: Pain Score 4-5 Oxycodone HCl (Oxyir) 10 mg PO Q4H PRN PRN PRN Reason: Pain Score 6-10 Pantoprazole Sodium (Protonix) 20 mg PO DAILY [facility] Last Admin: 01/03/20 12:26 Dose: 20 mg Documented by: Pravastatin Sodium (Pravachol) 80 mg PO QHS [facility] Last Admin: 01/02/20 22:25 Dose: 80 mg Documented by: Sodium Chloride () 10 - 40 ml IV UD PRN PRN Reason: SALINE FLUSH Tamsulosin HCl (Tamsulosin Hcl 0.4 Mg Capsule) 0.4 mg PO DAILY@1730 [facility] Assessment/Plan This patient was seen in conjunction with Kelly Gonzalez NP. I have independently interviewed and examined the patient and reviewed pertinent historical, laboratory, and other data. Please refer to her note for patient's presentation, findings, and recommendations. Patient was seen and examined. Admitted as a direct admission for acute non-STEMI. Denied any chest pain or dizziness or palpitation.No acute events overnight. Vitals were reviewed -stable Physical Exam: Gen: Appears frail, comfortable, not pale, not jaundiced, alert oriented x3 CVS:HS I +II, regular, no murmurs RESP: Diminished at lung bases GI: BS present and normal, nontender, no palpable organs EXT:No edema Labs reviewed: ASSESSMENT: 1. Chest pain, ?Acute NSTEMI, findings have been negative here 2. Acute diarrhea 3. CKD stage III 4. Hyperlipidemia 5. Hypertension 6. Type II DM 7. History of TIA 8. ZABRINA 9. BPH 10. GERD Meds reviewed Plan: Continue on heparin drip for now, follow-up on cardiology recommendations Inpatient E&M: 74404 Subs Hosp L2
[2020-01-03] MEDS: 0.9% Saline Lock 10 ML Syringe IV (16:24)
[2020-01-03] MEDS: Glucerna Shake 120 ML LIQUID PO ×2 (16:26→21:17)
[2020-01-03] MEDS: Tamsulosin HCl 0.4 MG Capsule PO (16:33)
[2020-01-03 16:46] LABS: Bedside Glucose 147 mg/dL (70-110)
--- NOTE | 2020-01-03 17:20 | PCM.CONS.C ---
Reason for Consult Date of Consultation: 01/03/20 Reason for Consultation: Chest pain History of Present Illness: The patient is a 84 year old M who states for months that he has been having diarrhea that is been intermittent black and green and has been taking loperamide which has helped. Recently, however it has gotten better. Also over the past few months he has been having chest pain is been intermittent worse with activity and also associated with shortness of breath. Today symptoms were much worse. Went to [facility] and was found to have an ST elevation myocardial infarction. On their scale troponin was greater than 220 and patient was started on heparin drip. Patient felt better overall and was transferred to [facility] in stable condition. Patient does have a history of coronary artery disease and last had a stent placed in 2004. At [facility] troponin was cycled and has been negative. Patient does say that he has chest discomfort that is retrosternal on exertion. He states that it feels like somebody standing on his chest. He does not recall how he felt prior to his stent placement. Patient is a somewhat poor historian. He states his chest pain lasts about 15 minutes and then goes away after he has been resting. He does say that he has been having this chest pain over the last year and a half. Over the last month it has not changed in intensity. He says he came into the hospital because of his diarrhea and not for his chest pain. A 2D echo was done today which reveals preserved EF. Review of systems: All systems reviewed. All else is negative except that in HPI Past Medical History Allergies/Adverse Reactions: Allergies amoxicillin Allergy (Severe, Verified 10/21/19 15:40) unknown Tetanus Vaccines and Toxoid Allergy (Severe, Verified 10/21/19 15:40) unknown acetaminophen [From Vicodin] Adverse Reaction (Verified 01/02/20 22:09) NEEDS FOLLOW-UP hydrocodone [From Vicodin] Adverse Reaction (Verified 01/02/20 22:09) NEEDS FOLLOW-UP Thiazides Adverse Reaction (Verified 10/21/19 15:40) Other CAUSES LOW MAG narcotics Adverse Reaction (Uncoded 01/02/20 22:09) NEEDS FOLLOW-UP Home Medications: Ambulatory Orders Medication Instructions Recorded clopidogrel 75 mg tablet 75 mg PO QDAY 03/09/17 esomeprazole magnesium 20 mg 20 mg PO QDAY cap 03/09/17 capsule,delayed release ferrous sulfate 325 mg (65 mg 324 mg PO QDAY tab 03/09/17 iron) tablet,delayed release multivitamin 1 tab PO QDAY 03/09/17 pravastatin 80 mg tablet 80 mg PO QHS 03/09/17 calcium carbonate-vitamin D3 600 1 tab PO BID 09/08/17 mg (1,500 mg)-800 unit tablet Aspirin E.C. [Ecotrin] 81 mg PO DAILY@0800 03/20/18 Etodolac [Lodine] 300 mg PO BIDCM 10/03/18 Acetaminophen [Tylenol Tablet] 650 mg PO Q6H PRN PRN tab 10/12/18 metoprolol tartrate 50 mg tablet 50 mg PO BID #180 tab 10/19/18 tamsulosin 0.4 mg capsule 0.4 mg PO DAILY 10/19/18 amlodipine 5 mg tablet 5 mg PO DAILY #90 tab 01/27/19 fluticasone propionate 50 2 spray INTRANASAL BID PRN 04/20/19 mcg/actuation nasal spray,suspension magnesium oxide 800 mg PO .COMPLEX tab 10/21/19 Cetirizine HCl [Allergy Relief] 10 mg PO DAILY 01/02/20 Lidocaine [Lidocaine Pain Relief] 1 patch TRANSDERM. DAILY PRN 01/02/20 Past Medical History (Chronic Problems): Chronic Problems (Last Reviewed 01/02/20 @ 21:[address] 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 Psychiatric History: No pertinent psych hx - *Family History Maternal Family History: Family History (Last Reviewed 01/02/20 @ 21:[address] Grupo Funez DO) Father Hypertension Mother Heart disease Congestive heart failure Diabetes Sister ruptured brain aneurysm History Items: - - Mother with history of congestive heart failure, diabetes, heart disease. Paternal Family History: Family History (Last Reviewed 01/02/20 @ 21:[address] Grupo Funez DO) Father Hypertension Mother Heart disease Congestive heart failure Diabetes Sister ruptured brain aneurysm History Items: - - Father with a history of hypertension. Sibling Family History: Family History (Last Reviewed 01/02/20 @ 21:[address] Grupo Funez DO) Father Hypertension Mother Heart disease Congestive heart failure Diabetes Sister ruptured brain aneurysm History Items: - - Sister with a history of ruptured brain aneurysm at age 50. Smoking Status: Former smoker Objective: Vital Signs Temp Pulse Resp BP Pulse Ox 97.3 F L 61 20 H 103/60 96 01/03/20 16:53 01/03/20 16:53 01/03/20 16:53 01/03/20 16:53 01/03/20 16:53 Oxygen Delivery Method Room Air Weight: 195 lb 5.273 oz Body Mass Index (BMI) 31.5 Finger Stick Blood Glucose 218 Intake and Output for Last 24 Hours 01/01/20 01/02/20 01/03/20 23:59 23:59 23:59 Intake Total 0 / 0 384.77 / 384.77 Output Total 0 / 0 700 / 700 Balance 0 / 0 -315.23 / -315.23 General: Awake, Alert, Oriented x 3 HEENT: Atraumatic Oral: Moist Mucosa Neck: Supple Lungs: Clear to auscultation Cardiovascular: Regular Rhythm Abdomen: Soft Skin: No Rashes Psych/Mental Status: Appropriate 01/02/20 22:43: Troponin I < 0.015 01/03/20 00:10: APTT 144.7 H* 01/03/20 00:10: Troponin I < 0.015 01/03/20 04:44: WBC 4.2 L, RBC 2.88 L, Hgb 9.8 L, Hct 29.6 L, MCV 102.8 H, MCH 34.0 H, MCHC 33.1, Plt Count 104 L, MPV 9.3, Immature Gran % (Auto) 0.500, Neut % (Auto) 61.8, Lymph % (Auto) 20.5, [place] % (Auto) 14.1 H, Eos % (Auto) 2.6, Baso % (Auto) 0.5, Absolute Neuts (auto) 2.6, Nucleated RBC % 0 01/03/20 04:44: Sodium 136, Potassium 4.7, Chloride 106, Carbon Dioxide 26.0, Anion Gap 4 L, BUN 31 H, Creatinine 1.96 H, Est GFR (MDRD) Af Amer 42 L, Est GFR (MDRD) Non-Af 35 L, BUN/Creatinine Ratio 15.8, Glucose 108 H, Calcium 8.3 L, Triglycerides 124, Cholesterol 81, LDL Cholesterol 26, VLDL Cholesterol 25, HDL Cholesterol 30 L 01/03/20 04:44: Troponin I < 0.015 01/03/20 09:50: APTT 48.9 H Rhythm: EKG: ECHO: Stress Test: Cardiac Cath: PCI: CT Surgery: Holter monitor: EPS: PPM: CXR: Chest CT Scan: Assessment/Plan 1. Chest pain: Chest pain does not appear anginal by history. However patient states that he has had this for a long time and it has not changed in intensity recently. Patient is on antiplatelet therapy, statin and beta-miguel. His heart rate is in the 60s. We will add Ranexa to see if this helps with his symptoms. We will start at 500 mg p.o. twice daily and then if patient continues to have symptoms we can go up to 1000 mg p.o. twice daily. He can see us as an outpatient and if he continues to have significant anginal symptoms then we will consider angiography.
[2020-01-03 17:31] LABS: Magnesium 2.3 mg/dL (1.6-2.6)
[2020-01-03] MEDS: Pravastatin 80 MG Tablet PO (21:18)
[2020-01-03] MEDS: Ranolazine 500 MG Tablet PO (21:19)
[2020-01-03 22:41] LABS: Bedside Glucose 156 mg/dL (70-110)
[2020-01-04] VITALS (8 sets, daily range): BP systolic 95–120; BP diastolic 57–64; PULSE 69–73; RESP 18; TEMP 36.8–37.5; O2SAT 92–94
[2020-01-04 06:07] LABS: Hematocrit 30.5 % (40-54); Mean Corp Hgb Conc 32.8 g/dL (32-36); Mean Corpuscular Hgb 33.7 pg (27.0-32.0); Mean Corpuscular Volume 102.7 fL (80-94); Mean Platelet Vol. 9.3 fl (6.2-12.0); Platelet Count 111 K/mm3 (150-450); RBC Distribution Width SD 48.6 fl (35.1-43.9); Red Blood Count 2.97 M/mm3 (4.6-6.2); White Blood Count 4.5 K/mm3 (4.4-11.0)
[2020-01-04 06:28] LABS: Anion Gap 6 (5-15); BUN 28 mg/dL (7-18); BUN/Creat Ratio 14.6 RATIO (10-20); Calcium,Total 8.6 mg/dL (8.5-10.1); Chloride 105 mmol/L (98-107); Creatinine, Serum 1.92 mg/dL (0.70-1.30); EST Glomerular Filtration Rate 36 mL/min (>60); Est Glom Filt Rate - Afr Amer 43 mL/min (>60); Estimated Creatinine Clearance 25.38 ml/min; Glucose 136 mg/dL (74-106); Potassium 4.8 mmol/L (3.5-5.1); Sodium Level 136 mmol/L (136-145)
[2020-01-04 06:50] LABS: Bedside Glucose 145 mg/dL (70-110)
[2020-01-04 08:56] LABS: AST(SGOT) 24 U/L (15-37); Alanine Aminotransfer ALT/SGPT 33 U/L (16-61); Alkaline Phosphatase 163 U/L (45-117); Bilirubin, Direct 0.27 mg/dL (0.00-0.30); Globulin 2.9 g/dL (2.2-4.2); Protein, Total 5.9 g/dL (6.4-8.2)
[2020-01-04] MEDS: Loratadine 10 MG Tablet PO (09:17)
[2020-01-04] MEDS: Pantoprazole Sodium 20 MG Tablet PO (09:17)
[2020-01-04] MEDS: Clopidogrel Bisulfate 75 MG Tablet PO (09:17)
[2020-01-04] MEDS: Ranolazine 500 MG Tablet PO (09:17)
[2020-01-04] MEDS: Ferrous Sulfate 325 MG Tablet PO (09:17)
[2020-01-04] MEDS: Aspirin E.C. 81 MG Tablet PO (09:18)
[2020-01-04] MEDS: Calcium Carb/Vitamin D 1 TABLET Tablet PO (09:18)
[2020-01-04] MEDS: Multivitamins,Therapeutic Tablet 1 TABLET PO (09:18)
[2020-01-04] MEDS: Fluticasone 0.05% 1 SPRAY NASAL.SRY NASAL (09:19)
[2020-01-04] MEDS: amLODIPine 5 MG Tablet PO (09:22)
[2020-01-04] MEDS: Glucerna Shake 120 ML LIQUID PO (09:31)
--- NOTE | 2020-01-04 11:54 | PCM.DC ---
- Discharge Diagnoses Current Active Problems: Current Active and Chronic Problems (Last Reviewed 01/02/20 @ 21:[address] Grupo Funez, DO) NSTEMI (non-ST elevated myocardial infarction) (Acute) You will use the following diet at home:: Cardiac Discharge Activity: Return to Normal Activity Call your doctor if you observe: Shortness of breath, Dizziness, Fainting spells, Chest pain Additional Instructions: You may use Imodium 2 mg every 2 hours as needed for diarrhea. Maximum dose 16 mg/day. If diarrhea continues despite use of Imodium, recommend follow-up with general surgery for colonoscopy. Allergies/Adverse Reactions: Allergies amoxicillin Allergy (Severe, Verified 10/21/19 15:40) unknown Tetanus Vaccines and Toxoid Allergy (Severe, Verified 10/21/19 15:40) unknown acetaminophen [From Vicodin] Adverse Reaction (Verified 01/02/20 22:09) NEEDS FOLLOW-UP hydrocodone [From Vicodin] Adverse Reaction (Verified 01/02/20 22:09) NEEDS FOLLOW-UP Thiazides Adverse Reaction (Verified 10/21/19 15:40) Other CAUSES LOW MAG narcotics Adverse Reaction (Uncoded 01/02/20 22:09) NEEDS FOLLOW-UP Medications to take at Discharge clopidogrel 75 mg tablet 75 mg PO QDAY 03/09/17 esomeprazole magnesium 20 mg capsule,delayed release 20 mg PO QDAY cap 03/09/17 ferrous sulfate 325 mg (65 mg iron) tablet,delayed release 324 mg PO QDAY tab 03/09/17 multivitamin 1 tab PO QDAY 03/09/17 pravastatin 80 mg tablet 80 mg PO QHS 03/09/17 calcium carbonate-vitamin D3 600 mg (1,500 mg)-800 unit tablet 1 tab PO BID 09/08/17 Aspirin E.C. [Ecotrin] 81 mg PO DAILY@0800 03/20/18 Etodolac [Lodine] 300 mg PO BIDCM 10/03/18 Acetaminophen [Tylenol Tablet] 650 mg PO Q6H PRN PRN tab 10/12/18 metoprolol tartrate 50 mg tablet 50 mg PO BID #180 tab 10/19/18 tamsulosin 0.4 mg capsule 0.4 mg PO DAILY 10/19/18 amlodipine 5 mg tablet 5 mg PO DAILY #90 tab 01/27/19 fluticasone propionate 50 mcg/actuation nasal spray,suspension 2 spray INTRANASAL BID PRN 04/20/19 magnesium oxide 800 mg PO .COMPLEX tab 10/21/19 Cetirizine HCl [Allergy Relief] 10 mg PO DAILY 01/02/20 Lidocaine [Lidocaine Pain Relief] 1 patch TRANSDERM. DAILY PRN 01/02/20 Ranolazine [Ranexa] 500 mg PO BID #60 tab 01/04/20 The following prescriptions were given: Ranolazine [Ranexa] 500 mg PO BID #60 tab Transmission Status: Received by [facility]30 Please follow up with your Primary Care Physician in: Follow up with primary care provider in 1 week. Ana María Mazariegos. Test Results: Test results from this visit will be discussed in further detail at your follow-up appointment, if applicable. Please Follow Up With: Carlos Coreas MD When: 2 Weeks, may see [facility] [employer]PA Please Follow Up With: Roger Ritter MD - General surgery When: Call for follow up if diarrhea ongoing despite Imodium
--- NOTE | 2020-01-04 11:57 | PCM.DC.SUM ---
<Kelly Gonzalez TRAFFIC OBSERVER - Last Filed: 01/04/20 13:52> Discharge Date and Diagnosis - Problem List Patient Problems: Active and Suspected Problems (Last Reviewed 01/02/20 @ 21:[address] Grupo Funez DO) NSTEMI (non-ST elevated myocardial infarction) (Acute) Date of Admission: 01/02/20 Date of Discharge: 01/04/20 - Primary Discharge Diagnosis Acute Problems: Active Problems (Last Reviewed 01/02/20 @ 21:[address] Grupo Funez DO) 1. NSTEMI, history of CAD status post PCI 2. Acute diarrhea-unclear etiology. 3. Chronic kidney disease stage III 4. Hypertension 5. Hyperlipidemia 6. History of TIA 7. Type 2 diabetes mellitus 8. History of subarachnoid hemorrhage 9. GERD 10. ZABRINA 11. BPH 12. Iron deficiency anemia/chronic thrombocytopenia - Secondary Discharge Diagnosis Chronic Problems: Chronic Problems (Last Reviewed 01/02/20 @ 21:[address] Grupo Funez DO) Hypomagnesemia (Chronic) Bifascicular block (Chronic) 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, LAFB History of coronary artery stent placement (Chronic 03/19/05) [id number]-CIV-[id number] RCA 03/03/2005; OGJ-WIG-Bgvl LAD 03/19/2005 Essential (primary) hypertension (Chronic) Hyperlipidemia (Chronic) Atherosclerotic heart disease of [place] coronary artery without angina pectoris (Chronic) [id number]-[id number] RCA 03/03/2005; PNW-XHB-Zstz LAD 03/19/[address] Guerrero- Cardiology Operations: None Procedures: 2-D Echocardiogram Summary of Care Provided: The patient is a 84 year old M admitted 01/02/2020 due to chest pain. 1. NSTEMI, history of CAD status post PCI-outside facility enzymes elevated. Troponin here negative. Cardiology consulted. Continue aspirin, Plavix, statin, lisinopril, metoprolol. Echocardiogram demonstrates an EF of 70%. No regional wall motion abnormalities. Initiated on Ranexa by cardiology given chronicity of chest pain. Follow-up with cardiology in 1 to 2 weeks. 2. Acute diarrhea-unclear etiology. No nausea, vomiting. No abdominal pain. Stool for C. difficile negative. Enteric bacteriology pending. Awaiting results prior to discharge. If enteric bacteriology negative, plan for Imodium 2 mg every 2 hours as needed for diarrhea at discharge with maximum dose 16 mg/day. If no improvement in diarrhea with the use of Imodium, recommended follow-up with general surgery for outpatient evaluation and possible colonoscopy. 3. Chronic kidney disease stage III-slightly above baseline however no acute kidney injury. Follow BMP as outpatient. 4. Hypertension-stable, continue amlodipine, metoprolol. 5. Hyperlipidemia-continue statin. 6. History of TIA-on aspirin, Plavix, statin. 7. Type 2 diabetes mellitus-hemoglobin A1c March 2018 5.4%. No longer on regimen. 8. History of subarachnoid hemorrhage 9. GERD-continue PPI. 10. ZABRINA-continue CPAP. 11. BPH-continue Flomax. 12. Iron deficiency anemia/chronic thrombocytopenia-stable, trend CBC. General: Alert, Oriented x3, Cooperative HEENT: Atraumatic, PERRLA, EOMI, Normocephalic Neck: Supple, No JVD, Negative Carotid Bruits Lungs: Clear to auscultation, Normal air movement Cardiovascular: Regular rate, No murmurs Abdomen: Bowel Sounds Present, Soft, Non Tender, Non-Distended Extremities: No clubbing, No cyanosis, No edema, Capillary Refill Less than 3 Seconds Skin: No rashes, No breakdown Musculoskeletal: No Tenderness to Palpation of Joints or Extremities Neurological: Cranial nerves II-XII grossly intact, Neuro grossly intact Psych/Mental Status: Normal Affect, Appropriate Patient seen and examined prior to discharge. Physical assessment as noted above. Patient is stable for discharge with follow up recommendations as noted above. This patient was seen by ALEIDA Valentin under the supervision of Dr. Villagran. Patient Problems: Active and Suspected Problems (Last Reviewed 01/02/20 @ 21:[address] Grupo Funez, DO) NSTEMI (non-ST elevated myocardial infarction) (Acute) - Physical Exam Vitals/I&O's: Vital Signs Temp Pulse Resp BP Pulse Ox 98.2 F 72 18 95/64 92 01/04/20 09:15 01/04/20 11:00 01/04/20 09:15 01/04/20 10:07 01/04/20 09:15 Oxygen Delivery Method Room Air Weight: 195 lb 5.273 oz Body Mass Index (BMI) 31.5 Finger Stick Blood Glucose 218 Intake and Output for Last 24 Hours 01/02/20 01/03/20 01/04/20 23:59 23:59 23:59 Intake Total 0 / 0 624.77 / 624.77 360 / 360 Output Total 0 / 0 700 / 700 Balance 0 / 0 -75.23 / -75.23 360 / 360 Laboratory Results 01/03/20 04:44: Magnesium 2.3 01/03/20 12:23: POC Glucose 145 H 01/03/20 16:27: POC Glucose 147 H 01/03/20 21:27: POC Glucose 156 H 01/04/20 04:44: Total Bilirubin 0.60, Direct Bilirubin 0.27, AST 24, ALT 33, Alkaline Phosphatase 163 H, Total Protein 5.9 L, Albumin 3.0 L, Globulin 2.9 01/04/20 05:42: WBC 4.5, RBC 2.97 L, Hgb 10.0 L, Hct 30.5 L, MCV 102.7 H, MCH 33.7 H, MCHC 32.8, RDW Std Deviation 48.6 H, RDW Coeff of Mohini 13.0, Plt Count 111 L, MPV 9.3 01/04/20 05:42: Sodium 136, Potassium 4.8, Chloride 105, Carbon Dioxide 25.0, Anion Gap 6, BUN 28 H, Creatinine 1.92 H, Estim Creat Clear Calc 25.38, Est GFR (MDRD) Af Amer 43 L, Est GFR (MDRD) Non-Af 36 L, BUN/Creatinine Ratio 14.6, Glucose 136 H, Calcium 8.6 01/04/20 06:41: POC Glucose 145 H Current Medications Acetaminophen (Tylenol) 650 mg PO Q6H PRN PRN PRN Reason: Mild Pain (1-3)/Temp > 100.7 F Amlodipine Besylate (Norvasc) 5 mg PO DAILY [facility] Last Admin: 01/04/20 09:22 Dose: 5 mg Documented by: Aspirin (Ecotrin) 81 mg PO DAILY@0800 [facility] Last Admin: 01/04/20 09:18 Dose: 81 mg Documented by: Calcium/Vitamin D (Os-Hugh 500mg + D) 1 tablet PO BID [facility] Last Admin: 01/04/20 09:18 Dose: 1 tablet Documented by: Clopidogrel Bisulfate (Plavix) 75 mg PO DAILY [facility] Last Admin: 01/04/20 09:17 Dose: 75 mg Documented by: Dextrose (D50w Syringe) 0 gm IV X1 PRN; Protocol PRN Reason: Hypoglycemia Ferrous Sulfate ([facility]ous Sulfate) [facility] Last Admin: 01/04/20 09:17 Dose: 325 mg Documented by: Fluticasone Propionate (Flonase Nasal [place]) 1 spray NASAL BID [facility] Last Admin: 01/04/20 09:19 Dose: 1 spray Documented by: Glucagon () 1 mg IM .X1 PRN PRN Reason: Hypoglycemia Sodium Chloride () 250 mls @ 15 mls/hr IV .[id number] PRN PRN Reason: Saline Flush Sodium Chloride () 250 mls @ 15 mls/hr IV .[id number] PRN PRN Reason: Additional IVPB Infusion Insulin Human Lispro (Humalog Kwikpen (Bkc)) 0 unit SC TIDAC [facility]; Protocol Last Admin: 01/04/20 06:44 Dose: Not Given Documented by: Lidocaine (Lidoderm Patch) 1 patch TOPICAL DAILY [facility] Last Admin: 01/04/20 09:25 Dose: Not Given Documented by: Loratadine (Loratadine 10 Mg Tablet) 10 mg PO DAILY [facility] Last Admin: 01/04/20 09:17 Dose: 10 mg Documented by: Metoprolol Tartrate (Lopressor (Beta Alexander)) 50 mg PO BID [facility] Last Admin: 01/04/20 10:07 Dose: Not Given Documented by: Multivitamins (Multivitamin) [facility] Last Admin: 01/04/20 09:18 Dose: 1 tablet Documented by: Nitroglycerin (Nitrostat) 0.4 mg SUBLINGUAL Q5M PRN PRN Reason: CARDIAC/CHEST PAIN Nutritional Formula (Lactose Free) (Glucerna Shake 120 Ml Liquid) 120 ml PO 4X/DAY [facility] Last Admin: 01/04/20 09:31 Dose: 120 ml Documented by: Ondansetron HCl (Zofran) 4 mg IV Q8H PRN PRN PRN Reason: NAUSEA/VOMITING Oxycodone HCl (Oxyir) 5 mg PO Q4H PRN PRN PRN Reason: Pain Score 4-5 Oxycodone HCl (Oxyir) 10 mg PO Q4H PRN PRN PRN Reason: Pain Score 6-10 Pantoprazole Sodium (Protonix) 20 mg PO DAILY [facility] Last Admin: 01/04/20 09:17 Dose: 20 mg Documented by: Pravastatin Sodium (Pravachol) 80 mg PO QHS [facility] Last Admin: 01/03/20 21:18 Dose: 80 mg Documented by: Ranolazine (Ranolazine 500 Mg Tablet) 500 mg PO BID [facility] Last Admin: 01/04/20 09:17 Dose: 500 mg Documented by: Sodium Chloride () 10 - 40 ml IV UD PRN PRN Reason: SALINE FLUSH Last Admin: 01/03/20 16:24 Dose: 10 ml Documented by: Tamsulosin HCl (Tamsulosin Hcl 0.4 Mg Capsule) 0.4 mg PO DAILY@1730 [facility] Last Admin: 01/03/20 16:33 Dose: 0.4 mg Documented by: Discharge Diet: Low fat/ Low Cholesterol Discharge Activity: Return to Normal Activity Call your doctor if you observe: Shortness of breath, Dizziness, Fainting spells, Chest pain Home Medications: Medications to take at Discharge clopidogrel 75 mg tablet 75 mg PO QDAY 03/09/17 esomeprazole magnesium 20 mg capsule,delayed release 20 mg PO QDAY cap 03/09/17 ferrous sulfate 325 mg (65 mg iron) tablet,delayed release 324 mg PO QDAY tab 03/09/17 multivitamin 1 tab PO QDAY 03/09/17 pravastatin 80 mg tablet 80 mg PO QHS 03/09/17 calcium carbonate-vitamin D3 600 mg (1,500 mg)-800 unit tablet 1 tab PO BID 09/08/17 Aspirin E.C. [Ecotrin] 81 mg PO DAILY@0800 03/20/18 Etodolac [Lodine] 300 mg PO BIDCM 10/03/18 Acetaminophen [Tylenol Tablet] 650 mg PO Q6H PRN PRN tab 10/12/18 metoprolol tartrate 50 mg tablet 50 mg PO BID #180 tab 10/19/18 tamsulosin 0.4 mg capsule 0.4 mg PO DAILY 10/19/18 amlodipine 5 mg tablet 5 mg PO DAILY #90 tab 01/27/19 fluticasone propionate 50 mcg/actuation nasal spray,suspension 2 spray INTRANASAL BID PRN 04/20/19 magnesium oxide 800 mg PO .COMPLEX tab 07/31/20 Cetirizine HCl [Allergy Relief] 10 mg PO DAILY 01/02/20 Lidocaine [Lidocaine Pain Relief] 1 patch TRANSDERM. DAILY PRN 01/02/20 Ranolazine [Ranexa] 500 mg PO BID #60 tab 01/04/20 Following Prescriptions Were Given to Patient: Ranolazine [Ranexa] 500 mg PO BID #60 tab Transmission Status: Received by [facility]30 Please follow up with your Primary Care Physician in: Follow up with primary care provider in 1 week. Please Follow Up With: Carlos Coreas MD When: 2 Weeks, may see TRAFFIC OBSERVER/PA Disposition: Home Minutes spent on discharge:: 35 Patient Condition:: Stable Medical Necessity - Tobacco Use Smoking Status: Former smoker Meaningful Use Info Meaningful Use Diagnoses (Choose all that apply): None applicable <[place] - Last Filed: 01/04/20 18:12> Discharge Date and Diagnosis - Primary Discharge Diagnosis Acute Problems: Active Problems (Last Reviewed 01/02/20 @ 21:[address] Grupo Funez DO) NSTEMI (non-ST elevated myocardial infarction) (Acute) - Secondary Discharge Diagnosis Chronic Problems: Chronic Problems (Last Reviewed 01/02/20 @ 21:[address] Grupo Funez DO) Hypomagnesemia (Chronic) Bifascicular block (Chronic) 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, LAFB History of coronary artery stent placement (Chronic 03/19/05) [id number]-Xzfvvm RCA 03/03/2005; WTV-EHW-Hlwd LAD 03/19/2005 Essential (primary) hypertension (Chronic) Hyperlipidemia (Chronic) Atherosclerotic heart disease of [place] coronary artery without angina pectoris (Chronic) [id number]-[id number]-Vfztsl RCA 03/03/2005; MNV-DMZ-Udqz LAD 03/19/2005 Hospital Course and Treatment Summary of Care Provided: This patient was seen in conjunction with Kelly Gonzalez NP. I have independently interviewed and examined the patient and reviewed pertinent historical, laboratory, and other data. Please refer to her note for patient's presentation, findings, and recommendations. 84y/o with multiple co-morbidities who comes in with chest pain and chronic diarrhea. Patient was a direct admission and found to have acute NSTEMI with elevated troponin. Patient was started on heparin drip. Patient was admitted to PCU, continued on heparin drip. Cardiology was consulted. His troponins in the hospital were negative. He was started on Ranexa 500 mg twice daily and outpatient follow-up was recommended On the day of discharge, patient was seen and examined. No new complains. Physical Exam: Gen: Appears frail, comfortable, not pale, not jaundiced, alert oriented x3 CVS:HS I +II, regular, no murmurs RESP: Diminished at lung bases GI: BS present and normal, nontender, no palpable organs EXT:No edema - Physical Exam Vitals/I&O's: Vital Signs Temp Pulse Resp BP Pulse Ox 98.2 F 71 18 95/64 92 01/04/20 16:00 01/04/20 16:00 01/04/20 16:00 01/04/20 16:00 01/04/20 16:00 Oxygen Delivery Method Room Air Weight: 88.6 kg Body Mass Index (BMI) 31.5 Finger Stick Blood Glucose 218 Intake and Output for Last 24 Hours 01/02/20 01/03/20 01/04/20 23:59 23:59 23:59 Intake Total 0 / 0 624.77 / 624.77 360 / 360 Output Total 0 / 0 700 / 700 Balance 0 / 0 -75.23 / -75.23 360 / 360 Microbiology Past 72 Hours 01/04/20 09:52 Stool Enteric Bacteriology - Final 01/04/20 09:52 Stool C. difficile DNA Amplification - Final Laboratory Results 01/03/20 21:27: POC Glucose 156 H 01/04/20 04:44: Total Bilirubin 0.60, Direct Bilirubin 0.27, AST 24, ALT 33, Alkaline Phosphatase 163 H, Total Protein 5.9 L, Albumin 3.0 L, Globulin 2.9 01/04/20 05:42: WBC 4.5, RBC 2.97 L, Hgb 10.0 L, Hct 30.5 L, MCV 102.7 H, MCH 33.7 H, MCHC 32.8, RDW Std Deviation 48.6 H, RDW Coeff of Mohini 13.0, Plt Count 111 L, MPV 9.3 01/04/20 05:42: Sodium 136, Potassium 4.8, Chloride 105, Carbon Dioxide 25.0, Anion Gap 6, BUN 28 H, Creatinine 1.92 H, Estim Creat Clear Calc 25.38, Est GFR (MDRD) Af Amer 43 L, Est GFR (MDRD) Non-Af 36 L, BUN/Creatinine Ratio 14.6, Glucose 136 H, Calcium 8.6 01/04/20 06:41: POC Glucose 145 H 01/04/20 12:31: POC Glucose 197 H Inpatient E&M: [id number] Disch Hosp
[2020-01-04] MEDS: Insulin Lispro 100 UNIT/ML INSULN.PEN SC (12:38)
[2020-01-04 12:40] LABS: Bedside Glucose 197 mg/dL (70-110)
--- NOTE | 2020-01-04 15:10 | CASEMGMT ---
Ge METAL MACHINE OPERATOR spoke with pt's daughter and she would like [facility] set up for therapy at discharge. Order placed for PT/OT at this time and call to Brianna at [facility] to notify of referral. She states they may be able to get pt in for SOC on thursday but she will let this RN CM know. Quentin SCHWARTZ CM
== END 2020-01-04 17:09 | disposition home or self-care (01) | DRG 281 ==
PROVIDERS: Nurse Practitioner Family; PCP Internal Medicine; Visit Provider Internal Medicine
DX: I21.4 Non-ST elevation (NSTEMI) myocardial infarction (principal); I45.2 Bifascicular block; N18.30 Chronic kidney disease, stage 3 unspecified; E11.22 Type 2 diabetes mellitus with diabetic chronic kidney disease; I12.9 Hypertensive chronic kidney disease with stage 1 through stage 4 chronic kidney disease, or unspecified chronic kidney disease; K21.9 Gastro-esophageal reflux disease without esophagitis; E78.5 Hyperlipidemia, unspecified; G47.33 Obstructive sleep apnea (adult) (pediatric); N40.0 Benign prostatic hyperplasia without lower urinary tract symptoms; D69.6 Thrombocytopenia, unspecified; D50.9 Iron deficiency anemia, unspecified; I25.10 Atherosclerotic heart disease of native coronary artery without angina pectoris; Z95.5 Presence of coronary angioplasty implant and graft; I45.10 Unspecified right bundle-branch block; Z87.891 Personal history of nicotine dependence; E83.42 Hypomagnesemia; R19.7 Diarrhea, unspecified
CPT/HCPCS: 36415; 80048; 80061; 80076; 82962; 83735; 84484; 85025; 85027; 85730; 87493; 87506; 93005; 93306; 97162; 97166; 97802; Q9957; A4216; C8929

== ENCOUNTER 2020-05-16 13:27 | Outpatient (RCR) | payer MEDICARE, SELFPAY | END 2020-05-16 23:59 | LOC: IMMUN 13:27 | PROVIDERS: Referring Provider Family Medicine; Visit Provider Family Medicine | DX: Z23 Encounter for immunization (principal) | CPT/HCPCS: 0011A; 0012A; 91301 ==

== ENCOUNTER → 2023-07-08 | Outpatient (CLI) | payer MEDICARE, SELFPAY ==
[2023-07-08 12:41] LABS: Absolute Lymphocyte Count 0.54 X10^3/uL (0.83-4.51); Absolute Neutrophil Count 3.5 X10^3/uL (2.0-7.7); Basophil# 0.02 X10^3/uL; Basophil% 0.4 % (0-1); Eosinophils% 2.2 % (0-5); Hematocrit 27.2 % (40-54); Hemoglobin 8.8 g/dL (13.0-16.5); Lymphocyte # 0.54 X10^3/ul (0.83-4.51); Lymphocyte % 11.8 % (19-41); Mean Corp Hgb Conc 32.4 g/dL (32-36); Mean Corpuscular Hgb 34.6 pg (27.0-32.0); Mean Corpuscular Volume 107.1 fL (80-94); Mean Platelet Vol. 9.3 fl (6.2-12.0); Monocyte# 0.38 X10^3/uL; Monocyte% 8.3 % (0-10); NRBC Flagged by Analyzer 0 % (0-5); Neutrophil # 3.51 X10^3/uL (2.7-7.7); Neutrophil % 76.4 % (47-70); POSITIVE COUNT YES; POSITIVE DIFFERENTIAL YES; Platelet Count 98 K/mm3 (150-450); RBC Distribution Width CV 13.7 % (11.6-14.6); RBC Distribution Width SD 53.1 fl (35.1-43.9); Red Blood Count 2.54 M/mm3 (4.6-6.2); White Blood Count 4.6 K/mm3 (4.4-11.0)
[2023-07-08 13:05] LABS: BNP,B-Type NATRIURETIC PEPTIDE 417.8 pg/mL (0-100)
[2023-07-08 13:24] LABS: AST(SGOT) 22 U/L (15-37); Alanine Aminotransfer ALT/SGPT 23 U/L (16-61); Alkaline Phosphatase 104 U/L (45-117); Anion Gap 7 (5-15); BUN 27 mg/dL (7-18); BUN/Creat Ratio 13.2 RATIO (10-20); Bilirubin, Direct 0.22 mg/dL (0.00-0.30); Calcium,Total 8.3 mg/dL (8.5-10.1); Chloride 104 mmol/L (98-107); Cholesterol 62 mg/dL (200); Creatinine, Serum 2.04 mg/dL (0.70-1.30); EST Glomerular Filtration Rate 33 mL/min (>60); Est Glom Filt Rate - Afr Amer 40 mL/min (>60); Globulin 2.9 g/dL (2.2-4.2); Glucose 316 mg/dL (74-106); High Density Lipoprotein 35 mg/dL; Potassium 4.5 mmol/L (3.5-5.1); Protein, Total 5.9 g/dL (6.4-8.2); Sodium Level 136 mmol/L (136-145); Triglycerides 74 mg/dL; Very Low Density Lipoprotein 15 mg/dL (5-40)
== END | disposition home or self-care (01) ==
LOC: LAB 12:19
PROVIDERS: Referring Provider Nurse Practitioner Family; Visit Provider Nurse Practitioner Family
DX: E78.00 Pure hypercholesterolemia, unspecified (principal); I50.9 Heart failure, unspecified; I25.10 Atherosclerotic heart disease of native coronary artery without angina pectoris; D64.9 Anemia, unspecified; Z95.5 Presence of coronary angioplasty implant and graft
CPT/HCPCS: 36415; 80048; 80061; 80076; 83880; 85025

== ENCOUNTER → 2023-09-22 | Outpatient (CLI) | payer MEDICARE, SELFPAY ==
[2023-09-22 17:28] LABS: Absolute Lymphocyte Count 0.53 X10^3/uL (0.83-4.51); Basophil# 0.02 X10^3/uL; Basophil% 0.7 % (0-1); Eosinophil# 0.04 X10^3/uL; Eosinophils% 1.4 % (0-5); Hematocrit 23.7 % (40-54); Hemoglobin 7.6 g/dL (13.0-16.5); Lymphocyte # 0.53 X10^3/ul (0.83-4.51); Lymphocyte % 18.7 % (19-41); Mean Corp Hgb Conc 32.1 g/dL (32-36); Mean Corpuscular Hgb 33.8 pg (27.0-32.0); Mean Corpuscular Volume 105.3 fL (80-94); Mean Platelet Vol. 9.1 fl (6.2-12.0); Monocyte# 0.22 X10^3/uL; Monocyte% 7.7 % (0-10); NRBC Flagged by Analyzer 0 % (0-5); Neutrophil # 2.02 X10^3/uL (2.7-7.7); Neutrophil % 71.1 % (47-70); POSITIVE COUNT YES; POSITIVE DIFFERENTIAL YES; POSITIVE MORPHOLOGY YES; Platelet Count 93 K/mm3 (150-450); RBC Distribution Width CV 23.5 % (11.6-14.6); Red Blood Count 2.25 M/mm3 (4.6-6.2); White Blood Count 2.8 K/mm3 (4.4-11.0)
[2023-09-22 18:05] LABS: Differential Indicated SCAN CRITERIA MET
[2023-09-22 18:29] LABS: Anisocytosis 2+; Differential Comment SEE COMMENTS; Hypochromasia RARE; Macrocytosis 2+; Platelet Estimate SLT DEC (ADEQ); Red Cell Morphology N CHROM NORMAL (NORM C&C)
[2023-09-22 18:30] LABS: Ovalocyte RARE
[2023-09-23 00:59] LABS: Xtra CC BBK (Onc ONLY) EXTRA TUBE
[2023-09-23 16:14] LABS: Pathologist Review Reviewed
== END | disposition home or self-care (01) ==
LOC: LAB 16:56
PROVIDERS: Referring Provider Internal Medicine Hematology & Oncology; Visit Provider Internal Medicine Hematology & Oncology
DX: N18.32 Chronic kidney disease, stage 3b (principal); D46.Z Other myelodysplastic syndromes; D63.1 Anemia in chronic kidney disease; D50.0 Iron deficiency anemia secondary to blood loss (chronic); D64.9 Anemia, unspecified
CPT/HCPCS: 36415; 85025; 86850; 86870; 86900; 86901; 86920; 86921; 86922

== ENCOUNTER 2023-10-11 15:32 | Inpatient (IN) | payer MEDICARE, SELFPAY ==
[2023-10-11 16:00] VITALS: BP 167/67; PULSE 97; RESP 20; TEMP 36.4; O2SAT 98
[2023-10-11 16:07] VITALS: BMI 28.3
--- NOTE | 2023-10-11 16:29 | EKG12_ITS ---
Test Reason : ADMIT Blood Pressure : / mmHG Vent. Rate : 095 BPM Atrial Rate : 095 BPM P-R Int : 204 ms QRS Dur : 122 ms QT Int : 410 ms P-R-T Axes : 033 -51 -01 degrees QTc Int : 515 ms Sinus rhythm with frequent Premature ventricular complexes Right bundle branch block Left anterior fascicular block Bifascicular block Abnormal ECG Confirmed by RINKU SILVA, ANGIE ([id number]), graphics editor NICOLE LOPEZ ([id number]) on 10/12/2023 1:09:54 PM Referred By: Confirmed By:ANGIE DOBBS MD
--- NOTE | 2023-10-11 16:30 | RAD_ITS ---
INDICATION: EFFUSION EXAMINATION/TECHNIQUE: X-RAY - XR Chest 1 View COMPARISON: October 11, 2018 FINDINGS: LINES/DEVICES: None. LUNGS: No consolidation, edema or effusion. Right basilar infiltrate and mild effusion. No pneumothorax. MEDIASTINUM AND CARDIOVASCULAR STRUCTURES: Cardiac silhouette not enlarged. Central airways and mediastinal contour are unremarkable. BONES AND SOFT TISSUES: Degenerative vertebral changes. RAD/Chest 1 View (Portable) IMPRESSION: Right basilar infiltrate and mild effusion. Electronically Signed: Davide Neri DO at 21:41 EDT ,
--- NOTE | 2023-10-11 16:47 | HP.PCM.HOS_ITS ---
[facility] - General General Date of Admission: 10/11/23 Date of Service: 10/11/23 Chief Complaint: Shortness of breath HPI Narrative FARHANA BAKER, is a 88 M who presented to the emergency department at outside community health systems ([facility]) complaining of shortness of breath and mild chest pain. He has had worsening shortness of breath over the last few days. He is complaining of orthopnea and has been sleeping in a chair for the last few days due to his shortness of breath and significant exertional dyspnea. His chest pain resolved independently without any intervention. But he still complaining of shortness of breath specifically with exertion. He states he is comfortable as long as he is at rest. But minimal exertion increases his shortness of breath. He is unclear if he has gained any weight. He states he drinks 4 to 5 cups of coffee a day as well as other fluids so it does not sound like he is markedly reducing his fluid intake. He is unclear of his salt intake. We did discuss his baseline body weight and he is unclear of this as well. Vital signs on presentation here showed a temperature of 97.5, heart rate 97, blood pressure is 167/67, respiratory rate is 20 and oxygen saturations are 98% on room air at rest. His CBC shows pancytopenia that is chronic and stable. His chemistry panel here shows normal electrolytes with a BUN of 31 and a serum creatinine of 2.0 (baseline 2-2.4). Blood glucose is 165. BNP is 416 and troponin is 10. His EKG is normal sinus rhythm however he is significant ventricular ectopy. [facility] Medical History Pancytopenia Gastric antral vascular ectasia Anemia of chronic renal failure, stage 3 (moderate) Iron deficiency anemia due to chronic blood loss MDS (myelodysplastic syndrome), low grade Cataract Degenerative arthritis Hungry bone syndrome Thrombocytopenia Anemia Right bundle branch block (RBBB) with left anterior fascicular block History of non-ST elevation myocardial infarction (NSTEMI) (01/02/20) Emphysematous cholecystitis Hypomagnesemia GERD (gastroesophageal reflux disease) Obstructive sleep apnea TIA (transient ischemic attack) Type 2 diabetes mellitus CKD (chronic kidney disease) SAH (subarachnoid hemorrhage) (1995) Hypochromic anemia Essential (primary) hypertension Hyperlipidemia Atherosclerotic heart disease of [place] coronary artery without angina pectoris Home Medications ?Medication ?Instructions ?Recorded ?Last Taken ?Type multivitamin 1 tab PO QDAY vitamin 03/09/17 01/02/20 History pravastatin 80 mg tablet 80 mg PO QHS cholesterol 03/09/17 01/01/20 History (Pravachol) tamsulosin 0.4 mg capsule (Flomax) 0.4 mg PO DAILY urinary 10/19/18 01/02/20 History cetirizine 10 mg capsule 10 mg PO DAILY allergies 01/02/20 01/02/20 History Lactobacillus acidophilus 10 mg PO DAILY 12/19/22 Unknown History magnesium oxide 800 mg PO BID supplement 12/19/22 Unknown History pantoprazole 40 mg tablet,delayed 40 mg PO DAILY 12/19/22 Unknown History release tramadol 50 mg tablet 25 mg PO BID PRN pain 07/08/23 Unknown History furosemide 20 mg tablet 10 mg PO DAILY 09/16/23 Unknown History metoprolol tartrate 25 mg tablet 12.5 mg PO BID 09/16/23 Unknown History ferrous sulfate 325 mg (65 mg 325 mg PO DAILY 10/11/23 Unknown History iron) tablet (FeroSul) Allergy/AdvReac Type Severity Reaction Status Date / Time amoxicillin Allergy Severe unknown Verified 09/25/23 09:43 Tetanus Vaccines and Toxoid Allergy Severe unknown Verified 09/25/23 09:43 ranolazine (From Ranexa) AdvReac Severe Hallucinati Verified 09/25/23 09:43 ons acetaminophen (From Vicodin) AdvReac NEEDS Verified 09/25/23 09:43 FOLLOW-UP hydrocodone (From Vicodin) AdvReac confusion Verified 09/25/23 09:43 Opioids - Morphine Analogues AdvReac Nausea/Vom/ Verified 09/25/23 09:43 Diarrhea Thiazides AdvReac Other Verified 09/25/23 09:43 Family History Father , age 91 Hypertension Mother , age 80 Heart disease Congestive heart failure Diabetes Sister , age 50 ruptured brain aneurysm Surgical History H/O mastoidectomy Hx laparoscopic cholecystectomy (09/2018) History of inguinal hernia repair History of coronary artery stent placement (03/19/05) Social History household members: children housing: house Smoking Status: Former smoker quit date: 03/23/93 alcohol intake: never substance use type: does not use caffeine: Yes Type: coffee Number of servings: 4 ROS Constitutional Constitutional: Reports weakness; Denies anorexia, change in weight, chills, fatigue, fever(s), malaise, night sweats or other Eyes Eyes: Denies blurry vision, change in eye color, change in vision, discharge from eye(s), double vision, erythema, eye pain, loss of vision or other ENT HEENT: Denies abnormal hearing, dysphagia, ear pain, epistaxis, headache(s), hearing loss, nasal congestion, nasal discharge, post nasal drip, sinus pressure, sore throat or other Cardiovascular Cardiovascular: Reports chest pain, dyspnea on exertion, edema and orthopnea; Denies claudication, lightheadedness, palpitations, paroxysmal nocturnal dyspnea, rapid heart rate, syncope or other Respiratory/Chest Respiratory/Chest: Reports dyspnea and shortness of breath with exertion; Denies cough, excessive phlegm production, hemoptysis, productive cough, shortness of breath at rest, wheezing or other Gastrointestinal Gastrointestinal: Denies abdominal pain, coffee ground emesis, constipation, diarrhea, dyspepsia, hematemesis, hematochezia, loose stools, melena, nausea, vomiting or other Genitourinary Genitourinary: Denies burning urination, difficulty urinating, dysuria, hematuria, nocturia, urinary frequency, urinary hesitancy, urinary incontinence, urinary urgency or other Musculoskeletal Musculoskeletal: Reports back pain and joint pain; Denies arthralgias, joint stiffness, joint swelling, myalgias, neck pain or other Neurologic Neurologic: Denies abnormal gait, abnormal speech, confusion, disequilibrium, dizziness, focal weakness, headache(s), numbness, paresthesias, seizure-like activity, seizures, syncope, tingling, tremor(s) or other Psychiatric Psychiatric: Denies anxiety, depression, homicidal ideation, suicidal ideation or other Endocrine Endocrinology: Denies change in body appearance, cold intolerance, excessive sweating, heat intolerance, polydipsia, polyuria or other Hematologic/Lymphatic Hematologic/Lymphatic: Reports anemia, easy bleeding and easy bruising; Denies lymphadenopathy or other Allergic/Immunologic Allergic/Immunologic: Denies rhinitis, hives, eczemia, asthma or other Vital Signs Vital Signs Vital Signs: 10/11/23 15:57 10/11/23 16:00 10/11/23 16:00 Temperature 97.5 F L 97.5 F L Temperature Source Temporal Temporal Pulse Rate 97 97 Respiratory Rate 20 H 20 H Respiratory Effort Short of Breath Respiratory Depth Normal Respiratory Pattern Tachypnea Blood Pressure 167/67 H 167/67 H Blood Pressure Mean 100 100 Blood Pressure Source Monitor Blood Pressure Position Semi-Fowlers Blood Pressure Location Left Arm Pulse Ox 98 Oxygen Delivery Method Room Air Room Air Weight Weight: 79.7 kg Body Mass Index (BMI) 28.3 Physical Exam Const alert, oriented x3, no apparent distress and well nourished; Negative for healthy appearing Constitutional Narrative: Elderly, white male, lying in bed with head of bed elevated watching television, appears comfortable at this time however becomes dyspneic with conversation or with minimal effort, does not appear toxic General Appearance: cooperative HEENT normocephalic, head/scalp atraumatic and moist oral mucous membranes; Negative for hearing grossly normal bilaterally HEENT Narrative: Dentures in place, Mallampati is 3, no thrush, marked hearing loss Eyes PERRL and EOMs intact bilaterally Eyes Narrative: Conjunctiva are pale bilaterally, no scleral icterus Neck no lymphadenopathy, supple and No no JVD Neck Narrative: Positive JVD, trachea midline, no thyroid enlargement, positive hepatojugular reflux Resp no retractions and no use of accessory muscles Resp Narrative: Diminished at distal right base with crackling at mid right base and crackling at very distal left base, upper airway wheezing identified with no pulmonary wheeze, significant dyspnea with conversation or minimal exertion but not dyspneic at rest and no signs of extremis Cardio regular rate, S1 normal heart sound, S2 normal heart sound, no rub, no gallops and no clicks; Negative for no murmurs Cardio Narrative: Intermittent ectopy, 2 out of 6 systolic murmur loudest at right upper sternal border GI normal to inspection, nondistended, normoactive bowel sounds, soft to palpation and non-tender Extremity Extremity Narrative: Trace bilateral lower extremity pitting edema, no cyanosis or clubbing Skin skin turgor normal, no jaundice, no petechiae and no mottling Skin Narrative: Skin is pale, few scattered ecchymosis in various stages of healing Neuro oriented x3, moves all extremities and no focal motor deficits Neuro Narrative: Generalized weakness with no focal deficits Speech: speech normal Psych affect normal Psych Narrative: Interacts appropriately, eye contact is good, very pleasant Results Lab / Micro Data 10/11/23 16:47 10/11/23 16:47 Assessment & Plan Assessment/Plan (1) Shortness of breath: (2) Acute on chronic heart failure with preserved ejection fraction: (3) Pleural effusion, right: (4) Elevated brain natriuretic peptide (BNP) level: PLAN: Plan Shortness of breath secondary to acute on chronic heart failure with preserved ejection fraction/diastolic dysfunction -Last echocardiogram was done on 08/05/2023 at [facility]--> EF was 61% ?5% but diastolic dysfunction was not analyzed, there is mild reduction in right ventricular systolic function, mild mitral valve regurgitation and mild aortic valve stenosis -Recheck echocardiogram -Patient is only on Lasix 10 mg daily which I suspect is not sufficient enough and contributing to why he is acutely decompensated -Patient is unclear if he watches his fluid intake at home or his salt -Baseline renal function appears to be between 2 and 2.4--> was 1.9 on presentation outside facility so I highly suspect he is a little volume overloaded -BNP is elevated -Chest x-ray reveals vascular congestion with worsening of the right pleural effusion -Will utilize Lasix drip for now -Monitor electrolytes and renal function closely with repeat BMP to be done at 8 PM -Accurate I's and O's -Daily weights -Lower extremity Bruno bandages for edema -Fluid restriction to 1750 daily -Sodium restricted diet Troponin elevation -Will trend here however trend prior to presentation was 130-141-146 -Initial troponin here was 10 but will trend -Highly suspect elevation is related to acute decompensation -Check echocardiogram -If trends up further or echocardiogram is markedly abnormal compared to previous may need cardiology involvement Right pleural effusion -Highly suspect this is transudative -Hoping this will improve with diuretics -Repeat chest x-ray in a.m. 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 stage IV -Baseline serum creatinine appears to run between 2 and 2.4 -Serum creatinine at outside facility was 1.9 -Likely related to volume overload -Diuresis with drip for now -Follow serial BMPs to ensure we do not over diurese -Avoid unnecessary nephrotoxins 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 [facility] in August 2023 at which time he had an EGD that showed angiodysplastic lesions which were treated with argon plasma coagulation -Patient off aspirin and Plavix due to this -Continue Protonix -Monitor hemoglobin clinically but currently stable CAD/essential hypertension/hyperlipidemia -[id number] RCA 03/03/2005; SNL-WCE-Dpeq LAD 03/19/2005 -Off aspirin and Plavix due to GAVE syndrome -Hold home Lasix due to the above -Continue home metoprolol -Antihypertensives have been adjusted recently as pressures are lower than typical -Monitor blood pressures closely with Lasix drip -Continue home statin BPH with obstruction -Continue home Flomax Hypomagnesemia -Continue home magnesium supplements -Check a.m. magnesium with Lasix drip History of subarachnoid hemorrhage -No persistent deficits -Clinically stable History of ZABRINA -Patient denies wearing any mask at home for sleep apnea -May need supplemental oxygen nocturnally if oxygen saturations drop below 89% DVT prophylaxis -Subcu heparin twice daily CODE STATUS -DNR CCA okay for short-term intubation Charges/Coding Visit Charges Inpatient E&M: 56162 Init Hosp L2
[2023-10-11 16:59] LABS: Absolute Lymphocyte Count 0.44 X10^3/uL (0.83-4.51); Absolute Neutrophil Count 2.9 X10^3/uL (2.0-7.7); Basophil# 0.02 X10^3/uL; Basophil% 0.5 % (0-1); Eosinophil# 0.05 X10^3/uL; Eosinophils% 1.3 % (0-5); Hematocrit 24.7 % (40-54); Hemoglobin 8.2 g/dL (13.0-16.5); Lymphocyte # 0.44 X10^3/ul (0.83-4.51); Lymphocyte % 11.9 % (19-41); Mean Corp Hgb Conc 33.2 g/dL (32-36); Mean Corpuscular Hgb 34.6 pg (27.0-32.0); Mean Corpuscular Volume 104.2 fL (80-94); Mean Platelet Vol. 8.9 fl (6.2-12.0); Monocyte# 0.25 X10^3/uL; Monocyte% 6.7 % (0-10); NRBC Flagged by Analyzer 0 % (0-5); Neutrophil # 2.92 X10^3/uL (2.7-7.7); Neutrophil % 78.8 % (47-70); POSITIVE DIFFERENTIAL YES; POSITIVE MORPHOLOGY YES; Platelet Count 104 K/mm3 (150-450); Red Blood Count 2.37 M/mm3 (4.6-6.2); White Blood Count 3.7 K/mm3 (4.4-11.0)
[2023-10-11 17:16] LABS: ALB/GLOB Ratio 1.2 RATIO (0.9-2.4); AST(SGOT) 21 U/L (15-37); Alanine Aminotransfer ALT/SGPT 20 U/L (16-61); Albumin, Serum 3.2 g/dL (3.2-5.0); Alkaline Phosphatase 131 U/L (45-117); Anion Gap 6 (5-15); BUN 31 mg/dL (7-18); BUN/Creat Ratio 15.5 RATIO (10-20); Calcium,Total 7.9 mg/dL (8.5-10.1); Chloride 101 mmol/L (98-107); Differential Indicated SCAN CRITERIA MET; EST Glomerular Filtration Rate 34 mL/min (>60); Est Glom Filt Rate - Afr Amer 41 mL/min (>60); Estimated Creatinine Clearance 24.85 ml/min; Globulin 2.7 g/dL (2.2-4.2); Glucose 165 mg/dL (74-106); Potassium 4.3 mmol/L (3.5-5.1); Protein, Total 5.9 g/dL (6.4-8.2); Sodium Level 136 mmol/L (136-145); Troponin-I HS 10 pg/mL (3.0-78.0)
[2023-10-11] MEDS: Furosemide 500 MG in Empty Viaflex 50 mL 1 EACH CONT INF (17:21)
[2023-10-11] MEDS: 0.9% Saline Lock 10 ML Syringe IV (17:23)
[2023-10-11 17:29] LABS: Anisocytosis 2+; Differential Comment SCANNED; Hypochromasia 1+; Macrocytosis 1+; Microcytosis 1+
[2023-10-11 17:36] LABS: BNP,B-Type NATRIURETIC PEPTIDE 416.1 pg/mL (0-100)
[2023-10-11 19:22] LABS: Troponin-I HS 8 pg/mL (3.0-78.0)
[2023-10-11 20:30] VITALS: RESP 20; O2SAT 98
[2023-10-11 21:36] VITALS: BP 150/66; PULSE 100
[2023-10-11] MEDS: Magnesium Chloride 64 MG Delay Rel.Tablet 128 MG PO (21:36)
[2023-10-11] MEDS: Metoprolol Tartrate 25 MG Tablet 12.5 MG PO (21:36)
[2023-10-11] MEDS: Pravastatin 80 MG Tablet PO (21:36)
[2023-10-11] MEDS: Heparin Injection (Vial) 5,000 UNIT/ML VIAL 5000 UNIT SC (21:37)
[2023-10-11 21:44] VITALS: BP 150/66; PULSE 101; RESP 19; TEMP 36.4; O2SAT 100
[2023-10-11 22:00] LABS: Anion Gap 6 (5-15); BUN 31 mg/dL (7-18); BUN/Creat Ratio 15.3 RATIO (10-20); Calcium,Total 7.8 mg/dL (8.5-10.1); Chloride 101 mmol/L (98-107); Creatinine, Serum 2.03 mg/dL (0.70-1.30); EST Glomerular Filtration Rate 33 mL/min (>60); Est Glom Filt Rate - Afr Amer 40 mL/min (>60); Estimated Creatinine Clearance 24.48 ml/min; Glucose 174 mg/dL (74-106); Potassium 4.5 mmol/L (3.5-5.1); Sodium Level 136 mmol/L (136-145)
[2023-10-11 23:22] LABS: Troponin-I HS 10 pg/mL (3.0-78.0)
[2023-10-12] VITALS (17 sets, daily range): BP systolic 72–132; BP diastolic 39–98; PULSE 79–107; RESP 16–20; TEMP 36.2–36.8; O2SAT 94–100; BMI 26.9
--- NOTE | 2023-10-12 | FLU_PTH ---
PATIENT: FARHANA BAKER [facility] U#:[id number] AGE/SX: 88/M ROOM: [facility] RE10/13/[address]: Dr. Miryam Boston MD : [id number] BED: 1 DIS: 10/28/2023 SPEC #: [id number] RECD: 10/12/23 10:00 STATUS: JAMES EPPERSON #: [id number] LORAINE: 10/12/23 00:[address] DEPT: CYTOLOGY RECD BY: Destiny Chiang ENTERED: 10/12/23 11:17 SP TYPE: Fluid OTHR DR: Dr. Ana María Mazariegos, DO Dr. Sumit Lawrence, Tissues: THORACIC FLUID Procedures: Special Stain Group II Surgery Specimen Level IV Cytospin Fluid HEADER OPERATION: Ultrasound guided thoracentesis PRE-OP DIAGNOSIS: Chest pain, short of breath, acute on chronic HFPEF TISSUE SUBMITTED: Thoracentesis fluid for cytology DIAGNOSIS CYTOLOGY Thoracentesis fluid for cytology (cytospins and cellblock): Negative for malignant cells. AM/ 10/13/2023 CYTOLOGY STUDY Slides are reviewed. CYTOLOGY GROSS Received is 80 ml of yellow-cloudy fluid labeled with the patient's name and and designated per the requisition as Thoracentesis fluid. Submitted for cytology preparation including cell block. Mr 10/12/2023 TC:5 CPT: 33528, 61990
--- NOTE | 2023-10-12 05:55 | RAD_ITS ---
STUDY: X-RAY CHEST REASON FOR EXAM: Male, 88 years old patient with right-sided effusion. TECHNIQUE: Single AP portable view of the chest. COMPARISON: October 11, 2023. FINDINGS: Cardiac monitoring leads are present. The lungs are underexpanded with crowding of the bronchovascular markings and obscuration of the bases. There is suggestion for right-sided basilar airspace disease and/or pleural effusion. There is borderline cardiomegaly. Normal mediastinum and mignon. There is prominence of the pulmonary hilar arteries with peripheral pulmonary vascular congestion. There is atherosclerotic calcification of the aortic arch with tortuosity. There are diffuse degenerative changes of the visualized thoracic spine. Normal visualized ribs, clavicles, and shoulders. There is no demonstrated abnormality of the visualized soft tissue structures of the upper abdomen. RAD/Chest 1 View (Portable) IMPRESSION: Essentially unchanged appearance of the chest with persistent right basilar airspace disease and pleural effusion. Electronically Signed: Temi Franco MD at 6:45 EDT ,
[2023-10-12 06:08] LABS: Absolute Neutrophil Count 2.7 X10^3/uL (2.0-7.7); Basophil# 0.02 X10^3/uL; Basophil% 0.5 % (0-1); Eosinophil# 0.03 X10^3/uL; Eosinophils% 0.8 % (0-5); Hemoglobin 8.9 g/dL (13.0-16.5); Lymphocyte % 13.7 % (19-41); Mean Corpuscular Volume 103.1 fL (80-94); Mean Platelet Vol. 9.3 fl (6.2-12.0); Monocyte# 0.37 X10^3/uL; Monocyte% 10.2 % (0-10); NRBC Flagged by Analyzer 0 % (0-5); Neutrophil # 2.69 X10^3/uL (2.7-7.7); POSITIVE DIFFERENTIAL YES; POSITIVE MORPHOLOGY YES; Platelet Count 104 K/mm3 (150-450); Red Blood Count 2.62 M/mm3 (4.6-6.2); White Blood Count 3.6 K/mm3 (4.4-11.0)
[2023-10-12 06:40] LABS: Anion Gap 7 (5-15); BUN 31 mg/dL (7-18); BUN/Creat Ratio 15.1 RATIO (10-20); Calcium,Total 8.5 mg/dL (8.5-10.1); Chloride 98 mmol/L (98-107); Creatinine, Serum 2.05 mg/dL (0.70-1.30); EST Glomerular Filtration Rate 33 mL/min (>60); Est Glom Filt Rate - Afr Amer 40 mL/min (>60); Estimated Creatinine Clearance 22.04 ml/min; Glucose 177 mg/dL (74-106); Magnesium 1.4 mg/dL (1.6-2.6); Phosphorus 3.8 mg/dL (2.5-4.9); Potassium 4.5 mmol/L (3.5-5.1); Sodium Level 134 mmol/L (136-145)
[2023-10-12 07:33] LABS: Anisocytosis 2+; Differential Comment SCANNED
[2023-10-12 07:54] LABS: ALB/GLOB Ratio 1.1 RATIO (0.9-2.4); Globulin 2.9 g/dL (2.2-4.2); LDH 282 U/L (87-241); Protein, Total 6.1 g/dL (6.4-8.2)
--- NOTE | 2023-10-12 08:24 | PCM.PN.HOSP ---
Reason for Visit Reason for Visit: Diagnoses Acute on chronic diastolic (congestive) heart failure (10/11/23) Pleural effusion, not elsewhere classified (10/11/23) Shortness of breath (10/11/23) Other specified abnormal findings of blood chemistry (10/11/23) Objective Data Objective Data Vital Signs: Vital Signs Temp Pulse Resp BP Pulse Ox O2 Del Method 97.2 F L 94 18 125/98 H 99 Room Air 10/12/23 03:44 10/12/23 03:44 10/12/23 03:44 10/12/23 03:44 10/12/23 03:44 10/12/23 03:44 Oxygen Delivery Method Room Air Weight: 166 lb 14.239 oz Body Mass Index (BMI) 26.9 Intake & Output: Intake and Output for Last 24 Hours 10/10/23 10/11/23 10/12/23 23:59 23:59 23:59 Intake Total 350 / 350 Output Total 1075 / 1075 1900 / 1900 Balance -725 / -725 -1900 / -1900 Lab / Micro Data 10/12/23 05:49 10/12/23 05:49 Labs: Laboratory Results - last 24 hr 10/11/23 16:47: WBC 3.7 L, RBC 2.37 L, Hgb 8.2 L, Hct 24.7 L, MCV 104.2 H, MCH 34.6 H, MCHC 33.2, RDW Std Deviation Not Reportable, RDW Coeff of Mohini Not Reportable, Plt Count 104 L, MPV 8.9, Immature Gran % (Auto) 0.800, Neut % (Auto) 78.8 H, Lymph % (Auto) 11.9 L, Sutter % (Auto) 6.7, Eos % (Auto) 1.3, Baso % (Auto) 0.5, Absolute Neuts (auto) 2.9, Absolute Lymphs (auto) 0.44 L, Nucleated RBC % 0, Differential Comment SCANNED, Hypochromasia 1+, Anisocytosis 2+, Microcytosis 1+, Macrocytosis 1+, Sodium 136, Potassium 4.3, Chloride 101, Carbon Dioxide 29.0, Anion Gap 6, BUN 31 H, Creatinine 2.00 H, Estim Creat Clear Calc 24.85, Est GFR (MDRD) Af Amer 41 L, Est GFR (MDRD) Non-Af 34 L, BUN/Creatinine Ratio 15.5, Glucose 165 H, Calcium 7.9 L, Total Bilirubin 1.00, AST 21, ALT 20, Alkaline Phosphatase 131 H, Troponin I High Sens 10, B-Natriuretic Peptide 416.1 H, Total Protein 5.9 L, Albumin 3.2, Globulin 2.7, Albumin/Globulin Ratio 1.2 10/11/23 18:52: Troponin I High Sens 8 10/11/23 21:30: Sodium 136, Potassium 4.5, Chloride 101, Carbon Dioxide 29.0, Anion Gap 6, BUN 31 H, Creatinine 2.03 H, Estim Creat Clear Calc 24.48, Est GFR (MDRD) Af Amer 40 L, Est GFR (MDRD) Non-Af 33 L, BUN/Creatinine Ratio 15.3, Glucose 174 H, Calcium 7.8 L 10/11/23 22:47: Troponin I High Sens 10 10/12/23 05:49: WBC 3.6 L, RBC 2.62 L, Hgb 8.9 L, Hct 27.0 L, MCV 103.1 H, MCH 34.0 H, MCHC 33.0, RDW Std Deviation TNP, RDW Coeff of Mohini TNP, Plt Count 104 L, MPV 9.3, Immature Gran % (Auto) 0.800, Neut % (Auto) 74.0 H, Lymph % (Auto) 13.7 L, Sutter % (Auto) 10.2 H, Eos % (Auto) 0.8, Baso % (Auto) 0.5, Absolute Neuts (auto) 2.7, Absolute Lymphs (auto) 0.50 L, Nucleated RBC % 0, Differential Comment SCANNED, Anisocytosis 2+, Sodium 134 L, Potassium 4.5, Chloride 98, Carbon Dioxide 29.0, Anion Gap 7, BUN 31 H, Creatinine 2.05 H, Estim Creat Clear Calc 22.04, Est GFR (MDRD) Af Amer 40 L, Est GFR (MDRD) Non-Af 33 L, BUN/Creatinine Ratio 15.1, Glucose 177 H, Calcium 8.5, Phosphorus 3.8, Magnesium 1.4 L, Lactate Dehydrogenase 282 H, Total Protein 6.1 L, Globulin 2.9, Albumin/Globulin Ratio 1.1 Radiography Diagnostic Testing: Radiology Impression Chest X-Ray 07/21/24 16:30 IMPRESSION: Right basilar infiltrate and mild effusion. Electronically Signed: Davide Neri DO at 21:41 EDT , Chest X-Ray 10/12/23 05:55 IMPRESSION: Essentially unchanged appearance of the chest with persistent right basilar airspace disease and pleural effusion. Electronically Signed: Temi Franco MD at 6:45 EDT , Physical Exam Narrative Seen and examined after patient had thoracocentesis. Shortness of breath is improved. Patient did not have leg swelling. He said he had mild cough and and brings up yellow phlegm. Denies fever. Physical exam General: Alert, Oriented x3, Cooperative HEENT: Hearing bilaterally impaired. Atraumatic, PERRLA, EOMI, Normocephalic Oral: No Gingival or Mucosal Lesions/ Ulcerations Neck: Supple, No JVD, Negative Carotid Bruits Chest wall/Lungs: Air entry diminished in right lung base. No crepitation/rhonchi Cardiovascular: Regular rate, Regular Rhythm, Normal S1, Normal S2, no audible murmur gallop or rub. Abdomen: Bowel Sounds Present, Soft, Non Tender, Non-Distended : No dysuria. No renal angle tenderness. No suprapubic tenderness. Extremities: No edema, Capillary Refill Less than 3 Seconds Skin: No rashes, No breakdown Musculoskeletal: No Tenderness to Palpation of Joints or Extremities Neurological: Cranial nerves II-XII grossly intact, DTR 2+/4. No acute focal neurological deficit. Psych/Mental Status: flat affect. Assessment & Plan Assessment/Plan (1) Shortness of breath: (2) Acute on chronic heart failure with preserved ejection fraction: (3) Pleural effusion, right: (4) Elevated brain natriuretic peptide (BNP) level: PLAN: Plan This 88-year-old gentleman was admitted from [place] [facility] for shortness of breath mild chest pain. He has orthopnea and has been sleeping in recliner for last few days. Complain of cough with purulent sputum. 1. Acute on chronic HFpEF: -Last echocardiogram was done on 08/05/2023 at [place]. EF about 60%. Mild RV systolic dysfunction, mild MR, mild aortic stenosis As patient does not have leg swelling, clinically palpable ascites or subcutaneous edema or extremity and CKD stage IV with baseline creatinine 2.0 therefore decided for right-sided thoracocentesis. Patient had thoracocentesis 450 mL. Repeat chest x-ray does not show acute pneumothorax. Heart failure core measures including intake and output, fluid restriction less than 1500 mL, daily weight monitoring, kidney and electrolytes monitoring. Troponins were normal, 10, 8 and 10. ACS ruled out. 2. Right large pleural effusion secondary to heart failure exacerbation: Fluid total protein 2.9, LDH normal 122, glucose 244. Cell count predominantly lymphocyte, macrophages. As per light criteria, fluid analysis is transudative. Gram stain shows 2+ WBC, no organisms seen. 3. 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 CKD stage IV -Baseline serum creatinine appears to run between 2 and 2.4 Admitting creatinine outside 1.9. 10/11: Serum creatinine 2.05. With estimated creatinine clearance 22 mL/h and isolated right pleural effusion might be resistant to IV Lasix with high probability of worsening kidney. Therefore Lasix drip discontinued 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 [facility] [place] in August 2023 at which time he had an EGD that showed angiodysplastic lesions which were treated with argon plasma coagulation -Patient off aspirin and Plavix due to this -Continue Protonix -Monitor hemoglobin clinically but currently stable CAD/essential hypertension/hyperlipidemia -[id number]-CWR-Htqebt RCA 03/03/2005; RMX-KCN-Tads LAD 03/19/2005 -Off aspirin and Plavix due to GAVE syndrome -Hold home Lasix due to the above -Continue home metoprolol -Antihypertensives have been adjusted recently as pressures are lower than typical -Monitor blood pressures closely with Lasix drip -Continue home statin BPH with obstruction -Continue home Flomax Hypomagnesemia -Continue home magnesium supplements -Check a.m. magnesium with Lasix drip History of subarachnoid hemorrhage -No persistent deficits -Clinically stable History of ZABRINA -Patient denies wearing any mask at home for sleep apnea -May need supplemental oxygen nocturnally if oxygen saturations drop below 89% DVT prophylaxis -Subcu heparin twice daily CODE STATUS -DNR CCA okay for short-term intubation Charges/Coding Visit Charges Inpatient E&M: 38040 Subs Hosp L2
[2023-10-12] MEDS: Lidocaine 2% (20 ml mdv) 20 ML Vial INFILT (09:35)
--- NOTE | 2023-10-12 09:45 | RAD_ITS ---
STUDY: X-RAY CHEST REASON FOR EXAM: Male, 88 years old. Post thoracentesis TECHNIQUE: AP inspiration and expiration views. COMPARISON: Comparison is made with prior study dated October 12, 2023. FINDINGS: EKG electrodes are seen. The patient is status post right thoracentesis. There is no evidence of pneumothorax. Mild increased markings at the lung bases suggestive of bibasilar atelectasis. RAD/Chest Insp/Exp 2 View IMPRESSION: Status post right thoracentesis. No evidence of pneumothorax. Mild degree of the bibasilar linear atelectasis. Electronically Signed: Paulino Stout MD at 10:04 EDT ,
--- NOTE | 2023-10-12 09:46 | PCM.OP.PRO ---
Procedure Report Date of Procedure: 10/12/23 Assessment & Plan Assessment/Plan (1) Pleural effusion, right: PLAN: PROCEDURE: Ultrasound Guided Thoracentesis ORDERING PROVIDER: Dr. Babin INDICATION: Male, 88 years old. Right pleural effusion. PROVIDER: BRANDIN Martinez PROCEDURE: The risks, benefits, and alternatives to the procedure were explained to the patient. The specific risks of bleeding, infection, and pneumothorax requiring chest tube insertion were discussed and accepted. Written informed consent was obtained. The patient was placed in the sitting, upright position. Ultrasonographic evaluation of the bilateral lower pleural spaces was carried out. An adequate pocket was identified in the right lower pleural space.The overlying skin was prepped and draped in sterile fashion. 2% lidocaine was administered subcutaneously for local anesthesia. Under ultrasound guidance, a 5-Cuban thoracentesis needle/catheter system was advanced into the right posterior lower pleural fluid collection. 450 ml of clear yellow colored fluid was drained. 100 mL of this fluid was collected and sent to the laboratory for analysis. The catheter was removed, and a sterile dressing was applied. The patient tolerated the procedure well. A chest x-ray was ordered. IMPRESSION: Successful ultrasound-guided thoracentesis of right pleural effusion. Procedures Radiology Radiology US Procedures: [id number] Thoracentesis
[2023-10-12 10:16] LABS: Cytology, Body Fluid / CSF SEE PATHOLOGY REPORT
[2023-10-12] MEDS: Lactobacillis Acidophilus 1 CAP PO (10:21)
[2023-10-12] MEDS: Loratadine 10 MG Tablet PO (10:21)
[2023-10-12] MEDS: Multivitamins,Therapeutic Tablet 1 TABLET PO (10:21)
[2023-10-12] MEDS: Metoprolol Tartrate 25 MG Tablet 12.5 MG PO ×2 (10:21→20:40)
[2023-10-12] MEDS: Pantoprazole Sodium 40 MG Tablet PO (10:22)
[2023-10-12] MEDS: Magnesium Chloride 64 MG Delay Rel.Tablet 128 MG PO ×2 (10:22→20:39)
[2023-10-12] MEDS: Magnesium Sulfate 2 GM in Dextrose 5%-Water (100mL Bag) 100 ML IV (10:34)
[2023-10-12 11:11] LABS: Auto B Fluid Analyzer BKGD Ct COUNTS W/IN LIMITS (W/IN LIMITS); Color/Body Fluid LT YEL; Source- Body Fluid THORACENTESIS
[2023-10-12 11:12] LABS: Appearance/Body Fluid SL CLDY
[2023-10-12 11:13] LABS: Body Fluid QC Type(s) BF1Q; Red Cell Count/Body Fluid 9 /mm3; White Blood Count/Body Fluid 144 /mm3
[2023-10-12 11:34] LABS: Lymphocytes 56 %; Macrophages 20 %; Monocytes 1 %; Neutrophil (Segs) 19 %; Other Cell Type/BF 4 %
--- NOTE | 2023-10-12 12:15 | CASEMGMT ---
EFREN CARCAMO Assessment: Face to Face with pt for initial transition planning/care coordination assessment. RN DONA introduced self and role at [facility], pt voices understanding and consents to assessment. Pt is A&O x4 and answers all questions appropriately at this time. Pt lying in bed in no distress. Care providers, pharmacy, and demographics verified/updated. Admitting Dx:CP/SOB 2/2 acute on chronic HFPEF PCP:[facility] Specialists:Annita onc; ANNY Coreas; ANNIE Longoria Preferred Pharmacy:[facility] Insurance:[email or web address] [facility] Prescription Benefit: yes LNOK:Teressa Troncoso, dtr Living Arrangements: Pt lives with dtr in a bilevel home with 1 step to enter in the cellar and pt has a ramp for. Pt states he has a bedroom and bathroom in the cellar and denies concerns at home. Pt states he is I in bathing and dressing himself. His grandchildren or friends provide meals, pt dtr gets groceries and pt has a cleaning lady that does laundry. Transportation: Pt dtr transports him to medical appts. DME:ALBERTO varela, shirley HHC/SNF:Pt reports he is active with [facility] for SN, PT and OT. DC respiratory assistant to send referral to confirm able to take pt back and to confirm current disciplines. Pt has been to [facility] in the past. Pt states no concerns with going home at time of dc. Pt states he would like to resume with his [facility] and does not want a list for options of other agencies to choose from. Pt declined PT today d/t iman, 6 clicks=11. RN DONA to follow therapy. Pt states no further concerns/needs. CM to follow. Advised pt to ask CM if any further question/concerns/needs arise, voices understanding. Pt Goal:Home with [facility] resuming Plan:TBD pending therapy evals and course of hospitalization Handoff provided to BAKER BENCH CM.
--- NOTE | 2023-10-12 13:04 | CASEMGMT ---
Addendum entered by Shadia Barajas 10/12/23 13:14: Pt is pending with [facility] for SN/PT/[facility]. RN CM updated. Shadia Barajas DC Planning Asst. Original Note: Discharge Planning Resumption referral sent with note asking which disciplines are currently being received. Awaiting response. Shadia Barajas DC Planning Asst.
[2023-10-12 13:30] LABS: Glucose, Body Fluid 144 mg/dL (40-70); LDH,Body Fluid 122 Units/L (Not Establ.); Protein, Body Fluid 2.9 g/dL (Not Establ.)
[2023-10-12] MEDS: Ceftriaxone 1 GM/50 ML BAG IV (15:19)
[2023-10-12] MEDS: Azithromycin 250 MG Tablet 500 MG PO (15:23)
[2023-10-12] MEDS: Acetaminophen 325 MG Tablet 650 MG PO (15:23)
--- NOTE | 2023-10-12 15:35 | CASEMGMT ---
Met with patient to complete SABA form. SABA form explained to patient who voiced understanding and signed form. Original form placed in pt?s chart and copy provided to patient. Shadia Barajas, Discharge Planning Asst
[2023-10-12] MEDS: Tamsulosin HCl 0.4 MG Capsule PO (17:24)
[2023-10-12 19:48] LABS: Bedside Glucose 165 mg/dL (74-106)
[2023-10-12] MEDS: Pravastatin 80 MG Tablet PO (20:40)
[2023-10-12] MEDS: Heparin Injection (Vial) 5,000 UNIT/ML VIAL 5000 UNIT SC (20:40)
[2023-10-13] VITALS (9 sets, daily range): BP systolic 103–113; BP diastolic 48–69; PULSE 93–100; RESP 14–18; TEMP 36.4–37.1; O2SAT 94–96; BMI 26.2
[2023-10-13 06:43] LABS: Absolute Lymphocyte Count 0.51 X10^3/uL (0.83-4.51); Absolute Neutrophil Count 2.9 X10^3/uL (2.0-7.7); Basophil# 0.02 X10^3/uL; Basophil% 0.5 % (0-1); Eosinophil# 0.04 X10^3/uL; Hematocrit 25.7 % (40-54); Hemoglobin 8.5 g/dL (13.0-16.5); Lymphocyte # 0.51 X10^3/ul (0.83-4.51); Lymphocyte % 13.2 % (19-41); Mean Corp Hgb Conc 33.1 g/dL (32-36); Mean Corpuscular Hgb 34.6 pg (27.0-32.0); Mean Corpuscular Volume 104.5 fL (80-94); Mean Platelet Vol. 9.7 fl (6.2-12.0); Monocyte# 0.36 X10^3/uL; Monocyte% 9.3 % (0-10); NRBC Flagged by Analyzer 0 % (0-5); Neutrophil # 2.89 X10^3/uL (2.7-7.7); POSITIVE DIFFERENTIAL YES; POSITIVE MORPHOLOGY YES; Platelet Count 103 K/mm3 (150-450); RBC Distribution Width CV 23.4 % (11.6-14.6); RBC Distribution Width SD 86.3 fl (35.1-43.9); Red Blood Count 2.46 M/mm3 (4.6-6.2); White Blood Count 3.9 K/mm3 (4.4-11.0)
[2023-10-13 07:22] LABS: Anion Gap 9 (5-15); BUN 37 mg/dL (7-18); Calcium,Total 8.5 mg/dL (8.5-10.1); Chloride 97 mmol/L (98-107); Creatinine, Serum 2.85 mg/dL (0.70-1.30); Differential Indicated SCAN CRITERIA MET; EST Glomerular Filtration Rate 22 mL/min (>60); Est Glom Filt Rate - Afr Amer 27 mL/min (>60); Estimated Creatinine Clearance 15.86 ml/min; Glucose 157 mg/dL (74-106); Potassium 4.7 mmol/L (3.5-5.1); Sodium Level 133 mmol/L (136-145)
[2023-10-13] MEDS: Metoprolol Tartrate 25 MG Tablet 12.5 MG PO ×2 (08:47→20:51)
[2023-10-13] MEDS: Azithromycin 250 MG Tablet 500 MG PO (08:48)
[2023-10-13] MEDS: 0.9% Saline Lock 10 ML Syringe IV ×2 (08:48→17:31)
[2023-10-13] MEDS: Heparin Injection (Vial) 5,000 UNIT/ML VIAL 5000 UNIT SC ×2 (08:48→20:51)
[2023-10-13] MEDS: Magnesium Chloride 64 MG Delay Rel.Tablet 128 MG PO ×2 (08:48→20:51)
[2023-10-13] MEDS: Lactobacillis Acidophilus 1 CAP PO (08:48)
[2023-10-13] MEDS: Furosemide 40 MG/4 ML Vial IV (08:48)
[2023-10-13] MEDS: Multivitamins,Therapeutic Tablet 1 TABLET PO (08:48)
[2023-10-13] MEDS: Pantoprazole Sodium 40 MG Tablet PO (08:48)
[2023-10-13] MEDS: Ceftriaxone 1 GM/50 ML BAG IV (09:09)
[2023-10-13 11:46] LABS: Pathologist Comment/Body Fluid Reviewed
--- NOTE | 2023-10-13 14:07 | CASEMGMT ---
GIS SOFTWARE DEVELOPER notified SW that SNF is being recommended for patient. SW met with patient, who is very hard of hearing. SW introduced self and role at [facility]. SW explained therapy's recommendation for SNF. SW asked patient if he would like a list of places that take his insurance and he and his daughter can review it. Patient declined a list and stated his daughter works at [facility] so he would like to go to their unit. SUAD asked d/c assistant tennis coach to please send a referral to [place]. Cecilia LIMA
--- NOTE | 2023-10-13 14:19 | CASEMGMT ---
Addendum entered by Shadia Barajas 10/13/23 16:05: Updates sent to [facility]. Asked for precert to be submitted. Shadia Barajas DC Planning Asst. Addendum entered by Shadia Barajas 10/13/23 14:40: [facility] has accepted. SW aware. Shadia Barajas DC Planning Asst. Original Note: Discharge Planning Referal sent to [facility] via [employer]. Shadia Barajas DC Planning Asst.
--- NOTE | 2023-10-13 14:19 | CASEMGMT ---
Social Work SW spoke w/pt in room, he confirmed daughter Teressa Harrington is healthcare POA. SW asked pt to have daughter bring in the documents as able, pt states understanding. GOVIND Hamilton
--- NOTE | 2023-10-13 16:12 | PCM.PN.HOSP ---
Reason for Visit Reason for Visit: Diagnoses Acute on chronic diastolic (congestive) heart failure (10/13/23) Pleural effusion, not elsewhere classified (10/13/23) Shortness of breath (10/13/23) Other specified abnormal findings of blood chemistry (10/13/23) Objective Data Objective Data Vital Signs: Vital Signs Temp Pulse Resp BP Pulse Ox O2 Del Method 98.8 F 93 18 107/50 L 94 Room Air 10/13/23 14:41 10/13/23 14:41 10/13/23 14:41 10/13/23 14:41 10/13/23 14:41 10/13/23 14:41 Oxygen Delivery Method Room Air Weight: 163 lb 4.8 oz Body Mass Index (BMI) 26.2 Intake & Output: Intake and Output for Last 24 Hours 10/11/23 10/12/23 10/13/23 23:59 23:59 23:59 Intake Total 350 / 350 971.22 / 1071.22 428 / 428 Output Total 1075 / 1075 3950 / 4110 360 / 360 Balance -725 / -725 -2978.78 / -3038.78 68 / 68 Lab / Micro Data 10/13/23 05:47 10/13/23 05:47 Labs: Laboratory Results - last 24 hr 10/12/23 10:01: Fl Pathologist Comment Reviewed, Miscellaneous Cytology SEE PATHOLOGY REPORT 10/12/23 17:21: POC Glucose 165 H 10/13/23 05:47: WBC 3.9 L, RBC 2.46 L, Hgb 8.5 L, Hct 25.7 L, MCV 104.5 H, MCH 34.6 H, MCHC 33.1, RDW Std Deviation 86.3 H, RDW Coeff of Mohini 23.4 H, Plt Count 103 L, MPV 9.7, Immature Gran % (Auto) 1.000 H, Neut % (Auto) 75.0 H, Lymph % (Auto) 13.2 L, Monona % (Auto) 9.3, Eos % (Auto) 1.0, Baso % (Auto) 0.5, Absolute Neuts (auto) 2.9, Absolute Lymphs (auto) 0.51 L, Nucleated RBC % 0, Sodium 133 L, Potassium 4.7, Chloride 97 L, Carbon Dioxide 27.0, Anion Gap 9, BUN 37 H, Creatinine 2.85 H, Estim Creat Clear Calc 15.86, Est GFR (MDRD) Af Amer 27 L, Est GFR (MDRD) Non-Af 22 L, BUN/Creatinine Ratio 13.0, Glucose 157 H, Calcium 8.5 Micro: Microbiology 10/12/23 10:01 Fluid - Pleural (Lung) Gram Stain - Final 10/12/23 10:01 Fluid - Pleural (Lung) Body Fluid Culture - Preliminary No growth-Final to follow Physical Exam Narrative Seen and examined after patient had thoracocentesis on 10/12/2023. Shortness of breath is improved. Patient did not have leg swelling. He said he had mild cough and and brings up yellow phlegm. Denies fever. Physical exam General: Alert, Oriented x3, Cooperative HEENT: Hearing bilaterally impaired. Atraumatic, PERRLA, EOMI, Normocephalic Oral: No Gingival or Mucosal Lesions/ Ulcerations Neck: Supple, No JVD, Negative Carotid Bruits Chest wall/Lungs: Air entry diminished in right lung base. No crepitation/rhonchi Cardiovascular: Regular rate, Regular Rhythm, Normal S1, Normal S2, no audible murmur gallop or rub. Abdomen: Bowel Sounds Present, Soft, Non Tender, Non-Distended : No dysuria. No renal angle tenderness. No suprapubic tenderness. Extremities: No edema, Capillary Refill Less than 3 Seconds Skin: No rashes, No breakdown Musculoskeletal: No Tenderness to Palpation of Joints or Extremities Neurological: Cranial nerves II-XII grossly intact, DTR 2+/4. No acute focal neurological deficit. Psych/Mental Status: flat affect. Assessment & Plan Assessment/Plan (1) Shortness of breath: (2) Acute on chronic heart failure with preserved ejection fraction: (3) Pleural effusion, right: (4) Elevated brain natriuretic peptide (BNP) level: PLAN: Plan This 88-year-old gentleman was admitted from [place] ER for shortness of breath mild chest pain. He has orthopnea and has been sleeping in recliner for last few days. Complain of cough with purulent sputum. 1. Acute on chronic HFpEF: -Last echocardiogram was done on 08/05/2023 at [place]. EF about 60%. Mild RV systolic dysfunction, mild MR, mild aortic stenosis As patient does not have leg swelling, clinically palpable ascites or subcutaneous edema or extremity and CKD stage IV with baseline creatinine 2.0 therefore decided for right-sided thoracocentesis. Patient had thoracocentesis 450 mL. Repeat chest x-ray does not show acute pneumothorax. Heart failure core measures including intake and output, fluid restriction less than 1500 mL, daily weight monitoring, kidney and electrolytes monitoring. Troponins were normal, 10, 8 and 10. ACS ruled out. 10/13: No chest pain or shortness of breath. 2. Right large pleural effusion secondary to heart failure exacerbation: Fluid total protein 2.9, LDH normal 122, glucose 244. Cell count predominantly lymphocyte, macrophages. As per light criteria, fluid analysis is transudative. Gram stain shows 2+ WBC, no organisms seen. 10/12: Preliminary no growth on the pleural fluid. Fluid cytology negative for malignant cells. 3. 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 CKD stage IV -Baseline serum creatinine appears to run between 2 and 2.4 Admitting creatinine outside 1.9. 10/11: Serum creatinine 2.05. With estimated creatinine clearance 22 mL/h and isolated right pleural effusion might be resistant to IV Lasix with high probability of worsening kidney. Therefore Lasix drip discontinued 10/12: CLARITA on CKD: Creatinine jumped to 2.85 from 2.05 yesterday. Patient had just 1 dose of 40 mg IV Lasix today in the morning. Lasix discontinued and prior to that he was on Lasix drip on the night of admission which was discontinued school laboratory technician yesterday. 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 [facility] [place] in August 2023 at which time he had an EGD that showed angiodysplastic lesions which were treated with argon plasma coagulation -Patient off aspirin and Plavix due to this -Continue Protonix -Monitor hemoglobin clinically but currently stable CAD/essential hypertension/hyperlipidemia -[id number] RCA 03/03/2005; [id number]-UIT-[id number] LAD 03/19/2005 -Off aspirin and Plavix due to GAVE syndrome -Hold home Lasix due to the above -Continue home metoprolol -Antihypertensives have been adjusted recently as pressures are lower than typical -Monitor blood pressures closely with Lasix drip -Continue home statin BPH with obstruction -Continue home Flomax Hypomagnesemia -Continue home magnesium supplements -Check a.m. magnesium with Lasix drip History of subarachnoid hemorrhage -No persistent deficits -Clinically stable History of ZABRINA -Patient denies wearing any mask at home for sleep apnea -May need supplemental oxygen nocturnally if oxygen saturations drop below 89% DVT prophylaxis -Subcu heparin twice daily CODE STATUS -DNR CCA okay for short-term intubation Charges/Coding Visit Charges Inpatient E&M: 05470 Subs Hosp L2
[2023-10-13] MEDS: Tamsulosin HCl 0.4 MG Capsule PO (17:05)
[2023-10-13] MEDS: 0.9% Normal Saline (1000mL) 1,000 ML 250 ML IV (17:31)
[2023-10-13] MEDS: Pravastatin 80 MG Tablet PO (20:51)
[2023-10-14] VITALS (9 sets, daily range): BP systolic 102–128; BP diastolic 48–72; PULSE 90–97; RESP 16–18; TEMP 36.3–37; O2SAT 96–100; BMI 26.7
[2023-10-14 06:21] LABS: Absolute Lymphocyte Count 0.45 X10^3/uL (0.83-4.51); Basophil# 0.02 X10^3/uL; Basophil% 0.4 % (0-1); Eosinophil# 0.04 X10^3/uL; Eosinophils% 0.8 % (0-5); Hematocrit 23.6 % (40-54); Hemoglobin 7.8 g/dL (13.0-16.5); Lymphocyte # 0.45 X10^3/ul (0.83-4.51); Lymphocyte % 9.1 % (19-41); Mean Corp Hgb Conc 33.1 g/dL (32-36); Mean Corpuscular Hgb 34.7 pg (27.0-32.0); Mean Corpuscular Volume 104.9 fL (80-94); Mean Platelet Vol. 9.7 fl (6.2-12.0); Monocyte# 0.37 X10^3/uL; Monocyte% 7.5 % (0-10); NRBC Flagged by Analyzer 0 % (0-5); Neutrophil # 4.04 X10^3/uL (2.7-7.7); Neutrophil % 81.4 % (47-70); POSITIVE COUNT YES; POSITIVE DIFFERENTIAL YES; POSITIVE MORPHOLOGY YES; Platelet Count 99 K/mm3 (150-450); Red Blood Count 2.25 M/mm3 (4.6-6.2)
[2023-10-14 06:36] LABS: Anion Gap 8 (5-15); BUN 44 mg/dL (7-18); Calcium,Total 8.6 mg/dL (8.5-10.1); Chloride 101 mmol/L (98-107); Creatinine, Serum 3.66 mg/dL (0.70-1.30); EST Glomerular Filtration Rate 17 mL/min (>60); Est Glom Filt Rate - Afr Amer 20 mL/min (>60); Estimated Creatinine Clearance 12.35 ml/min; Glucose 162 mg/dL (74-106); Potassium 4.5 mmol/L (3.5-5.1); Sodium Level 136 mmol/L (136-145)
[2023-10-14 06:44] LABS: Differential Indicated SCAN CRITERIA MET
[2023-10-14 08:25] LABS: Anisocytosis 1+; Platelet Estimate MOD DEC (ADEQ)
[2023-10-14] MEDS: Menthol/Lanolin/Calamine/Znox 113 GM Tube 1 APPLIC TOPICAL ×2 (09:10→20:50)
[2023-10-14] MEDS: Ceftriaxone 1 GM/50 ML BAG IV (09:11)
[2023-10-14] MEDS: 0.9% Saline Lock 10 ML Syringe IV (09:11)
[2023-10-14] MEDS: Azithromycin 250 MG Tablet 500 MG PO (09:13)
[2023-10-14] MEDS: Magnesium Chloride 64 MG Delay Rel.Tablet 128 MG PO ×2 (09:13→20:51)
[2023-10-14] MEDS: Pantoprazole Sodium 40 MG Tablet PO (09:14)
[2023-10-14] MEDS: Metoprolol Tartrate 25 MG Tablet 12.5 MG PO ×2 (09:14→20:50)
[2023-10-14] MEDS: Loratadine 10 MG Tablet PO (09:14)
[2023-10-14] MEDS: Heparin Injection (Vial) 5,000 UNIT/ML VIAL 5000 UNIT SC ×2 (09:14→20:50)
[2023-10-14] MEDS: Multivitamins,Therapeutic Tablet 1 TABLET PO (09:14)
[2023-10-14] MEDS: Lactobacillis Acidophilus 1 CAP PO (09:14)
[2023-10-14] MEDS: 0.9% Normal Saline (1000mL) 1,000 ML 250 ML IV (10:00)
[2023-10-14 10:10] LABS: Amylase Body Fluid 18 U/L (.); pH, Body Fluid 11254 7.5 (Not Estab.)
--- NOTE | 2023-10-14 13:16 | CON.PCM.RE_ITS ---
Assessment & Plan Assessment/Plan (1) CLARITA (acute kidney injury): PLAN: History of CKD stage IIIb. Baseline creatinine around 2.0. He came in with creatinine close to baseline. Has been on IV Lasix, currently on hold. Swanson catheter indwelling without much urine output, chances of retention are low. Will send urine analysis, urine lites, urine protein estimation. Right-sided pleural effusion, transudative by chemical analysis. Presumably this is related to CHF. Echocardiogram reviewed, discussed with primary. Continue to hold diuretics, we will give 1 dose of albumin today. HPI Consult Data Date of Consult: 10/14/23 HPI Narrative Reason for Consultation: CLARITA HPI Narrative: FARHANA BAKER, is a 88 M who presents To the hospital with shortness of breath. Nephrology on consultation in view of acute renal failure. Was found to have right-sided pleural effusion, presumably this is CHF related. Previous echocardiogram with grade 2 diastolic dysfunction, good EF. Was on diuretics prior to admission. Appears to have CKD stage IIIb, baseline creatinine around 2.0. Since admission he has received few doses of IV Lasix. Creatinine has worsened since yesterday. Swanson catheter placed yesterday without significant improvement in urine output. Blood pressure is acceptable. Patient is somewhat not very coherent. Most of the history is from the charts. When asked him how his breathing is he says it is fine. [facility] Medical History Pancytopenia Gastric antral vascular ectasia Anemia of chronic renal failure, stage 3 (moderate) Iron deficiency anemia due to chronic blood loss MDS (myelodysplastic syndrome), low grade Cataract Degenerative arthritis Hungry bone syndrome Thrombocytopenia Anemia Right bundle branch block (RBBB) with left anterior fascicular block History of non-ST elevation myocardial infarction (NSTEMI) (01/02/20) Emphysematous cholecystitis Hypomagnesemia GERD (gastroesophageal reflux disease) Obstructive sleep apnea TIA (transient ischemic attack) Type 2 diabetes mellitus CKD (chronic kidney disease) SAH (subarachnoid hemorrhage) (1995) Hypochromic anemia Essential (primary) hypertension Hyperlipidemia Atherosclerotic heart disease of [place] coronary artery without angina pectoris Home Medications ?Medication ?Instructions ?Recorded ?Last Taken ?Type multivitamin 1 tab PO QDAY vitamin 03/09/17 01/02/20 History pravastatin 80 mg tablet 80 mg PO QHS cholesterol 03/09/17 01/01/20 History (Pravachol) tamsulosin 0.4 mg capsule (Flomax) 0.4 mg PO DAILY urinary 10/19/18 01/02/20 History cetirizine 10 mg capsule 10 mg PO DAILY allergies 01/02/20 01/02/20 History Lactobacillus acidophilus 10 mg PO DAILY 12/19/22 Unknown History magnesium oxide 800 mg PO BID supplement 12/19/22 Unknown History pantoprazole 40 mg tablet,delayed 40 mg PO DAILY 12/19/22 Unknown History release tramadol 50 mg tablet 25 mg PO BID PRN pain 07/08/23 Unknown History furosemide 20 mg tablet 10 mg PO DAILY 09/16/23 Unknown History metoprolol tartrate 25 mg tablet 12.5 mg PO BID 09/16/23 Unknown History ferrous sulfate 325 mg (65 mg 325 mg PO DAILY 10/11/23 Unknown History iron) tablet (FeroSul) Allergy/AdvReac Type Severity Reaction Status Date / Time amoxicillin Allergy Severe unknown Verified 09/25/23 09:43 Tetanus Vaccines and Toxoid Allergy Severe unknown Verified 09/25/23 09:43 ranolazine (From Ranexa) AdvReac Severe Hallucinati Verified 09/25/23 09:43 ons acetaminophen (From Vicodin) AdvReac NEEDS Verified 09/25/23 09:43 FOLLOW-UP hydrocodone (From Vicodin) AdvReac confusion Verified 09/25/23 09:43 Opioids - Morphine Analogues AdvReac Nausea/Vom/ Verified 09/25/23 09:43 Diarrhea Thiazides AdvReac Other Verified 09/25/23 09:43 Family History Father , age 91 Hypertension Mother , age 80 Heart disease Congestive heart failure Diabetes Sister , age 50 ruptured brain aneurysm Surgical History H/O mastoidectomy Hx laparoscopic cholecystectomy (09/2018) History of inguinal hernia repair History of coronary artery stent placement (03/19/05) Social History household members: children housing: house Smoking Status: Former smoker quit date: 03/23/93 alcohol intake: never substance use type: does not use caffeine: Yes Type: coffee Number of servings: 4 ROS ROS Narrative negative except above Physical Exam Narrative no obvious distress no pallor no icterus no JVD s1s2 no murmurs lungs clear abdomen soft no organomegaly no edema no cyanosis swanson + Lab / Micro Data 10/14/23 05:56 10/14/23 05:56 Labs: Laboratory Results - last 24 hr 10/12/23 10:01: Fluid pH 7.5, Fluid Amylase 18, Miscellaneous Cytology SEE PATHOLOGY REPORT 10/14/23 05:56: WBC 5.0, RBC 2.25 L, Hgb 7.8 L, Hct 23.6 L, MCV 104.9 H, MCH 34.7 H, MCHC 33.1, RDW Std Deviation 85.0 H, RDW Coeff of Mohini 23.0 H, Plt Count 99 L, MPV 9.7, Immature Gran % (Auto) 0.800, Neut % (Auto) 81.4 H, Lymph % (Auto) 9.1 L, Mcmullen % (Auto) 7.5, Eos % (Auto) 0.8, Baso % (Auto) 0.4, Absolute Neuts (auto) 4.0, Absolute Lymphs (auto) 0.45 L, Nucleated RBC % 0, Differential Comment COMMENT, Platelet Estimate MOD DEC, Anisocytosis 1+, Sodium 136, Potassium 4.5, Chloride 101, Carbon Dioxide 27.0, Anion Gap 8, BUN 44 H, C reatinine 3.66 H, Estim Creat Clear Calc 12.35, Est GFR (MDRD) Af Amer 20 L, Est GFR (MDRD) Non-Af 17 L, BUN/Creatinine Ratio 12.0, Glucose 162 H, Calcium 8.6 Micro: Microbiology 10/12/23 10:01 Fluid - Pleural (Lung) Gram Stain - Final 10/12/23 10:01 Fluid - Pleural (Lung) Body Fluid Culture - Preliminary No growth-Final to follow 10/12/23 10:01 Fluid - Pleural (Lung) Anaerobic Culture - Preliminary No growth in 48 hours.
[2023-10-14 13:40] LABS: Protein:Creat Ratio 1429 mg/g CRE (0-200); Urine Sodium 87 mmol/L (Not Establ.)
[2023-10-14] MEDS: Albumin Human 25% (100 mL) 25 GM/100 ML BAG IV ×2 (13:59→20:52)
--- NOTE | 2023-10-14 14:30 | PN.HOSP_ITS ---
Reason for Visit Reason for Visit: Diagnoses Acute on chronic diastolic (congestive) heart failure (10/13/23) Pleural effusion, not elsewhere classified (10/13/23) Acute kidney failure, unspecified (10/13/23) Shortness of breath (10/13/23) Other specified abnormal findings of blood chemistry (10/13/23) Objective Data Objective Data Vital Signs: Vital Signs Temp Pulse Resp BP Pulse Ox O2 Del Method 98.0 F 97 16 128/72 H 99 Room Air 10/14/23 09:00 10/14/23 09:14 10/14/23 09:00 10/14/23 09:14 10/14/23 09:00 10/14/23 10:00 Oxygen Delivery Method Room Air Weight: 166 lb 7.184 oz Body Mass Index (BMI) 26.7 Intake & Output: Intake and Output for Last 24 Hours 10/12/23 10/13/23 10/14/23 23:59 23:59 23:59 Intake Total 971.22 / 1071.22 1688 / 1688 100 / 100 Output Total 3950 / 4110 360 / 460 200 / 200 Balance -2978.78 / -3038.78 1328 / 1228 -100 / -100 Lab / Micro Data 10/14/23 05:56 10/14/23 05:56 Labs: Laboratory Results - last 24 hr 10/12/23 10:01: Fluid pH 7.5, Fluid Amylase 18, Miscellaneous Cytology SEE PATHOLOGY REPORT 10/14/23 05:56: WBC 5.0, RBC 2.25 L, Hgb 7.8 L, Hct 23.6 L, MCV 104.9 H, MCH 34.7 H, MCHC 33.1, RDW Std Deviation 85.0 H, RDW Coeff of Mohini 23.0 H, Plt Count 99 L, MPV 9.7, Immature Gran % (Auto) 0.800, Neut % (Auto) 81.4 H, Lymph % (Auto) 9.1 L, Iron % (Auto) 7.5, Eos % (Auto) 0.8, Baso % (Auto) 0.4, Absolute Neuts (auto) 4.0, Absolute Lymphs (auto) 0.45 L, Nucleated RBC % 0, Differential Comment COMMENT, Platelet Estimate MOD DEC, Anisocytosis 1+, Sodium 136, Potassium 4.5, Chloride 101, Carbon Dioxide 27.0, Anion Gap 8, BUN 44 H, C reatinine 3.66 H, Estim Creat Clear Calc 12.35, Est GFR (MDRD) Af Amer 20 L, Est GFR (MDRD) Non-Af 17 L, BUN/Creatinine Ratio 12.0, Glucose 162 H, Calcium 8.6 10/14/23 11:45: U Random Total Protein 72.0 H, Ur Random Sodium 87, Urine Creatinine 50.40, Protein/Creatinin Ratio 1429 H Micro: Microbiology 10/12/23 10:01 Fluid - Pleural (Lung) Gram Stain - Final 10/12/23 10:01 Fluid - Pleural (Lung) Body Fluid Culture - Preliminary No growth-Final to follow 10/12/23 10:01 Fluid - Pleural (Lung) Anaerobic Culture - Preliminary No growth in 48 hours. Physical Exam Narrative Seen and examined Yesterday patient did not had much urine output about 300 mL after Jennings catheterization. 1 L bolus IV fluid given and had total 300 mL output. No hypotension. IV fluids ordered. Nephrology consulted. Creatinine got worse. Blood pressure was low, systolic 104 yesterday but improved to systolic 120. patient had thoracocentesis on 10/12/2023. Shortness of breath is improved. Patient did not have leg swelling. Physical exam General: Alert, Oriented x3, Cooperative HEENT: Hearing bilaterally impaired. Atraumatic, PERRLA, EOMI, Normocephalic Oral: No Gingival or Mucosal Lesions/ Ulcerations Neck: Supple, No JVD, Negative Carotid Bruits Chest wall/Lungs: Air entry diminished in right lung base. No crepitation/rhonchi Cardiovascular: Regular rate, Regular Rhythm, Normal S1, Normal S2, no audible murmur gallop or rub. Abdomen: Bowel Sounds Present, Soft, Non Tender, Non-Distended : Jennings catheter. 300 mL dark yellow urine. No dysuria. No renal angle tenderness. No suprapubic tenderness. Extremities: No edema, Capillary Refill Less than 3 Seconds Skin: No rashes, No breakdown Musculoskeletal: No Tenderness to Palpation of Joints or Extremities Neurological: Cranial nerves II-XII grossly intact, DTR 2+/4. No acute focal neurological deficit. Psych/Mental Status: flat affect. Assessment & Plan Assessment/Plan (1) Shortness of breath: (2) Acute on chronic heart failure with preserved ejection fraction: (3) Pleural effusion, right: (4) Elevated brain natriuretic peptide (BNP) level: PLAN: Plan This 88-year-old gentleman was admitted from [place] [facility] for shortness of breath mild chest pain. He has orthopnea and has been sleeping in recliner for last few days. Complain of cough with purulent sputum. 1. Acute on chronic HFpEF: -Last echocardiogram was done on 08/05/2023 at [place]. EF about 60%. Mild RV systolic dysfunction, mild MR, mild aortic stenosis As patient does not have leg swelling, clinically palpable ascites or subcutaneous edema or extremity and CKD stage IV with baseline creatinine 2.0 therefore decided for right-sided thoracocentesis. Patient had thoracocentesis 450 mL. Repeat chest x-ray does not show acute pneumothorax. Heart failure core measures including intake and output, fluid restriction less than 1500 mL, daily weight monitoring, kidney and electrolytes monitoring. Troponins were normal, 10, 8 and 10. ACS ruled out. 10/13:No chest pain or shortness of breath. Patient blood pressure 126 systolic. Heart rate in 90s. No hypoxia. No tachypnea. 2. Right large pleural effusion secondary to heart failure exacerbation: Fluid total protein 2.9, LDH normal 122, glucose 244. Cell count predominantly lymphocyte, macrophages. As per light criteria, fluid analysis is transudative. Gram stain shows 2+ WBC, no organisms seen. 10/12: Preliminary no growth on the pleural fluid. Fluid cytology negative for malignant cells. 3. 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 Platelet count 99,000. 4. Acute kidney injury on CKD stage IV -Baseline serum creatinine appears to run between 2 and 2.4 Admitting creatinine outside 1.9. 10/11: Serum creatinine 2.05. With estimated creatinine clearance 22 mL/h and isolated right pleural effusion might be resistant to IV Lasix with high probability of worsening kidney. Therefore Lasix drip discontinued 10/12: CLARITA on CKD: Creatinine jumped to 2.85 from 2.05 yesterday. Patient had just 1 dose of 40 mg IV Lasix today in the morning. Lasix discontinued and prior to that he was on Lasix drip on the night of admission which was discontinued accounting director yesterday. 10/13: Creatinine further went to 40/3.66. Patient roofer helper was consulted yesterday. Patient was given IV fluid normal saline bolus and Jennings catheter was inserted yesterday. IV albumin total 3 doses. Sodium 136, bicarb 27 potassium 4.5 therefore no major significant electrolyte abnormality. 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 at which time he had an EGD that showed angiodysplastic lesions which were treated with argon plasma coagulation -Patient off aspirin and Plavix due to this -Continue Protonix -Monitor hemoglobin clinically but currently stable CAD/essential hypertension/hyperlipidemia -[id number] RCA 03/03/2005; [id number] LAD 03/19/2005 -Off aspirin and Plavix due to GAVE syndrome -Hold home Lasix due to the above -Continue home metoprolol -Antihypertensives have been adjusted recently as pressures are lower than typical -Monitor blood pressures closely with Lasix drip -Continue home statin BPH with obstruction -Continue home Flomax Hypomagnesemia -Continue home magnesium supplements -Check a.m. magnesium with Lasix drip History of subarachnoid hemorrhage -No persistent deficits -Clinically stable History of ZABRINA -Patient denies wearing any mask at home for sleep apnea -May need supplemental oxygen nocturnally if oxygen saturations drop below 89% DVT prophylaxis -Subcu heparin twice daily CODE STATUS -DNR CCA okay for short-term intubation Charges/Coding Addendum Addendum: Total time of the visit including total time spent in counseling or coordination of care, (more than 50% of the total time, spent in obtaining medical information from nurses and other ancillary care providers,explaining to the patient about labs, imaging, diagnosis and management of active complex medical conditions), CLARITA on CKD, right ventricular failure/acute on chronic heart failure, discussion with nephrology, review of labs and imaging is 40 minutes. Visit Charges Inpatient E&M: 23220 [facility] Hosp L3
[2023-10-14 16:19] LABS: Mucous, Urine 0 SEEN /hpf (<or=2+); Squamous Epithelial Cells - UA 0 SEEN /hpf (0-5)
[2023-10-14 16:26] LABS: Color, Urine Yellow (Yellow); Glucose, Dipstick Normal (Normal); Ketone-Dipstick Negative (Negative); Leukocyte Esterase-Dipstick 500 /ul (Negative); Nitrite-Dipstick Negative (Negative); Occult Blood-Urine 150 /ul (Negative); Protein-Dipstick 30 mg/dl (Negative); Specific Gravity, Urine 1.005 (1.002-1.030); Urine Bilirubin Dipstick Negative (Negative); Urine Clarity Sl. Cloudy (Clear); Urine Urobilinogen Normal (Normal)
[2023-10-14] MEDS: 0.9% Normal Saline (1000mL) 1,000 ML 75 ML IV (16:28)
[2023-10-14 16:32] LABS: Red Blood Cells-Urine 5-10 SEEN /hpf (0-5); White Blood Cells 10-25 SEEN /hpf (0-5)
[2023-10-14 16:33] LABS: Bacteria 2+ /hpf (None Seen)
[2023-10-14] MEDS: Tamsulosin HCl 0.4 MG Capsule PO (17:19)
[2023-10-14] MEDS: Pravastatin 80 MG Tablet PO (20:50)
[2023-10-15] VITALS (9 sets, daily range): BP systolic 113–135; BP diastolic 50–72; PULSE 87–100; RESP 17–18; TEMP 36.5–37.1; O2SAT 95–99; BMI 27.3
[2023-10-15] MEDS: Albumin Human 25% (100 mL) 25 GM/100 ML BAG IV (06:03)
[2023-10-15 08:52] LABS: Absolute Lymphocyte Count 0.32 X10^3/uL (0.83-4.51); Absolute Neutrophil Count 2.7 X10^3/uL (2.0-7.7); Basophil# 0.01 X10^3/uL; Basophil% 0.3 % (0-1); Differential Indicated SCAN CRITERIA MET; Eosinophil# 0.04 X10^3/uL; Eosinophils% 1.2 % (0-5); Hematocrit 19.3 % (40-54); Hemoglobin 6.1 g/dL (13.0-16.5); Lymphocyte # 0.32 X10^3/ul (0.83-4.51); Lymphocyte % 9.6 % (19-41); Mean Corp Hgb Conc 31.6 g/dL (32-36); Mean Corpuscular Hgb 33.5 pg (27.0-32.0); Mean Platelet Vol. 9.6 fl (6.2-12.0); Monocyte# 0.26 X10^3/uL; Monocyte% 7.8 % (0-10); NRBC Flagged by Analyzer 0 % (0-5); Neutrophil % 80.5 % (47-70); POSITIVE COUNT YES; POSITIVE DIFFERENTIAL YES; POSITIVE MORPHOLOGY YES; Platelet Count 85 K/mm3 (150-450); RBC Distribution Width CV 22.7 % (11.6-14.6); RBC Distribution Width SD 84.8 fl (35.1-43.9); Red Blood Count 1.82 M/mm3 (4.6-6.2); White Blood Count 3.4 K/mm3 (4.4-11.0)
--- NOTE | 2023-10-15 08:53 | CASEMGMT ---
Discharge Planning Requested clinicals sent to [facility] via [facility]. Shadia Barajas DC Planning Asst.
[2023-10-15 09:11] LABS: Anisocytosis 1+; Platelet Estimate MOD DEC (ADEQ)
[2023-10-15] MEDS: Pantoprazole Sodium 40 MG Tablet PO (09:12)
[2023-10-15] MEDS: Metoprolol Tartrate 25 MG Tablet 12.5 MG PO ×2 (09:12→21:05)
[2023-10-15] MEDS: Multivitamins,Therapeutic Tablet 1 TABLET PO (09:12)
[2023-10-15] MEDS: Magnesium Chloride 64 MG Delay Rel.Tablet 128 MG PO ×2 (09:12→21:05)
[2023-10-15] MEDS: Lactobacillis Acidophilus 1 CAP PO (09:12)
[2023-10-15] MEDS: Heparin Injection (Vial) 5,000 UNIT/ML VIAL 5000 UNIT SC (09:12)
[2023-10-15] MEDS: Menthol/Lanolin/Calamine/Znox 113 GM Tube 1 APPLIC TOPICAL ×2 (09:13→21:05)
[2023-10-15 09:17] LABS: ALB/GLOB Ratio 1.4 RATIO (0.9-2.4); AST(SGOT) 12 U/L (15-37); Alanine Aminotransfer ALT/SGPT 13 U/L (16-61); Albumin, Serum 3.6 g/dL (3.2-5.0); Alkaline Phosphatase 89 U/L (45-117); Anion Gap 8 (5-15); BUN 41 mg/dL (7-18); BUN/Creat Ratio 10.7 RATIO (10-20); Calcium,Total 8.1 mg/dL (8.5-10.1); Chloride 102 mmol/L (98-107); Creatinine, Serum 3.84 mg/dL (0.70-1.30); EST Glomerular Filtration Rate 16 mL/min (>60); Est Glom Filt Rate - Afr Amer 19 mL/min (>60); Estimated Creatinine Clearance 12.76 ml/min; Globulin 2.6 g/dL (2.2-4.2); Glucose 135 mg/dL (74-106); Potassium 4.3 mmol/L (3.5-5.1); Protein, Total 6.2 g/dL (6.4-8.2); Sodium Level 133 mmol/L (136-145)
[2023-10-15 10:04] LABS: Magnesium 1.8 mg/dL (1.6-2.6)
[2023-10-15 11:10] LABS: Phosphorus 4.1 mg/dL (2.5-4.9)
--- NOTE | 2023-10-15 11:20 | PN.HOSP_ITS ---
Reason for Visit Reason for Visit: Diagnoses Acute on chronic diastolic (congestive) heart failure (10/13/23) Pleural effusion, not elsewhere classified (10/13/23) Acute kidney failure, unspecified (10/13/23) Shortness of breath (10/13/23) Other specified abnormal findings of blood chemistry (10/13/23) Objective Data Objective Data Vital Signs: Vital Signs Temp Pulse Resp BP Pulse Ox O2 Del Method 98.2 F 98 18 134/71 H 98 Room Air 10/15/23 09:00 10/15/23 09:12 10/15/23 09:00 10/15/23 09:12 10/15/23 09:00 10/15/23 09:00 Oxygen Delivery Method Room Air Weight: 170 lb 6.677 oz Body Mass Index (BMI) 27.3 Intake & Output: Intake and Output for Last 24 Hours 10/13/23 10/14/23 10/15/23 23:59 23:59 23:59 Intake Total 1688 / 1688 1700 / 1700 1100 / 1100 Output Total 360 / 460 400 / 400 300 / 300 Balance 1328 / 1228 1300 / 1300 800 / 800 Lab / Micro Data 10/15/23 08:29 10/15/23 08:29 Labs: Laboratory Results - last 24 hr 10/14/23 11:45: Urine Color Yellow, Urine Clarity Sl. Cloudy, Urine pH 7.0, Ur Specific [place] 1.005, Urine Protein 30 H, Urine Glucose (UA) Normal, Urine Ketones Negative, Urine Occult Blood 150 H, Urine Nitrite Negative, Urine Bilirubin Negative, Urine Urobilinogen Normal, Ur Leukocyte Esterase 500 H, Urine RBC 5-10 SEEN, Urine WBC 10-25 SEEN, Ur Squamous Epith Cells 0 SEEN, Urine Bacteria 2+, Urine Mucus 0 SEEN, U Random Total Protein 72.0 H, Ur Random Sodium 87, Urine Creatinine 50.40, Protein/Creatinin Ratio 1429 H 10/15/23 08:29: WBC 3.4 L, RBC 1.82 L, Hgb 6.1 L, Hct 19.3 L, MCV 106.0 H, MCH 33.5 H, MCHC 31.6 L, RDW Std Deviation 84.8 H, RDW Coeff of Mohini 22.7 H, Plt Count 85 L, MPV 9.6, Immature Gran % (Auto) 0.600, Neut % (Auto) 80.5 H, Lymph % (Auto) 9.6 L, Cannon % (Auto) 7.8, Eos % (Auto) 1.2, Baso % (Auto) 0.3, Absolute Neuts (auto) 2.7, Absolute Lymphs (auto) 0.32 L, Nucleated RBC % 0, Differential Comment COMMENT, Platelet Estimate MOD DEC, Anisocytosis 1+, Sodium 133 L, Potassium 4.3, Chloride 102, Carbon Dioxide 23.0, Anion Gap 8, BUN 41 H, Creatinine 3.84 H, Estim Creat Clear Calc 12.76, Est GFR (MDRD) Af Amer 19 L, Est GFR (MDRD) Non-Af 16 L, BUN/Creatinine Ratio 10.7, Glucose 135 H, Uric Acid 9.0 H, Calcium 8.1 L, Phosphorus 4.1, Magnesium 1.8, Total Bilirubin 1.40 H , AST 12 L, ALT 13 L, Alkaline Phosphatase 89, Total Protein 6.2 L, Albumin 3.6, Globulin 2.6, Albumin/Globulin Ratio 1.4 10/15/23 09:57: Antibody Screen Not Reportable, Crossmatch See Detail Micro: Microbiology 10/12/23 10:01 Fluid - Pleural (Lung) Gram Stain - Final 10/12/23 10:01 Fluid - Pleural (Lung) Body Fluid Culture - Final Culture exhibits no growth. 10/12/23 10:01 Fluid - Pleural (Lung) Anaerobic Culture - Preliminary No growth in 48 hours. Physical Exam Narrative Seen and examined No acute symptoms. No fever. Blood pressure 134/71. Patient had 400 mL in output yesterday, slight improvement 300 mL prior to that. Hemoglobin dropped. 1 unit PRBC transfused. Patient had 3 IV albumin infusion. patient had thoracocentesis on 10/12/2023. Shortness of breath is improved. Physical exam General: Alert, Oriented x3, Cooperative HEENT: Hearing bilaterally impaired. Atraumatic, PERRLA, EOMI, Normocephalic Oral: No Gingival or Mucosal Lesions/ Ulcerations Neck: Supple, No JVD, Negative Carotid Bruits Chest wall/Lungs: Air entry diminished in right lung base. No crepitation/rhonchi Cardiovascular: Regular rate, Regular Rhythm, Normal S1, Normal S2, no audible murmur gallop or rub. Abdomen: Bowel Sounds Present, Soft, Non Tender, Non-Distended : Jennings catheter. 300 mL dark yellow urine. No dysuria. No renal angle tenderness. No suprapubic tenderness. Extremities: Slight pitting edema, Capillary Refill Less than 3 Seconds Skin: No rashes, No breakdown Musculoskeletal: No Tenderness to Palpation of Joints or Extremities Neurological: Cranial nerves II-XII grossly intact, DTR 2+/4. No acute focal neurological deficit. Psych/Mental Status: flat affect. Assessment & Plan Assessment/Plan (1) Shortness of breath: (2) Acute on chronic heart failure with preserved ejection fraction: (3) Pleural effusion, right: (4) Elevated brain natriuretic peptide (BNP) level: PLAN: Plan This 88-year-old gentleman was admitted from [place] ER for shortness of breath mild chest pain. He has orthopnea and has been sleeping in recliner for last few days. Complain of cough with purulent sputum. 1. Acute on chronic HFpEF: -Last echocardiogram was done on 08/05/2023 at [place]. EF about 60%. Mild RV systolic dysfunction, mild MR, mild aortic stenosis As patient does not have leg swelling, clinically palpable ascites or subcutaneous edema or extremity and CKD stage IV with baseline creatinine 2.0 therefore decided for right-sided thoracocentesis. Patient had thoracocentesis 450 mL. Repeat chest x-ray does not show acute pneumothorax. Heart failure core measures including intake and output, fluid restriction less than 1500 mL, daily weight monitoring, kidney and electrolytes monitoring. Troponins were normal, 10, 8 and 10. ACS ruled out. 10/13:No chest pain or shortness of breath. Patient blood pressure 126 systolic. Heart rate in 90s. No hypoxia. No tachypnea. 10/14: Blood pressure is better. No shortness of breath. On room air 2. Right large pleural effusion secondary to heart failure exacerbation: Fluid total protein 2.9, LDH normal 122, glucose 244. Cell count predominantly lymphocyte, macrophages. As per light criteria, fluid analysis is transudative. Gram stain shows 2+ WBC, no organisms seen. 10/12: Preliminary no growth on the pleural fluid. Fluid cytology negative for malignant cells. 10/13: Pleural fluid l shows no growth 3. 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 Platelet count 99,000. 10/14: Severe anemia. Hemoglobin dropped to 6.1. 1 unit of PRBC ordered. Platelet count 85,000, severe thrombocytopenia. 4. Acute kidney injury on CKD stage IV -Baseline serum creatinine appears to run between 2 and 2.4 Admitting creatinine outside 1.9. 10/11: Serum creatinine 2.05. With estimated creatinine clearance 22 mL/h and isolated right pleural effusion might be resistant to IV Lasix with high probability of worsening kidney. Therefore Lasix drip discontinued 10/12: CLARITA on CKD: Creatinine jumped to 2.85 from 2.05 yesterday. Patient had just 1 dose of 40 mg IV Lasix today in the morning. Lasix discontinued and prior to that he was on Lasix drip on the night of admission which was discontinued space operations officer yesterday. 10/13: Creatinine further went to 40/3.66. Patient naval surface fire support planner was consulted yesterday. Patient was given IV fluid normal saline bolus and Jennings catheter was inserted yesterday. IV albumin total 3 doses. Sodium 136, bicarb 27 potassium 4.5 therefore no major significant electrolyte abnormality. 10/14: Creatinine got worse but delta change was less than yesterday. Uric acid 9.0. Serum magnesium 1.8. Phosphorus 4.1. TB 1.4. Transaminases low. Open phosphorus normal. 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 [facility] [place] in August 2023 at which time he had an EGD that showed angiodysplastic lesions which were treated with argon plasma coagulation -Patient off aspirin and Plavix due to this -Continue Protonix -Monitor hemoglobin clinically but currently stable CAD/essential hypertension/hyperlipidemia -[id number] RCA 03/03/2005; [id number] LAD 03/19/2005 -Off aspirin and Plavix due to GAVE syndrome -Hold home Lasix due to the above -Continue home metoprolol -Antihypertensives have been adjusted recently as pressures are lower than typical -Monitor blood pressures closely with Lasix drip -Continue home statin BPH with obstruction -Continue home Flomax Hypomagnesemia -Continue home magnesium supplements 10/14 hypomagnesemia resolved. History of subarachnoid hemorrhage -No persistent deficits -Clinically stable History of ZABRINA -Patient denies wearing any mask at home for sleep apnea -May need supplemental oxygen nocturnally if oxygen saturations drop below 89% DVT prophylaxis -Subcu heparin twice daily CODE STATUS -DNR CCA okay for short-term intubation 10/15/23 08:29: WBC 3.4 L, RBC 1.82 L, Hgb 6.1 L, Hct 19.3 L, MCV 106.0 H, MCH 33.5 H, MCHC 31.6 L, RDW Std Deviation 84.8 H, RDW Coeff of Mohini 22.7 H, Plt Count 85 L, MPV 9.6, Immature Gran % (Auto) 0.600, Neut % (Auto) 80.5 H, Lymph % (Auto) 9.6 L, Cannon % (Auto) 7.8, Eos % (Auto) 1.2, Baso % (Auto) 0.3, Absolute Neuts (auto) 2.7, Absolute Lymphs (auto) 0.32 L, Nucleated RBC % 0, Differential Comment COMMENT, Platelet Estimate MOD DEC, Anisocytosis 1+, Sodium 133 L, Potassium 4.3, Chloride 102, Carbon Dioxide 23.0, Anion Gap 8, BUN 41 H, Creatinine 3.84 H, Estim Creat Clear Calc 12.76, Est GFR (MDRD) Af Amer 19 L, Est GFR (MDRD) Non-Af 16 L, BUN/Creatinine Ratio 10.7, Glucose 135 H, Uric Acid 9.0 H, Calcium 8.1 L, Phosphorus 4.1, Magnesium 1.8, Total Bilirubin 1.40 H , AST 12 L, ALT 13 L, Alkaline Phosphatase 89, Total Protein 6.2 L, Albumin 3.6, Globulin 2.6, Albumin/Globulin Ratio 1.4 10/15/23 09:57: Antibody Screen Not Reportable, Crossmatch See Detail Charges/Coding Visit Charges Inpatient E&M: 56907 Subs Hosp L2
[2023-10-15] MEDS: Ceftriaxone 1 GM/50 ML BAG IV (11:50)
--- NOTE | 2023-10-15 12:30 | NURSING ---
Blood bank called to inform this RN that, due to complicated crossmatch, patients crossmatch will have to be sent to [facility]. Expected delay before receiving blood is at least 2-[address] Babin informed of delay.
--- NOTE | 2023-10-15 13:55 | PN.RENAL_ITS ---
Subjective Subjective no new complaints Objective Data Objective Data Vital Signs: Vital Signs Temp Pulse Resp BP Pulse Ox O2 Del Method 98.2 F 98 18 134/71 H 98 Room Air 10/15/23 09:00 10/15/23 09:12 10/15/23 09:00 10/15/23 09:12 10/15/23 09:00 10/15/23 09:00 Oxygen Delivery Method Room Air Weight: 77.3 kg Body Mass Index (BMI) 27.3 Intake & Output: Intake and Output for Last 24 Hours 10/13/23 10/14/23 10/15/23 23:59 23:59 23:59 Intake Total 1688 / 1688 1700 / 1700 1150 / 1150 Output Total 360 / 460 400 / 400 300 / 300 Balance 1328 / 1228 1300 / 1300 850 / 850 Lab / Micro Data 10/15/23 08:29 10/15/23 08:29 Labs: Laboratory Results - last 24 hr 10/14/23 11:45: Urine Color Yellow, Urine Clarity Sl. Cloudy, Urine pH 7.0, Ur Specific [place] 1.005, Urine Protein 30 H, Urine Glucose (UA) Normal, Urine Ketones Negative, Urine Occult Blood 150 H, Urine Nitrite Negative, Urine Bilirubin Negative, Urine Urobilinogen Normal, Ur Leukocyte Esterase 500 H, Urine RBC 5-10 SEEN, Urine WBC 10-25 SEEN, Ur Squamous Epith Cells 0 SEEN, Urine Bacteria 2+, Urine Mucus 0 SEEN 10/15/23 08:29: WBC 3.4 L, RBC 1.82 L, Hgb 6.1 L, Hct 19.3 L, MCV 106.0 H, MCH 33.5 H, MCHC 31.6 L, RDW Std Deviation 84.8 H, RDW Coeff of Mohini 22.7 H, Plt Count 85 L, MPV 9.6, Immature Gran % (Auto) 0.600, Neut % (Auto) 80.5 H, Lymph % (Auto) 9.6 L, [place] % (Auto) 7.8, Eos % (Auto) 1.2, Baso % (Auto) 0.3, Absolute Neuts (auto) 2.7, Absolute Lymphs (auto) 0.32 L, Nucleated RBC % 0, Differential Comment COMMENT, Platelet Estimate MOD DEC, Anisocytosis 1+, Sodium 133 L, Potassium 4.3, Chloride 102, Carbon Dioxide 23.0, Anion Gap 8, BUN 41 H, C reatinine 3.84 H, Estim Creat Clear Calc 12.76, Est GFR (MDRD) Af Amer 19 L, Est GFR (MDRD) Non-Af 16 L, BUN/Creatinine Ratio 10.7, Glucose 135 H, Uric Acid 9.0 H, Calcium 8.1 L, Phosphorus 4.1, Magnesium 1.8, Total Bilirubin 1.40 H, AST 12 L, ALT 13 L, Alkaline Phosphatase 89, Total Protein 6.2 L, Albumin 3.6, Globulin 2.6, Albumin/Globulin Ratio 1.4 10/15/23 09:57: Blood Type A POSITIVE, Antibody Screen POSITIVE, Crossmatch See Detail Micro: Microbiology 10/12/23 10:01 Fluid - Pleural (Lung) Gram Stain - Final 10/12/23 10:01 Fluid - Pleural (Lung) Body Fluid Culture - Final Culture exhibits no growth. 10/12/23 10:01 Fluid - Pleural (Lung) Anaerobic Culture - Preliminary No growth in 48 hours. Physical Exam Narrative no obvious distress no pallor no icterus no JVD s1s2 no murmurs lungs clear abdomen soft no organomegaly no edema no cyanosis swanson + Assessment & Plan Assessment/Plan (1) CLARITA (acute kidney injury): PLAN: History of CKD stage IIIb. Baseline creatinine around 2.0. He came in with creatinine close to baseline. Has been on IV Lasix, currently on hold. Swanson catheter indwelling chances of retention are low. UA shows some protein, RBC, swanson sample. BP is better. urine output is somewhat better received fluids and albumin urine sodium is high, unlikely prerenal cr is increased only by 0.2 hopefully will recover soon dw hospitalist
[2023-10-15] MEDS: Tamsulosin HCl 0.4 MG Capsule PO (18:14)
[2023-10-15] MEDS: Pravastatin 80 MG Tablet PO (21:05)
[2023-10-16] VITALS (11 sets, daily range): BP systolic 109–128; BP diastolic 60–87; PULSE 82–102; RESP 16–18; TEMP 36.6–37.2; O2SAT 2–100; BMI 28.0
[2023-10-16 06:45] LABS: Absolute Lymphocyte Count 0.31 X10^3/uL (0.83-4.51); Absolute Neutrophil Count 2.9 X10^3/uL (2.0-7.7); Basophil# 0.01 X10^3/uL; Basophil% 0.3 % (0-1); Eosinophil# 0.04 X10^3/uL; Eosinophils% 1.1 % (0-5); Hematocrit 19.2 % (40-54); Hemoglobin 6.4 g/dL (13.0-16.5); Lymphocyte # 0.31 X10^3/ul (0.83-4.51); Lymphocyte % 8.8 % (19-41); Mean Corp Hgb Conc 33.3 g/dL (32-36); Mean Corpuscular Hgb 35.4 pg (27.0-32.0); Mean Corpuscular Volume 106.1 fL (80-94); Mean Platelet Vol. 9.2 fl (6.2-12.0); Monocyte# 0.29 X10^3/uL; Monocyte% 8.2 % (0-10); NRBC Flagged by Analyzer 0 % (0-5); Neutrophil # 2.87 X10^3/uL (2.7-7.7); POSITIVE COUNT YES; POSITIVE DIFFERENTIAL YES; POSITIVE MORPHOLOGY YES; Platelet Count 90 K/mm3 (150-450); RBC Distribution Width CV 22.5 % (11.6-14.6); RBC Distribution Width SD 83.7 fl (35.1-43.9); Red Blood Count 1.81 M/mm3 (4.6-6.2); White Blood Count 3.5 K/mm3 (4.4-11.0)
[2023-10-16 06:52] LABS: Differential Indicated SCAN CRITERIA MET
[2023-10-16 07:16] LABS: Anion Gap 8 (5-15); BUN 42 mg/dL (7-18); BUN/Creat Ratio 10.3 RATIO (10-20); Calcium,Total 8.3 mg/dL (8.5-10.1); Chloride 104 mmol/L (98-107); Creatinine, Serum 4.06 mg/dL (0.70-1.30); EST Glomerular Filtration Rate 15 mL/min (>60); Est Glom Filt Rate - Afr Amer 18 mL/min (>60); Estimated Creatinine Clearance 12.21 ml/min; Glucose 175 mg/dL (74-106); Potassium 4.5 mmol/L (3.5-5.1); Sodium Level 133 mmol/L (136-145)
[2023-10-16 08:23] LABS: Anisocytosis 2+; Differential Comment SCANNED; Platelet Estimate SLT DEC (ADEQ)
[2023-10-16 08:24] LABS: Hypochromasia 1+; Macrocytosis 2+
[2023-10-16] MEDS: Loratadine 10 MG Tablet PO (09:46)
[2023-10-16] MEDS: Lactobacillis Acidophilus 1 CAP PO (09:46)
[2023-10-16] MEDS: Multivitamins,Therapeutic Tablet 1 TABLET PO (09:46)
[2023-10-16] MEDS: Magnesium Chloride 64 MG Delay Rel.Tablet 128 MG PO ×2 (09:46→20:36)
[2023-10-16] MEDS: Metoprolol Tartrate 25 MG Tablet 12.5 MG PO ×2 (09:46→20:37)
[2023-10-16] MEDS: Pantoprazole Sodium 40 MG Tablet PO (09:46)
[2023-10-16] MEDS: Menthol/Lanolin/Calamine/Znox 113 GM Tube 1 APPLIC TOPICAL ×2 (09:47→20:38)
[2023-10-16] MEDS: Ceftriaxone 1 GM/50 ML BAG IV (09:53)
--- NOTE | 2023-10-16 10:03 | CASEMGMT ---
Discharge Planning [facility] notified that physician will not be doing peer to peer d/t patient not being medically ready and that we will follow up on Thursday. Shadia Barajas DC Planning Asst.
--- NOTE | 2023-10-16 10:42 | CASEMGMT ---
Social Work [employer] called to ask for a peer to peer in regard to [facility] however pt is not medically ready, physician states to restart precert when ready, pt will be here through the weekend. SW to follow up on Thursday. GOVIND Hamilton
--- NOTE | 2023-10-16 12:00 | PN.RENAL_ITS ---
Subjective Subjective No new events. Objective Data Objective Data Vital Signs: Vital Signs Temp Pulse Resp BP Pulse Ox O2 Del Method O2 Flow Rate 98.3 F 82 16 109/60 100 Nasal Cannula 2 10/16/23 08:42 10/16/23 09:46 10/16/23 08:42 10/16/23 09:46 10/16/23 08:42 10/16/23 08:47 10/16/23 08:47 Oxygen Flow Rate (L/min) 2 Oxygen Delivery Method Nasal Cannula Weight: 79.2 kg Body Mass Index (BMI) 28.0 Intake & Output: Intake and Output for Last 24 Hours 10/14/23 10/15/23 10/16/23 23:59 23:59 23:59 Intake Total 1700 / 1700 1525 / 1645 120 / 120 Output Total 400 / 400 600 / 800 450 / 450 Balance 1300 / 1300 925 / 845 -330 / -330 Lab / Micro Data 10/16/23 05:53 10/16/23 05:53 Labs: Laboratory Results - last 24 hr 10/15/23 09:57: Antibody Screen POSITIVE 10/16/23 05:53: WBC 3.5 L, RBC 1.81 L, Hgb 6.4 L, Hct 19.2 L, MCV 106.1 H, MCH 35.4 H, MCHC 33.3 D, RDW Std Deviation 83.7 H, RDW Coeff of Mohini 22.5 H, Plt Count 90 L, MPV 9.2, Immature Gran % (Auto) 0.600, Neut % (Auto) 81.0 H, Lymph % (Auto) 8.8 L, [place] % (Auto) 8.2, Eos % (Auto) 1.1, Baso % (Auto) 0.3, Absolute Neuts (auto) 2.9, Absolute Lymphs (auto) 0.31 L, Nucleated RBC % 0, Differential Comment SCANNED, Platelet Estimate SLT DEC, Hypochromasia 1+, Anisocytosis 2+, Macrocytosis 2+, Sodium 133 L, Potassium 4.5, Chloride 104, Carbon Dioxide 21.0, Anion Gap 8, BUN 42 H, Creatinine 4.06 H, Estim Creat Clear Calc 12.21, Est GFR (MDRD) Af Amer 18 L, Est GFR (MDRD) Non-Af 15 L, BUN/Creatinine Ratio 10.3, G lucose 175 H, Calcium 8.3 L Micro: Microbiology 10/12/23 10:01 Fluid - Pleural (Lung) Gram Stain - Final 10/12/23 10:01 Fluid - Pleural (Lung) Body Fluid Culture - Final Culture exhibits no growth. 10/12/23 10:01 Fluid - Pleural (Lung) Anaerobic Culture - Preliminary No growth in 48 hours. Physical Exam Narrative no obvious distress no pallor no icterus no JVD s1s2 no murmurs lungs clear abdomen soft no organomegaly no edema no cyanosis swanson + Assessment & Plan Assessment/Plan (1) CLARITA (acute kidney injury): PLAN: History of CKD stage IIIb. Baseline creatinine around 2.0. He came in with creatinine close to baseline. Has been on IV Lasix, currently on hold. Swanson catheter indwelling chances of retention are low. UA shows some protein, RBC, swanson sample. BP is better. urine output is somewhat better received fluids and albumin urine sodium is high, unlikely prerenal Creatinine is worsening. Blood pressure is acceptable. Reviewed prior records, discussed with hospitalist. Severe anemia, possible blood transfusion. He has known history of myelodysplasia. History of heart failure with repeated pleural effusions. Needs to have goals of care addressed. Swanson catheter can be removed from my end. Not a great candidate for dialysis if it gets there. Palliative care was recommended by hematology at the time of previous office visits as well in view of myelodysplasia
--- NOTE | 2023-10-16 12:15 | PN.HOSP_ITS ---
Reason for Visit Reason for Visit: Diagnoses Acute on chronic diastolic (congestive) heart failure (10/13/23) Pleural effusion, not elsewhere classified (10/13/23) Acute kidney failure, unspecified (10/13/23) Shortness of breath (10/13/23) Other specified abnormal findings of blood chemistry (10/13/23) Objective Data Objective Data Vital Signs: Vital Signs Temp Pulse Resp BP Pulse Ox O2 Del Method O2 Flow Rate 98.3 F 82 16 109/60 100 Nasal Cannula 2 10/16/23 08:42 10/16/23 09:46 10/16/23 08:42 10/16/23 09:46 10/16/23 08:42 10/16/23 08:47 10/16/23 08:47 Oxygen Flow Rate (L/min) 2 Oxygen Delivery Method Nasal Cannula Weight: 174 lb 9.698 oz Body Mass Index (BMI) 28.0 Intake & Output: Intake and Output for Last 24 Hours 10/14/23 10/15/23 10/16/23 23:59 23:59 23:59 Intake Total 1700 / 1700 1525 / 1645 120 / 120 Output Total 400 / 400 600 / 800 450 / 450 Balance 1300 / 1300 925 / 845 -330 / -330 Lab / Micro Data 10/16/23 05:53 10/16/23 05:53 Labs: Laboratory Results - last 24 hr 10/15/23 09:57: Antibody Screen POSITIVE 10/16/23 05:53: WBC 3.5 L, RBC 1.81 L, Hgb 6.4 L, Hct 19.2 L, MCV 106.1 H, MCH 35.4 H, MCHC 33.3 D, RDW Std Deviation 83.7 H, RDW Coeff of Mohini 22.5 H, Plt Count 90 L, MPV 9.2, Immature Gran % (Auto) 0.600, Neut % (Auto) 81.0 H, Lymph % (Auto) 8.8 L, Gray % (Auto) 8.2, Eos % (Auto) 1.1, Baso % (Auto) 0.3, Absolute Neuts (auto) 2.9, Absolute Lymphs (auto) 0.31 L, Nucleated RBC % 0, Differential Comment SCANNED, Platelet Estimate SLT DEC, Hypochromasia 1+, Anisocytosis 2+, Macrocytosis 2+ Sodium 133 L, Potassium 4.5, Chloride 104, Carbon Dioxide 21.0, Anion Gap 8, B UN 42 H, Creatinine 4.06 H, Estim Creat Clear Calc 12.21, Est GFR (MDRD) Af Amer 18 L, Est GFR (MDRD) Non-Af 15 L, BUN/Creatinine Ratio 10.3, Glucose 175 H, C alcium 8.3 L Micro: Microbiology 10/12/23 10:01 Fluid - Pleural (Lung) Gram Stain - Final 10/12/23 10:01 Fluid - Pleural (Lung) Body Fluid Culture - Final Culture exhibits no growth. 10/12/23 10:01 Fluid - Pleural (Lung) Anaerobic Culture - Preliminary No growth in 48 hours. Physical Exam Narrative Seen and examined No acute symptoms. No fever. Normotensive. As per charting, urine output 600 mg yesterday and 150 mL since 12 AM today. Hemoglobin dropped. 1 unit PRBC ordered patient has antibodies therefore delay in getting transfusion. Patient had 3 IV albumin infusion. patient had thoracocentesis on 10/12/2023. Shortness of breath is improved. Physical exam General: Alert, Oriented x3, Cooperative HEENT: Hearing bilaterally impaired. Atraumatic, PERRLA, EOMI, Normocephalic Oral: No Gingival or Mucosal Lesions/ Ulcerations Neck: Supple, No JVD, Negative Carotid Bruits Chest wall/Lungs: Air entry diminished in right lung base. No crepitation/rhonchi Cardiovascular: Regular rate, Regular Rhythm, Normal S1, Normal S2, no audible murmur gallop or rub. Abdomen: Bowel Sounds Present, Soft, Non Tender, Non-Distended : Jennings catheter. No dysuria. No renal angle tenderness. No suprapubic tenderness. Extremities: Slight pitting edema, Capillary Refill Less than 3 Seconds Skin: No rashes, No breakdown Musculoskeletal: No Tenderness to Palpation of Joints or Extremities Neurological: Cranial nerves II-XII grossly intact, DTR 2+/4. No acute focal neurological deficit. Psych/Mental Status: flat affect. Assessment & Plan Assessment/Plan (1) Shortness of breath: (2) Acute on chronic heart failure with preserved ejection fraction: (3) Pleural effusion, right: (4) Elevated brain natriuretic peptide (BNP) level: PLAN: Plan This 88-year-old gentleman was admitted from [place] for shortness of breath mild chest pain. He has orthopnea and has been sleeping in recliner for last few days. Complain of cough with purulent sputum. 1. Acute on chronic HFpEF: -Last echocardiogram was done on 08/05/2023 at [facility]. EF about 60%. Mild RV systolic dysfunction, mild MR, mild aortic stenosis As patient does not have leg swelling, clinically palpable ascites or subcutaneous edema or extremity and CKD stage IV with baseline creatinine 2.0 therefore decided for right-sided thoracocentesis. Patient had thoracocentesis 450 mL. Repeat chest x-ray does not show acute pneumothorax. Heart failure core measures including intake and output, fluid restriction less than 1500 mL, daily weight monitoring, kidney and electrolytes monitoring. Troponins were normal, 10, 8 and 10. ACS ruled out. 10/13:No chest pain or shortness of breath. Patient blood pressure 126 systolic. Heart rate in 90s. No hypoxia. No tachypnea. 10/14: Blood pressure is better. No shortness of breath. On room air 10/15: Normotensive. No shortness of breath. On room air. 2. Right large pleural effusion secondary to heart failure exacerbation: Fluid total protein 2.9, LDH normal 122, glucose 244. Cell count predominantly lymphocyte, macrophages. As per light criteria, fluid analysis is transudative. Gram stain shows 2+ WBC, no organisms seen. 10/12: Preliminary no growth on the pleural fluid. Fluid cytology negative for malignant cells. 10/13: Pleural fluid l shows no growth 3. 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 Platelet count 99,000. 10/14: Severe anemia. Hemoglobin dropped to 6.1. 1 unit of PRBC ordered. Platelet count 85,000, severe thrombocytopenia. 10/15: Delay in getting blood transfusion because of antibodies matching. 4. Acute kidney injury on CKD stage IV -Baseline serum creatinine appears to run between 2 and 2.4 Admitting creatinine outside 1.9. 10/11: Serum creatinine 2.05. With estimated creatinine clearance 22 mL/h and isolated right pleural effusion might be resistant to IV Lasix with high probability of worsening kidney. Therefore Lasix drip discontinued 10/12: CLARITA on CKD: Creatinine jumped to 2.85 from 2.05 yesterday. Patient had just 1 dose of 40 mg IV Lasix today in the morning. Lasix discontinued and prior to that he was on Lasix drip on the night of admission which was discontinued eligibility services representative yesterday. 10/13: Creatinine further went to 40/3.66. Patient blower operator was consulted yesterday. Patient was given IV fluid normal saline bolus and Jennings catheter was inserted yesterday. IV albumin total 3 doses. Sodium 136, bicarb 27 potassium 4.5 therefore no major significant electrolyte abnormality. 10/14: Creatinine got worse but delta change was less than yesterday. Uric acid 9.0. Serum magnesium 1.8. Phosphorus 4.1. TB 1.4. Transaminases low. Open phosphorus normal. 10/15: Urine output 600 mL yesterday. Gradually urine output is increasing but creatinine getting worse 4.08. Discussed with the blower operator. Possible causes may be ADELINA patient had CTA contrast on the day of admission. 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 at which time he had an EGD that showed angiodysplastic lesions which were treated with argon plasma coagulation -Patient off aspirin and Plavix due to this -Continue Protonix -Monitor hemoglobin clinically but currently stable CAD/essential hypertension/hyperlipidemia -[id number] RCA 03/03/2005; [id number] LAD 03/19/2005 -Off aspirin and Plavix due to GAVE syndrome -Hold home Lasix due to the above -Continue home metoprolol -Antihypertensives have been adjusted recently as pressures are lower than typical -Monitor blood pressures closely with Lasix drip -Continue home statin BPH with obstruction -Continue home Flomax Hypomagnesemia -Continue home magnesium supplements 10/14 hypomagnesemia resolved. History of subarachnoid hemorrhage -No persistent deficits -Clinically stable History of ZABRINA -Patient denies wearing any mask at home for sleep apnea -May need supplemental oxygen nocturnally if oxygen saturations drop below 89% DVT prophylaxis -Subcu heparin twice daily CODE STATUS -DNR CCA okay for short-term intubation Microbiology Past 72 Hours 10/12/23 10:01 Fluid - Pleural (Lung) Gram Stain - Final 10/12/23 10:01 Fluid - Pleural (Lung) Body Fluid Culture - Final Culture exhibits no growth. 10/12/23 10:01 Fluid - Pleural (Lung) Anaerobic Culture - Preliminary No growth in 48 hours. Laboratory Results 10/16/23 05:53: WBC 3.5 L, RBC 1.81 L, Hgb 6.4 L, Hct 19.2 L, MCV 106.1 H, MCH 35.4 H, MCHC 33.3 D, RDW Std Deviation 83.7 H, RDW Coeff of Mohini 22.5 H, Plt Count 90 L, MPV 9.2, Immature Gran % (Auto) 0.600, Neut % (Auto) 81.0 H, Lymph % (Auto) 8.8 L, Gray % (Auto) 8.2, Eos % (Auto) 1.1, Baso % (Auto) 0.3, Absolute Neuts (auto) 2.9, Absolute Lymphs (auto) 0.31 L, Nucleated RBC % 0, Differential Comment SCANNED, Platelet Estimate SLT DEC, Hypochromasia 1+, Anisocytosis 2+, Macrocytosis 2+, Sodium 133 L, Potassium 4.5, Chloride 104, Carbon Dioxide 21.0, Anion Gap 8, BUN 42 H, Creatinine 4.06 H, Estim Creat Clear Calc 12.21, Est GFR (MDRD) Af Amer 18 L, Est GFR (MDRD) Non-Af 15 L, BUN/Creatinine Ratio 10.3, G lucose 175 H, Calcium 8.3 L Charges/Coding Visit Charges Inpatient E&M: 22027 Subs Hosp L2
--- NOTE | 2023-10-16 14:18 | CASEMGMT ---
EFREN CARCAMO NOTE: Dr Babin gave order for Palliative referral. Order placed. Referral sent to [facility] via e-mail. Muna ISAAC RN CM
[2023-10-16] MEDS: Tamsulosin HCl 0.4 MG Capsule PO (17:02)
[2023-10-16] MEDS: Pravastatin 80 MG Tablet PO (20:36)
[2023-10-16] MEDS: 0.9% Saline Lock 10 ML Syringe IV (20:44)
[2023-10-17] VITALS (15 sets, daily range): BP systolic 115–140; BP diastolic 56–73; PULSE 82–100; RESP 14–16; TEMP 36.5–36.9; O2SAT 94–100; BMI 28.1
[2023-10-17 07:58] LABS: Absolute Lymphocyte Count 0.27 X10^3/uL (0.83-4.51); Absolute Neutrophil Count 2.6 X10^3/uL (2.0-7.7); Basophil# 0.02 X10^3/uL; Basophil% 0.6 % (0-1); Eosinophil# 0.05 X10^3/uL; Eosinophils% 1.5 % (0-5); Hematocrit 21.8 % (40-54); Hemoglobin 7.4 g/dL (13.0-16.5); Lymphocyte # 0.27 X10^3/ul (0.83-4.51); Lymphocyte % 8.2 % (19-41); Mean Corp Hgb Conc 33.9 g/dL (32-36); Mean Corpuscular Hgb 34.1 pg (27.0-32.0); Mean Corpuscular Volume 100.5 fL (80-94); Mean Platelet Vol. 9.7 fl (6.2-12.0); Monocyte# 0.29 X10^3/uL; Monocyte% 8.8 % (0-10); NRBC Flagged by Analyzer 0 % (0-5); Neutrophil # 2.62 X10^3/uL (2.7-7.7); Neutrophil % 79.7 % (47-70); POSITIVE COUNT YES; POSITIVE DIFFERENTIAL YES; POSITIVE MORPHOLOGY YES; Platelet Count 91 K/mm3 (150-450); RBC Distribution Width CV 22.9 % (11.6-14.6); RBC Distribution Width SD 80.5 fl (35.1-43.9); Red Blood Count 2.17 M/mm3 (4.6-6.2); White Blood Count 3.3 K/mm3 (4.4-11.0)
[2023-10-17] MEDS: Lactobacillis Acidophilus 1 CAP PO (08:00)
[2023-10-17] MEDS: Pantoprazole Sodium 40 MG Tablet PO (08:00)
[2023-10-17] MEDS: Metoprolol Tartrate 25 MG Tablet 12.5 MG PO ×2 (08:01→21:13)
[2023-10-17] MEDS: Magnesium Chloride 64 MG Delay Rel.Tablet 128 MG PO ×2 (08:01→21:12)
[2023-10-17] MEDS: Multivitamins,Therapeutic Tablet 1 TABLET PO (08:01)
[2023-10-17] MEDS: Menthol/Lanolin/Calamine/Znox 113 GM Tube 1 APPLIC TOPICAL ×2 (08:01→21:12)
[2023-10-17 08:05] LABS: Differential Indicated SCAN CRITERIA MET
[2023-10-17 08:22] LABS: Anion Gap 8 (5-15); BUN 42 mg/dL (7-18); BUN/Creat Ratio 10.4 RATIO (10-20); Calcium,Total 8.2 mg/dL (8.5-10.1); Chloride 106 mmol/L (98-107); Creatinine, Serum 4.03 mg/dL (0.70-1.30); EST Glomerular Filtration Rate 15 mL/min (>60); Est Glom Filt Rate - Afr Amer 18 mL/min (>60); Estimated Creatinine Clearance 12.31 ml/min; Glucose 210 mg/dL (74-106); Potassium 4.6 mmol/L (3.5-5.1); Sodium Level 134 mmol/L (136-145)
[2023-10-17 08:27] LABS: Anisocytosis 2+
[2023-10-17] MEDS: Ceftriaxone 1 GM/50 ML BAG IV (09:29)
--- NOTE | 2023-10-17 12:26 | PCM.PN.HOSP ---
Reason for Visit Reason for Visit: Diagnoses Acute on chronic diastolic (congestive) heart failure (10/13/23) Pleural effusion, not elsewhere classified (10/13/23) Acute kidney failure, unspecified (10/13/23) Shortness of breath (10/13/23) Other specified abnormal findings of blood chemistry (10/13/23) Objective Data Objective Data Vital Signs: Vital Signs Temp Pulse Resp BP Pulse Ox O2 Del Method O2 Flow Rate 97.8 F 91 16 124/70 H 100 Nasal Cannula 2 10/17/23 08:00 10/17/23 08:01 10/17/23 08:00 10/17/23 08:00 10/17/23 08:00 10/17/23 09:02 10/17/23 09:02 Oxygen Flow Rate (L/min) 2 Oxygen Delivery Method Nasal Cannula Weight: 175 lb 0.752 oz Body Mass Index (BMI) 28.1 Intake & Output: Intake and Output for Last 24 Hours 10/15/23 10/16/23 10/17/23 23:59 23:59 23:59 Intake Total 1525 / 1645 1020 / 1140 231 / 231 Output Total 600 / 800 950 / 1150 540 / 540 Balance 925 / 845 70 / -10 -309 / -309 Lab / Micro Data 10/17/23 06:30 10/17/23 06:30 Labs: Laboratory Results - last 24 hr 10/15/23 09:57: Blood Type A POSITIVE, Antibody Screen POSITIVE, Antibody Identification WARM AUTOANTIBODY, Crossmatch See Detail 10/17/23 06:30: WBC 3.3 L, RBC 2.17 L, Hgb 7.4 L, Hct 21.8 L, MCV 100.5 H D, MCH 34.1 H, MCHC 33.9, RDW Std Deviation 80.5 H, RDW Coeff of Omhini 22.9 H, Plt Count 91 L, MPV 9.7, Immature Gran % (Auto) 1.200 H, Neut % (Auto) 79.7 H, Lymph % (Auto) 8.2 L, [place] % (Auto) 8.8, Eos % (Auto) 1.5, Baso % (Auto) 0.6, Absolute Neuts (auto) 2.6, Absolute Lymphs (auto) 0.27 L, Nucleated RBC % 0, Anisocytosis 2+, Sodium 134 L, Potassium 4.6, Chloride 106, Carbon Dioxide 20.0 L, Anion Gap 8, BUN 42 H, Creatinine 4.03 H, Estim Creat Clear Calc 12.31, Est GFR (MDRD) Af Amer 18 L, Est GFR (MDRD) Non-Af 15 L, BUN/Creatinine Ratio 10.4, Glucose 210 H, Calcium 8.2 L Micro: Microbiology 10/12/23 10:01 Fluid - Pleural (Lung) Gram Stain - Final 10/12/23 10:01 Fluid - Pleural (Lung) Body Fluid Culture - Final Culture exhibits no growth. 10/12/23 10:01 Fluid - Pleural (Lung) Anaerobic Culture - Preliminary No growth in 48 hours. Physical Exam Narrative Seen and examined No acute symptoms. No fever. Normotensive. Pulse ox 100% on 2 L of oxygen. Urine output increased to 950 mill yesterday. 540 mill charted today. As per charting, urine output 600 mg yesterday and 540 mL since 12 AM today. Patient was transfused 1 unit PRBC Patient had 3 IV albumin infusion. patient had thoracocentesis on 10/12/2023. Shortness of breath is improved. Hemoglobin wall. Physical exam General: Alert, Oriented x3, Cooperative HEENT: Hearing bilaterally impaired. Atraumatic, PERRLA, EOMI, Normocephalic Oral: No Gingival or Mucosal Lesions/ Ulcerations Neck: Supple, No JVD, Negative Carotid Bruits Chest wall/Lungs: Air entry diminished in right lung base. No crepitation/rhonchi Cardiovascular: Regular rate, Regular Rhythm, Normal S1, Normal S2, no audible murmur gallop or rub. Abdomen: Bowel Sounds Present, Soft, Non Tender, Non-Distended : Jennings catheter. No dysuria. No renal angle tenderness. No suprapubic tenderness. Extremities: Slight pitting edema, Capillary Refill Less than 3 Seconds Skin: No rashes, No breakdown Musculoskeletal: No Tenderness to Palpation of Joints or Extremities Neurological: Cranial nerves II-XII grossly intact, DTR 2+/4. No acute focal neurological deficit. Psych/Mental Status: flat affect. Assessment & Plan Assessment/Plan (1) Shortness of breath: (2) Acute on chronic heart failure with preserved ejection fraction: (3) Pleural effusion, right: (4) Elevated brain natriuretic peptide (BNP) level: PLAN: Plan This 88-year-old gentleman was admitted from [place] ER for shortness of breath mild chest pain. He has orthopnea and has been sleeping in recliner for last few days. Complain of cough with purulent sputum. 1. Acute on chronic HFpEF: -Last echocardiogram was done on 08/05/2023 at [place]. EF about 60%. Mild RV systolic dysfunction, mild MR, mild aortic stenosis As patient does not have leg swelling, clinically palpable ascites or subcutaneous edema or extremity and CKD stage IV with baseline creatinine 2.0 therefore decided for right-sided thoracocentesis. Patient had thoracocentesis 450 mL. Repeat chest x-ray does not show acute pneumothorax. Heart failure core measures including intake and output, fluid restriction less than 1500 mL, daily weight monitoring, kidney and electrolytes monitoring. Troponins were normal, 10, 8 and 10. ACS ruled out. 10/13:No chest pain or shortness of breath. Patient blood pressure 126 systolic. Heart rate in 90s. No hypoxia. No tachypnea. 10/14: Blood pressure is better. No shortness of breath. On room air 10/15: Normotensive. No shortness of breath. On room air. 2. Right large pleural effusion secondary to heart failure exacerbation: Fluid total protein 2.9, LDH normal 122, glucose 244. Cell count predominantly lymphocyte, macrophages. As per light criteria, fluid analysis is transudative. Gram stain shows 2+ WBC, no organisms seen. 10/12: Preliminary no growth on the pleural fluid. Fluid cytology negative for malignant cells. 10/16: Pleural fluid shows no growth for 48 hours. IV ceftriaxone discontinued. Patient had 6 days of IV ceftriaxone. Pneumonia ruled out. 3. 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 Platelet count 99,000. 10/14: Severe anemia. Hemoglobin dropped to 6.1. 1 unit of PRBC ordered. Platelet count 85,000, severe thrombocytopenia. 10/15: Delay in getting blood transfusion because of antibodies matching. 10/16: Patient had 1 unit of PRBC transfusion on 10/15. Repeat hemoglobin 7.4. Platelet count 91,000. Antiplatelet and/or Ticlid contraindicated 4. Acute kidney injury on CKD stage IV -Baseline serum creatinine appears to run between 2 and 2.4 Admitting creatinine outside 1.9. 10/11: Serum creatinine 2.05. With estimated creatinine clearance 22 mL/h and isolated right pleural effusion might be resistant to IV Lasix with high probability of worsening kidney. Therefore Lasix drip discontinued 10/12: CLARITA on CKD: Creatinine jumped to 2.85 from 2.05 yesterday. Patient had just 1 dose of 40 mg IV Lasix today in the morning. Lasix discontinued and prior to that he was on Lasix drip on the night of admission which was discontinued line o scribe operator yesterday. 10/13: Creatinine further went to 40/3.66. Patient hot air furnace installer and repairer was consulted yesterday. Patient was given IV fluid normal saline bolus and Jennings catheter was inserted yesterday. IV albumin total 3 doses. Sodium 136, bicarb 27 potassium 4.5 therefore no major significant electrolyte abnormality. 10/14: Creatinine got worse but delta change was less than yesterday. Uric acid 9.0. Serum magnesium 1.8. Phosphorus 4.1. TB 1.4. Transaminases low. Open phosphorus normal. 10/15: Urine output 600 mL yesterday. Gradually urine output is increasing but creatinine getting worse 4.08. Discussed with the hot air furnace installer and repairer. Possible causes may be ADELINA patient had CTA contrast on the day of admission. 10/16: Patient urine output has increased to 950 mill yesterday. 540 mill today. Jennings catheter discontinued. Creatinine also stabilized and did not show much up. Expected to see decrease in creatinine from tomorrow. Urine culture shows no growth. UTI ruled out. 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 at which time he had an EGD that showed angiodysplastic lesions which were treated with argon plasma coagulation -Patient off aspirin and Plavix due to this -Continue Protonix -Monitor hemoglobin clinically but currently stable CAD/essential hypertension/hyperlipidemia -[id number] RCA 03/03/2005; [id number] LAD 03/19/2005 -Off aspirin and Plavix due to GAVE syndrome -Hold home Lasix due to the above -Continue home metoprolol -Antihypertensives have been adjusted recently as pressures are lower than typical -Monitor blood pressures closely with Lasix drip -Continue home statin BPH with obstruction -Continue home Flomax Hypomagnesemia -Continue home magnesium supplements 10/14 hypomagnesemia resolved. History of subarachnoid hemorrhage -No persistent deficits -Clinically stable History of ZABRINA -Patient denies wearing any mask at home for sleep apnea -May need supplemental oxygen nocturnally if oxygen saturations drop below 89% DVT prophylaxis -Subcu heparin twice daily CODE STATUS -DNR CCA okay for short-term intubation Microbiology Past 72 Hours 10/12/23 10:01 Fluid - Pleural (Lung) Gram Stain - Final 10/12/23 10:01 Fluid - Pleural (Lung) Body Fluid Culture - Final Culture exhibits no growth. 10/12/23 10:01 Fluid - Pleural (Lung) Anaerobic Culture - Preliminary No growth in 48 hours. Laboratory Results 10/16/23 05:53: WBC 3.5 L, RBC 1.81 L, Hgb 6.4 L, Hct 19.2 L, MCV 106.1 H, MCH 35.4 H, MCHC 33.3 D, RDW Std Deviation 83.7 H, RDW Coeff of Mohini 22.5 H, Plt Count 90 L, MPV 9.2, Immature Gran % (Auto) 0.600, Neut % (Auto) 81.0 H, Lymph % (Auto) 8.8 L, [place] % (Auto) 8.2, Eos % (Auto) 1.1, Baso % (Auto) 0.3, Absolute Neuts (auto) 2.9, Absolute Lymphs (auto) 0.31 L, Nucleated RBC % 0, Differential Comment SCANNED, Platelet Estimate SLT DEC, Hypochromasia 1+, Anisocytosis 2+, Macrocytosis 2+, Sodium 133 L, Potassium 4.5, Chloride 104, Carbon Dioxide 21.0, Anion Gap 8, BUN 42 H, Creatinine 4.06 H, Estim Creat Clear Calc 12.21, Est GFR (MDRD) Af Amer 18 L, Est GFR (MDRD) Non-Af 15 L, BUN/Creatinine Ratio 10.3, Glucose 175 H, Calcium 8.3 L Charges/Coding Visit Charges Inpatient E&M: 16593 Subs Hosp L2
[2023-10-17] MEDS: Tamsulosin HCl 0.4 MG Capsule PO (16:23)
[2023-10-17] MEDS: Pravastatin 80 MG Tablet PO (21:12)
[2023-10-17] MEDS: 0.9% Saline Lock 10 ML Syringe IV (21:18)
[2023-10-18] VITALS (8 sets, daily range): BP systolic 132–153; BP diastolic 65–81; PULSE 92–101; RESP 17–20; TEMP 36.6–36.9; O2SAT 96–99; BMI 27.9
[2023-10-18] MEDS: Lactobacillis Acidophilus 1 CAP PO (10:18)
[2023-10-18] MEDS: Multivitamins,Therapeutic Tablet 1 TABLET PO (10:18)
[2023-10-18] MEDS: Pantoprazole Sodium 40 MG Tablet PO (10:18)
[2023-10-18] MEDS: Loratadine 10 MG Tablet PO (10:18)
[2023-10-18] MEDS: Magnesium Chloride 64 MG Delay Rel.Tablet 128 MG PO ×2 (10:18→21:07)
[2023-10-18] MEDS: Metoprolol Tartrate 25 MG Tablet 12.5 MG PO ×2 (10:19→21:08)
--- NOTE | 2023-10-18 11:26 | PCM.PN.REN ---
Subjective Subjective No new complaints. Urine output about 800. Objective Data Objective Data Vital Signs: Vital Signs Temp Pulse Resp BP Pulse Ox O2 Del Method O2 Flow Rate 98.4 F 97 17 153/76 H 98 Nasal Cannula 2 10/18/23 10:13 10/18/23 10:19 10/18/23 10:13 10/18/23 10:13 10/18/23 10:13 10/18/23 10:21 10/18/23 10:21 Oxygen Flow Rate (L/min) 2 Oxygen Delivery Method Nasal Cannula Weight: 78.9 kg Body Mass Index (BMI) 27.9 Intake & Output: Intake and Output for Last 24 Hours 10/16/23 10/17/23 10/18/23 23:59 23:59 23:59 Intake Total 1020 / 1140 591 / 651 60 / 60 Output Total 950 / 1150 790 / 890 200 / 200 Balance 70 / -10 -199 / -239 -140 / -140 Lab / Micro Data 10/17/23 06:30 10/17/23 06:30 Micro: Microbiology 10/12/23 10:01 Fluid - Pleural (Lung) Gram Stain - Final 10/12/23 10:01 Fluid - Pleural (Lung) Body Fluid Culture - Final Culture exhibits no growth. 10/12/23 10:01 Fluid - Pleural (Lung) Anaerobic Culture - Final No growth in 5 days. Physical Exam Narrative no obvious distress no pallor no icterus no JVD s1s2 no murmurs lungs clear abdomen soft no organomegaly no edema no cyanosis Assessment & Plan Assessment/Plan (1) CLARITA (acute kidney injury): PLAN: History of CKD stage IIIb. Baseline creatinine around 2.0. He came in with creatinine close to baseline. Has been on IV Lasix, currently on hold. UA shows some protein, RBC, swanson sample. BP is better. urine output is somewhat better received fluids and albumin urine sodium is high, unlikely prerenal Creatinine today is slightly better. Discussed with hospitalist. Okay to make discharge plans. Will make plans to resume Lasix as outpatient.
--- NOTE | 2023-10-18 12:21 | PN.HOSP_ITS ---
Reason for Visit Reason for Visit: Diagnoses Acute on chronic diastolic (congestive) heart failure (10/13/23) Pleural effusion, not elsewhere classified (10/13/23) Acute kidney failure, unspecified (10/13/23) Shortness of breath (10/13/23) Other specified abnormal findings of blood chemistry (10/13/23) Subjective Subjective Patient was seen and examined today, he is presently on 2 L of oxygen, patient's daughter requested a creatinine be drawn today, it is pending at the time of this dictation. Patient's creatinine yesterday was 4.03. I talked briefly with nephrology today. Objective Data Objective Data Vital Signs: Vital Signs Temp Pulse Resp BP Pulse Ox O2 Del Method O2 Flow Rate 98.4 F 97 17 153/76 H 98 Nasal Cannula 2 10/18/23 10:13 10/18/23 10:19 10/18/23 10:13 10/18/23 10:13 10/18/23 10:13 10/18/23 10:21 10/18/23 10:21 Oxygen Flow Rate (L/min) 2 Oxygen Delivery Method Nasal Cannula Weight: 78.9 kg Body Mass Index (BMI) 27.9 Intake & Output: Intake and Output for Last 24 Hours 10/16/23 10/17/23 10/18/23 23:59 23:59 23:59 Intake Total 1020 / 1140 591 / 651 60 / 60 Output Total 950 / 1150 790 / 890 200 / 200 Balance 70 / -10 -199 / -239 -140 / -140 Lab / Micro Data 10/17/23 06:30 10/17/23 06:30 Micro: Microbiology 10/12/23 10:01 Fluid - Pleural (Lung) Gram Stain - Final 10/12/23 10:01 Fluid - Pleural (Lung) Body Fluid Culture - Final Culture exhibits no growth. 10/12/23 10:01 Fluid - Pleural (Lung) Anaerobic Culture - Final No growth in 5 days. Physical Exam Const alert and no apparent distress Constitutional Narrative: Patient appears stated age General Appearance: cooperative, well kempt and well developed Orientation / Consciousness: awake, oriented to person and oriented to place HEENT normocephalic, head/scalp atraumatic and moist oral mucous membranes Eyes PERRL, EOMs intact bilaterally and conjunctivae normal Neck supple, no JVD, thyroid normal and no carotid bruits General: trachea midline Resp normal respiratory effort, no retractions and no use of accessory muscles Resp Narrative: Breath sounds are diminished bilaterally Auscultation: Negative for rales, rhonchi or wheezes Cardio regular rate, regular rhythm, no murmurs, no rub and no gallops GI normal to inspection, nondistended, normoactive bowel sounds, soft to palpation, non-tender and non-distended Skin no rashes or lesions noted General Skin Exam: no breakdown Neuro oriented x3, CN's II-XII intact bilaterally, no focal motor deficits and no sensory deficits noted Sensorium / Orientation: awake and alert Speech: speech normal Psych affect normal Assessment & Plan Assessment/Plan (1) CLARITA (acute kidney injury): PLAN: Plan 1. Acute on chronic congestive heart failure with preserved ejection fraction- due to the patient's elevated creatinine, diuretics will continue to be held #2 hypoxia secondary to #1-patient's pulse ox will be monitored #3 chronic pancytopenia secondary to myelodysplastic syndrome-complicates care, management, recovery, and prognosis #4 acute kidney injury on a backdrop of chronic kidney disease stage IV- nephrology is participating in his care, complicates care, management, recovery, and prognosis #5 acute debility secondary to multiple medical problems including acute on chronic congestive heart failure with preserved ejection fraction-PT and OT are continuing to see the patient Total clinical time spent by myself addressing the patient's medical issues, reviewing all of his data, and collaborating with patient's care team: 35 minutes Charges/Coding Visit Charges Inpatient E&M: 59079 Subs Hosp L2
[2023-10-18 12:52] LABS: Anion Gap 8 (5-15); BUN 45 mg/dL (7-18); BUN/Creat Ratio 11.5 RATIO (10-20); Calcium,Total 8.8 mg/dL (8.5-10.1); Chloride 104 mmol/L (98-107); EST Glomerular Filtration Rate 16 mL/min (>60); Est Glom Filt Rate - Afr Amer 19 mL/min (>60); Estimated Creatinine Clearance 12.68 ml/min; Glucose 198 mg/dL (74-106); Potassium 4.8 mmol/L (3.5-5.1); Sodium Level 133 mmol/L (136-145)
[2023-10-18] MEDS: Tamsulosin HCl 0.4 MG Capsule PO (17:47)
[2023-10-18] MEDS: Menthol/Lanolin/Calamine/Znox 113 GM Tube 1 APPLIC TOPICAL (21:07)
[2023-10-18] MEDS: Pravastatin 80 MG Tablet PO (21:08)
[2023-10-18] MEDS: 0.9% Saline Lock 10 ML Syringe IV (21:09)
[2023-10-19] VITALS (7 sets, daily range): BP systolic 125–147; BP diastolic 52–74; PULSE 87–97; RESP 16–18; TEMP 36.4–36.6; O2SAT 95–99; BMI 27.8
[2023-10-19 07:04] LABS: Absolute Lymphocyte Count 0.31 X10^3/uL (0.83-4.51); Basophil# 0.02 X10^3/uL; Basophil% 0.5 % (0-1); Eosinophil# 0.05 X10^3/uL; Eosinophils% 1.3 % (0-5); Hematocrit 23.5 % (40-54); Hemoglobin 7.7 g/dL (13.0-16.5); Lymphocyte # 0.31 X10^3/ul (0.83-4.51); Lymphocyte % 8.2 % (19-41); Mean Corp Hgb Conc 32.8 g/dL (32-36); Mean Corpuscular Hgb 32.5 pg (27.0-32.0); Mean Corpuscular Volume 99.2 fL (80-94); Monocyte# 0.37 X10^3/uL; Monocyte% 9.7 % (0-10); NRBC Flagged by Analyzer 0 % (0-5); Neutrophil # 3.01 X10^3/uL (2.7-7.7); Neutrophil % 79.2 % (47-70); POSITIVE DIFFERENTIAL YES; POSITIVE MORPHOLOGY YES; Platelet Count 108 K/mm3 (150-450); RBC Distribution Width CV 22.2 % (11.6-14.6); Red Blood Count 2.37 M/mm3 (4.6-6.2); White Blood Count 3.8 K/mm3 (4.4-11.0)
[2023-10-19 07:07] LABS: Differential Indicated SCAN CRITERIA MET
[2023-10-19 07:08] LABS: Differential Comment SCANNED
--- NOTE | 2023-10-19 09:28 | CASEMGMT ---
Addendum entered by Edith Mazariegos 10/19/23 15:09: Social Work SW received another message from [employer] that they have to do an appeal, cannot start over a new precert w/insurance, and insurance has 72 hours to review and respond. SW attempted to let pt know, he is sleeping soundly. SW called daughter Teressa Harrington to update her. She was aware as she works at [employer] and the had already informed her. Daughter states understanding of insurance process. SW will continue to follow, will send updates and let daughter know as we go regarding the precert process. GOVIND Hamilton Addendum entered by Edith Mazariegos 10/19/23 14:01: Social Work SW received a message from [employer] via [employer] that pt's precert was voided due to the denial last week, message left and they are waiting for a call back from insurance. GOVIND Hamilton Original Note: Social Work As per physician, pt is ready for discharge today. SW sent updates via [employer] and asked [employer] to start precert again today. GOVIND Hamilton
[2023-10-19] MEDS: Lactobacillis Acidophilus 1 CAP PO (09:44)
[2023-10-19] MEDS: Pantoprazole Sodium 40 MG Tablet PO (09:44)
[2023-10-19] MEDS: Menthol/Lanolin/Calamine/Znox 113 GM Tube 1 APPLIC TOPICAL (09:44)
[2023-10-19] MEDS: Magnesium Chloride 64 MG Delay Rel.Tablet 128 MG PO (09:44)
[2023-10-19] MEDS: Metoprolol Tartrate 25 MG Tablet 12.5 MG PO (09:45)
[2023-10-19] MEDS: Multivitamins,Therapeutic Tablet 1 TABLET PO (09:45)
--- NOTE | 2023-10-19 15:10 | RAD_ITS ---
INDICATION: chf EXAMINATION/TECHNIQUE: X-RAY - portable upright AP chest x-ray COMPARISON: 10/12/2023 FINDINGS: LINES/DEVICES: None. LUNGS: Subsegmental atelectasis right lower lung field with hazy opacities in the right lower lung field. Possible small right pleural effusion. No vascular congestion. MEDIASTINUM AND CARDIOVASCULAR STRUCTURES: Cardiac silhouette stable within upper normal limits. BONES AND SOFT TISSUES: No acute changes. RAD/Chest 1 View (Portable) IMPRESSION: Right lower lung field infiltrate with probable small pleural effusion. Findings suspicious for pneumonia. Recommend short-term follow-up to complete resolution. Electronically Signed: Ang Rivera MD at 17:23 EDT ,
[2023-10-19] MEDS: Tamsulosin HCl 0.4 MG Capsule PO (16:38)
--- NOTE | 2023-10-19 16:54 | PN.HOSP_ITS ---
Reason for Visit Reason for Visit: Diagnoses Acute on chronic diastolic (congestive) heart failure (10/13/23) Pleural effusion, not elsewhere classified (10/13/23) Acute kidney failure, unspecified (10/13/23) Shortness of breath (10/13/23) Other specified abnormal findings of blood chemistry (10/13/23) Subjective Subjective Patient was seen and examined today, I repeated the patient's chest x-ray and it shows increasing right pleural effusion, patient is still on room air at this time. Patient's creatinine was not drawn today, I will order 1 for tomorrow, I talked at length with the patient's daughter who is a nurse by phone. Patient's hemoglobin appear to be stable today. Objective Data Objective Data Vital Signs: Vital Signs Temp Pulse Resp BP Pulse Ox O2 Del Method O2 Flow Rate 97.5 F L 91 16 129/52 H 97 Room Air 2 10/19/23 14:58 10/19/23 14:58 10/19/23 14:58 10/19/23 14:58 10/19/23 14:58 10/19/23 14:58 10/18/23 10:21 Oxygen Flow Rate (L/min) 2 Oxygen Delivery Method Room Air Weight: 78.2 kg Body Mass Index (BMI) 27.8 Intake & Output: Intake and Output for Last 24 Hours 10/17/23 10/18/23 10/19/23 23:59 23:59 23:59 Intake Total 591 / 651 910 / 1000 450 / 450 Output Total 790 / 890 750 / 1030 730 / 730 Balance -199 / -239 160 / -30 -280 / -280 Lab / Micro Data 10/19/23 05:43 10/18/23 12:27 Labs: Laboratory Results - last 24 hr 10/19/23 05:43: WBC 3.8 L, RBC 2.37 L, Hgb 7.7 L, Hct 23.5 L, MCV 99.2 H, MCH 32.5 H, MCHC 32.8, RDW Std Deviation 79.0 H, RDW Coeff of Mohini 22.2 H, Plt Count 108 L, MPV 9.0, Immature Gran % (Auto) 1.100 H, Neut % (Auto) 79.2 H, Lymph % (Auto) 8.2 L, [place] % (Auto) 9.7, Eos % (Auto) 1.3, Baso % (Auto) 0.5, Absolute Neuts (auto) 3.0, Absolute Lymphs (auto) 0.31 L, Nucleated RBC % 0, Differential Comment SCANNED Micro: Microbiology 10/12/23 10:01 Fluid - Pleural (Lung) Gram Stain - Final 10/12/23 10:01 Fluid - Pleural (Lung) Body Fluid Culture - Final Culture exhibits no growth. 10/12/23 10:01 Fluid - Pleural (Lung) Anaerobic Culture - Final No growth in 5 days. Physical Exam Narrative alert and no apparent distress Constitutional Narrative: Patient appears stated age General Appearance: cooperative, well kempt and well developed Orientation / Consciousness: awake, oriented to person and oriented to place HEENT normocephalic, head/scalp atraumatic and moist oral mucous membranes Eyes PERRL, EOMs intact bilaterally and conjunctivae normal Neck supple, no JVD, thyroid normal and no carotid bruits General: trachea midline Resp normal respiratory effort, no retractions and no use of accessory muscles Resp Narrative: Breath sounds are diminished bilaterally particularly at the right lung base Auscultation: Negative for rales, rhonchi or wheezes Cardio regular rate, regular rhythm, no murmurs, no rub and no gallops GI normal to inspection, nondistended, normoactive bowel sounds, soft to palpation, non-tender and non-distended Skin no rashes or lesions noted General Skin Exam: no breakdown Neuro oriented x3, CN's II-XII intact bilaterally, no focal motor deficits and no sensory deficits noted Sensorium / Orientation: awake and alert Speech: speech normal Psych affect normal Assessment & Plan Assessment/Plan (1) CLARITA (acute kidney injury): PLAN: Plan 1. Acute on chronic congestive heart failure with preserved ejection fraction- due to the patient's elevated creatinine, diuretics will continue to be held #2 hypoxia secondary to #1-patient's pulse ox will be monitored #3 chronic pancytopenia secondary to myelodysplastic syndrome-complicates care, management, recovery, and prognosis #4 acute kidney injury on a backdrop of chronic kidney disease stage IV- nephrology is participating in his care, complicates care, management, recovery, and prognosis, labs will be repeated tomorrow #5 acute debility secondary to multiple medical problems including acute on chronic congestive heart failure with preserved ejection fraction-PT and OT are continuing to see the patient #6 right pleural effusion-this appears to be reaccumulating but slowly, the patient remains on room air at this time and I do not think that removing fluid right now is necessary. Total clinical time spent by myself addressing the patient's medical issues, reviewing all of his data, and collaborating with patient's care team: 35 minutes Charges/Coding Visit Charges Inpatient E&M: 97353 Subs Hosp L2
--- NOTE | 2023-10-19 19:25 | PCM.PN.REN ---
Subjective Subjective no new complaints Objective Data Objective Data Vital Signs: Vital Signs Temp Pulse Resp BP Pulse Ox O2 Del Method O2 Flow Rate 97.5 F L 91 16 129/52 H 97 Room Air 2 10/19/23 14:58 10/19/23 14:58 10/19/23 14:58 10/19/23 14:58 10/19/23 14:58 10/19/23 14:58 10/18/23 10:21 Oxygen Flow Rate (L/min) 2 Oxygen Delivery Method Room Air Weight: 78.2 kg Body Mass Index (BMI) 27.8 Intake & Output: Intake and Output for Last 24 Hours 10/17/23 10/18/23 10/19/23 23:59 23:59 23:59 Intake Total 591 / 651 910 / 1000 770 / 770 Output Total 790 / 890 750 / 1030 1030 / 1030 Balance -199 / -239 160 / -30 -260 / -260 Lab / Micro Data 10/19/23 05:43 10/18/23 12:27 Labs: Laboratory Results - last 24 hr 10/19/23 05:43: WBC 3.8 L, RBC 2.37 L, Hgb 7.7 L, Hct 23.5 L, MCV 99.2 H, MCH 32.5 H, MCHC 32.8, RDW Std Deviation 79.0 H, RDW Coeff of Mohini 22.2 H, Plt Count 108 L, MPV 9.0, Immature Gran % (Auto) 1.100 H, Neut % (Auto) 79.2 H, Lymph % (Auto) 8.2 L, [place] % (Auto) 9.7, Eos % (Auto) 1.3, Baso % (Auto) 0.5, Absolute Neuts (auto) 3.0, Absolute Lymphs (auto) 0.31 L, Nucleated RBC % 0, Differential Comment SCANNED Micro: Microbiology 10/12/23 10:01 Fluid - Pleural (Lung) Gram Stain - Final 10/12/23 10:01 Fluid - Pleural (Lung) Body Fluid Culture - Final Culture exhibits no growth. 10/12/23 10:01 Fluid - Pleural (Lung) Anaerobic Culture - Final No growth in 5 days. Radiography Diagnostic Testing: Radiology Impression Chest X-Ray 10/19/23 15:10 IMPRESSION: Right lower lung field infiltrate with probable small pleural effusion. Findings suspicious for pneumonia. Recommend short-term follow-up to complete resolution. Electronically Signed: Ang Rivera MD at 17:23 EDT , Physical Exam Narrative no obvious distress no pallor no icterus no JVD s1s2 no murmurs lungs clear abdomen soft no organomegaly no edema no cyanosis Assessment & Plan Assessment/Plan (1) CLARITA (acute kidney injury): PLAN: History of CKD stage IIIb. Baseline creatinine around 2.0. He came in with creatinine close to baseline. Has been on IV Lasix, currently on hold. UA shows some protein, RBC, swanson sample. BP is better. urine output is somewhat better received fluids and albumin urine sodium is high, unlikely prerenal Creatinine today is slightly better. Discussed with hospitalist. Okay to make discharge plans.
[2023-10-20] VITALS (10 sets, daily range): BP systolic 112–149; BP diastolic 53–76; PULSE 69–94; RESP 15–18; TEMP 36.4–36.9; O2SAT 94–98; BMI 28.4
[2023-10-20 06:56] LABS: Absolute Lymphocyte Count 0.38 X10^3/uL (0.83-4.51); Absolute Neutrophil Count 3.1 X10^3/uL (2.0-7.7); Basophil# 0.02 X10^3/uL; Basophil% 0.5 % (0-1); Eosinophil# 0.07 X10^3/uL; Eosinophils% 1.7 % (0-5); Hematocrit 23.5 % (40-54); Hemoglobin 7.6 g/dL (13.0-16.5); Lymphocyte # 0.38 X10^3/ul (0.83-4.51); Lymphocyte % 9.5 % (19-41); Mean Corp Hgb Conc 32.3 g/dL (32-36); Mean Corpuscular Hgb 32.9 pg (27.0-32.0); Mean Corpuscular Volume 101.7 fL (80-94); Mean Platelet Vol. 9.7 fl (6.2-12.0); Monocyte# 0.39 X10^3/uL; Monocyte% 9.7 % (0-10); NRBC Flagged by Analyzer 0 % (0-5); Neutrophil # 3.12 X10^3/uL (2.7-7.7); Neutrophil % 77.9 % (47-70); POSITIVE DIFFERENTIAL YES; POSITIVE MORPHOLOGY YES; Platelet Count 107 K/mm3 (150-450); RBC Distribution Width CV 21.9 % (11.6-14.6); RBC Distribution Width SD 80.1 fl (35.1-43.9); Red Blood Count 2.31 M/mm3 (4.6-6.2)
[2023-10-20 07:08] LABS: Cytoplasmic Ab (C-ANCA) <1:20 titer (Neg:<1:20); Perinuclear Ab (P-ANCA) <1:20 titer (Neg:<1:20)
[2023-10-20 07:11] LABS: Differential Indicated SCAN CRITERIA MET
[2023-10-20 07:27] LABS: Anion Gap 7 (5-15); BUN 48 mg/dL (7-18); BUN/Creat Ratio 13.9 RATIO (10-20); Calcium,Total 8.5 mg/dL (8.5-10.1); Chloride 105 mmol/L (98-107); Creatinine, Serum 3.45 mg/dL (0.70-1.30); EST Glomerular Filtration Rate 18 mL/min (>60); Est Glom Filt Rate - Afr Amer 22 mL/min (>60); Estimated Creatinine Clearance 14.42 ml/min; Glucose 195 mg/dL (74-106); Potassium 5.5 mmol/L (3.5-5.1); Sodium Level 134 mmol/L (136-145)
[2023-10-20 07:50] LABS: Anisocytosis 2+; Differential Comment SCANNED
[2023-10-20] MEDS: Magnesium Chloride 64 MG Delay Rel.Tablet 128 MG PO ×2 (08:46→22:09)
[2023-10-20] MEDS: Menthol/Lanolin/Calamine/Znox 113 GM Tube 1 APPLIC TOPICAL ×2 (08:46→22:10)
[2023-10-20] MEDS: Pantoprazole Sodium 40 MG Tablet PO (08:46)
[2023-10-20] MEDS: Lactobacillis Acidophilus 1 CAP PO (08:47)
[2023-10-20] MEDS: Multivitamins,Therapeutic Tablet 1 TABLET PO (08:47)
[2023-10-20] MEDS: Metoprolol Tartrate 25 MG Tablet 12.5 MG PO ×2 (08:47→22:10)
[2023-10-20] MEDS: Loratadine 10 MG Tablet PO (08:47)
[2023-10-20] MEDS: 0.9% Saline Lock 10 ML Syringe IV (09:50)
[2023-10-20] MEDS: Sodium Polystyrene Sulfonate 15 GM/60 ML UDC PO (12:00)
--- NOTE | 2023-10-20 13:43 | PCM.PN.HOSP ---
Reason for Visit Reason for Visit: Diagnoses Acute on chronic diastolic (congestive) heart failure (10/13/23) Pleural effusion, not elsewhere classified (10/13/23) Acute kidney failure, unspecified (10/13/23) Shortness of breath (10/13/23) Other specified abnormal findings of blood chemistry (10/13/23) Subjective Subjective Patient was seen and examined today, he remains on room air. Patient's hemoglobin remained stable, creatinine has improved over yesterday's creatinine. I talked briefly with radiology about the patient's right pleural effusion on his chest x-ray yesterday, they did not feel that there was enough fluid to have the patient undergo thoracentesis. Objective Data Objective Data Vital Signs: Vital Signs Temp Pulse Resp BP Pulse Ox O2 Del Method O2 Flow Rate 97.6 F L 69 18 112/76 97 Room Air 2 10/20/23 10:00 10/20/23 10:00 10/20/23 10:00 10/20/23 10:00 10/20/23 10:00 10/20/23 10:00 10/18/23 10:21 Oxygen Flow Rate (L/min) 2 Oxygen Delivery Method Room Air Weight: 79.9 kg Body Mass Index (BMI) 28.4 Intake & Output: Intake and Output for Last 24 Hours 10/18/23 10/19/23 10/20/23 23:59 23:59 23:59 Intake Total 910 / 1000 770 / 770 Output Total 750 / 1030 1380 / 1380 650 / 650 Balance 160 / -30 -610 / -610 -650 / -650 Lab / Micro Data 10/20/23 06:14 10/20/23 06:14 Labs: Laboratory Results - last 24 hr 10/17/23 06:30: c-ANCA Antibody <1:20, Atypical p-ANCA <1:20, p-ANCA Antibody <1:20 10/20/23 06:14: WBC 4.0 L, RBC 2.31 L, Hgb 7.6 L, Hct 23.5 L, MCV 101.7 H, MCH 32.9 H, MCHC 32.3, RDW Std Deviation 80.1 H, RDW Coeff of Mohini 21.9 H, Plt Count 107 L, MPV 9.7, Immature Gran % (Auto) 0.700, Neut % (Auto) 77.9 H, Lymph % (Auto) 9.5 L, [place] % (Auto) 9.7, Eos % (Auto) 1.7, Baso % (Auto) 0.5, Absolute Neuts (auto) 3.1, Absolute Lymphs (auto) 0.38 L, Nucleated RBC % 0, Differential Comment SCANNED, Anisocytosis 2+, Sodium 134 L, Potassium 5.5 H, Chloride 105, Carbon Dioxide 22.0, Anion Gap 7, BUN 48 H, Creatinine 3.45 H, Estim Creat Clear Calc 14.42, Est GFR (MDRD) Af Amer 22 L, Est GFR (MDRD) Non-Af 18 L, BUN/Creatinine Ratio 13.9, Glucose 195 H, Calcium 8.5 Micro: Microbiology 10/12/23 10:01 Fluid - Pleural (Lung) Gram Stain - Final 10/12/23 10:01 Fluid - Pleural (Lung) Body Fluid Culture - Final Culture exhibits no growth. 10/12/23 10:01 Fluid - Pleural (Lung) Anaerobic Culture - Final No growth in 5 days. Radiography Diagnostic Testing: Radiology Impression Chest X-Ray 10/19/23 15:10 IMPRESSION: Right lower lung field infiltrate with probable small pleural effusion. Findings suspicious for pneumonia. Recommend short-term follow-up to complete resolution. Electronically Signed: Ang Rivera MD at 17:23 EDT , Physical Exam Narrative alert and no apparent distress Constitutional Narrative: Patient appears stated age General Appearance: cooperative, well kempt and well developed Orientation / Consciousness: awake, oriented to person and oriented to place HEENT normocephalic, head/scalp atraumatic and moist oral mucous membranes Eyes PERRL, EOMs intact bilaterally and conjunctivae normal Neck supple, no JVD, thyroid normal and no carotid bruits General: trachea midline Resp normal respiratory effort, no retractions and no use of accessory muscles Resp Narrative: Breath sounds are diminished bilaterally particularly at the right lung base Auscultation: Negative for rales, rhonchi or wheezes Cardio regular rate, regular rhythm, no murmurs, no rub and no gallops GI normal to inspection, nondistended, normoactive bowel sounds, soft to palpation, non-tender and non-distended Skin no rashes or lesions noted General Skin Exam: no breakdown Neuro oriented x3, CN's II-XII intact bilaterally, no focal motor deficits and no sensory deficits noted Sensorium / Orientation: awake and alert Speech: speech normal Psych affect normal Assessment & Plan Assessment/Plan (1) CLARITA (acute kidney injury): PLAN: Plan 1. Acute on chronic congestive heart failure with preserved ejection fraction-due to the patient's elevated creatinine, diuretics will continue to be held #2 hypoxia secondary to #1-patient remains on room air at this time, pulse ox will be monitored #3 chronic pancytopenia secondary to myelodysplastic syndrome-complicates care, management, recovery, and prognosis, patient's hemoglobin remained stable at this time #4 acute kidney injury on a backdrop of chronic kidney disease stage IV-nephrology is participating in his care, complicates care, management, recovery, and prognosis, labs will be repeated tomorrow #5 acute debility secondary to multiple medical problems including acute on chronic congestive heart failure with preserved ejection fraction-PT and OT are continuing to see the patient #6 right pleural effusion-this appears to be reaccumulating but slowly, the patient remains on room air at this time and I do not think that removing fluid right now is necessary. Total clinical time spent by myself addressing the patient's medical issues, reviewing all of his data, and collaborating with patient's care team: 35 minutes Charges/Coding Visit Charges Inpatient E&M: 71862 Subs Hosp L2
--- NOTE | 2023-10-20 14:50 | PCM.PN.REN ---
Subjective Subjective no new events Objective Data Objective Data Vital Signs: Vital Signs Temp Pulse Resp BP Pulse Ox O2 Del Method O2 Flow Rate 97.6 F L 81 15 127/64 H 97 Room Air 2 10/20/23 14:10 10/20/23 14:10 10/20/23 14:10 10/20/23 14:10 10/20/23 14:10 10/20/23 14:10 10/18/23 10:21 Oxygen Flow Rate (L/min) 2 Oxygen Delivery Method Room Air Weight: 79.9 kg Body Mass Index (BMI) 28.4 Intake & Output: Intake and Output for Last 24 Hours 10/18/23 10/19/23 10/20/23 23:59 23:59 23:59 Intake Total 910 / 1000 770 / 770 Output Total 750 / 1030 1380 / 1380 650 / 650 Balance 160 / -30 -610 / -610 -650 / -650 Lab / Micro Data 10/20/23 06:14 10/20/23 06:14 Labs: Laboratory Results - last 24 hr 10/17/23 06:30: c-ANCA Antibody <1:20, Atypical p-ANCA <1:20, p-ANCA Antibody <1:20 10/20/23 06:14: WBC 4.0 L, RBC 2.31 L, Hgb 7.6 L, Hct 23.5 L, MCV 101.7 H, MCH 32.9 H, MCHC 32.3, RDW Std Deviation 80.1 H, RDW Coeff of Mohini 21.9 H, Plt Count 107 L, MPV 9.7, Immature Gran % (Auto) 0.700, Neut % (Auto) 77.9 H, Lymph % (Auto) 9.5 L, [place] % (Auto) 9.7, Eos % (Auto) 1.7, Baso % (Auto) 0.5, Absolute Neuts (auto) 3.1, Absolute Lymphs (auto) 0.38 L, Nucleated RBC % 0, Differential Comment SCANNED, Anisocytosis 2+, Sodium 134 L, Potassium 5.5 H, Chloride 105, Carbon Dioxide 22.0, Anion Gap 7, BUN 48 H, Creatinine 3.45 H, Estim Creat Clear Calc 14.42, Est GFR (MDRD) Af Amer 22 L, Est GFR (MDRD) Non-Af 18 L, BUN/Creatinine Ratio 13.9, Glucose 195 H, Calcium 8.5 Micro: Microbiology 10/12/23 10:01 Fluid - Pleural (Lung) Gram Stain - Final 10/12/23 10:01 Fluid - Pleural (Lung) Body Fluid Culture - Final Culture exhibits no growth. 10/12/23 10:01 Fluid - Pleural (Lung) Anaerobic Culture - Final No growth in 5 days. Radiography Diagnostic Testing: Radiology Impression Chest X-Ray 10/19/23 15:10 IMPRESSION: Right lower lung field infiltrate with probable small pleural effusion. Findings suspicious for pneumonia. Recommend short-term follow-up to complete resolution. Electronically Signed: Ang Rivera MD at 17:23 EDT , Physical Exam Narrative no obvious distress no pallor no icterus no JVD s1s2 no murmurs lungs clear abdomen soft no organomegaly no edema no cyanosis Assessment & Plan Assessment/Plan (1) CLARITA (acute kidney injury): PLAN: History of CKD stage IIIb. Baseline creatinine around 2.0. He came in with creatinine close to baseline. Has been on IV Lasix, currently on hold. UA shows some protein, RBC, swanson sample. BP is better. urine output is somewhat better received fluids and albumin urine sodium is high, unlikely prerenal Creatinine today is better. Hyperkalemia. SPS x 1
[2023-10-20] MEDS: Tamsulosin HCl 0.4 MG Capsule PO (17:28)
[2023-10-20] MEDS: Pravastatin 80 MG Tablet PO (22:10)
[2023-10-21] VITALS (7 sets, daily range): BP systolic 109–131; BP diastolic 47–77; PULSE 82–96; RESP 16–18; TEMP 36.4–36.8; O2SAT 96–99; BMI 28.3
[2023-10-21 07:18] LABS: Absolute Neutrophil Count 2.9 X10^3/uL (2.0-7.7); Basophil# 0.02 X10^3/uL; Basophil% 0.5 % (0-1); Eosinophil# 0.08 X10^3/uL; Eosinophils% 2.1 % (0-5); Hematocrit 22.4 % (40-54); Hemoglobin 7.4 g/dL (13.0-16.5); Lymphocyte % 10.4 % (19-41); Mean Corpuscular Hgb 32.9 pg (27.0-32.0); Mean Corpuscular Volume 99.6 fL (80-94); Mean Platelet Vol. 9.4 fl (6.2-12.0); Monocyte# 0.39 X10^3/uL; Monocyte% 10.1 % (0-10); NRBC Flagged by Analyzer 0 % (0-5); Neutrophil # 2.92 X10^3/uL (2.7-7.7); Neutrophil % 75.6 % (47-70); POSITIVE DIFFERENTIAL YES; POSITIVE MORPHOLOGY YES; Platelet Count 104 K/mm3 (150-450); Red Blood Count 2.25 M/mm3 (4.6-6.2); White Blood Count 3.9 K/mm3 (4.4-11.0)
[2023-10-21 07:20] LABS: Differential Indicated SCAN CRITERIA MET
[2023-10-21 07:49] LABS: Anisocytosis 1+
[2023-10-21] MEDS: Menthol/Lanolin/Calamine/Znox 113 GM Tube 1 APPLIC TOPICAL ×2 (09:26→20:08)
[2023-10-21] MEDS: Multivitamins,Therapeutic Tablet 1 TABLET PO (09:26)
[2023-10-21] MEDS: Pantoprazole Sodium 40 MG Tablet PO (09:26)
[2023-10-21] MEDS: Lactobacillis Acidophilus 1 CAP PO (09:26)
[2023-10-21] MEDS: Magnesium Chloride 64 MG Delay Rel.Tablet 128 MG PO ×2 (09:26→20:08)
[2023-10-21] MEDS: Metoprolol Tartrate 25 MG Tablet 12.5 MG PO ×2 (09:27→20:09)
--- NOTE | 2023-10-21 12:43 | CASEMGMT ---
Continue to await insurances answer on appeal for SNF for patient. Cecilia Duvall SECURITY MANAGEMENT SPECIALIST [facility]
--- NOTE | 2023-10-21 13:21 | PCM.PN.REN ---
Subjective Subjective no new events Objective Data Objective Data Vital Signs: Vital Signs Temp Pulse Resp BP Pulse Ox O2 Del Method O2 Flow Rate 97.8 F 92 16 123/47 H 98 Room Air 2 10/21/23 09:22 10/21/23 09:27 10/21/23 09:22 10/21/23 09:22 10/21/23 09:22 10/21/23 09:32 10/18/23 10:21 Oxygen Flow Rate (L/min) 2 Oxygen Delivery Method Room Air Weight: 79.5 kg Body Mass Index (BMI) 28.3 Intake & Output: Intake and Output for Last 24 Hours 10/19/23 10/20/23 10/21/23 23:59 23:59 23:59 Intake Total 770 / 770 240 / 300 180 / 180 Output Total 1380 / 1380 900 / 1100 600 / 600 Balance -610 / -610 -660 / -800 -420 / -420 Lab / Micro Data 10/21/23 06:55 10/20/23 06:14 Labs: Laboratory Results - last 24 hr 10/21/23 06:55: WBC 3.9 L, RBC 2.25 L, Hgb 7.4 L, Hct 22.4 L, MCV 99.6 H, MCH 32.9 H, MCHC 33.0, RDW Std Deviation TNP, RDW Coeff of Mohini TNP, Plt Count 104 L, MPV 9.4, Immature Gran % (Auto) 1.300 H, Neut % (Auto) 75.6 H, Lymph % (Auto) 10.4 L, [place] % (Auto) 10.1 H, Eos % (Auto) 2.1, Baso % (Auto) 0.5, Absolute Neuts (auto) 2.9, Absolute Lymphs (auto) 0.40 L, Nucleated RBC % 0, Anisocytosis 1+ Micro: Microbiology 10/12/23 10:01 Fluid - Pleural (Lung) Gram Stain - Final 10/12/23 10:01 Fluid - Pleural (Lung) Body Fluid Culture - Final Culture exhibits no growth. 10/12/23 10:01 Fluid - Pleural (Lung) Anaerobic Culture - Final No growth in 5 days. Physical Exam Narrative no obvious distress no pallor no icterus no JVD s1s2 no murmurs lungs clear abdomen soft no organomegaly no edema no cyanosis Assessment & Plan Assessment/Plan (1) CLARITA (acute kidney injury): PLAN: History of CKD stage IIIb. Baseline creatinine around 2.0. He came in with creatinine close to baseline. Has been on IV Lasix, currently on hold. UA shows some protein, RBC, swanson sample. BP is better. urine output is somewhat better received fluids and albumin urine sodium is high, unlikely prerenal Creatinine today is better. Hyperkalemia. SPS x 1 no labs today pending dc
--- NOTE | 2023-10-21 16:48 | PN.HOSP_ITS ---
Reason for Visit Reason for Visit: Diagnoses Acute on chronic diastolic (congestive) heart failure (10/13/23) Pleural effusion, not elsewhere classified (10/13/23) Acute kidney failure, unspecified (10/13/23) Shortness of breath (10/13/23) Other specified abnormal findings of blood chemistry (10/13/23) Subjective Subjective Patient was seen and examined today, he remains on room air at this time, he voices no complaints at this examiner. Objective Data Objective Data Vital Signs: Vital Signs Temp Pulse Resp BP Pulse Ox O2 Del Method O2 Flow Rate 98.3 F 82 17 130/64 H 99 Room Air 2 10/21/23 15:18 10/21/23 15:18 10/21/23 15:18 10/21/23 15:18 10/21/23 15:18 10/21/23 15:22 10/18/23 10:21 Oxygen Flow Rate (L/min) 2 Oxygen Delivery Method Room Air Weight: 79.5 kg Body Mass Index (BMI) 28.3 Intake & Output: Intake and Output for Last 24 Hours 10/19/23 10/20/23 10/21/23 23:59 23:59 23:59 Intake Total 770 / 770 240 / 300 180 / 180 Output Total 1380 / 1380 900 / 1100 600 / 600 Balance -610 / -610 -660 / -800 -420 / -420 Lab / Micro Data 10/21/23 06:55 10/20/23 06:14 Labs: Laboratory Results - last 24 hr 10/21/23 06:55: WBC 3.9 L, RBC 2.25 L, Hgb 7.4 L, Hct 22.4 L, MCV 99.6 H, MCH 32.9 H, MCHC 33.0, RDW Std Deviation TNP, RDW Coeff of Mohini TNP, Plt Count 104 L, MPV 9.4, Immature Gran % (Auto) 1.300 H, Neut % (Auto) 75.6 H, Lymph % (Auto) 10.4 L, [place] % (Auto) 10.1 H, Eos % (Auto) 2.1, Baso % (Auto) 0.5, Absolute Neuts (auto) 2.9, Absolute Lymphs (auto) 0.40 L, Nucleated RBC % 0, Anisocytosis 1+ Micro: Microbiology 10/12/23 10:01 Fluid - Pleural (Lung) Gram Stain - Final 10/12/23 10:01 Fluid - Pleural (Lung) Body Fluid Culture - Final Culture exhibits no growth. 10/12/23 10:01 Fluid - Pleural (Lung) Anaerobic Culture - Final No growth in 5 days. Physical Exam Narrative alert and no apparent distress Constitutional Narrative: Patient appears stated age General Appearance: cooperative, well kempt and well developed Orientation / Consciousness: awake, oriented to person and oriented to place HEENT normocephalic, head/scalp atraumatic and moist oral mucous membranes Eyes PERRL, EOMs intact bilaterally and conjunctivae normal Neck supple, no JVD, thyroid normal and no carotid bruits General: trachea midline Resp normal respiratory effort, no retractions and no use of accessory muscles Resp Narrative: Breath sounds are diminished bilaterally particularly at the right lung base Auscultation: Negative for rales, rhonchi or wheezes Cardio regular rate, regular rhythm, no murmurs, no rub and no gallops GI normal to inspection, nondistended, normoactive bowel sounds, soft to palpation, non-tender and non-distended Skin no rashes or lesions noted General Skin Exam: no breakdown Neuro oriented x3, CN's II-XII intact bilaterally, no focal motor deficits and no sensory deficits noted Sensorium / Orientation: awake and alert Speech: speech normal Psych affect normal Assessment & Plan Assessment/Plan (1) Acute on chronic heart failure with preserved ejection fraction: (2) CLARITA (acute kidney injury): PLAN: Plan 1. Acute on chronic congestive heart failure with preserved ejection fraction- due to the patient's elevated creatinine, diuretics will continue to be held #2 hypoxia secondary to #1-patient remains on room air at this time, pulse ox will be monitored #3 chronic pancytopenia secondary to myelodysplastic syndrome-complicates care, management, recovery, and prognosis, patient's hemoglobin remained stable at this time #4 acute kidney injury on a backdrop of chronic kidney disease stage IV- nephrology is participating in his care, complicates care, management, recovery, and prognosis, labs will be repeated tomorrow, creatinine was improved today. #5 acute debility secondary to multiple medical problems including acute on chronic congestive heart failure with preserved ejection fraction-PT and OT are continuing to see the patient #6 right pleural effusion-this appears to be reaccumulating but slowly, the patient remains on room air at this time and I do not think that removing fluid right now is necessary. Total clinical time spent by myself addressing the patient's medical issues, reviewing all of his data, and collaborating with patient's care team: 35 minutes Charges/Coding Visit Charges Inpatient E&M: 27188 Subs Hosp L2
[2023-10-21] MEDS: Tamsulosin HCl 0.4 MG Capsule PO (17:44)
[2023-10-21] MEDS: Pravastatin 80 MG Tablet PO (20:08)
[2023-10-22] VITALS (8 sets, daily range): BP systolic 110–127; BP diastolic 50–72; PULSE 71–95; RESP 16–18; TEMP 36.4–36.7; O2SAT 97–100; BMI 28.0
[2023-10-22 06:53] LABS: Anion Gap 8 (5-15); BUN 49 mg/dL (7-18); BUN/Creat Ratio 16.3 RATIO (10-20); Calcium,Total 8.3 mg/dL (8.5-10.1); Chloride 107 mmol/L (98-107); EST Glomerular Filtration Rate 21 mL/min (>60); Est Glom Filt Rate - Afr Amer 25 mL/min (>60); Estimated Creatinine Clearance 16.55 ml/min; Glucose 194 mg/dL (74-106); Potassium 4.4 mmol/L (3.5-5.1); Sodium Level 134 mmol/L (136-145)
--- NOTE | 2023-10-22 08:52 | CASEMGMT ---
[facility] REYES messaged SW and stated they should have an answer from patient's insurance today. Cecilia Duvall MONUMENT STONECUTTER [place]
--- NOTE | 2023-10-22 09:17 | PN.HOSP_ITS ---
Reason for Visit Reason for Visit: Diagnoses Acute on chronic diastolic (congestive) heart failure (10/13/23) Pleural effusion, not elsewhere classified (10/13/23) Acute kidney failure, unspecified (10/13/23) Shortness of breath (10/13/23) Other specified abnormal findings of blood chemistry (10/13/23) Subjective Subjective Patient was seen and examined today, he denies any complaints, he remains on room air at this time, creatinine was improved today Objective Data Objective Data Vital Signs: Vital Signs Temp Pulse Resp BP Pulse Ox O2 Del Method O2 Flow Rate 98.0 F 89 18 110/63 97 Room Air 2 10/22/23 03:00 10/22/23 03:00 10/22/23 03:00 10/22/23 03:00 10/22/23 03:00 10/22/23 03:00 10/18/23 10:21 Oxygen Flow Rate (L/min) 2 Oxygen Delivery Method Room Air Weight: 79.5 kg Body Mass Index (BMI) 28.3 Intake & Output: Intake and Output for Last 24 Hours 10/20/23 10/21/23 10/22/23 23:59 23:59 23:59 Intake Total 240 / 300 830 / 830 Output Total 900 / 1100 1150 / 1150 100 / 100 Balance -660 / -800 -320 / -320 -100 / -100 Lab / Micro Data 10/21/23 06:55 10/22/23 05:30 Labs: Laboratory Results - last 24 hr 10/22/23 05:30: Sodium 134 L, Potassium 4.4, Chloride 107, Carbon Dioxide 19.0 L , Anion Gap 8, BUN 49 H, Creatinine 3.00 H, Estim Creat Clear Calc 16.55, Est GFR (MDRD) Af Amer 25 L, Est GFR (MDRD) Non-Af 21 L, BUN/Creatinine Ratio 16.3, Glucose 194 H, Calcium 8.3 L Micro: Microbiology 10/12/23 10:01 Fluid - Pleural (Lung) Gram Stain - Final 10/12/23 10:01 Fluid - Pleural (Lung) Body Fluid Culture - Final Culture exhibits no growth. 10/12/23 10:01 Fluid - Pleural (Lung) Anaerobic Culture - Final No growth in 5 days. Physical Exam Narrative alert and no apparent distress Constitutional Narrative: Patient appears stated age General Appearance: cooperative, well kempt and well developed Orientation / Consciousness: awake, oriented to person and oriented to place HEENT normocephalic, head/scalp atraumatic and moist oral mucous membranes Eyes PERRL, EOMs intact bilaterally and conjunctivae normal Neck supple, no JVD, thyroid normal and no carotid bruits General: trachea midline Resp normal respiratory effort, no retractions and no use of accessory muscles Resp Narrative: Breath sounds are diminished bilaterally particularly at the right lung base Auscultation: Negative for rales, rhonchi or wheezes Cardio regular rate, regular rhythm, no murmurs, no rub and no gallops GI normal to inspection, nondistended, normoactive bowel sounds, soft to palpation, non-tender and non-distended Skin no rashes or lesions noted General Skin Exam: no breakdown Neuro oriented x3, CN's II-XII intact bilaterally, no focal motor deficits and no sensory deficits noted Sensorium / Orientation: awake and alert Speech: speech normal Psych affect normal Assessment & Plan Assessment/Plan (1) CLARITA (acute kidney injury): (2) Acute on chronic heart failure with preserved ejection fraction: PLAN: Plan 1. Acute on chronic congestive heart failure with preserved ejection fraction- due to the patient's elevated creatinine, diuretics will continue to be held #2 hypoxia secondary to #1-patient remains on room air at this time, pulse ox will be monitored #3 chronic pancytopenia secondary to myelodysplastic syndrome-complicates care, management, recovery, and prognosis, patient's hemoglobin remained stable at this time #4 acute kidney injury on a backdrop of chronic kidney disease stage IV- nephrology is participating in his care, complicates care, management, recovery, and prognosis, labs will be repeated tomorrow, creatinine was improved today. #5 acute debility secondary to multiple medical problems including acute on chronic congestive heart failure with preserved ejection fraction-PT and OT are continuing to see the patient, we are waiting for his insurance to approve transfer to TCU in [place] #6 right pleural effusion-this appears to be reaccumulating but slowly, the patient remains on room air at this time and I do not think that removing fluid right now is necessary. Total clinical time spent by myself addressing the patient's medical issues, reviewing all of his data, and collaborating with patient's care team: 35 minutes Charges/Coding Visit Charges Inpatient E&M: 13936 Subs Hosp L2
[2023-10-22] MEDS: Multivitamins,Therapeutic Tablet 1 TABLET PO (09:56)
[2023-10-22] MEDS: Lactobacillis Acidophilus 1 CAP PO (09:56)
[2023-10-22] MEDS: Menthol/Lanolin/Calamine/Znox 113 GM Tube 1 APPLIC TOPICAL ×2 (09:56→20:47)
[2023-10-22] MEDS: Metoprolol Tartrate 25 MG Tablet 12.5 MG PO ×2 (09:56→20:46)
[2023-10-22] MEDS: Loratadine 10 MG Tablet PO (09:56)
[2023-10-22] MEDS: Pantoprazole Sodium 40 MG Tablet PO (09:58)
[2023-10-22] MEDS: Magnesium Chloride 64 MG Delay Rel.Tablet 128 MG PO ×2 (09:58→20:46)
--- NOTE | 2023-10-22 15:11 | PN.RENAL_ITS ---
Subjective Subjective no new events. breathing is ok Objective Data Objective Data Vital Signs: Vital Signs Temp Pulse Resp BP Pulse Ox O2 Del Method O2 Flow Rate 97.8 F 95 16 127/63 H 98 Room Air 2 10/22/23 09:49 10/22/23 09:56 10/22/23 09:49 10/22/23 09:56 10/22/23 09:49 10/22/23 10:00 10/18/23 10:21 Oxygen Flow Rate (L/min) 2 Oxygen Delivery Method Room Air Weight: 79 kg Body Mass Index (BMI) 28.0 Intake & Output: Intake and Output for Last 24 Hours 10/20/23 10/21/23 10/22/23 23:59 23:59 23:59 Intake Total 240 / 300 830 / 830 350 / 350 Output Total 900 / 1100 1150 / 1150 400 / 400 Balance -660 / -800 -320 / -320 -50 / -50 Lab / Micro Data 10/21/23 06:55 10/22/23 05:30 Labs: Laboratory Results - last 24 hr 10/22/23 05:30: Sodium 134 L, Potassium 4.4, Chloride 107, Carbon Dioxide 19.0 L , Anion Gap 8, BUN 49 H, Creatinine 3.00 H, Estim Creat Clear Calc 16.55, Est GFR (MDRD) Af Amer 25 L, Est GFR (MDRD) Non-Af 21 L, BUN/Creatinine Ratio 16.3, Glucose 194 H, Calcium 8.3 L Micro: Microbiology 10/12/23 10:01 Fluid - Pleural (Lung) Gram Stain - Final 10/12/23 10:01 Fluid - Pleural (Lung) Body Fluid Culture - Final Culture exhibits no growth. 10/12/23 10:01 Fluid - Pleural (Lung) Anaerobic Culture - Final No growth in 5 days. Physical Exam Narrative no obvious distress no pallor no icterus no JVD s1s2 no murmurs lungs clear abdomen soft no organomegaly no edema no cyanosis Assessment & Plan Assessment/Plan (1) CLARITA (acute kidney injury): PLAN: History of CKD stage IIIb. Baseline creatinine around 2.0. He came in with creatinine close to baseline. Has been on IV Lasix, currently on hold. UA shows some protein, RBC, swanson sample. BP is better. urine output is somewhat better received fluids and albumin urine sodium is high, unlikely prerenal Creatinine today is better, down to 3.0 Hyperkalemia. better
[2023-10-22] MEDS: Tamsulosin HCl 0.4 MG Capsule PO (18:11)
[2023-10-22] MEDS: Pravastatin 80 MG Tablet PO (20:46)
[2023-10-23] VITALS (9 sets, daily range): BP systolic 105–133; BP diastolic 52–74; PULSE 85–95; RESP 16–20; TEMP 36.2–36.6; O2SAT 96–100
[2023-10-23] MEDS: guaiFENesin 10 ML UDC (200MG/10ML) PO (00:15)
--- NOTE | 2023-10-23 08:41 | PN.HOSP_ITS ---
Reason for Visit Reason for Visit: Diagnoses Acute on chronic diastolic (congestive) heart failure (10/13/23) Pleural effusion, not elsewhere classified (10/13/23) Acute kidney failure, unspecified (10/13/23) Shortness of breath (10/13/23) Other specified abnormal findings of blood chemistry (10/13/23) Subjective Subjective Patient is an 88-year-old gentleman admitted with progressive shortness of breath diagnosed with acute congestive heart failure with right-sided pleural effusion. Admitted to a monitored bed for further management Objective Data Objective Data Vital Signs: Vital Signs Temp Pulse Resp BP Pulse Ox O2 Del Method O2 Flow Rate 97.8 F 92 16 106/65 96 Room Air 2 10/23/23 03:14 10/23/23 07:00 10/23/23 03:14 10/23/23 03:14 10/23/23 03:14 10/23/23 07:40 10/18/23 10:21 Oxygen Flow Rate (L/min) 2 Oxygen Delivery Method Room Air Weight: 79 kg Body Mass Index (BMI) 28.0 Intake & Output: Intake and Output for Last 24 Hours 10/21/23 10/22/23 10/23/23 23:59 23:59 23:59 Intake Total 830 / 830 710 / 710 Output Total 1150 / 1150 400 / 400 Balance -320 / -320 310 / 310 Lab / Micro Data 10/21/23 06:55 10/22/23 05:30 Micro: Microbiology 10/12/23 10:01 Fluid - Pleural (Lung) Gram Stain - Final 10/12/23 10:01 Fluid - Pleural (Lung) Body Fluid Culture - Final Culture exhibits no growth. 10/12/23 10:01 Fluid - Pleural (Lung) Anaerobic Culture - Final No growth in 5 days. Physical Exam Narrative GENERAL: cooperative HEENT: Atraumatic; normocephalic EYES; Anicteric, Normal Conjunctiva NECK; supple, normal thyroid, RESPIRATORY: Diminished to auscultation CARDIOVASCULAR: Regular S1 S2, GI: soft, normoactive bowel sounds, : No Renal angle tenderness; EXTREMITIES: No edema, no clubbing, MUSCULOSKELETAL: no muscle wasting NEURO: Awake; no lateralizing signs. SKIN: No Rash PSYCH; Flat affect Assessment & Plan Assessment/Plan (1) CLARITA (acute kidney injury): (2) Acute on chronic heart failure with preserved ejection fraction: PLAN: Plan Patient is an 88-year-old gentleman admitted with progressive shortness of breath diagnosed with acute congestive heart failure with right-sided pleural effusion. Admitted to a monitored bed for further management 1. Acute on chronic congestive heart failure with preserved ejection fraction ? Patient was placed on a monitored bed, managed with strict input and output, daily weight, fluid restriction as well as diuretics. Diuretics had to be held in view of worsening kidney function 2. Acute hypoxia ? Secondary to above patient was treated with supplemental oxygen 3. Right-sided pleural effusion ?Patient underwent ultrasound-guided thoracocentesis fluid analysis consistent with transudate per lights criteria culture and cytology came back negative 4. Chronic pancytopenia ? Secondary to myelodysplastic syndrome patient to follow-up with oncology following discharge patient has significant anemia monitoring H&H with plans to transfuse if patient is deemed to be symptomatic or hemoglobin falls below 7 5. Acute kidney injury ?Superimposed on chronic kidney disease stage IV. Creatinine on admission was 2.0, worsening to 4.06 with diuresis diuretic therapy subsequently held creatinine down to 3.0 as of today 6. Physical deconditioning - Requested for PT OT eval and social insurance analyst to assist with discharge planning 7. Gait syndrome ? Patient was admitted to [facility] in August 2023 underwent EGD which did show angiodysplastic lesions treated with argon plasma coagulation. Patient was on dual antiplatelet therapy with aspirin and Plavix subsequently taken off patient is on Protonix monitoring H&H 8. Coronary artery disease ? 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 Hypertension - Blood pressure controlled, home medications continued with dose adjustment as needed 12. Dyslipidemia -Patient is on statin therapy, continued at home dose 13. DVT prophylaxis ? Bilateral SCDs Time spent in the patient's overall evaluation,decision-making process, review of diagnostic data, adjustment of management, discussion with other providers, nursing nursing and ancillary staff involved in patient's care documentation, 40 Minutes Charges/Coding Visit Charges Inpatient E&M: 51773 Subs Hosp L2
[2023-10-23] MEDS: Metoprolol Tartrate 25 MG Tablet 12.5 MG PO ×2 (10:31→21:18)
[2023-10-23] MEDS: Lactobacillis Acidophilus 1 CAP PO (10:31)
[2023-10-23] MEDS: Multivitamins,Therapeutic Tablet 1 TABLET PO (10:31)
[2023-10-23] MEDS: Pantoprazole Sodium 40 MG Tablet PO (10:31)
[2023-10-23] MEDS: Magnesium Chloride 64 MG Delay Rel.Tablet 128 MG PO ×2 (10:31→21:18)
[2023-10-23] MEDS: Menthol/Lanolin/Calamine/Znox 113 GM Tube 1 APPLIC TOPICAL ×2 (10:32→21:17)
--- NOTE | 2023-10-23 11:03 | CASEMGMT ---
SUAD received a call from Danni with [facility]. She contacted [facility] this am and [facility]ero said case is still pending despite it being past the 72 hours [employer] promised. Danni said she will continue to call [employer]. Danni also said she has been talking with patient's daughter preparing her for possible denial. SUAD called patient's daughter Teressa. SUAD introduced self and role at [facility]. SUAD asked Teressa what patient needs to do to be able to return home. Teressa said patient will have to be able to walk independently to and from the bathroom. She does not have 24/7 care at home for patient. Teressa said she was visiting patient last night and the aides gave patient the urnal as he was up just prior and they did not want to get him up again as they were afraid once he go to the bathroom he would be too tired and would not be able to make it back. Teressa said she does not feel like he is able to come home right now. SUAD did let her know it is possible [employer] could deny patient. Cecilia Duvall FIRE BEHAVIOR ANALYST [place]
--- NOTE | 2023-10-23 13:04 | PCM.PN.REN ---
Subjective Subjective Sitting in chair eating lunch. Denies any complaints. Reports breathing is better. Objective Data Objective Data Vital Signs: Vital Signs Temp Pulse Resp BP Pulse Ox O2 Del Method O2 Flow Rate 97.5 F L 87 16 124/74 H 100 Room Air 2 10/23/23 10:28 10/23/23 10:10/23/23 10:28 10/23/23 10:10/23/23 10:10/23/23 10:10/18/23 10:21 Oxygen Flow Rate (L/min) 2 Oxygen Delivery Method Room Air Weight: 79 kg Body Mass Index (BMI) 28.0 Intake & Output: Intake and Output for Last 24 Hours 10/21/23 10/22/23 10/23/23 23:59 23:59 23:59 Intake Total 830 / 830 710 / 710 Output Total 1150 / 1150 400 / 400 Balance -320 / -320 310 / 310 Lab / Micro Data 10/21/23 06:55 10/22/23 05:30 Micro: Microbiology 10/12/23 10:01 Fluid - Pleural (Lung) Gram Stain - Final 10/12/23 10:01 Fluid - Pleural (Lung) Body Fluid Culture - Final Culture exhibits no growth. 10/12/23 10:01 Fluid - Pleural (Lung) Anaerobic Culture - Final No growth in 5 days. Physical Exam Narrative no obvious distress s1s2 no murmurs lungs clear anteriorly and posteriorly abdomen soft, nontender no edema Assessment & Plan Assessment/Plan (1) CLARITA (acute kidney injury): PLAN: - History of CKD stage IIIb. Baseline creatinine around 2.0. Patient was admitted to the hospital with creatinine 2.00mg/dL, close to baseline. Serum creatinine peaked 4.06 on October 15. Diuretics on hold, patient received gentle IV fluids and albumin, last labs from yesterday creatinine 3.00 mg/dL. Currently on Room air. Labs ordered for tomorrow. Patient's home diuretic regimen is furosemide 10 mg daily - Hyperkalemia. Potassium peaked at 5.5, labs from yesterday potassium 4.4. - History of chronic pancytopenia secondary to myelodysplastic syndrome - Hypertension; bps acceptable on metoprolol
--- NOTE | 2023-10-23 13:58 | CASEMGMT ---
SUAD received a message from [employer] stating that insurance told them they could re-submit for authorization. SUAD sent updates via [employer]. Cecilia LIMA
--- NOTE | 2023-10-23 15:51 | CASEMGMT ---
SW received a message from patient's granddaughter Oumou stating patient would like to be DNRCC-A no intubation. SUAD passed along this message to physician. Cecilia LIMA
[2023-10-23 16:05] LABS: Absolute Lymphocyte Count 0.52 X10^3/uL (0.83-4.51); Absolute Neutrophil Count 3.9 X10^3/uL (2.0-7.7); Basophil# 0.03 X10^3/uL; Basophil% 0.6 % (0-1); Eosinophil# 0.08 X10^3/uL; Eosinophils% 1.6 % (0-5); Hematocrit 24.1 % (40-54); Hemoglobin 7.7 g/dL (13.0-16.5); Lymphocyte # 0.52 X10^3/ul (0.83-4.51); Lymphocyte % 10.3 % (19-41); Mean Corpuscular Hgb 32.8 pg (27.0-32.0); Mean Corpuscular Volume 102.6 fL (80-94); Mean Platelet Vol. 9.5 fl (6.2-12.0); Monocyte# 0.45 X10^3/uL; Monocyte% 8.9 % (0-10); NRBC Flagged by Analyzer 0 % (0-5); Neutrophil # 3.93 X10^3/uL (2.7-7.7); Neutrophil % 77.6 % (47-70); POSITIVE DIFFERENTIAL YES; POSITIVE MORPHOLOGY YES; Platelet Count 126 K/mm3 (150-450); RBC Distribution Width SD 77.6 fl (35.1-43.9); Red Blood Count 2.35 M/mm3 (4.6-6.2); White Blood Count 5.1 K/mm3 (4.4-11.0)
[2023-10-23 16:08] LABS: Differential Indicated SCAN CRITERIA MET
[2023-10-23 16:32] LABS: Anion Gap 5 (5-15); BUN 53 mg/dL (7-18); BUN/Creat Ratio 18.5 RATIO (10-20); Calcium,Total 8.7 mg/dL (8.5-10.1); Chloride 108 mmol/L (98-107); Creatinine, Serum 2.86 mg/dL (0.70-1.30); EST Glomerular Filtration Rate 22 mL/min (>60); Est Glom Filt Rate - Afr Amer 27 mL/min (>60); Estimated Creatinine Clearance 17.31 ml/min; Glucose 191 mg/dL (74-106); Potassium 4.8 mmol/L (3.5-5.1); Sodium Level 134 mmol/L (136-145)
[2023-10-23 17:09] LABS: Differential Comment SCANNED
[2023-10-23] MEDS: Tamsulosin HCl 0.4 MG Capsule PO (17:14)
[2023-10-23] MEDS: Pravastatin 80 MG Tablet PO (21:18)
[2023-10-23] MEDS: 0.9% Saline Lock 10 ML Syringe IV (21:24)
[2023-10-24] VITALS (9 sets, daily range): BP systolic 101–121; BP diastolic 49–67; PULSE 80–95; RESP 16–18; TEMP 36.2–36.7; O2SAT 96–100; BMI 28.3
--- NOTE | 2023-10-24 07:08 | PCM.PN.HOSP ---
Reason for Visit Reason for Visit: Diagnoses Acute on chronic diastolic (congestive) heart failure (10/13/23) Pleural effusion, not elsewhere classified (10/13/23) Acute kidney failure, unspecified (10/13/23) Shortness of breath (10/13/23) Other specified abnormal findings of blood chemistry (10/13/23) Subjective Subjective Patient seen; drop in his hemoglobin to 6.5. It was 7.7 the day prior. Requested for iron studies stool guaiac and iron studies and in additionPatient to be transfused 1 unit PRBC Objective Data Objective Data Vital Signs: Vital Signs Temp Pulse Resp BP Pulse Ox O2 Del Method O2 Flow Rate 97.5 F L 90 16 107/49 L 96 Room Air 2 10/24/23 04:00 10/24/23 04:00 10/24/23 04:00 10/24/23 04:00 10/24/23 04:00 10/24/23 04:00 10/18/23 10:21 Oxygen Flow Rate (L/min) 2 Oxygen Delivery Method Room Air Weight: 79.5 kg Body Mass Index (BMI) 28.3 Intake & Output: Intake and Output for Last 24 Hours 10/22/23 10/23/23 10/24/23 23:59 23:59 23:59 Intake Total 710 / 710 420 / 540 120 / 120 Output Total 400 / 400 275 / 400 125 / 125 Balance 310 / 310 145 / 140 -5 / -5 Lab / Micro Data 10/24/23 06:40 10/24/23 06:40 Labs: Laboratory Results - last 24 hr 10/23/23 14:45: WBC 5.1, RBC 2.35 L, Hgb 7.7 L, Hct 24.1 L, MCV 102.6 H, MCH 32.8 H, MCHC 32.0, RDW Std Deviation 77.6 H, RDW Coeff of Mohini 21.0 H, Plt Count 126 L, MPV 9.5, Immature Gran % (Auto) 1.000 H, Neut % (Auto) 77.6 H, Lymph % (Auto) 10.3 L, [place] % (Auto) 8.9, Eos % (Auto) 1.6, Baso % (Auto) 0.6, Absolute Neuts (auto) 3.9, Absolute Lymphs (auto) 0.52 L, Nucleated RBC % 0, Differential Comment SCANNED, Sodium 134 L, Potassium 4.8, Chloride 108 H, Carbon Dioxide 21.0, Anion Gap 5, BUN 53 H, Creatinine 2.86 H, Estim Creat Clear Calc 17.31, Est GFR (MDRD) Af Amer 27 L, Est GFR (MDRD) Non-Af 22 L, BUN/Creatinine Ratio 18.5, Glucose 191 H, Calcium 8.7 Micro: Microbiology 10/12/23 10:01 Fluid - Pleural (Lung) Gram Stain - Final 10/12/23 10:01 Fluid - Pleural (Lung) Body Fluid Culture - Final Culture exhibits no growth. 10/12/23 10:01 Fluid - Pleural (Lung) Anaerobic Culture - Final No growth in 5 days. Physical Exam Narrative GENERAL: cooperative HEENT: Atraumatic; normocephalic EYES; Anicteric, Normal Conjunctiva NECK; supple, normal thyroid, RESPIRATORY: Diminished to auscultation CARDIOVASCULAR: Regular S1 S2, GI: soft, normoactive bowel sounds, : No Renal angle tenderness; EXTREMITIES: No edema, no clubbing, MUSCULOSKELETAL: no muscle wasting NEURO: Awake; no lateralizing signs. SKIN: No Rash PSYCH; Flat affect Assessment & Plan Assessment/Plan (1) CLARITA (acute kidney injury): (2) Acute on chronic heart failure with preserved ejection fraction: PLAN: Plan Patient is an 88-year-old gentleman admitted with progressive shortness of breath diagnosed with acute congestive heart failure with right-sided pleural effusion. Admitted to a monitored bed for further management 1. Acute on chronic congestive heart failure with preserved ejection fraction ? Patient was placed on a monitored bed, managed with strict input and output, daily weight, fluid restriction as well as diuretics. Diuretics had to be held in view of worsening kidney function 2. Acute hypoxia ? Secondary to above patient was treated with supplemental oxygen 3. Right-sided pleural effusion ?Patient underwent ultrasound-guided thoracocentesis fluid analysis consistent with transudate per lights criteria culture and cytology came back negative 4. Chronic pancytopenia ? Secondary to myelodysplastic syndrome patient to follow-up with oncology following discharge patient has significant anemia monitoring H&H with plans to transfuse if patient is deemed to be symptomatic or hemoglobin falls below 7 ? 10/24/2023; patient hemoglobin did drop to 6.5 and order has been given for patient to be transfused 1 unit PRBC 5. Acute kidney injury ?Superimposed on chronic kidney disease stage IV. Creatinine on admission was 2.0, worsening to 4.06 with diuresis diuretic therapy subsequently held creatinine down to 3.0 as of today 6. Physical deconditioning - Requested for PT OT eval and child welfare social worker to assist with discharge planning 7. Gait syndrome ? Patient was admitted to [facility] in August 2023 underwent EGD which did show angiodysplastic lesions treated with argon plasma coagulation. Patient was on dual antiplatelet therapy with aspirin and Plavix subsequently taken off patient is on Protonix monitoring H&H 8. Coronary artery disease ? 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 Hypertension - Blood pressure controlled, home medications continued with dose adjustment as needed 12. Dyslipidemia -Patient is on statin therapy, continued at home dose 13. DVT prophylaxis ? Bilateral SCDs Time spent in the patient's overall evaluation,decision-making process, review of diagnostic data, adjustment of management, discussion with other providers, nursing nursing and ancillary staff involved in patient's care documentation, 35 minutes Charges/Coding Visit Charges Inpatient E&M: 27737 Subs Hosp L2
[2023-10-24 07:09] LABS: Basophil# 0.02 X10^3/uL; Basophil% 0.5 % (0-1); Eosinophil# 0.07 X10^3/uL; Eosinophils% 1.8 % (0-5); Hemoglobin 6.5 g/dL (13.0-16.5); Lymphocyte % 12.6 % (19-41); Mean Corp Hgb Conc 32.5 g/dL (32-36); Mean Corpuscular Hgb 33.2 pg (27.0-32.0); Mean Platelet Vol. 9.7 fl (6.2-12.0); Monocyte# 0.34 X10^3/uL; Monocyte% 8.6 % (0-10); NRBC Flagged by Analyzer 0 % (0-5); Neutrophil # 2.97 X10^3/uL (2.7-7.7); POSITIVE DIFFERENTIAL YES; POSITIVE MORPHOLOGY YES; Platelet Count 106 K/mm3 (150-450); RBC Distribution Width CV 20.8 % (11.6-14.6); RBC Distribution Width SD 75.7 fl (35.1-43.9); Red Blood Count 1.96 M/mm3 (4.6-6.2)
[2023-10-24 07:28] LABS: Anion Gap 5 (5-15); BUN 56 mg/dL (7-18); BUN/Creat Ratio 19.6 RATIO (10-20); Calcium,Total 8.2 mg/dL (8.5-10.1); Chloride 111 mmol/L (98-107); Creatinine, Serum 2.86 mg/dL (0.70-1.30); EST Glomerular Filtration Rate 22 mL/min (>60); Est Glom Filt Rate - Afr Amer 27 mL/min (>60); Estimated Creatinine Clearance 17.36 ml/min; Glucose 167 mg/dL (74-106); Magnesium 1.3 mg/dL (1.6-2.6); Phosphorus 3.5 mg/dL (2.5-4.9); Potassium 4.7 mmol/L (3.5-5.1); Sodium Level 136 mmol/L (136-145)
[2023-10-24 08:47] LABS: Anisocytosis 2+
[2023-10-24 08:50] LABS: Differential Indicated SCAN CRITERIA MET
[2023-10-24 08:56] LABS: Platelet Count 106 K/mm3 (150-450); RET-HE 38.5 pg (30-35); Reticulocyte Count 3.99 % (0.5-1.5)
--- NOTE | 2023-10-24 09:06 | CASEMGMT ---
Addendum entered by Edith Mazariegos 10/24/23 16:11: Social Work SW checked [employer] throughout the day, no updates regarding precert. SW to follow up on Thursday. GOVIND Hamilton Original Note: Social Work SW spoke w/daughter Teressa, let her know that the insurance sent the case to medical review again, and [facility] thinks it may get denied again. Daughter is aware of this, has been speaking w/Danni, the CM at [employer]. Daughter expressed frustration with the situation, she states she called insurance herself yesterday and they would not speak w/daughter as [facility] said they do not have POA on file, she would have to fax it and wait 5 days to speak w/[employer]. Daughter states that she has sent them the POA. Daughter works at [employer] so just gave the phone over to Danni at [employer] to speak w/insurance. Daughter states that the insurance does not seem to know what they are doing. She also expressed frustration w/therapy documenting yesterday pt walked 50 feet and could have walked further. Daughter states she spoke to pt and pt states could not walk further, and in fact the rest of the day pt was not able to get up and get to the restroom, the aide told daughter they were concerned getting pt up to bathroom as did not think pt would make it back. SW offered support to daughter in her frustration w/insurance. If insurance denies daughter will want to appeal again. SW will continue to follow, will watch for updates. GOVIND Hamilton
[2023-10-24 09:09] LABS: Iron 95 ug/dL (65-175); Iron Binding Capacity,Total 172 ug/dL (250-450); PERCENT IRON SATURATION 55.2 % (15.0-55.0)
[2023-10-24] MEDS: Magnesium Sulfate 2 GM in Dextrose 5%-Water (100mL Bag) 100 ML IV (09:40)
[2023-10-24] MEDS: Magnesium Chloride 64 MG Delay Rel.Tablet 128 MG PO ×2 (09:56→22:51)
[2023-10-24] MEDS: Multivitamins,Therapeutic Tablet 1 TABLET PO (09:57)
[2023-10-24] MEDS: Metoprolol Tartrate 25 MG Tablet 12.5 MG PO ×2 (09:57→22:52)
[2023-10-24] MEDS: Lactobacillis Acidophilus 1 CAP PO (09:57)
[2023-10-24] MEDS: Loratadine 10 MG Tablet PO (09:58)
[2023-10-24] MEDS: Pantoprazole Sodium 40 MG Tablet PO (09:58)
[2023-10-24] MEDS: Menthol/Lanolin/Calamine/Znox 113 GM Tube 1 APPLIC TOPICAL ×2 (09:59→22:52)
--- NOTE | 2023-10-24 12:17 | PN.RENAL_ITS ---
Subjective Subjective Follow-up for CLARITA/CKD -Currently eating lunch -Noted of low hemoglobin and planning on blood transfusion Objective Data Objective Data Vital Signs: Vital Signs Temp Pulse Resp BP Pulse Ox O2 Del Method O2 Flow Rate 97.5 F L 90 16 107/49 L 96 Room Air 2 10/24/23 09:32 10/24/23 09:57 10/24/23 09:32 10/24/23 09:57 10/24/23 09:32 10/24/23 09:45 10/18/23 10:21 Oxygen Flow Rate (L/min) 2 Oxygen Delivery Method Room Air Weight: 79.5 kg Body Mass Index (BMI) 28.3 Intake & Output: Intake and Output for Last 24 Hours 10/22/23 10/23/23 10/24/23 23:59 23:59 23:59 Intake Total 710 / 710 420 / 540 180 / 180 Output Total 400 / 400 275 / 400 175 / 175 Balance 310 / 310 145 / 140 5 / 5 Lab / Micro Data 10/24/23 06:40 10/24/23 06:40 Labs: Laboratory Results - last 24 hr 10/23/23 14:45: WBC 5.1, RBC 2.35 L, Hgb 7.7 L, Hct 24.1 L, MCV 102.6 H, MCH 32.8 H, MCHC 32.0, RDW Std Deviation 77.6 H, RDW Coeff of Mohini 21.0 H, Plt Count 126 L, MPV 9.5, Immature Gran % (Auto) 1.000 H, Neut % (Auto) 77.6 H, Lymph % (Auto) 10.3 L, Cloud % (Auto) 8.9, Eos % (Auto) 1.6, Baso % (Auto) 0.6, Absolute Neuts (auto) 3.9, Absolute Lymphs (auto) 0.52 L, Nucleated RBC % 0, Differential Comment SCANNED, Sodium 134 L, Potassium 4.8, Chloride 108 H, Carbon Dioxide 21.0, Anion Gap 5, BUN 53 H, Creatinine 2.86 H, Estim Creat Clear Calc 17.31, E st GFR (MDRD) Af Amer 27 L, Est GFR (MDRD) Non-Af 22 L, BUN/Creatinine Ratio 18.5, Glucose 191 H, Calcium 8.7 10/24/23 06:40: WBC 4.0 L, RBC 1.96 L, Hgb 6.5 L, Hct 20.0 L, MCV 102.0 H, MCH 33.2 H, MCHC 32.5, RDW Std Deviation 75.7 H, RDW Coeff of Mohini 20.8 H, Plt Count 106 L, MPV 9.7, Immature Gran % (Auto) 1.500 H, Neut % (Auto) 75.0 H, Lymph % (Auto) 12.6 L, Cloud % (Auto) 8.6, Eos % (Auto) 1.8, Baso % (Auto) 0.5, Absolute Neuts (auto) 3.0, Absolute Lymphs (auto) 0.50 L, Nucleated RBC % 0, Anisocytosis 2+, Sodium 136, Potassium 4.7, Chloride 111 H, Carbon Dioxide 20.0 L, Anion Gap 5, BUN 56 H, Creatinine 2.86 H, Estim Creat Clear Calc 17.36, Est GFR (MDRD) Af Amer 27 L, Est GFR (MDRD) Non-Af 22 L, BUN/Creatinine Ratio 19.6, Glucose 167 H, Calcium 8.2 L, Phosphorus 3.5, Magnesium 1.3 L 10/24/23 08:30: Retic Count 3.99 H, Immature Retic Fraction 22.10 H, Retic Hgb Equivalent 38.5 H, Iron 95, TIBC 172 L, Iron Saturation 55.2 H, Blood Type A POSITIVE, Antibody Screen POSITIVE, Crossmatch See Detail Micro: Microbiology 10/24/23 09:40 Stool Stool Occult Blood (JOELLE) - Final Occult Blood Positive 10/12/23 10:01 Fluid - Pleural (Lung) Gram Stain - Final 10/12/23 10:01 Fluid - Pleural (Lung) Body Fluid Culture - Final Culture exhibits no growth. 10/12/23 10:01 Fluid - Pleural (Lung) Anaerobic Culture - Final No growth in 5 days. Physical Exam Narrative Awake hard of hearing but answers questions and follow commands S1-S2 regular positive for systolic ejection murmur Breath sounds are equal bilaterally No significant lower extremity edema Assessment & Plan Assessment/Plan (1) CLARITA (acute kidney injury): PLAN: - History of CKD stage IIIb. Baseline creatinine around 2.0. - Hyperkalemia. 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 Suspect changes in renal function secondary to hemodynamics in setting of poor renal reserve. Agree with blood transfusion today. No need for Lasix or IV fluids -Can check BMP on Thursday Thank you please call [phone] with any concerns
[2023-10-24] MEDS: Tamsulosin HCl 0.4 MG Capsule PO (17:18)
[2023-10-24] MEDS: Pravastatin 80 MG Tablet PO (22:52)
[2023-10-25] VITALS (11 sets, daily range): BP systolic 99–144; BP diastolic 48–95; PULSE 76–92; RESP 16–18; TEMP 36.4–36.6; O2SAT 96–100; BMI 28.4
[2023-10-25 05:40] LABS: Absolute Neutrophil Count 3.1 X10^3/uL (2.0-7.7); Basophil# 0.03 X10^3/uL; Basophil% 0.7 % (0-1); Eosinophil# 0.06 X10^3/uL; Eosinophils% 1.5 % (0-5); Hematocrit 20.2 % (40-54); Hemoglobin 6.5 g/dL (13.0-16.5); Lymphocyte % 12.4 % (19-41); Mean Corp Hgb Conc 32.2 g/dL (32-36); Mean Corpuscular Hgb 33.3 pg (27.0-32.0); Mean Corpuscular Volume 103.6 fL (80-94); Mean Platelet Vol. 9.8 fl (6.2-12.0); Monocyte# 0.35 X10^3/uL; Monocyte% 8.7 % (0-10); NRBC Flagged by Analyzer 0 % (0-5); Neutrophil # 3.05 X10^3/uL (2.7-7.7); Neutrophil % 75.7 % (47-70); POSITIVE DIFFERENTIAL YES; POSITIVE MORPHOLOGY YES; Platelet Count 109 K/mm3 (150-450); RBC Distribution Width SD 77.2 fl (35.1-43.9); Red Blood Count 1.95 M/mm3 (4.6-6.2)
[2023-10-25 06:03] LABS: Anion Gap 8 (5-15); BUN 56 mg/dL (7-18); BUN/Creat Ratio 19.6 RATIO (10-20); Calcium,Total 8.3 mg/dL (8.5-10.1); Chloride 109 mmol/L (98-107); Creatinine, Serum 2.86 mg/dL (0.70-1.30); EST Glomerular Filtration Rate 22 mL/min (>60); Est Glom Filt Rate - Afr Amer 27 mL/min (>60); Estimated Creatinine Clearance 17.41 ml/min; Glucose 227 mg/dL (74-106); Potassium 4.5 mmol/L (3.5-5.1); Sodium Level 135 mmol/L (136-145)
[2023-10-25 06:24] LABS: Differential Indicated SCAN CRITERIA MET
[2023-10-25 06:33] LABS: Anisocytosis RARE; Differential Comment SCANNED
--- NOTE | 2023-10-25 08:03 | PCM.PN.HOSP ---
Reason for Visit Reason for Visit: Diagnoses Acute on chronic diastolic (congestive) heart failure (10/13/23) Pleural effusion, not elsewhere classified (10/13/23) Acute kidney failure, unspecified (10/13/23) Shortness of breath (10/13/23) Other specified abnormal findings of blood chemistry (10/13/23) Subjective Subjective Patient seen hemoglobin remains low and stable at 6.5. An order for 1 unit PRBC was given the day prior. Patient however has antibodies and his blood will be ready on 10/26/2023. Objective Data Objective Data Vital Signs: Vital Signs Temp Pulse Resp BP Pulse Ox O2 Del Method O2 Flow Rate 97.8 F 76 18 144/95 H 96 Room Air 2 10/25/23 04:00 10/25/23 04:00 10/25/23 04:00 10/25/23 04:00 10/25/23 04:00 10/25/23 04:00 10/18/23 10:21 Oxygen Flow Rate (L/min) 2 Oxygen Delivery Method Room Air Weight: 80 kg Body Mass Index (BMI) 28.4 Intake & Output: Intake and Output for Last 24 Hours 10/23/23 10/24/23 10/25/23 23:59 23:59 23:59 Intake Total 420 / 540 764 / 884 120 / 120 Output Total 275 / 400 200 / 300 175 / 175 Balance 145 / 140 564 / 584 -55 / -55 Lab / Micro Data 10/25/23 05:03 10/25/23 05:03 Labs: Laboratory Results - last 24 hr 10/24/23 06:40: Anisocytosis 2+ 10/24/23 08:30: Retic Count 3.99 H, Immature Retic Fraction 22.10 H, Retic Hgb Equivalent 38.5 H, Iron 95, TIBC 172 L, Iron Saturation 55.2 H 10/24/23 14:15: Blood Type A POSITIVE, Antibody Screen POSITIVE, Crossmatch See Detail 10/25/23 05:03: WBC 4.0 L, RBC 1.95 L, Hgb 6.5 L, Hct 20.2 L, MCV 103.6 H, MCH 33.3 H, MCHC 32.2, RDW Std Deviation 77.2 H, RDW Coeff of Mohini 21.0 H, Plt Count 109 L, MPV 9.8, Immature Gran % (Auto) 1.000 H, Neut % (Auto) 75.7 H, Lymph % (Auto) 12.4 L, [place] % (Auto) 8.7, Eos % (Auto) 1.5, Baso % (Auto) 0.7, Absolute Neuts (auto) 3.1, Absolute Lymphs (auto) 0.50 L, Nucleated RBC % 0, Differential Comment SCANNED, Anisocytosis RARE, Sodium 135 L, Potassium 4.5, Chloride 109 H, Carbon Dioxide 18.0 L, Anion Gap 8, BUN 56 H, Creatinine 2.86 H, Estim Creat Clear Calc 17.41, Est GFR (MDRD) Af Amer 27 L, Est GFR (MDRD) Non-Af 22 L, BUN/Creatinine Ratio 19.6, Glucose 227 H, Calcium 8.3 L Micro: Microbiology 10/24/23 09:40 Stool Stool Occult Blood (JOELLE) - Final Occult Blood Positive 10/12/23 10:01 Fluid - Pleural (Lung) Gram Stain - Final 10/12/23 10:01 Fluid - Pleural (Lung) Body Fluid Culture - Final Culture exhibits no growth. 10/12/23 10:01 Fluid - Pleural (Lung) Anaerobic Culture - Final No growth in 5 days. Physical Exam Narrative GENERAL: cooperative HEENT: Atraumatic; normocephalic EYES; Anicteric, Normal Conjunctiva NECK; supple, normal thyroid, RESPIRATORY: Diminished to auscultation CARDIOVASCULAR: Regular S1 S2, GI: soft, normoactive bowel sounds, : No Renal angle tenderness; EXTREMITIES: No edema, no clubbing, MUSCULOSKELETAL: no muscle wasting NEURO: Awake; no lateralizing signs. SKIN: No Rash PSYCH; Flat affect Assessment & Plan Assessment/Plan (1) CLARITA (acute kidney injury): (2) Acute on chronic heart failure with preserved ejection fraction: PLAN: Plan Patient is an 88-year-old gentleman admitted with progressive shortness of breath diagnosed with acute congestive heart failure with right-sided pleural effusion. Admitted to a monitored bed for further management 1. Acute on chronic congestive heart failure with preserved ejection fraction ? Patient was placed on a monitored bed, managed with strict input and output, daily weight, fluid restriction as well as diuretics. Diuretics had to be held in view of worsening kidney function ? 10/25/2023; patient with remained stable with almost 10 kg weight loss following admission 2. Acute hypoxia ? Secondary to above patient was treated with supplemental oxygen 3. Right-sided pleural effusion ?Patient underwent ultrasound-guided thoracocentesis fluid analysis consistent with transudate per lights criteria culture and cytology came back negative 4. Chronic pancytopenia ? Secondary to myelodysplastic syndrome patient to follow-up with oncology following discharge patient has significant anemia monitoring H&H with plans to transfuse if patient is deemed to be symptomatic or hemoglobin falls below 7 ? 10/24/2023; patient hemoglobin did drop to 6.5 and order has been given for patient to be transfused 1 unit PRBC ? 10/25/2023; patient PRBC to be ready on 10/26/2023 5. Acute kidney injury ?Superimposed on chronic kidney disease stage IV. Creatinine on admission was 2.0, worsening to 4.06 with diuresis diuretic therapy subsequently held creatinine down to 3.0 as of today 6. Physical deconditioning - Requested for PT OT eval and licensed social worker to assist with discharge planning 7. Gait syndrome ? Patient was admitted to [facility] in August 2023 underwent EGD which did show angiodysplastic lesions treated with argon plasma coagulation. Patient was on dual antiplatelet therapy with aspirin and Plavix subsequently taken off patient is on Protonix monitoring H&H 8. Coronary artery disease ? 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 Hypertension - Blood pressure controlled, home medications continued with dose adjustment as needed 12. Dyslipidemia -Patient is on statin therapy, continued at home dose 13. DVT prophylaxis ? Bilateral SCDs Time spent in the patient's overall evaluation,decision-making process, review of diagnostic data, adjustment of management, discussion with other providers, nursing nursing and ancillary staff involved in patient's care documentation, 35 minutes Charges/Coding Visit Charges Inpatient E&M: 43157 Subs Hosp L2
[2023-10-25] MEDS: Metoprolol Tartrate 25 MG Tablet 12.5 MG PO ×2 (09:34→21:50)
[2023-10-25] MEDS: Magnesium Chloride 64 MG Delay Rel.Tablet 128 MG PO ×2 (09:34→21:52)
[2023-10-25] MEDS: Multivitamins,Therapeutic Tablet 1 TABLET PO (09:34)
[2023-10-25] MEDS: Lactobacillis Acidophilus 1 CAP PO (09:35)
[2023-10-25] MEDS: Pantoprazole Sodium 40 MG Tablet PO (09:35)
[2023-10-25] MEDS: Menthol/Lanolin/Calamine/Znox 113 GM Tube 1 APPLIC TOPICAL ×2 (09:36→21:52)
[2023-10-25] MEDS: Tamsulosin HCl 0.4 MG Capsule PO (16:23)
[2023-10-25] MEDS: Pravastatin 80 MG Tablet PO (21:52)
[2023-10-26] VITALS (9 sets, daily range): BP systolic 109–121; BP diastolic 43–55; PULSE 65–109; RESP 16–18; TEMP 36.3–36.7; O2SAT 96–98; BMI 26.7
[2023-10-26 06:30] LABS: Absolute Lymphocyte Count 0.47 X10^3/uL (0.83-4.51); Basophil# 0.03 X10^3/uL; Basophil% 0.8 % (0-1); Eosinophil# 0.06 X10^3/uL; Eosinophils% 1.6 % (0-5); Hematocrit 19.5 % (40-54); Hemoglobin 6.3 g/dL (13.0-16.5); Lymphocyte # 0.47 X10^3/ul (0.83-4.51); Lymphocyte % 12.2 % (19-41); Mean Corp Hgb Conc 32.3 g/dL (32-36); Mean Corpuscular Hgb 33.7 pg (27.0-32.0); Mean Corpuscular Volume 104.3 fL (80-94); Mean Platelet Vol. 9.7 fl (6.2-12.0); Monocyte# 0.29 X10^3/uL; Monocyte% 7.5 % (0-10); NRBC Flagged by Analyzer 0 % (0-5); Neutrophil # 2.96 X10^3/uL (2.7-7.7); Neutrophil % 76.9 % (47-70); POSITIVE DIFFERENTIAL YES; POSITIVE MORPHOLOGY YES; Platelet Count 117 K/mm3 (150-450); RBC Distribution Width CV 20.9 % (11.6-14.6); RBC Distribution Width SD 77.5 fl (35.1-43.9); Red Blood Count 1.87 M/mm3 (4.6-6.2); White Blood Count 3.9 K/mm3 (4.4-11.0)
[2023-10-26 06:33] LABS: Differential Indicated SCAN CRITERIA MET
[2023-10-26 06:56] LABS: Anion Gap 7 (5-15); BUN 52 mg/dL (7-18); BUN/Creat Ratio 19.3 RATIO (10-20); Calcium,Total 8.2 mg/dL (8.5-10.1); Chloride 111 mmol/L (98-107); EST Glomerular Filtration Rate 24 mL/min (>60); Est Glom Filt Rate - Afr Amer 29 mL/min (>60); Estimated Creatinine Clearance 18.44 ml/min; Glucose 239 mg/dL (74-106); Potassium 4.7 mmol/L (3.5-5.1); Sodium Level 135 mmol/L (136-145)
--- NOTE | 2023-10-26 07:27 | PN.HOSP_ITS ---
Reason for Visit Reason for Visit: Diagnoses Acute on chronic diastolic (congestive) heart failure (10/13/23) Pleural effusion, not elsewhere classified (10/13/23) Acute kidney failure, unspecified (10/13/23) Shortness of breath (10/13/23) Other specified abnormal findings of blood chemistry (10/13/23) Subjective Subjective Patient hemoglobin down to 6.3. Plan is for patient to be transfused with 1 unit PRBC once his blood is received from [place]. Patient also obtain approval for ECF placement plan is for patient to be discharged following his blood transfusion Objective Data Objective Data Vital Signs: Vital Signs Temp Pulse Resp BP Pulse Ox O2 Del Method O2 Flow Rate 97.6 F L 94 16 109/52 L 97 Room Air 2 10/26/23 04:00 10/26/23 04:00 10/26/23 04:00 10/26/23 04:00 10/26/23 03:15 10/25/23 22:00 10/18/23 10:21 Oxygen Flow Rate (L/min) 2 Oxygen Delivery Method Room Air Weight: 80 kg Body Mass Index (BMI) 28.4 Intake & Output: Intake and Output for Last 24 Hours 10/24/23 10/25/23 10/26/23 23:59 23:59 23:59 Intake Total 764 / 884 390 / 510 120 / 120 Output Total 200 / 300 425 / 475 50 / 50 Balance 564 / 584 -35 / 35 70 / 70 Lab / Micro Data 10/26/23 05:46 10/26/23 05:46 Labs: Laboratory Results - last 24 hr 10/26/23 05:46: WBC 3.9 L, RBC 1.87 L, Hgb 6.3 L, Hct 19.5 L, MCV 104.3 H, MCH 33.7 H, MCHC 32.3, RDW Std Deviation 77.5 H, RDW Coeff of Mohini 20.9 H, Plt Count 117 L, MPV 9.7, Immature Gran % (Auto) 1.000 H, Neut % (Auto) 76.9 H, Lymph % (Auto) 12.2 L, [place] % (Auto) 7.5, Eos % (Auto) 1.6, Baso % (Auto) 0.8, Absolute Neuts (auto) 3.0, Absolute Lymphs (auto) 0.47 L, Nucleated RBC % 0, Sodium 135 L , Potassium 4.7, Chloride 111 H, Carbon Dioxide 17.0 L, Anion Gap 7, BUN 52 H, C reatinine 2.70 H, Estim Creat Clear Calc 18.44, Est GFR (MDRD) Af Amer 29 L, Est GFR (MDRD) Non-Af 24 L, BUN/Creatinine Ratio 19.3, Glucose 239 H, Calcium 8.2 L Micro: Microbiology 10/24/23 09:40 Stool Stool Occult Blood (JOELLE) - Final Occult Blood Positive 10/12/23 10:01 Fluid - Pleural (Lung) Gram Stain - Final 10/12/23 10:01 Fluid - Pleural (Lung) Body Fluid Culture - Final Culture exhibits no growth. 10/12/23 10:01 Fluid - Pleural (Lung) Anaerobic Culture - Final No growth in 5 days. Physical Exam Narrative GENERAL: cooperative HEENT: Atraumatic; normocephalic EYES; Anicteric, Normal Conjunctiva NECK; supple, normal thyroid, RESPIRATORY: Diminished to auscultation CARDIOVASCULAR: Regular S1 S2, GI: soft, normoactive bowel sounds, : No Renal angle tenderness; EXTREMITIES: No edema, no clubbing, MUSCULOSKELETAL: no muscle wasting NEURO: Awake; no lateralizing signs. SKIN: No Rash PSYCH; Flat affect Assessment & Plan Assessment/Plan (1) CLARITA (acute kidney injury): (2) Acute on chronic heart failure with preserved ejection fraction: PLAN: Plan Patient is an 88-year-old gentleman admitted with progressive shortness of breath diagnosed with acute congestive heart failure with right-sided pleural effusion. Admitted to a monitored bed for further management 1. Acute on chronic congestive heart failure with preserved ejection fraction ? Patient was placed on a monitored bed, managed with strict input and output, daily weight, fluid restriction as well as diuretics. Diuretics had to be held in view of worsening kidney function ? 10/25/2023; patient with remained stable with almost 10 kg weight loss following admission 2. Acute hypoxia ? Secondary to above patient was treated with supplemental oxygen 3. Right-sided pleural effusion ?Patient underwent ultrasound-guided thoracocentesis fluid analysis consistent with transudate per lights criteria culture and cytology came back negative 4. Chronic pancytopenia ? Secondary to myelodysplastic syndrome patient to follow-up with oncology following discharge patient has significant anemia monitoring H&H with plans to transfuse if patient is deemed to be symptomatic or hemoglobin falls below 7 ? 10/24/2023; patient hemoglobin did drop to 6.5 and order has been given for patient to be transfused 1 unit PRBC ? 10/25/2023; patient PRBC to be ready on 10/26/2023 ? 10/26/2023;Patient hemoglobin down to 6.3. Plan is for patient to be transfused with 1 unit PRBC once his blood is received from [place]. 5. Acute kidney injury ?Superimposed on chronic kidney disease stage IV. Creatinine on admission was 2.0, worsening to 4.06 with diuresis diuretic therapy subsequently held creatinine down to 3.0 as of today 6. Physical deconditioning - Requested for PT OT eval and social service worker to assist with discharge planning ? 10/26/2023; Patient also obtain approval for ECF placement plan is for patient to be discharged following his blood transfusion 7. Gait syndrome ? Patient was admitted to [facility] in August 2023 underwent EGD which did show angiodysplastic lesions treated with argon plasma coagulation. Patient was on dual antiplatelet therapy with aspirin and Plavix subsequently taken off patient is on Protonix monitoring H&H 8. Coronary artery disease ? 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 Hypertension - Blood pressure controlled, home medications continued with dose adjustment as needed 12. Dyslipidemia -Patient is on statin therapy, continued at home dose 13. DVT prophylaxis ? Bilateral SCDs Time spent in the patient's overall evaluation,decision-making process, review of diagnostic data, adjustment of management, discussion with other providers, nursing nursing and ancillary staff involved in patient's care documentation, 35 minutes Charges/Coding Visit Charges Inpatient E&M: 63674 Subs Hosp L2
[2023-10-26 07:51] LABS: Anisocytosis 2+; Differential Comment SCANNED
[2023-10-26 08:10] LABS: Vitamin B12 522 pg/mL (211-911)
--- NOTE | 2023-10-26 09:12 | CASEMGMT ---
Addendum entered by Cecilia Duvall 10/26/23 09:44: SW updated [facility]. Cecilia LIMA Original Note: Message from [employer] received in [facility] and patient was approved for [employer] [facility] approval number: [id number]. SW notified physician. Patient will be getting blood and depending on when blood arrives and is done patient may leave today. Plan: d/c to [facility] Cecilia LIMA
[2023-10-26] MEDS: Metoprolol Tartrate 25 MG Tablet 12.5 MG PO ×2 (10:26→22:07)
[2023-10-26] MEDS: Pantoprazole Sodium 40 MG Tablet PO (10:26)
[2023-10-26] MEDS: Multivitamins,Therapeutic Tablet 1 TABLET PO (10:27)
[2023-10-26] MEDS: Magnesium Chloride 64 MG Delay Rel.Tablet 128 MG PO ×2 (10:27→22:07)
[2023-10-26] MEDS: Lactobacillis Acidophilus 1 CAP PO (10:27)
[2023-10-26] MEDS: Menthol/Lanolin/Calamine/Znox 113 GM Tube 1 APPLIC TOPICAL ×2 (10:27→22:06)
[2023-10-26] MEDS: Loratadine 10 MG Tablet PO (10:27)
--- NOTE | 2023-10-26 12:32 | PCM.PN.REN ---
Subjective Subjective Resting in bed. Family at bedside. No overnight events. Hemoglobin 6.3, to receive PRBC. Objective Data Objective Data Vital Signs: Vital Signs Temp Pulse Resp BP Pulse Ox O2 Del Method O2 Flow Rate 97.6 F L 94 16 121/55 H 96 Room Air 2 10/26/23 10:00 10/26/23 10:26 10/26/23 10:00 10/26/23 10:26 10/26/23 09:15 10/26/23 10:20 10/18/23 10:21 Oxygen Flow Rate (L/min) 2 Oxygen Delivery Method Room Air Weight: 75.2 kg Body Mass Index (BMI) 26.7 Intake & Output: Intake and Output for Last 24 Hours 10/24/23 10/25/23 10/26/23 23:59 23:59 23:59 Intake Total 764 / 884 390 / 510 360 / 360 Output Total 200 / 300 425 / 475 275 / 275 Balance 564 / 584 -35 / 35 85 / 85 Lab / Micro Data 10/26/23 05:46 10/26/23 05:46 Labs: Laboratory Results - last 24 hr 10/24/23 08:30: Vitamin B12 522 10/26/23 05:46: WBC 3.9 L, RBC 1.87 L, Hgb 6.3 L, Hct 19.5 L, MCV 104.3 H, MCH 33.7 H, MCHC 32.3, RDW Std Deviation 77.5 H, RDW Coeff of Mohini 20.9 H, Plt Count 117 L, MPV 9.7, Immature Gran % (Auto) 1.000 H, Neut % (Auto) 76.9 H, Lymph % (Auto) 12.2 L, [place] % (Auto) 7.5, Eos % (Auto) 1.6, Baso % (Auto) 0.8, Absolute Neuts (auto) 3.0, Absolute Lymphs (auto) 0.47 L, Nucleated RBC % 0, Differential Comment SCANNED, Anisocytosis 2+, Sodium 135 L, Potassium 4.7, Chloride 111 H, Carbon Dioxide 17.0 L, Anion Gap 7, BUN 52 H, Creatinine 2.70 H, Estim Creat Clear Calc 18.44, Est GFR (MDRD) Af Amer 29 L, Est GFR (MDRD) Non-Af 24 L, BUN/Creatinine Ratio 19.3, Glucose 239 H, Calcium 8.2 L Micro: Microbiology 10/24/23 09:40 Stool Stool Occult Blood (JOELLE) - Final Occult Blood Positive 10/12/23 10:01 Fluid - Pleural (Lung) Gram Stain - Final 10/12/23 10:01 Fluid - Pleural (Lung) Body Fluid Culture - Final Culture exhibits no growth. 10/12/23 10:01 Fluid - Pleural (Lung) Anaerobic Culture - Final No growth in 5 days. Physical Exam Narrative Awake hard of hearing but answers questions and follow commands S1-S2 regular positive for systolic ejection murmur Breath sounds clear Abdomen soft, nontender No significant lower extremity edema Assessment & Plan Assessment/Plan (1) CLARITA (acute kidney injury): PLAN: - CLARITA superimposed on CKD stage IIIb. Overall renal function has improved without needing any ADDICTION PROFESSIONAL. Serum creatinine peaked 4.06 on 10/15 and today serum creatinine 2.70. Will continue off Lasix for now. Patient ordered PRBC. No need for any IV fluids. Encouraged patient to try to increase solute intake. - History of CKD stage IIIb. Baseline creatinine around 2.0. - Hyperkalemia. 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
--- NOTE | 2023-10-26 15:47 | CASEMGMT ---
SUAD let [facility] know that patient will likely come tomorrow as he is waiting on blood to arrive for his blood transfusion. Cecilia LIMA
[2023-10-26] MEDS: Tamsulosin HCl 0.4 MG Capsule PO (16:34)
[2023-10-26] MEDS: Pravastatin 80 MG Tablet PO (22:07)
[2023-10-27] VITALS (12 sets, daily range): BP systolic 114–136; BP diastolic 49–75; PULSE 83–105; RESP 16–18; TEMP 36.1–36.7; O2SAT 95–98; BMI 26.7
[2023-10-27 09:01] LABS: Absolute Lymphocyte Count 0.46 X10^3/uL (0.83-4.51); Absolute Neutrophil Count 2.9 X10^3/uL (2.0-7.7); Basophil# 0.02 X10^3/uL; Basophil% 0.5 % (0-1); Eosinophil# 0.07 X10^3/uL; Eosinophils% 1.9 % (0-5); Hemoglobin 6.1 g/dL (13.0-16.5); Lymphocyte # 0.46 X10^3/ul (0.83-4.51); Lymphocyte % 12.2 % (19-41); Mean Corp Hgb Conc 32.1 g/dL (32-36); Mean Corpuscular Hgb 33.3 pg (27.0-32.0); Mean Corpuscular Volume 103.8 fL (80-94); Mean Platelet Vol. 9.6 fl (6.2-12.0); Monocyte# 0.32 X10^3/uL; Monocyte% 8.5 % (0-10); NRBC Flagged by Analyzer 0 % (0-5); Neutrophil # 2.87 X10^3/uL (2.7-7.7); Neutrophil % 76.1 % (47-70); POSITIVE DIFFERENTIAL YES; POSITIVE MORPHOLOGY YES; Platelet Count 106 K/mm3 (150-450); RBC Distribution Width SD 76.8 fl (35.1-43.9); Red Blood Count 1.83 M/mm3 (4.6-6.2); White Blood Count 3.8 K/mm3 (4.4-11.0)
[2023-10-27 09:09] LABS: Differential Indicated SCAN CRITERIA MET
[2023-10-27 09:46] LABS: Anisocytosis 1+; Hypochromasia 1+
[2023-10-27 09:50] LABS: Anion Gap 7 (5-15); BUN 44 mg/dL (7-18); BUN/Creat Ratio 17.6 RATIO (10-20); Calcium,Total 8.3 mg/dL (8.5-10.1); Chloride 112 mmol/L (98-107); EST Glomerular Filtration Rate 26 mL/min (>60); Est Glom Filt Rate - Afr Amer 31 mL/min (>60); Estimated Creatinine Clearance 18.08 ml/min; Glucose 166 mg/dL (74-106); Potassium 5.1 mmol/L (3.5-5.1); Sodium Level 137 mmol/L (136-145)
[2023-10-27] MEDS: Pantoprazole Sodium 40 MG Tablet PO (10:35)
[2023-10-27] MEDS: Magnesium Chloride 64 MG Delay Rel.Tablet 128 MG PO ×2 (10:35→22:15)
[2023-10-27] MEDS: Metoprolol Tartrate 25 MG Tablet 12.5 MG PO ×2 (10:35→22:15)
[2023-10-27] MEDS: Lactobacillis Acidophilus 1 CAP PO (10:36)
[2023-10-27] MEDS: Multivitamins,Therapeutic Tablet 1 TABLET PO (10:36)
[2023-10-27] MEDS: Menthol/Lanolin/Calamine/Znox 113 GM Tube 1 APPLIC TOPICAL ×2 (10:36→22:17)
--- NOTE | 2023-10-27 10:58 | CASEMGMT ---
Patient's blood did not come yesterday. trip follower is checking on status of blood. SW let [facility] know still waiting on blood. Cecilia Duvall LEAD CAREGIVER BRIM SETTER
--- NOTE | 2023-10-27 14:27 | PCM.PROGNOTE ---
Subjective Subjective Patient seen and examined. His son was by his bedside. He had no active complaints. Review of systems is otherwise negative. He hemoglobin is 6.1 today. He is still awaiting blood transfusion as he has a lot of antibodies and blood bank has been working on this. I did speak to blood bank this afternoon and he said that he is still showing very minimal incompatibility due to warm autoimmune antibodies. The 7 is the same situation with the [facility] and this has happened with him in the past. Per blood bank the solution would be that I would have to sign a form which shows the patient can be transfused with the least incompatible blood available. Objective Data Objective Data Vital Signs: Vital Signs Temp Pulse Resp BP Pulse Ox O2 Del Method O2 Flow Rate 98.0 F 89 18 116/60 96 Room Air 2 10/27/23 09:15 10/27/23 10:35 10/27/23 09:15 10/27/23 10:35 10/27/23 09:15 10/27/23 09:15 10/18/23 10:21 Oxygen Flow Rate (L/min) 2 Oxygen Delivery Method Room Air Weight: 165 lb 9.074 oz Body Mass Index (BMI) 26.7 Intake & Output: Intake and Output for Last 24 Hours 10/25/23 10/26/23 10/27/23 23:59 23:59 23:59 Intake Total 390 / 510 600 / 750 150 / 150 Output Total 425 / 475 275 / 275 150 / 150 Balance -35 / 35 325 / 475 0 / 0 Lab / Micro Data 10/27/23 08:24 10/27/23 08:24 Labs: Laboratory Results - last 24 hr 10/24/23 14:15: Blood Type A POSITIVE, Antibody Screen POSITIVE, Antibody Identification WARM AUTOANTIBODY, Crossmatch See Detail 10/27/23 08:24: WBC 3.8 L, RBC 1.83 L, Hgb 6.1 L, Hct 19.0 L, MCV 103.8 H, MCH 33.3 H, MCHC 32.1, RDW Std Deviation 76.8 H, RDW Coeff of Mohini 21.0 H, Plt Count 106 L, MPV 9.6, Immature Gran % (Auto) 0.800, Neut % (Auto) 76.1 H, Lymph % (Auto) 12.2 L, [place] % (Auto) 8.5, Eos % (Auto) 1.9, Baso % (Auto) 0.5, Absolute Neuts (auto) 2.9, Absolute Lymphs (auto) 0.46 L, Nucleated RBC % 0, Hypochromasia 1+, Anisocytosis 1+, Sodium 137, Potassium 5.1, Chloride 112 H, Carbon Dioxide 18.0 L, Anion Gap 7, BUN 44 H, Creatinine 2.50 H, Estim Creat Clear Calc 18.08, Est GFR (MDRD) Af Amer 31 L, Est GFR (MDRD) Non-Af 26 L, BUN/Creatinine Ratio 17.6, Glucose 166 H, Calcium 8.3 L Micro: Microbiology 10/24/23 09:40 Stool Stool Occult Blood (JOELLE) - Final Occult Blood Positive 10/12/23 10:01 Fluid - Pleural (Lung) Gram Stain - Final 10/12/23 10:01 Fluid - Pleural (Lung) Body Fluid Culture - Final Culture exhibits no growth. 10/12/23 10:01 Fluid - Pleural (Lung) Anaerobic Culture - Final No growth in 5 days. Physical Exam Const alert, oriented x3 and no apparent distress Constitutional Narrative: frail General Appearance: cooperative and well developed HEENT normocephalic, moist oral mucous membranes and oropharynx normal Neck no lymphadenopathy, supple and no JVD Lymph Lymphatic: no lymphadenopathy noted and no lymphedema noted Resp normal respiratory effort, normal air movement and clear to auscultation bilaterally Cardio regular rate, regular rhythm, S1 normal heart sound, S2 normal heart sound and no murmurs GI normal to inspection, nondistended, normoactive bowel sounds, soft to palpation, non-tender and non-distended Extremity normal capillary refill, no clubbing, cyanosis or edema and no calf tenderness General Extremity: no tenderness to palpation of joints or extremities Skin General Skin Exam: no breakdown Neuro CN's II-XII intact bilaterally and no focal motor deficits Motor Exam: strength 5/5 throughout and general weakness Psych thought process normal and cooperative Appearance: appropriate Assessment & Plan Assessment/Plan (1) CLARITA (acute kidney injury): (2) Acute on chronic heart failure with preserved ejection fraction: (3) Pleural effusion, right: PLAN: Plan #Acute on chronic heart failure with preserved EF Resolved. Patient was diuresed and lost about 10 kg today. Now on his baseline. Breathing treatments and bronchodilators. Diuretics were held due to worsening kidney function. #Right-sided pleural effusion: S/p right-sided thoracentesis. Cultures and cytology were negative. 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 Patient has been awaiting blood transfusions. He has required transfusions in the past. Patient has incompatibility with production of warm autoimmune antibodies. I spoke to the blood bank who stated that I had to sign a form stating that patient was okay to receive the least incompatible blood. According to blood long this would be the only way that patient will be able to get blood as even if they ordered blood from the [place] that situation would be similar. Form therefore signed. Will inform patient's family. Patient to be transfused 2 units of packed red Blood cells today with goal of hemoglobin more than 7. WBC is 3.8 and platelets are 106. #CLARITA: nephrology on board. Creatinine today is 2.7. Nephrology on board and recommends that no LICENSED PHYSICAL THERAPIST ASSISTANT needed. 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
--- NOTE | 2023-10-27 14:29 | CASEMGMT ---
Patient is getting his blood now. It can take 4 hrs or more to complete. SW notified [facility] and asked if patient is okay for tomorrow or should we push for today. Await response. Cecilia Duvall [employer] CLARENCE
[2023-10-27] MEDS: Tamsulosin HCl 0.4 MG Capsule PO (18:00)
[2023-10-27] MEDS: Pravastatin 80 MG Tablet PO (22:16)
[2023-10-28 03:30] VITALS: BP 116/50; PULSE 85; RESP 18; TEMP 36; O2SAT 99
[2023-10-28 05:43] VITALS: BMI 28.0
[2023-10-28 05:56] LABS: Absolute Lymphocyte Count 0.53 X10^3/uL (0.83-4.51); Absolute Neutrophil Count 3.7 X10^3/uL (2.0-7.7); Basophil# 0.03 X10^3/uL; Basophil% 0.6 % (0-1); Eosinophils% 2.1 % (0-5); Hematocrit 22.6 % (40-54); Hemoglobin 7.5 g/dL (13.0-16.5); Lymphocyte # 0.53 X10^3/ul (0.83-4.51); Lymphocyte % 11.1 % (19-41); Mean Corp Hgb Conc 33.2 g/dL (32-36); Mean Corpuscular Hgb 34.2 pg (27.0-32.0); Mean Corpuscular Volume 103.2 fL (80-94); Mean Platelet Vol. 9.4 fl (6.2-12.0); Monocyte# 0.38 X10^3/uL; NRBC Flagged by Analyzer 0 % (0-5); Neutrophil # 3.68 X10^3/uL (2.7-7.7); Neutrophil % 77.2 % (47-70); POSITIVE DIFFERENTIAL YES; POSITIVE MORPHOLOGY YES; Platelet Count 107 K/mm3 (150-450); RBC Distribution Width CV 20.2 % (11.6-14.6); RBC Distribution Width SD 74.9 fl (35.1-43.9); Red Blood Count 2.19 M/mm3 (4.6-6.2); White Blood Count 4.8 K/mm3 (4.4-11.0)
[2023-10-28 06:21] LABS: Differential Indicated SCAN CRITERIA MET
[2023-10-28 06:37] LABS: Anion Gap 8 (5-15); BUN 43 mg/dL (7-18); BUN/Creat Ratio 17.2 RATIO (10-20); Calcium,Total 8.2 mg/dL (8.5-10.1); Chloride 110 mmol/L (98-107); EST Glomerular Filtration Rate 26 mL/min (>60); Est Glom Filt Rate - Afr Amer 31 mL/min (>60); Glucose 189 mg/dL (74-106); Potassium 4.9 mmol/L (3.5-5.1); Sodium Level 136 mmol/L (136-145)
[2023-10-28 06:57] LABS: Differential Comment SCANNED
[2023-10-28 09:30] VITALS: BP 138/66; PULSE 83; RESP 16; TEMP 36.6; O2SAT 98
[2023-10-28] MEDS: Loratadine 10 MG Tablet PO (09:30)
[2023-10-28] MEDS: Lactobacillis Acidophilus 1 CAP PO (09:30)
[2023-10-28 09:31] VITALS: BP 138/66; PULSE 83
[2023-10-28] MEDS: Pantoprazole Sodium 40 MG Tablet PO (09:31)
[2023-10-28] MEDS: Metoprolol Tartrate 25 MG Tablet 12.5 MG PO (09:31)
[2023-10-28] MEDS: Multivitamins,Therapeutic Tablet 1 TABLET PO (09:31)
[2023-10-28] MEDS: Magnesium Chloride 64 MG Delay Rel.Tablet 128 MG PO (09:31)
[2023-10-28] MEDS: Menthol/Lanolin/Calamine/Znox 113 GM Tube 1 APPLIC TOPICAL (09:31)
--- NOTE | 2023-10-28 12:12 | PN_ITS ---
Subjective Subjective Patient seen and examined. He was lying comfortably in bed and had no complaints. He had an unevntful night. Review of systems is otherwise negative. he was transfused with 2 units of PRBCs yesterday. Hb is 7.5. stool for occult blood did test positive. Objective Data Objective Data Vital Signs: Vital Signs Temp Pulse Resp BP Pulse Ox O2 Del Method O2 Flow Rate 97.9 F 83 16 138/66 H 98 Room Air 2 10/28/23 09:30 10/28/23 09:31 10/28/23 09:30 10/28/23 09:31 10/28/23 09:30 10/28/23 09:40 10/18/23 10:21 Oxygen Flow Rate (L/min) 2 Oxygen Delivery Method Room Air Weight: 174 lb 2.643 oz Body Mass Index (BMI) 28.0 Intake & Output: Intake and Output for Last 24 Hours 10/26/23 10/27/23 10/28/23 23:59 23:59 23:59 Intake Total 600 / 750 151 / 351 200 / 200 Output Total 275 / 275 650 / 650 Balance 325 / 475 -499 / -299 200 / 200 Lab / Micro Data 10/28/23 05:25 10/28/23 05:25 Labs: Laboratory Results - last 24 hr 10/24/23 14:15: Blood Type A POSITIVE, Antibody Screen POSITIVE, Antibody Identification WARM AUTOANTIBODY, Crossmatch See Detail 10/27/23 19:13: Blood Type A POSITIVE, Antibody Screen POSITIVE 10/28/23 05:25: WBC 4.8, RBC 2.19 L, Hgb 7.5 L, Hct 22.6 L, MCV 103.2 H, MCH 34.2 H, MCHC 33.2, RDW Std Deviation 74.9 H, RDW Coeff of Mohini 20.2 H, Plt Count 107 L, MPV 9.4, Immature Gran % (Auto) 1.000 H, Neut % (Auto) 77.2 H, Lymph % (Auto) 11.1 L, Warren % (Auto) 8.0, Eos % (Auto) 2.1, Baso % (Auto) 0.6, Absolute Neuts (auto) 3.7, Absolute Lymphs (auto) 0.53 L, Nucleated RBC % 0, Differential Comment SCANNED, Sodium 136, Potassium 4.9, Chloride 110 H, Carbon Dioxide 18.0 L, Anion Gap 8, BUN 43 H, Creatinine 2.50 H, Estim Creat Clear Calc 19.80, Est GFR (MDRD) Af Amer 31 L, Est GFR (MDRD) Non-Af 26 L, BUN/Creatinine Ratio 17.2, Glucose 189 H, Calcium 8.2 L Micro: Microbiology 10/24/23 09:40 Stool Stool Occult Blood (JOELLE) - Final Occult Blood Positive 10/12/23 10:01 Fluid - Pleural (Lung) Gram Stain - Final 10/12/23 10:01 Fluid - Pleural (Lung) Body Fluid Culture - Final Culture exhibits no growth. 10/12/23 10:01 Fluid - Pleural (Lung) Anaerobic Culture - Final No growth in 5 days. Physical Exam Const alert, oriented x3, no apparent distress and well nourished; Negative for healthy appearing Constitutional Narrative: frail General Appearance: cooperative, well kempt and well developed Orientation / Consciousness: awake, oriented to person and oriented to place HEENT normocephalic, head/scalp atraumatic, moist oral mucous membranes and oropharynx normal; Negative for hearing grossly normal bilaterally Eyes PERRL, EOMs intact bilaterally and conjunctivae normal Eyes Narrative: Conjunctiva are pale bilaterally, no scleral icterus Neck no lymphadenopathy, supple, no JVD, thyroid normal and no carotid bruits General: trachea midline Lymph Lymphatic: no lymphadenopathy noted and no lymphedema noted Resp normal respiratory effort, normal air movement, no retractions, no use of accessory muscles and clear to auscultation bilaterally Auscultation: Negative for rales, rhonchi or wheezes Cardio regular rate, regular rhythm, S1 normal heart sound, S2 normal heart sound, no murmurs, no rub, no gallops and no clicks GI normal to inspection, nondistended, normoactive bowel sounds, soft to palpation, non-tender and non-distended Extremity normal capillary refill, no clubbing, cyanosis or edema and no calf tenderness General Extremity: no tenderness to palpation of joints or extremities Skin no rashes or lesions noted, skin turgor normal, no jaundice, no petechiae and no mottling Skin Narrative: Skin is pale, few scattered ecchymosis in various stages of healing General Skin Exam: no breakdown Neuro oriented x3, CN's II-XII intact bilaterally, moves all extremities, no focal motor deficits and no sensory deficits noted Neuro Narrative: Generalized weakness with no focal deficits Sensorium / Orientation: awake and alert Speech: speech normal Motor Exam: strength 5/5 throughout and general weakness Psych thought process normal, cooperative and affect normal Appearance: appropriate Assessment & Plan Assessment/Plan (1) CLARITA (acute kidney injury): (2) Acute on chronic heart failure with preserved ejection fraction: (3) Pleural effusion, right: PLAN: Plan #Acute on chronic heart failure with preserved EF * Resolved. Patient was diuresed and lost about 10 kg today. * Now on his baseline. Breathing treatments and bronchodilators. * Diuretics were held due to worsening kidney function. #Right-sided pleural effusion: S/p right-sided thoracentesis. Cultures and cytology were negative. 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 * Hb is 7.5 today. * stool for occult blood was positive. Patient has GAVE syndrome * I spoke to his daughter at length who is concerned that his GAVE syndrome could be because of the positive stool for occult blood. She therefore wants this worked up and would like GI consulted for patient to get a scope to see if there is any bleeding. * Gastroenterology consulted. * WBC is 4.8 and platelets are 107. #CLARITA: nephrology on board. Creatinine today is 2.5. Nephrology on board and recommends that no FREELANCE WRITER needed. 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 Charges/Coding Visit Charges Inpatient E&M: 29500 Subs Hosp L2
--- NOTE | 2023-10-28 15:21 | CASEMGMT ---
SUAD updated [facility] via [facility] that Gastroenterology will see patient today to discuss possible scope. Unfortunately the pre-cert will today. Patient will need another pre-cert prior to going to [facility]. Cecilia LIMA
[2023-10-28 15:45] VITALS: BP 110/48; PULSE 82; RESP 18; TEMP 36.4; O2SAT 100
--- NOTE | 2023-10-28 16:52 | TREXTCAR_ITS ---
Diet Diet Order/Speech Therapy: 10/28/23 16:27 Diet: Cardiac - Heart Healthy Dietary Modifications:: Sodium Restricted Consistent Carbohydrate Fluid restriction:: 1750 mL Diet Comments: set pt up and open lids. make sure can reach everything. Routine Orders/Code Status Enema Type: Fleetz Enema Frequency: Daily PRN Suppository Frequency: Daily PRN O2 Frequency: PRN Keep PO Greater than or Equal to (%): 90 Wound(s) right mid back: Wound Type: Puncture Therapies Weight Bearing: Weight bearing as tolerated Physical Therapy: Eval and Treat Occupational Therapy: Eval and Treat Problem/Diagnosis (1) CLARITA (acute kidney injury): Status: Acute Code(s): N17.9 - Acute kidney failure, unspecified (2) Acute on chronic heart failure with preserved ejection fraction: Status: Acute Code(s): I50.33 - Acute on chronic diastolic (congestive) heart failure (3) Pleural effusion, right: Status: Acute Code(s): J90 - Pleural effusion, not elsewhere classified Plan #Acute on chronic heart failure with preserved EF * Resolved. Patient was diuresed and lost about 10 kg today. * Now on his baseline. Breathing treatments and bronchodilators. * Diuretics were held due to worsening kidney function. #Right-sided pleural effusion: S/p right-sided thoracentesis. Cultures and cytology were negative. 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 * Hb is 7.5 today. * stool for occult blood was positive. Patient has GAVE syndrome * I spoke to his daughter at length who is concerned that his GAVE syndrome could be because of the positive stool for occult blood. She therefore wants this worked up and would like GI consulted for patient to get a scope to see if there is any bleeding. * Gastroenterology consulted. * WBC is 4.8 and platelets are 107. #CLARITA: nephrology on board. Creatinine today is 2.5. Nephrology on board and recommends that no COIN WRAPPING MACHINE OPERATOR needed. 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 Allergies/Procedures Done in Hospital Allergies amoxicillin Allergy (Severe, Verified 09/25/23 09:43) unknown Tetanus Vaccines and Toxoid Allergy (Severe, Verified 09/25/23 09:43) unknown ranolazine (From Ranexa) Adverse Reaction (Severe, Verified 09/25/23 09:43) Hallucinations acetaminophen (From Vicodin) Adverse Reaction (Verified 09/25/23 09:43) NEEDS FOLLOW-UP hydrocodone (From Vicodin) Adverse Reaction (Verified 09/25/23 09:43) confusion Opioids - Morphine Analogues Adverse Reaction (Verified 09/25/23 09:43) Nausea/Vom/Diarrhea Thiazides Adverse Reaction (Verified 09/25/23 09:43) Other CAUSES LOW MAG Type of Care/Length of Stay Estimated LOS: Convalescent Care Less Than 30 days Type of Care Needed: Skilled Rehab Potential: Fair Prognosis: Fair Additional Orders/Day of Discharge Additional Orders: Referral made to [facility] for Palliative, please follow up when pt at [facility]: [phone] Day of Discharge: 10/28/23 Dietary and Speech Recommendations Dietitian Recommendations/Changes: Will adjust diet to Cardiac/consistent carbohydrate with 1750mL/day fluid restriction per MD to manage medical conditions. Defer ONS due to CKD and need for consistent protein at this time. Discharge Plan Admission Admit Date/Time: 10/13/23 13:20 Primary Reason for Your Visit: heart failure, pleural effusion Attending Provider: Miryam Boston Primary Care Provider: Ana María Mazariegos Consulting Providers: Sumit Lawrence; Meredith Macdonald; Allan Babin; Martin Melendez Instructions Patient Instructions: Anemia, Coping with Heart Failure, Pleural Effusion Ch, ED Pleural Effusion Discharge Orders/Prescriptions Prescriptions: Continued multivitamin tablet 1 tab PO QDAY pravastatin [Pravachol] 80 mg tablet 80 mg PO QHS magnesium oxide 400 mg magnesium tablet 800 mg PO BID Patient Comments: 800mg qid and 800mg QOD even number days takes 3x/day odd number days takes 4x/day tamsulosin [Flomax] 0.4 mg capsule 0.4 mg PO DAILY Lactobacillus acidophilus Capsule 10 mg PO DAILY pantoprazole 40 mg tablet,delayed release (DR/EC) 40 mg PO DAILY tramadol 50 mg tablet 25 mg PO BID PRN (Reason: pain) furosemide 20 mg tablet 10 mg PO DAILY metoprolol tartrate 25 mg tablet 12.5 mg PO BID cetirizine 10 MG capsule 10 mg PO DAILY ferrous sulfate [FeroSul] 325 mg (65 mg iron) tablet 325 mg PO DAILY Referrals / Follow Up: Ana María Mazariegos DO [Primary Care Provider] - Within 1 Week Disposition Disposition (needs filled in before D/C Order can be placed): Group Home Facility
--- NOTE | 2023-10-28 16:54 | DS.PCM_ITS ---
Providers Date of Admission: 10/13/23 Date of Discharge: 10/28/23 Primary Care Physician: Dr. Ana María Mazariegos, DO Consultations 10/13/23 17:15 Consult: Nephrology Routine Consulting Provider: Meredith Macdonald Reason for Consult: CLARITA on CKD, RVF, Right pleural effusion s/p thoraco EMERGENT Consult: No MD Notified: Yes Date Notified: 10/13/23 Time Notified: 17:06 Method of Notification: Verbal 10/28/23 10:38 Consult: Gastroenterology Routine Consulting Provider: [facility] Reason for Consult: GI bleed, positive occult blood, history of GAVE synrome EMERGENT Consult: No MD Notified: Yes Date Notified: 10/28/23 Time Notified: 10:38 Method of Notification: Text Reason For Visit: CHEST PAIN/SOB 2/2 ACUTE ON CHRONIC HFPEF Diagnosis Discharge Diagnosis (1) CLARITA (acute kidney injury): Status: Acute Code(s): N17.9 - Acute kidney failure, unspecified (2) Acute on chronic heart failure with preserved ejection fraction: Status: Acute Code(s): I50.33 - Acute on chronic diastolic (congestive) heart failure (3) Pleural effusion, right: Status: Acute Code(s): J90 - Pleural effusion, not elsewhere classified Plan #Acute on chronic heart failure with preserved EF * Resolved. Patient was diuresed and lost about 10 kg today. * Now on his baseline. Breathing treatments and bronchodilators. * Diuretics were held due to worsening kidney function. #Right-sided pleural effusion: S/p right-sided thoracentesis. Cultures and cytology were negative. 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 * Hb is 7.5 today. * stool for occult blood was positive. Patient has GAVE syndrome * I spoke to his daughter at length who is concerned that his GAVE syndrome could be because of the positive stool for occult blood. She therefore wants this worked up and would like GI consulted for patient to get a scope to see if there is any bleeding. * Gastroenterology consulted. * WBC is 4.8 and platelets are 107. #CLARITA: nephrology on board. Creatinine today is 2.5. 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 Medications at Discharge Home Medications multivitamin 1 tab PO QDAY vitamin 03/09/17 pravastatin 80 mg tablet (Pravachol) 80 mg PO QHS cholesterol 03/09/17 tamsulosin 0.4 mg capsule (Flomax) 0.4 mg PO DAILY urinary 10/19/18 cetirizine 10 mg capsule 10 mg PO DAILY allergies 01/02/20 Lactobacillus acidophilus 10 mg PO DAILY 12/19/22 magnesium oxide 800 mg PO BID supplement 12/19/22 pantoprazole 40 mg tablet,delayed release 40 mg PO DAILY 12/19/22 tramadol 50 mg tablet 25 mg PO BID PRN pain 07/08/23 furosemide 20 mg tablet 10 mg PO DAILY 09/16/23 metoprolol tartrate 25 mg tablet 12.5 mg PO BID 09/16/23 Hospital Course Operations None Procedures 2-D Echocardiogram Summary of Care Provided Minutes Spent on Discharge: 65 Hospital Course: Patient is an 88 y/o Male with a PMH as outlined who was admitted via an outside hospital with a complaint of shortness of breath and mild chest pain, his shortness of breath had worsened over the last few days. He had associated orthopnea and had been sleeping in his chair due to shortness of breath as well as exertional dyspnea. He said he drank about 4 to 5 cups of coffee a day as well as other fluids. On admission his BNP was elevated at 416 and EKG showed normal sinus rhythm with some ventricular ectopy. He was admitted and managed for acute on chronic combined heart failure. He was diuresed with Lasix drip. Chest imaging done showed right pleural effusion and he also had chronic pancytopenia due to myelodysplastic syndrome. Nephrology was consulted on account of elevated creatinine. Patient had a protracted hospital course and required right-sided thoracentesis and analysis of fluid showing transudate. Culture and cytology of the pleural fluid was also negative. Nephrology recommended that patient did not need any renal replacement therapy and creatinine did trend down to near his baseline. Of note hospital course was again complicated by acute on chronic anemia with hemoglobin going down to 6.1. He had incompatibility of blood due to production of warm autoimmune antibodies. Patient did receive a total of 2 units of packed red blood cells during admission. His anemia was thought to be due to his GAVE syndrome. Stool for occult blood was positive but on day of discharge hemoglobin was 7.1. Family therefore decided that they would take him to a [facility] and will follow-up with his GI on outpatient basis as needed. He also could get blood in the [facility] facility as needed. Per his daughter who was his healthcare POA, his oral iron had been discontinued by his glove turner because patient has been having dark stools and was not clear whether the dark stools were due to the iron or to GI bleed. Patient's daughter said they would follow- up with hematology on outpatient basis for IV iron infusions as needed. Patient was discharged to [facility] facility on 10/28/2023. 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 Patient was seen and examined prior to discharge. He had no active complaints and had an uneventful night. Review of symptoms otherwise negative. Labs and vitals reviewed. No medication reviewed and reconciled. Physical Exam Const alert, oriented x3 and no apparent distress Constitutional Narrative: frail General Appearance: cooperative, comfortable, well kempt and well developed Orientation / Consciousness: awake, oriented to person and oriented to place HEENT normocephalic, head/scalp atraumatic, moist oral mucous membranes and oropharynx normal; Negative for hearing grossly normal bilaterally Eyes PERRL, EOMs intact bilaterally and conjunctivae normal Eyes Narrative: Conjunctiva are pale bilaterally, no scleral icterus Neck no lymphadenopathy, supple, no JVD, thyroid normal and no carotid bruits Lymph Lymphatic: no lymphadenopathy noted and no lymphedema noted Resp normal respiratory effort, normal air movement, no retractions, no use of accessory muscles and clear to auscultation bilaterally Auscultation: Negative for rales, rhonchi or wheezes Cardio regular rate, regular rhythm, S1 normal heart sound, S2 normal heart sound, no murmurs, no rub, no gallops and no clicks GI normal to inspection, nondistended, normoactive bowel sounds, soft to palpation, non-tender and non-distended Extremity normal capillary refill, no clubbing, cyanosis or edema and no calf tenderness Extremity Narrative: Trace bilateral lower extremity pitting edema, no cyanosis or clubbing General Extremity: no tenderness to palpation of joints or extremities Skin no rashes or lesions noted, skin turgor normal, no jaundice, no petechiae and no mottling Skin Narrative: Skin is pale, few scattered ecchymosis in various stages of healing General Skin Exam: no breakdown Neuro oriented x3, CN's II-XII intact bilaterally, moves all extremities, no focal motor deficits and no sensory deficits noted Neuro Narrative: Generalized weakness with no focal deficits Sensorium / Orientation: awake and alert Speech: speech normal Motor Exam: strength 5/5 throughout and general weakness Psych thought process normal, cooperative and affect normal Appearance: appropriate Weight / BMI Weight Weight: 174 lb 2.643 oz Body Mass Index (BMI) 28.0 ABG / Lab / Microbiology Data 10/28/23 05:25 10/28/23 05:25 Laboratory: Laboratory Results - last 24 hr 10/24/23 14:15: Crossmatch See Detail 10/27/23 19:13: Blood Type A POSITIVE, Antibody Screen POSITIVE 10/28/23 05:25: WBC 4.8, RBC 2.19 L, Hgb 7.5 L, Hct 22.6 L, MCV 103.2 H, MCH 34.2 H, MCHC 33.2, RDW Std Deviation 74.9 H, RDW Coeff of Mohini 20.2 H, Plt Count 107 L, MPV 9.4, Immature Gran % (Auto) 1.000 H, Neut % (Auto) 77.2 H, Lymph % (Auto) 11.1 L, [place] % (Auto) 8.0, Eos % (Auto) 2.1, Baso % (Auto) 0.6, Absolute Neuts (auto) 3.7, Absolute Lymphs (auto) 0.53 L, Nucleated RBC % 0, Differential Comment SCANNED, Sodium 136, Potassium 4.9, Chloride 110 H, Carbon Dioxide 18.0 L, Anion Gap 8, BUN 43 H, Creatinine 2.50 H, Estim Creat Clear Calc 19.80, Est GFR (MDRD) Af Amer 31 L, Est GFR (MDRD) Non-Af 26 L, BUN/Creatinine Ratio 17.2, Glucose 189 H, Calcium 8.2 L Microbiology: Microbiology 10/24/23 09:40 Stool Stool Occult Blood (JOELLE) - Final Occult Blood Positive 10/12/23 10:01 Fluid - Pleural (Lung) Gram Stain - Final 10/12/23 10:01 Fluid - Pleural (Lung) Body Fluid Culture - Final Culture exhibits no growth. 10/12/23 10:01 Fluid - Pleural (Lung) Anaerobic Culture - Final No growth in 5 days. D/C Instructions Discharge Diet: Low fat / Low cholesterol Discharge Activity: Return to Normal Activity Weight Bearing Status: Weight bearing as tolerated Call your doctor if you observe: Fever of 101 or Higher, Shortness of breath and Dizziness Meaningful Use Info Meaningful Use Meaningful Use Diagnoses (Choose all that apply): CHF CHF HILLARY/ARB ordered at discharge?: No Reason HILLARY/ARB not ordered?: Worsening renal disease Documented LVEF (%): 61 Ischemic Stroke Statin Dosing Therapy Reference: STATIN DOSE THERAPY REFERENCE: * Patients > 75 years receive moderate or high dose statin therapy. * Patients 75 years or YOUNGER should receive HIGH intensity statin dose unless contraindicated. You will be required to document reason for non-treatment if statin daily dose does not meet guidelines. HIGH DOSE STATIN THERAPY DAILY Atorvastatin > than or = to 40 mg Rosuvastatin > than or = to 20 mg Amlodipine + Atorvastatin > than or = to 2.5/40 mg Ezetimibe + Simvastatin 10/80 mg Simvastatin 80mg Discharge Plan Admission Admit Date/Time: 10/13/23 13:20 Primary Reason for Your Visit: heart failure, pleural effusion Attending Provider: Miryam Boston Primary Care Provider: Ana María Mazariegos Consulting Providers: Sumit Lawrence; Meredith Macdonald; Allan Babin; Martin Melendez Instructions Patient Instructions: Anemia, Coping with Heart Failure, Pleural Effusion Ch, ED Pleural Effusion Discharge Orders/Prescriptions Prescriptions: Continued multivitamin tablet 1 tab PO QDAY pravastatin [Pravachol] 80 mg tablet 80 mg PO QHS magnesium oxide 400 mg magnesium tablet 800 mg PO BID Patient Comments: 800mg qid and 800mg QOD even number days takes 3x/day odd number days takes 4x/day tamsulosin [Flomax] 0.4 mg capsule 0.4 mg PO DAILY Lactobacillus acidophilus Capsule 10 mg PO DAILY pantoprazole 40 mg tablet,delayed release (DR/EC) 40 mg PO DAILY tramadol 50 mg tablet 25 mg PO BID PRN (Reason: pain) furosemide 20 mg tablet 10 mg PO DAILY metoprolol tartrate 25 mg tablet 12.5 mg PO BID cetirizine 10 MG capsule 10 mg PO DAILY Discontinued ferrous sulfate [FeroSul] 325 mg (65 mg iron) tablet 325 mg PO DAILY Referrals / Follow Up: Ana María Mazariegos DO [Primary Care Provider] - Within 1 Week Disposition Disposition (needs filled in before D/C Order can be placed): [facility] Charges/Coding Visit Charges Inpatient E&M: 77301 Disch Hosp >30min
[2023-10-28] MEDS: Tamsulosin HCl 0.4 MG Capsule PO (17:29)
--- NOTE | 2023-10-28 17:49 | CON.PCM.GI_ITS ---
HPI Consult Data Date of Consult: 10/28/23 HPI Narrative Reason for Consultation: Anemia HPI Narrative: FARHANA BAKER, is a 88 M who presented to the emergency department at outside [facility] ([place]) complaining of shortness of breath and mild chest pain. He has had worsening shortness of breath over the last few days. He is complaining of orthopnea and has been sleeping in a chair for the last few days due to his shortness of breath and significant exertional dyspnea. His chest pain resolved independently without any intervention. But he still complaining of shortness of breath specifically with exertion. He was found to have right-sided pleural effusion, presumably this is CHF related. He underwent thoracentesis. The fluid was transudative. He also had worsening kidney function. He is being followed by nephrology. I was asked to see him due to his persistent anemia and his history of gastric antral vascular ectasia. He is on pantoprazole 40 mg once a day. His hemoglobin was discovered to be 6.3. He was transfused with 2 units of PRBCs yesterday. Hb is 7.5. stool for occult blood did test positive. [facility] Medical History Pancytopenia Gastric antral vascular ectasia Anemia of chronic renal failure, stage 3 (moderate) Iron deficiency anemia due to chronic blood loss MDS (myelodysplastic syndrome), low grade Cataract Degenerative arthritis Hungry bone syndrome Thrombocytopenia Anemia Right bundle branch block (RBBB) with left anterior fascicular block History of non-ST elevation myocardial infarction (NSTEMI) (01/02/20) Emphysematous cholecystitis Hypomagnesemia GERD (gastroesophageal reflux disease) Obstructive sleep apnea TIA (transient ischemic attack) Type 2 diabetes mellitus CKD (chronic kidney disease) SAH (subarachnoid hemorrhage) (1995) Hypochromic anemia Essential (primary) hypertension Hyperlipidemia Atherosclerotic heart disease of [place] coronary artery without angina pectoris Home Medications ?Medication ?Instructions ?Recorded ?Last Taken ?Type multivitamin 1 tab PO QDAY vitamin 03/09/17 01/02/20 History pravastatin 80 mg tablet 80 mg PO QHS cholesterol 03/09/17 01/01/20 History (Pravachol) tamsulosin 0.4 mg capsule (Flomax) 0.4 mg PO DAILY urinary 10/19/18 01/02/20 History cetirizine 10 mg capsule 10 mg PO DAILY allergies 01/02/20 01/02/20 History Lactobacillus acidophilus 10 mg PO DAILY 12/19/22 Unknown History magnesium oxide 800 mg PO BID supplement 12/19/22 Unknown History pantoprazole 40 mg tablet,delayed 40 mg PO DAILY 12/19/22 Unknown History release tramadol 50 mg tablet 25 mg PO BID PRN pain 07/08/23 Unknown History furosemide 20 mg tablet 10 mg PO DAILY 09/16/23 Unknown History metoprolol tartrate 25 mg tablet 12.5 mg PO BID 09/16/23 Unknown History Allergy/AdvReac Type Severity Reaction Status Date / Time amoxicillin Allergy Severe unknown Verified 09/25/23 09:43 Tetanus Vaccines and Toxoid Allergy Severe unknown Verified 09/25/23 09:43 ranolazine (From Ranexa) AdvReac Severe Hallucinati Verified 09/25/23 09:43 ons acetaminophen (From Vicodin) AdvReac NEEDS Verified 09/25/23 09:43 FOLLOW-UP hydrocodone (From Vicodin) AdvReac confusion Verified 09/25/23 09:43 Opioids - Morphine Analogues AdvReac Nausea/Vom/ Verified 09/25/23 09:43 Diarrhea Thiazides AdvReac Other Verified 09/25/23 09:43 Family History Father , age 91 Hypertension Mother , age 80 Heart disease Congestive heart failure Diabetes Sister , age 50 ruptured brain aneurysm Surgical History H/O mastoidectomy Hx laparoscopic cholecystectomy (09/2018) History of inguinal hernia repair History of coronary artery stent placement (03/19/05) Social History household members: children housing: house Smoking Status: Former smoker quit date: 03/23/93 alcohol intake: never substance use type: does not use caffeine: Yes Type: coffee Number of servings: 4 ROS Constitutional Constitutional: Reports weakness; Denies anorexia, change in weight, chills, fatigue, fever(s), malaise, night sweats or other Eyes Eyes: Denies blurry vision, change in eye color, change in vision, discharge from eye(s), double vision, erythema, eye pain, loss of vision or other ENT HEENT: Denies abnormal hearing, dysphagia, ear pain, epistaxis, headache(s), hearing loss, nasal congestion, nasal discharge, post nasal drip, sinus pressure, sore throat or other Cardiovascular Cardiovascular: Reports chest pain, dyspnea on exertion, edema and orthopnea; Denies claudication, lightheadedness, palpitations, paroxysmal nocturnal dyspnea, rapid heart rate, syncope or other Respiratory/Chest Respiratory/Chest: Reports dyspnea and shortness of breath with exertion; Denies cough, excessive phlegm production, hemoptysis, productive cough, shortness of breath at rest, wheezing or other Gastrointestinal Gastrointestinal: Denies abdominal pain, coffee ground emesis, constipation, diarrhea, dyspepsia, hematemesis, hematochezia, loose stools, melena, nausea, vomiting or other Genitourinary Genitourinary: Denies burning urination, difficulty urinating, dysuria, hematuria, nocturia, urinary frequency, urinary hesitancy, urinary incontinence, urinary urgency or other Musculoskeletal Musculoskeletal: Reports back pain and joint pain; Denies arthralgias, joint stiffness, joint swelling, myalgias, neck pain or other Neurologic Neurologic: Denies abnormal gait, abnormal speech, confusion, disequilibrium, dizziness, focal weakness, headache(s), numbness, paresthesias, seizure-like activity, seizures, syncope, tingling, tremor(s) or other Psychiatric Psychiatric: Denies anxiety, depression, homicidal ideation, suicidal ideation or other Endocrine Endocrinology: Denies change in body appearance, cold intolerance, excessive sweating, heat intolerance, polydipsia, polyuria or other Hematologic/Lymphatic Hematologic/Lymphatic: Reports anemia, easy bleeding and easy bruising; Denies lymphadenopathy or other Allergic/Immunologic Allergic/Immunologic: Denies rhinitis, hives, eczemia, asthma or other Physical Exam Const alert, oriented x3 and no apparent distress Constitutional Narrative: frail General Appearance: cooperative, comfortable, well kempt and well developed Orientation / Consciousness: awake, oriented to person and oriented to place HEENT normocephalic, head/scalp atraumatic, moist oral mucous membranes and oropharynx normal; Negative for hearing grossly normal bilaterally Eyes PERRL, EOMs intact bilaterally and conjunctivae normal Eyes Narrative: Conjunctiva are pale bilaterally, no scleral icterus Neck no lymphadenopathy, supple, no JVD, thyroid normal and no carotid bruits Lymph Lymphatic: no lymphadenopathy noted and no lymphedema noted Resp normal respiratory effort, normal air movement, no retractions, no use of accessory muscles and clear to auscultation bilaterally Auscultation: Negative for rales, rhonchi or wheezes Cardio regular rate, regular rhythm, S1 normal heart sound, S2 normal heart sound, no murmurs, no rub, no gallops and no clicks GI normal to inspection, nondistended, normoactive bowel sounds, soft to palpation, non-tender and non-distended Extremity normal capillary refill, no clubbing, cyanosis or edema and no calf tenderness Extremity Narrative: Trace bilateral lower extremity pitting edema, no cyanosis or clubbing General Extremity: no tenderness to palpation of joints or extremities Skin no rashes or lesions noted, skin turgor normal, no jaundice, no petechiae and no mottling Skin Narrative: Skin is pale, few scattered ecchymosis in various stages of healing General Skin Exam: no breakdown Neuro oriented x3, CN's II-XII intact bilaterally, moves all extremities, no focal motor deficits and no sensory deficits noted Neuro Narrative: Generalized weakness with no focal deficits Sensorium / Orientation: awake and alert Speech: speech normal Motor Exam: strength 5/5 throughout and general weakness Psych thought process normal, cooperative and affect normal Appearance: appropriate Lab / Micro Data 10/28/23 05:25 10/28/23 05:25 Labs: Laboratory Results - last 24 hr 10/24/23 14:15: Crossmatch See Detail 10/27/23 19:13: Blood Type A POSITIVE, Antibody Screen POSITIVE 10/28/23 05:25: WBC 4.8, RBC 2.19 L, Hgb 7.5 L, Hct 22.6 L, MCV 103.2 H, MCH 34.2 H, MCHC 33.2, RDW Std Deviation 74.9 H, RDW Coeff of Mohini 20.2 H, Plt Count 107 L, MPV 9.4, Immature Gran % (Auto) 1.000 H, Neut % (Auto) 77.2 H, Lymph % (Auto) 11.1 L, [place] % (Auto) 8.0, Eos % (Auto) 2.1, Baso % (Auto) 0.6, Absolute Neuts (auto) 3.7, Absolute Lymphs (auto) 0.53 L, Nucleated RBC % 0, Differential Comment SCANNED, Sodium 136, Potassium 4.9, Chloride 110 H, Carbon Dioxide 18.0 L, Anion Gap 8, BUN 43 H, Creatinine 2.50 H, Estim Creat Clear Calc 19.80, Est GFR (MDRD) Af Amer 31 L, Est GFR (MDRD) Non-Af 26 L, BUN/Creatinine Ratio 17.2, Glucose 189 H, Calcium 8.2 L Assessment & Plan Assessment/Plan (1) Gastric antral vascular ectasia: (2) Anemia: PLAN: Plan 88-year-old with history of CHF, CKD, COPD, MDS causing anemia, thrombocytopenia, gastric antral vascular ectasia who has been having persistent anemia requiring blood transfusions. His hemoglobin has come up to 7.5. After talking to his daughter that is appropriate for him. His iron is 95 and his ferritin is 1800. So he is going to go to [place] to transitional care unit for rehab and they can check his blood work. Charges/Coding Visit Charges Inpatient E&M: 23558 Init Hosp L3
--- NOTE | 2023-10-28 17:58 | NURSING ---
Report called to EFREN An at [facility]. 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
== END 2023-10-28 19:09 | DRG 291 ==
PROVIDERS: Internal Medicine; Internal Medicine Nephrology; Admitting Provider Internal Medicine; Visit Provider Student in an Organized Health Care Education/Training Program
DX: I13.0 Hypertensive heart and chronic kidney disease with heart failure and stage 1 through stage 4 chronic kidney disease, or unspecified chronic kidney disease (principal); I50.33 Acute on chronic diastolic (congestive) heart failure; D61.818 Other pancytopenia; N17.9 Acute kidney failure, unspecified; J90 Pleural effusion, not elsewhere classified; N13.8 Other obstructive and reflux uropathy; N18.4 Chronic kidney disease, stage 4 (severe); J91.8 Pleural effusion in other conditions classified elsewhere; D69.6 Thrombocytopenia, unspecified; D63.1 Anemia in chronic kidney disease; D46.9 Myelodysplastic syndrome, unspecified; E11.22 Type 2 diabetes mellitus with diabetic chronic kidney disease; J44.9 Chronic obstructive pulmonary disease, unspecified; E78.5 Hyperlipidemia, unspecified; I25.10 Atherosclerotic heart disease of native coronary artery without angina pectoris; K31.819 Angiodysplasia of stomach and duodenum without bleeding; E87.5 Hyperkalemia; Z79.891 Long term (current) use of opiate analgesic; Z82.3 Family history of stroke; Z87.891 Personal history of nicotine dependence; N40.1 Benign prostatic hyperplasia with lower urinary tract symptoms; Z66 Do not resuscitate; Z95.5 Presence of coronary angioplasty implant and graft; R53.81 Other malaise; R09.02 Hypoxemia; Z51.5 Encounter for palliative care
CPT/HCPCS: 32555; 36415; 71045; 71046; 80048; 80053; 81001; 82150; 82274; 82570; 82607; 82945; 82962; 83540; 83550; 83615; 83735; 83880; 83986; 84100; 84156; 84157; 84300; 84484; 84550; 85025; 85045; 86256; 86850; 86870; 86900; 86901; 86920; 86921; 86922; 87070; 87075; 87205; 88108; 88305; 88313; 89050; 93005; 94668; 97110; 97116; 97162; 97166; 97530; 97535; 99252; J7030; J7040; P9016; P9047; A4216; G0463; J1940